=== PATIENT | male | born 1950 | race Caucasian/White ===

== ENCOUNTER 2023-04-25 13:32 | Emergency (ER) | payer OTHER, BC ==
--- OUTSIDE RECORDS SUMMARY | 2023-04-25 14:09 | XMS REPORT | Continuity of Care Document ---
:[address] [facility] t Address [address] [facility] [address] [place] [address] Care Team Providers Name Role Phone LASHONDA GREENFIELD Primary Care Physician Unavailable KRANTHI DOAN Attending Clinician Unavailable Franki HARRIS, Kranthi Staton Attending Clinician Ian Quach MD Attending Clinician Evan Short MD Attending Clinician ELLE COLEMAN Attending Clinician Unavailable Elle Coleman MD Attending Clinician Jane Lee MD Attending Clinician Darling Sterling Attending Clinician Mila Little Attending Clinician Unavailable Mila Little Attending Clinician Unavailable Lashonda Greenfield MD Attending Clinician Denisse Hall MA Attending Clinician Unavailable Destiny Arellano MD Attending Clinician Aki Fleming MD Attending Clinician Yaron Douglas MD Attending Clinician YARON DOUGLAS Attending Clinician Unavailable Zachery Thomas MD Attending Clinician [phone] Skye Shields Attending Clinician [phone] Jacob HARRIS, Ramya Attending Clinician RL RATLIFF Attending Clinician Unavailable Rl Ratliff MD Attending Clinician Unavailable Sourav HARRIS, Akua Attending Clinician Andreina Mendez CRNA Attending Clinician [phone] Arti HARRIS, Ismael Reed Attending Clinician [phone] Brian Medina MD Attending Clinician Hieu Renteria DO Attending Clinician [phone] Tonia HARRIS, Patrick Attending Clinician Shirley Love MA Attending Clinician Unavailable Julianne Stout Attending Clinician Loren Maya Attending Clinician Unavailable Peter HARRIS, Yolanda Child Attending Clinician DINORA YI Attending Clinician Unavailable AKI FLEMING Attending Clinician Unavailable LIZ JORDAN Attending Clinician Unavailable KRANTHI DOAN Admitting Clinician Unavailable ELLE COLEMAN Admitting Clinician Unavailable RL RATLIFF Admitting Clinician Unavailable CATIE CM Admitting Clinician UnavailLIZ Posada Admitting Clinician Unavailable Payers Payer Name Policy Type Policy Number Effective Date Expiration Date S ource MEDICARE A B [id number] 2015 00:00:00 [facility] IN[facility]MN[facility] [place] [id number] 2015 OS 00:00:00 Problems Condition Condition Condition Status Onset Resolution Last Treating Co mments Source Name Details Category Date Date Treatment Clinician Date Esophageal Esophageal Disease Recurre [facility] 00 [place] Hard of Hard of Disease Active 2021-10 [facility] hearing hearing 0-13 [facility] 00:[facility]: Hospita 00 l Hearing Hearing Disease Active [facility] loss loss 9-16 [facility]: Medical 00 [place] [facility] Central Disease Active [facility] sleep sleep 7-07 st apnea apnea 00:00: Hospita 00 l Malignant Malignant Disease Active Overview: [facility] neoplasm neoplasm 3-[address] of of 00:00: g of this Hospita prostate prostate 00 note l might be different from the original. Previousl y Billed Type 2 Type 2 Disease Active Overview: Method i diabetes diabetes 2-[address] mellitus mellitus 00:00: g of this Hos steph with with 00 note l diabetic diabetic might be neuropathy neuropathy different , , from the unspecifie unspecifie original. 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 failure failure Previousl y Billed Erectile Erectile Disease [facility] due to due to 00[facility]: Medical medical medical 00 Center condition condition in male in male Complicati Complicati Disease Recurre [facility] implanted implanted 00:00: Medi ferny penile penile 00 Center prosthesis prosthesis Erectile Erectile Disease Active [facility] dysfunctio dysfunctio 9-11 [facility] n n 00:00: Medical 00 Center Corporo-ve Corporo-ve Disease Active [facility] 9[facility]11 [facility] occlusive occlusive 00:00: Medi ferny erectile erectile 00 Center dysfunctio dysfunctio n n Class 1 Class 1 Disease Active 2017-10 Overview: Meth karina obesity obesity 0-[address] due to due to 00:00: g of this Hospita excess excess 00 note l calories calories might be without without different serious serious from the comorbidit comorbidit original. y with y with Currently body mass body mass working index index on losing (BMI) of (BMI) of weightWal 30.0 to 30.0 to ks and 30.9 in 30.9 in swims for adult adult exercise. Last Assessmen t & Plan: Formattin g of this note might be different from the original. Obesity is unchanged .Discusse d the patient's BMI. The BMI is above average; BMI managemen t plan is completed .He will continue his current diet plan and exercise. Hyperglyce Hyperglyce Disease Active Overview : [facility] jozef jozef 07-[address] 00:00: g of this Hospita 00 note l might be different from the original. Elevated BG in the past.Last Assessmen t & Plan: Formattin g of this note might be different from the original. Check HgbA1c today Allergic Allergic Disease Active 2015-10 [facility] di conjunctiv conjunctiv 11-12 st itis itis 00:00: Hospita 00 l Hypogonadi Hypogonadi Disease Active 2015-10 Overview : [facility] sm in male sm in male [facility] 00:00: g of this Hospita 00 note l might be different from the original. Followed by Kyara lo seen in 04/2018Las t Assessmen t & Plan: Formattin g of this note might be different from the original. Continue current medicatio ns Vasculogen Vasculogen Disease Active 2015-[address] erectile erectile 00:00: Hospit a dysfunctio dysfunctio 00 l n n Lipoma of Lipoma of Disease Active 2015-[address] 00:00: Hospita 00 l Benign Benign Disease Active [facility] prostatic prostatic 12-14 st hyperplasi hyperplasi 00:00: Ho spita a a 00 l Essential Essential Disease Active Overview: [facility] hypertensi hypertensi 12-[address] on on 00:00: g of this Hospita 00 note l might be different from the original. 01/2020BP elevatedH CTZ increased to 25 mg daily.Las t Assessmen t & Plan: Formattin g of this note might be different from the original. Continue current medicatio ns Folliculit Folliculit Disease Active M ethodi is is 3 st 00:00: Hospita 00 l HLD HLD Disease Active Overview: Method i (hyperlipi (hyperlipi 3-[address] demia) demia) 00:00: g of this Hospita 00 note l might be different from the original. Takes statin dailyLDL was 50 in 04/[address] Assessmen t & Plan: Formattin g of this note might be different from the original. Lipid abnormali ties are stable.Ph fabiola woodard as ordered.L ipids will be reassesse d in 1 year. Coronary Coronary Disease Active Overview: Me anderson arterioscl arterioscl 12-[address] erosis erosis 00:00: g of this Hospita 00 note l might be different from the original. On HEMANTH, BB, ASAFollow ed by HSRJoe Assessaguilar t & Plan: Formattin g of this note might be different from the original. Coronary artery disease is stable.Co ntinue current treatment regimen.C ardiac status will be reassesse d in 1 year. Impotence Impotence Disease Active [facility] 12-14 st 00:00: Hospita 00 l Type 2 Type 2 Disease Active [facility] diabetes diabetes st mellitus mellitus Hospit a l Allergies, Adverse Reactions, Alerts Allergy Allergy Status Severity Reaction(s) Onset Inactive Treating Comm ents Source Name Type Date Date Clinician No Known Propensi Active Method i Drug ty to 12-14 st Allergie adverse 00:00: Hospita s reaction 00 l s to drug NO KNOWN Allergy Active [facility] ALLERGIE S Family History Family Member Diagnosis Comments Start Date Stop Date Source Natural father Stroke [facility] Natural mother Breast cancer [facility] Natural mother Cancer [facility] Natural mother Miscarriages / Method [facility] Stillbirths Natural sister Depression [facility] Social History Social Habit Start Date Stop Date Quantity Comments Source History of tobacco Cigarette Smoker [facility] History SDOH [facility] Alcohol Std Drinks Medica l Center History SDOH [facility] Alcohol Binge Medical Apoor[facility] Gender identity [facility] Sexual orientation [facility] Hospital Exposure to 2023-01-27 2023-02-[address] [facility] SARS-CoV-2 (event) 00:00:00 08:46:00 Medica l Center Alcohol intake 2023-01-25 2023-01-25 Current drinker [facility] 00:00:00 00:00:00 of alcohol Hospital (finding) History of Social 2023-01-25 2023-01-[address] function 00:00:00 00:00:00 Hospital History SDOH Social 2022-12-17 2022-12-17 2 [facility] Phone 00:00:00 00:00:00 Hospita l History [facility] Social 2022-12-17 2022-12-17 2 [facility] Get 00:00:00 00:00:00 Hospital Together History [facility] Social 2022-12-17 2022-12-17 1 [facility]ctions Yazdanism 00:00:00 00:00:00 Hospit al History [facility] Social 2022-12-17 2022-12-17 2 [facility]ctions 00:00:00 00:00:00 Hospital Membership History [facility] Social 2022-12-17 2022-12-17 1 [facility]ctions 00:00:00 00:00:00 Hospital Meetings History [facility] Social 2022-12-17 2022-12-17 7 [facility] Living 00:00:00 00:00:00 Hospit al History [facility] Food 2022-12-17 2022-12-[address] Worry 00:00:00 00:00:00 Hospital History [facility] Food 2022-12-17 2022-12-[address] Scarcity 00:00:00 00:00:00 Hospital History [facility] 2022-12-17 2022-12-17 2 [facility] Transport Med 00:00:00 00:00:00 Hospital History [facility] 2022-12-17 2022-12-17 2 [facility] Transport Non-Med 00:00:00 00:00:00 Hospita l Cigarettes smoked 2022-02-08 2022-02-[address] current (pack per 00:00:00 00:00:00 Hospita l day) - Reported Cigarette 2022-02-08 2022-02-08 [facility] pack-years 00:00:00 00:00:00 Hospital Tobacco use and 2022-02-08 2022-02-08 Smokeless [facility] exposure 00:00:00 00:00:00 tobacco non-user Hospital History [facility] 2019-06-10 2019-06-[address] [facility] Alcohol Frequency 00:00:00 00:00:[address] [facility] Alcohol Comment 2016-09-12 2016-09-12 drink alcohol Method ist 00:00:00 00:00:00 very Hospital infrequently, with meal Sex Ass[birth year] At [birth year] [facility] 00:00:00 00:00:00 Hospital Smoking Status Start Date Stop Date Source Tobacco smoking Rosalee Smith consumption unknown Ex-smoker 2023-01-17 00:00:00 2023-01-[address] [facility] 00:[facility]:00 Center Medications Ordered Filled Start Stop Current Ordering Indication Dosage Frequency Signature Comments Components Source Medication Medication Date Date Medication? Clinician (SIG) Name Name hydroCHLORO Yes 12.5mg QD Take [address] thiazide 5-05 capsule [facility] (MICROZIDE) 16:14: (12.5 mg Me dical 12.5 mg 14 total) by Center capsule mouth in the morning. lisinopriL 0 Yes 10mg QD Take 1 [facility] (PRINIVIL,Z 5-05 tablet (10 L[facility] kes ESTRIL) 10 16:14: mg total) Me dical MG tablet 14 by mouth Center in the morning. tamsulosin 0 Yes .4mg QD Take 1 [facility] (FLOMAX) 5-05 capsule [facility] 0.4 mg Cap 16:14: (0.4 mg Medi ferny 24 hr 14 total) by Center capsule mouth in the morning. carvediloL 0 Yes 25mg QD Take 1 [facility] (COREG) 25 5-05 tablet (25 Ene es MG tablet 16:14: mg total) Med ical 14 by mouth Center in the morning. metFORMIN 0 Yes 500mg Take 1 [facility] (GLUCOPHAGE 5-05 tablet [facility] ) 500 MG 16:14: (500 mg Medica l tablet 14 total) by Center mouth 2 (two) times daily with breakfast and dinner. testosteron 2022-0 Yes Q14D Inject [facility] cypionate 5-05 intramuscu Lili kes (DEPO-TESTO 16:14: larly Medic al TERONE 14 every 14 Center CYPIONATE) (fourteen) 100 mg/mL days. injection anastrozole 0 Yes 1mg Q7D Take [address] (ARIMIDEX) 5-05 tablet (1 [facility] s 1 mg tablet 16:14: mg total) M edical 14 by mouth Center once a week Weekly on Sundays. rosuvastati 0 Yes 40mg QD Take [address] n (CRESTOR) 5-05 tablet (40 L[facility] kes 40 MG 16:14: mg total) Medical tablet 14 by mouth Center in the morning. acetaminoph 202-0 Yes 650mg Take 20.[address] [facility] en 650 5-05 mLs (650 [facility] mg/20.3 mL 00:00: mg total) Me dical Soln 00 by mouth Center every 4 (four) hours. traMADoL 2022-0 2023- Yes 50mg Take [address] (ULTRAM) 50 5-05 05-15 tablet (50 L ukes mg tablet 00:00: 23:59 mg total) Me dical 00 :00 by mouth Center every 6 (six) hours as needed for up to 10 days. Max Daily Amount: 200 mg hydroCHLORO 2022-0 Yes 12.5mg QD Take [address] thiazide 5-02 capsule [facility] (MICROZIDE) 10:47: (12.5 mg Me dical 12.5 mg 25 total) by Center capsule mouth in the morning. lisinopriL 2022-0 Yes 10mg QD Take 1 [facility] (PRINIVIL,Z 5-02 tablet (10 Lili kes ESTRIL) 10 10:47: mg total) Me dical MG tablet 25 by mouth Center in the morning. tamsulosin 2022-0 Yes .4mg QD Take 1 [facility] (FLOMAX) 5-02 capsule [facility] 0.4 mg Cap 10:47: (0.4 mg Medi ferny 24 hr 25 total) by Center capsule mouth in the morning. carvediloL 2022-0 Yes 25mg QD Take 1 [facility] (COREG) 25 5-02 tablet (25 Ene es MG tablet 10:47: mg total) Med ical 25 by mouth Center in the morning. metFORMIN 2022-0 Yes 500mg Take 1 [facility] (GLUCOPHAGE 5-02 tablet [facility] ) 500 MG 10:47: (500 mg Medica l tablet 25 total) by Center mouth 2 (two) times daily with breakfast and dinner. testosteron 2022-0 Yes Q14D Inject [facility] e cypionate 5-02 intramuscu Lili kes (DEPO-TESTO 10:47: larly Medic al TERONE 25 every 14 Center CYPIONATE) (fourteen) 100 mg/mL days. injection anastrozole 2022-0 Yes 1mg QD Take [address] (ARIMIDEX) 5-02 tablet (1 Luke s 1 mg tablet 10:47: mg total) M edical 25 by mouth Center in the morning. rosuvastati 2023-0 Yes 40mg QD Take [address] n (CRESTOR) 5-02 tablet (40 Lili kes 40 MG 10:47: mg total) Medical tablet 25 by mouth Center in the morning. hydroCHLORO 2023-0 Yes 12.5mg QD Take [address] thiazide 5-02 capsule [facility] (MICROZIDE) 10:47: (12.5 mg Me dical 12.5 mg 25 total) by Center capsule mouth in the morning. lisinopriL 2023-0 Yes 10mg QD Take 1 [facility] (PRINIVIL,Z 5-02 tablet (10 Lili kes ESTRIL) 10 10:47: mg total) Me dical MG tablet 25 by mouth Center in the morning. tamsulosin 3-0 Yes .4mg QD Take 1 [facility] (FLOMAX) 5-02 capsule [facility] 0.4 mg Cap 10:47: (0.4 mg Medi ferny 24 hr 25 total) by Center capsule mouth in the morning. carvediloL 3-0 Yes 25mg QD Take 1 [facility] (COREG) 25 5-02 tablet (25 Ene es MG tablet 10:47: mg total) Med ical 25 by mouth Center in the morning. metFORMIN 2022-0 Yes 500mg Take 1 [facility] (GLUCOPHAGE 5-02 tablet [facility] ) 500 MG 10:47: (500 mg Medica l tablet 25 total) by Center mouth 2 (two) times daily with breakfast and dinner. testosteron 2022-0 Yes Q14D Inject [facility] e cypionate 5-02 intramuscu Lili kes (DEPO-TESTO 10:47: larly Medic al TERONE 25 every 14 Center CYPIONATE) (fourteen) 100 mg/mL days. injection anastrozole 3-0 Yes 1mg QD Take [address] (ARIMIDEX) 5-02 tablet (1 Luke s 1 mg tablet 10:47: mg total) M edical 25 by mouth Center in the morning. rosuvastati 2023-0 Yes 40mg QD Take [address] n (CRESTOR) 5-02 tablet (40 Lili kes 40 MG 10:47: mg total) Medical tablet 25 by mouth Center in the morning. hydroCHLORO 2023-0 Yes 12.5mg QD Take [address] thiazide 4-27 capsule [facility] (MICROZIDE) 10:49: (12.5 mg Me dical 12.5 mg 01 total) by Center capsule mouth in the morning. lisinopriL 2023-0 Yes 10mg QD Take 1 [facility] (PRINIVIL,Z 4-27 tablet (10 Lili kes ESTRIL) 10 10:49: mg total) Me dical MG tablet 01 by mouth Center in the morning. tamsulosin 2022-0 Yes .4mg QD Take 1 [facility] (FLOMAX) 4-27 capsule [facility] 0.4 mg Cap 10:49: (0.4 mg Medi ferny 24 hr 01 total) by Center capsule mouth in the morning. carvediloL 2022-0 Yes 25mg QD Take 1 [facility] (COREG) 25 4-27 tablet (25 Ene es MG tablet 10:49: mg total) Med ical 01 by mouth Center in the morning. metFORMIN 2022-0 Yes 500mg Take 1 [facility] (GLUCOPHAGE 4-27 tablet [facility] ) 500 MG 10:49: (500 mg Medica l tablet 01 total) by Center mouth 2 (two) times daily with breakfast and dinner. testosteron 2022-0 Yes Q14D Inject [facility] cypionate 4-27 intramuscu Lili kes (DEPO-TESTO 10:49: larly Medic al TERONE 01 every 14 Center CYPIONATE) (fourteen) 100 mg/mL days. injection anastrozole 2022-0 Yes 1mg QD Take [address] (ARIMIDEX) 4-27 tablet (1 Luke s 1 mg tablet 10:49: mg total) M edical 01 by mouth Center in the morning. rosuvastati 202-0 Yes 40mg QD Take [address] n (CRESTOR) 4-27 tablet (40 Lili kes 40 MG 10:49: mg total) Medical tablet 01 by mouth Center in the morning. hydroCHLORO 2023-0 Yes 12.5mg QD Take [address] thiazide 4-27 capsule [facility] (MICROZIDE) 10:49: (12.5 mg Me dical 12.5 mg 01 total) by Center capsule mouth in the morning. lisinopriL 2023-0 Yes 10mg QD Take 1 [facility] (PRINIVIL,Z 4-27 tablet (10 Lili kes ESTRIL) 10 10:49: mg total) Me dical MG tablet 01 by mouth Center in the morning. tamsulosin 2023-0 Yes .4mg QD Take 1 [facility] (FLOMAX) 4-27 capsule [facility] 0.4 mg Cap 10:49: (0.4 mg Medi ferny 24 hr 01 total) by Center capsule mouth in the morning. carvediloL 2023-0 Yes 25mg QD Take 1 [facility] (COREG) 25 4-27 tablet (25 Ene es MG tablet 10:49: mg total) Med ical 01 by mouth Center in the morning. metFORMIN 2023-0 Yes 500mg Take 1 [facility] (GLUCOPHAGE 4-27 tablet [facility] ) 500 MG 10:49: (500 mg Medica l tablet 01 total) by Center mouth 2 (two) times daily with breakfast and dinner. testosteron 2023-0 Yes Q14D Inject [facility] cypionate 4-27 intramuscu Lili kes (DEPO-TESTO 10:49: larly Medic al TERONE 01 every 14 Center CYPIONATE) (fourteen) 100 mg/mL days. injection anastrozole 2023-0 Yes 1mg QD Take [address] (ARIMIDEX) 4-27 tablet (1 [facility] 1 mg tablet 10:49: mg total) M edical 01 by mouth Center in the morning. rosuvastati 2023-0 Yes 40mg QD Take [address] n (CRESTOR) 4-27 tablet (40 L[facility] kes 40 MG 10:49: mg total) Medical tablet 01 by mouth Center in the morning. hydroCHLORO 2023-0 Yes 12.5mg QD Take [address] thiazide 4-26 capsule [facility] (MICROZIDE) 11:07: (12.5 mg Me dical 12.5 mg 05 total) by Center capsule mouth in the morning. lisinopriL 2023-0 Yes 10mg QD Take 1 [facility] (PRINIVIL,Z 4-26 tablet (10 L[facility] kes ESTRIL) 10 11:07: mg total) Me dical MG tablet 05 by mouth Center in the morning. tamsulosin 2023-0 Yes .4mg QD Take 1 [facility] (FLOMAX) 4-26 capsule [facility] 0.4 mg Cap 11:07: (0.4 mg Medi ferny 24 hr 05 total) by Center capsule mouth in the morning. carvediloL 2023-0 Yes 25mg QD Take 1 [facility] (COREG) 25 4-26 tablet (25 Ene es MG tablet 11:07: mg total) Med ical 05 by mouth Center in the morning. metFORMIN 2023-0 Yes 500mg Take 1 [facility] (GLUCOPHAGE 4-26 tablet [facility] ) 500 MG 11:07: (500 mg Medica l tablet 05 total) by Center mouth 2 (two) times daily with breakfast and dinner. testosteron 2022-0 Yes Q14D Inject [facility] cypionate 4-26 intramuscu Lili kes (DEPO-TESTO 11:07: larly Medic al TERONE 05 every 14 Center CYPIONATE) (fourteen) 100 mg/mL days. injection anastrozole 2022-0 Yes 1mg QD Take [address] (ARIMIDEX) 4-26 tablet (1 [facility] s 1 mg tablet 11:07: mg total) M edical 05 by mouth Center in the morning. rosuvastati 3-0 Yes 40mg QD Take [address] n (CRESTOR) 4-26 tablet (40 Lili kes 40 MG 11:07: mg total) Medical tablet 05 by mouth Center in the morning. ondansetron 2023-0 Yes [id number] 8mg Q8H Take 1 [facility] (Zofran) 8 4-14 tablet (8 st MG tablet 00:00: mg total) Hos steph 00 by mouth l every 8 (eight) hours as needed for nausea or vomiting. ondansetron 2023-0 Yes [id number] 8mg Q8H Take 1 [facility] (Zofran) 8 4-14 tablet (8 st MG tablet 00:00: mg total) Hos steph 00 by mouth l every 8 (eight) hours as needed for nausea or vomiting. hydroCHLORO 2023-0 Yes 12.5mg QD Take [address] thiazide 4-06 capsule [facility] (MICROZIDE) 13:59: (12.5 mg Me dical 12.5 mg 01 total) by Center capsule mouth in the morning. lisinopriL 2023-0 Yes 10mg QD Take 1 [facility] (PRINIVIL,Z 4-06 tablet (10 Lili kes ESTRIL) 10 13:59: mg total) Me dical MG tablet 01 by mouth Center in the morning. tamsulosin 3-0 Yes .4mg QD Take 1 [facility] (FLOMAX) 4-06 capsule [facility] 0.4 mg Cap 13:59: (0.4 mg Medi ferny 24 hr 01 total) by Center capsule mouth in the morning. carvediloL 3-0 Yes 25mg QD Take 1 [facility] (COREG) 25 4-06 tablet (25 Ene es MG tablet 13:59: mg total) Med ical 01 by mouth Center in the morning. metFORMIN 3-0 Yes 500mg Take 1 [facility] (GLUCOPHAGE 4-06 tablet [facility] ) 500 MG 13:59: (500 mg Medica l tablet 01 total) by Center mouth 2 (two) times daily with breakfast and dinner. testosteron 2022-0 Yes Q14D Inject [facility] cypionate 4-06 intramuscu Lili kes (DEPO-TESTO 13:59: larly Medic al TERONE 01 every 14 Center CYPIONATE) (fourteen) 100 mg/mL days. injection anastrozole 3-0 Yes 1mg QD Take [address] (ARIMIDEX) 4-06 tablet (1 Luke s 1 mg tablet 13:59: mg total) M edical 01 by mouth Center in the morning. rosuvastati 2022-0 Yes 40mg QD Take [address] n (CRESTOR) 4-06 tablet (40 Lili kes 40 MG 13:59: mg total) Medical tablet 01 by mouth Center in the morning. ZINC 3-0 2023- No Take by [facility]i ACETATE 3-07 03-[address] ORAL 15:15: 00:00 Hospita 01 :00 l ZINC 2023-0 2023- No Take by [facility]i ACETATE 3-07 03-[address] ORAL 15:15: 00:00 Hospita 01 :00 l anastrozole 2023-0 Yes 1mg Q1W Take 1 Meth karina (ARIMIDEX) 3-07 tablet (1 st 1 mg chemo 13:13: mg total) Ho spita tablet 46 by mouth l every 7 days. anastrozole 2023-0 Yes 1mg Q1W Take 1 Meth karina (ARIMIDEX) 3-07 tablet (1 st 1 mg chemo 13:13: mg total) Ho spita tablet 46 by mouth l every 7 days. terbinafine Yes [id number] 250mg QD Take 1 [facility] HCL 3-[address] (LamiSIL) 00:00: (250 mg Hospi ta 250 mg 00 total) by l tablet mouth daily. Finger Nails - 6 weeks, Toenails - 12 weeks terbinafine Yes [id number] 250mg QD Take 1 [facility] HCL 3-[address] (LamiSIL) 00:00: (250 mg Hospi ta 250 mg 00 total) by l tablet mouth daily. Finger Nails - 6 weeks, Toenails - 12 weeks aspirin 2023- No [id number] 81mg QD Take 1 [facility]odi (ECOTRIN) 12-18-07 tablet (81 st 81 MG 00:00: 05:59 mg total) Hospit a enteric 00 :00 by mouth l coated daily. tablet aspirin 2023- No [id number] 81mg QD Take 1 Met [facility]odi (ECOTRIN) 12-18-07 tablet (81 st 81 MG 00:00: 05:59 mg total) Hospit a enteric 00 :00 by mouth l coated daily. tablet empaglifloz 2022- No [id number] 10mg QD Take 1 [facility] in 12-03-22 tablet (10 st (Jardiance) 00:00: 04:59 mg total) Hospita 10 mg 00 :00 by mouth l tablet daily for tablet 90 days. empaglifloz 2022- No [id number] 10mg QD Take 1 [facility] in 12-03-22 tablet (10 st (Jardiance) 00:00: 04:59 mg total) Hospita 10 mg 00 :00 by mouth l tablet daily for tablet 90 days. lancets Yes [id number] USE ONE [facility] (onetouch 2-[address] ultrasoft) 00:00: TEST TWICE H ospita misc 00 A DAY l lancets 2022- Yes [id number] USE ONE [facility] (onetouch 2-[address] ultrasoft) 00:00: TEST TWICE H ospita misc 00 A DAY l lisinopriL 2021-10 Yes TAKE ONE Met [facility]odi (PRINIVIL) 1-[address] 10 mg 00:00: MOUTH Hospita tablet 00 DAILY l hydroCHLORO 2021-10 Yes TAKE ONE Me thodi thiazide 1-[address] (HYDRODIURI 00:00: MOUTH Hospi ta L) 25 MG 00 DAILY l tablet lisinopriL 2021-10 Yes TAKE ONE Met hodi (PRINIVIL) 1-[address] 10 mg 00:00: MOUTH Hospita tablet 00 DAILY l hydroCHLORO 2021-10 Yes TAKE ONE Me thodi thiazide 1-[address] (HYDRODIURI 00:00: MOUTH Hospi ta L) 25 MG 00 DAILY l tablet empaglifloz 2021-10- No [id number] 10mg QD Take 1 [facility] in 10-30-18 tablet (10 st (Jardiance) 00:00: 05:59 mg total) Hospita 10 mg 00 :00 by mouth l tablet daily for tablet 30 days. empaglifloz 2021-10- No [id number] 10mg QD Take 1 [facility]i in 10-3018 tablet (10 st (Jardiance) 00:00: 05:59 mg total) Hospita 10 mg 00 :00 by mouth l tablet daily for tablet 30 days. ZINC 2021-10 Yes Take by Methodi ACETATE 0-[address] ORAL 10:03: Hospita 01 l anastrozole 2021-10 Yes 1mg Q1W Take 1 mg M ethodi (ARIMIDEX) 0-[address] 1 mg chemo 10:03: every 7 Hosp shelly tablet 01 days. l rosuvastati 2021- No 10mg QD Take [address] [facility] (CRESTOR) 06-30-16 by mouth Ene es 10 MG 12:15: 00:00 daily. Medical tablet 01 :00 Center metFORMIN 2021- No 500mg Take [address] (GLUMETZA) 06-30-16 [facility] 12:15: 00:00 [facility] Medical (MOD) 24 hr 01 :00 daily with Ce nter tablet breakfast. rosuvastati 2021- No 10mg QD Take [address] [facility] (CRESTOR) 917 09-16 by mouth [facility] 10 MG 12:15: 00:00 daily. Medical tablet 01 :00 [place] metFORMIN 2021-0 2022- No 500mg Take [address] [facility] [address] [facility] (GLUMETZA) 9-17 09-16 [facility] MG 12:15: 00:00 mouth Medical (MOD) 24 hr 01 :00 daily with Ce nter tablet breakfast. rosuvastati 2021-0 2022- No 10mg QD Take [address] [facility] (CRESTOR) 06-30-16 by mouth [facility] 10 MG 12:15: 00:00 daily. Medical tablet 01 :00 [place] metFORMIN 2021-0 2021- No 500mg Take [address] [facility] [address] [facility] (GLUMETZA) 06-30-16 [facility] MG 12:15: 00:00 mouth Medical (MOD) 24 hr 01 :00 daily with Ce nter tablet breakfast. rosuvastati 2021-0 2- No 10mg QD Take [address] [facility] (CRESTOR) 06-30-16 by mouth Ene es 10 MG 12:15: 00:00 daily. Medical tablet 01 :00 [place] metFORMIN 2021-0 2021- No 500mg Take [address] [facility] [address] [facility] (GLUMETZA) 06-30-16 [facility] MG 12:15: 00:00 mouth Medical (MOD) 24 hr 01 :00 daily with Ce nter tablet breakfast. rosuvastati 2021-0 2- No 10mg QD Take [address] [facility] (CRESTOR) 06-30-16 by mouth Ene [facility] 10 MG 12:15: 00:00 daily. Medical tablet 01 :00 [place] metFORMIN 2021-0 2- No 500mg Take [address] [facility] [address] [facility] (GLUMETZA) 06-30 09-16 [facility] MG 12:15: 00:00 mouth Medical (MOD) 24 hr 01 :00 daily with Ce nter tablet breakfast. rosuvastati 2021-0 2- No 10mg QD Take [address] [facility] (CRESTOR) 06-30-16 by mouth Ene [facility] 10 MG 12:15: 00:00 daily. Medical tablet 01 :00 [place] metFORMIN 2021-0 2022- No 500mg Take [address] [facility] [address] [facility] (GLUMETZA) 9-17 09-16 [facility] MG 12:15: 00:00 mouth Medical (MOD) 24 hr 01 :00 daily with Ce nter tablet breakfast. rosuvastati 2021-0 2022- No 10mg QD Take [address] [facility] (CRESTOR) 06-30-16 by mouth Ene [facility] 10 MG 12:15: 00:00 daily. Medical tablet 01 :00 [place] metFORMIN 2021-2- No 500mg Take [address] [facility] [address] (GLUMETZA) 06-30-16 [facility] MG 12:15: 00:00 mouth Medical (MOD) 24 hr 01 :00 daily with Ce nter tablet breakfast. rosuvastati 2021-0 2- No 10mg QD Take [address] [facility] (CRESTOR) 06-30-16 by mouth [facility] 10 MG 12:15: 00:00 daily. Medical tablet 01 :00 [place] metFORMIN 2021-2021- No 500mg Take [address] [facility] [address] [facility] (GLUMETZA) 06-30-16 [facility] MG 12:15: 00:00 mouth Medical (MOD) 24 hr 01 :00 daily with Ce nter tablet breakfast. rosuvastati 2021-0 2- No 10mg QD Take [address] [facility] (CRESTOR) 06-30-16 by mouth [facility] 10 MG 12:15: 00:00 daily. Medical tablet 01 :00 [place] metFORMIN 2021-0 2- No 500mg Take [address] [facility] [address] (GLUMETZA) 06-30-16 [facility] MG 12:15: 00:00 mouth Medical (MOD) 24 hr 01 :00 daily with Ce nter tablet breakfast. rosuvastati 2021-0 2022- No 10mg QD Take [address] [facility] (CRESTOR) 06-30-16 by mouth [facility] 10 MG 12:15: 00:00 daily. Medical tablet 01 :00 [place] metFORMIN 2021-0 2- No 500mg Take [address] [facility] [address] (GLUMETZA) 06-30 09-16 [facility] MG 12:15: 00:00 mouth Medical (MOD) 24 hr 01 :00 daily with Ce nter tablet breakfast. rosuvastati 2021-0 2022- No 10mg QD Take [address] [facility] (CRESTOR) 9- 09-16 by mouth [facility]ne [facility] 10 MG 12:15: 00:00 daily. Medical tablet 01 :00 [place] metFORMIN 2021-0 2022- No 500mg Take [address] [facility] [address] (GLUMETZA) 9-17 09-16 [facility] MG 12:15: 00:00 mouth Medical (MOD) 24 hr 01 :00 daily with Ce nter tablet breakfast. rosuvastati 2021-0 2022- No 10mg QD Take [address] [facility] (CRESTOR) 06-30-16 by mouth Ene [facility] 10 MG 12:15: 00:00 daily. Medical tablet 01 :00 [place] metFORMIN 2021-2021- No 500mg Take [address] [facility] [address] (GLUMETZA) 06-30-16 [facility] MG 12:15: 00:00 mouth Medical (MOD) 24 hr 01 :00 daily with Ce nter tablet breakfast. rosuvastati 2021-2- No 10mg QD Take [address] [facility] (CRESTOR) 06-30-16 by mouth Ene es 10 MG 12:15: 00:00 daily. Medical tablet 01 :00 [place] metFORMIN 2021-0 2021- No 500mg Take [address] [facility] [address] (GLUMETZA) 06-30-16 [facility] MG 12:15: 00:00 mouth Medical (MOD) 24 hr 01 :00 daily with Ce nter tablet breakfast. rosuvastati 2021-0 2021- No 10mg QD Take [address] [facility] (CRESTOR) 06-30-16 by mouth Ene es 10 MG 12:15: 00:00 daily. Medical tablet 01 :00 [place] metFORMIN 2021-0 2- No 500mg Take [address] [facility] [address] (GLUMETZA) - 09-16 [facility] MG 12:15: 00:00 mouth Medical (MOD) 24 hr 01 :00 daily with Ce nter tablet breakfast. rosuvastati 2021-0 2- No 10mg QD Take [address] [facility] (CRESTOR) 06-30-16 by mouth Ene es 10 MG 12:15: 00:00 daily. Medical tablet 01 :00 [place] metFORMIN 2021-0 2022- No 500mg Take [address] [facility] [address] (GLUMETZA) 9- 09-16 [facility] MG 12:15: 00:00 mouth Medical (MOD) 24 hr 01 :00 daily with Ce nter tablet breakfast. anastrozole 2021- No 1mg Q7D Take [address] [facility] (ARIMIDEX) 06-29 by [facility] 1 mg tablet 09:40: 00:00 once a Med ical 54 :00 week Every Center saturday . tamsulosin 2021- No .4mg QD Take 0.[address] [facility] [address] [facility] (FLOMAX) 06-29 [facility] 0.4 mg Cap 09:40: 00:00 mouth Medic al 24 hr 54 :00 daily. Center capsule testosteron No 200mg Inject [address] [facility] enanthate 06-29 [facility] 100 mg/0.5 09:40: 00:00 subcutaneo Medical mL AtIn 54 :00 usly once Center every 2 weeks. sulfamethox 2021- No 1{tbl} Q.5D Take [address] azole-trime 06-29 tablet by [facility] thoprim 09:40: 00:00 mouth 2 Medica l (BACTRIM 54 :00 (two) Center DS) 800-160 times mg per daily. tablet levoFLOXaci 2021- No 500mg QD Take [address] [facility] 06-29 mg [facility] (LEVAQUIN) 09:40: 00:00 mouth Medic al 500 MG 54 :00 daily. Center tablet hydroCHLORO 2021- No 12.5mg QD Take 12.[address] [facility] thiazide 06-2916 mg [facility] (HYDRODIURI 09:40: 00:00 mouth Medi ferny L) 12.5 MG 54 :00 daily. Center tablet carvedilol 2021- No 25mg QD Take [address] [facility] (COREG) 25 06-29 by mouth [facility] MG tablet 09:40: 00:00 daily . Medi ferny 54 :00 Center lisinopril 2021- No 10mg QD Take [address] [facility] (PRINIVIL,Z 06-29 by mouth Ene es ESTRIL) 10 09:40: 00:00 daily. Medi ferny MG tablet 54 :00 [place] simvastatin 2021- No 10mg QD Take [address] [facility] (ZOCOR) 10 06-29 by mouth [facility] MG tablet 09:40: 00:00 nightly. Med ical 54 :00 [place] anastrozole 2021- No 1mg Q7D Take [address] [facility] (ARIMIDEX) 06-29 by mouth [facility] 1 mg tablet 09:40: 00:00 once a Med ical 54 :00 week Every Center saturday . tamsulosin 2021- No .4mg QD Take 0.[address] [facility] [address] [facility] (FLOMAX) 06-29-16 mg [facility] 0.4 mg Cap 09:40: 00:00 mouth Medic al 24 hr 54 :00 daily. [place] capsule testosteron 2021- No 200mg Inject [address] [facility] enanthate 06-29 mg [facility] 100 mg/0.5 09:40: 00:00 subcutaneo Medical mL AtIn 54 :00 usly once Center every 2 weeks. sulfamethox 2021- No 1{tbl} Q.5D Take [address] azole-trime 06-29 tablet by [facility] thoprim 09:40: 00:00 mouth 2 Medica l (BACTRIM 54 :00 (two) Center DS) 800-160 times mg per daily. tablet levoFLOXaci 2021- No 500mg QD Take [address] [facility] 06-29- mg by [facility] (LEVAQUIN) 09:40: 00:00 mouth Medic al 500 MG 54 :00 daily. [place] tablet hydroCHLORO 2021- No 12.5mg QD Take 12.[address] [facility] thiazide 06-29-16 mg [facility] (HYDRODIURI 09:40: 00:00 mouth Medi ferny L) 12.5 MG 54 :00 daily. [place] tablet carvedilol 2021- No 25mg QD Take [address] [facility] (COREG) 25 06-29 by mouth [facility] MG tablet 09:40: 00:00 daily . Medi ferny 54 :00 [place] lisinopril 2021- No 10mg QD Take [address] [facility] (PRINIVIL,Z 06-29 by mouth Ene es ESTRIL) 10 09:40: 00:00 daily. Medi ferny MG tablet 54 :00 [place] simvastatin 2021- No 10mg QD Take [address] [facility] (ZOCOR) 10 06-29 by mouth [facility] MG tablet 09:40: 00:00 nightly. Med ical 54 :00 [place] anastrozole 2021- No 1mg Q7D Take [address] [facility] (ARIMIDEX) 06-29 by mouth [facility] 1 mg tablet 09:40: 00:00 once a Med ical 54 :00 week Every Center saturday . tamsulosin 2021- No .4mg QD Take 0.[address] [facility] [address] [facility] (FLOMAX) 06-29 [facility] 0.4 mg Cap 09:40: 00:00 mouth Medic al 24 hr 54 :00 daily. [place] capsule testosteron No 200mg Inject [address] [facility] enanthate 06-29 mg [facility] 100 mg/0.5 09:40: 00:00 subcutaneo Medical mL AtIn 54 :00 usly once Center every 2 weeks. sulfamethox 2021- No 1{tbl} Q.5D Take [address] azole-trime 06-29 tablet by [facility] k[facility] thoprim 09:40: 00:00 mouth 2 Medica l (BACTRIM 54 :00 (two) Center ) 800-160 times mg per daily. tablet levoFLOXaci 2021- No 500mg QD Take [address] [facility] 06-29 mg [facility] (LEVAQUIN) 09:40: 00:00 mouth Medic al 500 MG 54 :00 daily. [place] tablet hydroCHLORO 2021- No 12.5mg QD Take 12.[address] [facility] thiazide 06-2916 mg [facility] (HYDRODIURI 09:40: 00:00 mouth Medi ferny L) 12.5 MG 54 :00 daily. [place] tablet carvedilol 2021- No 25mg QD Take [address] [facility] (COREG) 25 06-29 by mouth [facility] MG tablet 09:40: 00:00 daily . Medi ferny 54 :00 [place] lisinopril 2021- No 10mg QD Take [address] [facility] (PRINIVIL,Z 06-29 by mouth Ene es ESTRIL) 10 09:40: 00:00 daily. Medi ferny MG tablet 54 :00 [place] simvastatin 2021- No 10mg QD Take [address] [facility] (ZOCOR) 10 06-29 by mouth [facility] MG tablet 09:40: 00:00 nightly. Med ical 54 :00 [place] anastrozole 2021- No 1mg Q7D Take [address] [facility] (ARIMIDEX) 06-29 by mouth [facility] 1 mg tablet 09:40: 00:00 once a Med ical 54 :00 week Every Center saturday . tamsulosin 2021- No .4mg QD Take 0.[address] [facility] [address] [facility] (FLOMAX) 06-29 mg by [facility] 0.4 mg Cap 09:40: 00:00 mouth Medic al 24 hr 54 :00 daily. [place] capsule testosteron 2021- No 200mg Inject [address] [facility] enanthate 06-29 [facility] 100 mg/0.5 09:40: 00:00 subcutaneo Medical mL AtIn 54 :00 usly once Center every 2 weeks. sulfamethox 2021- No 1{tbl} Q.5D Take [address] azole-trime 06-29 tablet by [facility] kesaeid thoprim 09:40: 00:00 mouth 2 Medica l (BACTRIM 54 :00 (two) Center DS) 800-160 times mg per daily. tablet levoFLOXaci 2021- No 500mg QD Take [address] [facility] 06-29 mg by [facility] (LEVAQUIN) 09:40: 00:00 mouth Medic al 500 MG 54 :00 daily. [place] tablet hydroCHLORO 2021- No 12.5mg QD Take 12.[address] [facility] thiazide 06-29 mg by [facility] (HYDRODIURI 09:40: 00:00 mouth Medi ferny L) 12.5 MG 54 :00 daily. Center tablet carvedilol 2021- No 25mg QD Take [address] [facility] (COREG) 25 06-29 by mouth [facility] MG tablet 09:40: 00:00 daily . Medi ferny 54 :00 [place] lisinopril 2021- No 10mg QD Take [address] [facility] (PRINIVIL,Z 06-29 by mouth Ene es ESTRIL) 10 09:40: 00:00 daily. Medi ferny MG tablet 54 :00 [place] simvastatin No 10mg QD Take [address] [facility] (ZOCOR) 10 06-29 by mouth [facility] MG tablet 09:40: 00:00 nightly. Med ical 54 :00 [place] anastrozole No 1mg Q7D Take [address] [facility] (ARIMIDEX) 06-29 by mouth [facility] 1 mg tablet 09:40: 00:00 once a Med ical 54 :00 week Every Center saturday . tamsulosin No .4mg QD Take 0.[address] [facility] [address] [facility] (FLOMAX) 06-29 [facility] 0.4 mg Cap 09:40: 00:00 mouth Medic al 24 hr 54 :00 daily. [place] capsule testosteron No 200mg Inject [address] [facility] en[facility]ate 06-29 mg [facility] 100 mg/0.5 09:40: 00:00 subcutaneo Medical mL AtIn 54 :00 usly once Center every 2 weeks. sulfamethox 2021- No 1{tbl} Q.5D Take [address] azole-trime 06-29 tablet by [facility] thoprim 09:40: 00:00 mouth 2 Medica l (BACTRIM 54 :00 (two) Center DS) 800-160 times mg per daily. tablet levoFLOXaci 2021- No 500mg QD Take [address] [facility] 06-29 mg [facility] (LEVAQUIN) 09:40: 00:00 mouth Medic al 500 MG 54 :00 daily. [place] tablet hydroCHLORO 2021- No 12.5mg QD Take 12.[address] [facility] thiazide 06-29 mg [facility] (HYDRODIURI 09:40: 00:00 mouth Medi ferny L) 12.5 MG 54 :00 daily. Center tablet carvedilol 2021- No 25mg QD Take [address] [facility] (COREG) 25 06-29 by mouth [facility] MG tablet 09:40: 00:00 daily . Medi ferny 54 :00 [place] lisinopril 2021- No 10mg QD Take [address] [facility] (PRINIVIL,Z 06-29 by mouth Ene es ESTRIL) 10 09:40: 00:00 daily. Medi ferny MG tablet 54 :00 [place] simvastatin No 10mg QD Take [address] [facility] (ZOCOR) 10 06-29 by mouth [facility] MG tablet 09:40: 00:00 nightly. Med ical 54 :00 [place] anastrozole 2021- No 1mg Q7D Take [address] [facility] (ARIMIDEX) 06-29 by mouth [facility] 1 mg tablet 09:40: 00:00 once a Med ical 54 :00 week Every Center saturday . tamsulosin 2021- No .4mg QD Take 0.[address] [facility] [address] [facility] (FLOMAX) 06-29 mg by [facility] 0.4 mg Cap 09:40: 00:00 mouth Medic al 24 hr 54 :00 daily. [place] capsule testosteron 2021- No 200mg Inject [address] [facility] en[facility]ate 06-29 mg [facility] 100 mg/0.5 09:40: 00:00 subcutaneo Medical mL AtIn 54 :00 usly once Center every 2 weeks. sulfamethox 2021- No 1{tbl} Q.5D Take [address] azole-trime 06-29 tablet by [facility] thoprim 09:40: 00:00 mouth 2 Medica l (BACTRIM 54 :00 (two) Center DS) 800-160 times mg per daily. tablet levoFLOXaci 2021- No 500mg QD Take [address] [facility] 06-29 mg by [facility] (LEVAQUIN) 09:40: 00:00 mouth Medic al 500 MG 54 :00 daily. [place] tablet hydroCHLORO 2021- No 12.5mg QD Take 12.[address] [facility] thiazide 06-29-16 mg [facility] (HYDRODIURI 09:40: 00:00 mouth Medi ferny L) 12.5 MG 54 :00 daily. [place] tablet carvedilol 2021- No 25mg QD Take [address] [facility] (COREG) 25 06-29 by mouth [facility] MG tablet 09:40: 00:00 daily . Medi ferny 54 :00 [place] lisinopril 2021- No 10mg QD Take [address] [facility] (PRINIVIL,Z 06-29 by mouth Ene es ESTRIL) 10 09:40: 00:00 daily. Medi ferny MG tablet 54 :00 [place] simvastatin 2021- No 10mg QD Take [address] [facility] (ZOCOR) 10 06-29 by mouth [facility] MG tablet 09:40: 00:00 nightly. Med ical 54 :00 [place] anastrozole 2021- No 1mg Q7D Take [address] [facility] (ARIMIDEX) 06-29 by mouth [facility] 1 mg tablet 09:40: 00:00 once a Med ical 54 :00 week Every Center saturday . tamsulosin 2021- No .4mg QD Take 0.[address] [facility] [address] [facility] (FLOMAX) 06-29-16 [facility] 0.4 mg Cap 09:40: 00:00 mouth Medic al 24 hr 54 :00 daily. [place] capsule testosteron 2021- No 200mg Inject [address] [facility] en[facility]ate 06-29-16 [facility] 100 mg/0.5 09:40: 00:00 subcutaneo Medical mL AtIn 54 :00 usly once Center every 2 weeks. sulfamethox 2021- No 1{tbl} Q.5D Take [address] azole-trime 06-29 tablet by [facility] thoprim 09:40: 00:00 mouth 2 Medica l (BACTRIM 54 :00 (two) Center ) 800-160 times mg per daily. tablet levoFLOXaci 2021- No 500mg QD Take [address] [facility] 06-29 mg by [facility] (LEVAQUIN) 09:40: 00:00 mouth Medic al 500 MG 54 :00 daily. [place] tablet hydroCHLORO 2021- No 12.5mg QD Take 12.[address] [facility] thiazide 06-29 mg by [facility] (HYDRODIURI 09:40: 00:00 mouth Medi ferny L) 12.5 MG 54 :00 daily. [place] tablet carvedilol 2021- No 25mg QD Take [address] [facility] (COREG) 25 06-29 by mouth [facility] MG tablet 09:40: 00:00 daily . Medi ferny 54 :00 [place] lisinopril 2021- No 10mg QD Take [address] [facility] (PRINIVIL,Z 06-29 by mouth Ene es ESTRIL) 10 09:40: 00:00 daily. Medi ferny MG tablet 54 :00 [place] simvastatin 2021- No 10mg QD Take [address] [facility] (ZOCOR) 10 06-29 by mouth [facility] MG tablet 09:40: 00:00 nightly. Med ical 54 :00 [place] anastrozole 2021- No 1mg Q7D Take [address] [facility] (ARIMIDEX) 06-29 by mouth [facility] 1 mg tablet 09:40: 00:00 once a Med ical 54 :00 week Every Center saturday . tamsulosin 2021- No .4mg QD Take 0.[address] [facility] [address] [facility] (FLOMAX) 06-29 mg [facility] 0.4 mg Cap 09:40: 00:00 mouth Medic al 24 hr 54 :00 daily. [place] capsule testosteron 2021- No 200mg Inject [address] [facility] en[facility] 06-29 mg [facility] 100 mg/0.5 09:40: 00:00 subcutaneo Medical mL AtIn 54 :00 usly once Center every 2 weeks. sulfamethox 2021- No 1{tbl} Q.5D Take [address] azole-trime 06-29 tablet by [facility] thoprim 09:40: 00:00 mouth 2 Medica l (BACTRIM 54 :00 (two) Center DS) 800-160 times mg per daily. tablet levoFLOXaci 2021- No 500mg QD Take [address] [facility] 06-29-16 [facility] (LEVAQUIN) 09:40: 00:00 mouth Medic al 500 MG 54 :00 daily. [place] tablet hydroCHLORO 2021- No 12.5mg QD Take 12.[address] [facility] thiazide 06-2916 mg [facility] (HYDRODIURI 09:40: 00:00 mouth Medi ferny L) 12.5 MG 54 :00 daily. [place] tablet carvedilol 2021- No 25mg QD Take [address] [facility] (COREG) 25 06-29 by mouth [facility] MG tablet 09:40: 00:00 daily . Medi ferny 54 :00 [place] lisinopril 2021- No 10mg QD Take [address] [facility] (PRINIVIL,Z 06-29 by mouth Ene es ESTRIL) 10 09:40: 00:00 daily. Medi ferny MG tablet 54 :00 [place] simvastatin 2021- No 10mg QD Take [address] [facility] (ZOCOR) 10 06-29 by mouth [facility] MG tablet 09:40: 00:00 nightly. Med ical 54 :00 [place] anastrozole 2021- No 1mg Q7D Take [address] [facility] (ARIMIDEX) 06-29 by mouth [facility] 1 mg tablet 09:40: 00:00 once a Med ical 54 :00 week Every Center saturday . tamsulosin 2021- No .4mg QD Take 0.[address] [facility] [address] [facility] (FLOMAX) 06-29-16 [facility] 0.4 mg Cap 09:40: 00:00 mouth Medic al 24 hr 54 :00 daily. [place] capsule testosteron 2021- No 200mg Inject [address] [facility] en[facility]ate 06-2916 [facility] 100 mg/0.5 09:40: 00:00 subcutaneo Medical mL AtIn 54 :00 usly once Center every 2 weeks. sulfamethox 2021- No 1{tbl} Q.5D Take [address] azole-trime 06-29 tablet by [facility] thoprim 09:40: 00:00 mouth 2 Medica l (BACTRIM 54 :00 (two) Center DS) 800-160 times mg per daily. tablet levoFLOXaci 2021- No 500mg QD Take [address] [facility] 06-29 mg [facility] (LEVAQUIN) 09:40: 00:00 mouth Medic al 500 MG 54 :00 daily. [place] tablet hydroCHLORO 2021- No 12.5mg QD Take 12.[address] [facility] thiazide 06-29 mg [facility] (HYDRODIURI 09:40: 00:00 mouth Medi ferny L) 12.5 MG 54 :00 daily. [place] tablet carvedilol 2021- No 25mg QD Take [address] [facility] (COREG) 25 06-29 by mouth [facility] MG tablet 09:40: 00:00 daily . Medi ferny 54 :00 [place] lisinopril No 10mg QD Take [address] [facility] (PRINIVIL,Z 06-29 by mouth Ene es ESTRIL) 10 09:40: 00:00 daily. Medi ferny MG tablet 54 :00 [place] simvastatin No 10mg QD Take [address] [facility] (ZOCOR) 10 06-29 by mouth [facility] MG tablet 09:40: 00:00 nightly. Med ical 54 :00 [place] anastrozole 2021- No 1mg Q7D Take [address] [facility] (ARIMIDEX) 06-29 by mouth [facility] 1 mg tablet 09:40: 00:00 once a Med ical 54 :00 week Every Center saturday . tamsulosin 2021- No .4mg QD Take 0.[address] [facility] [address] [facility] (FLOMAX) 06-29 [facility] 0.4 mg Cap 09:40: 00:00 mouth Medic al 24 hr 54 :00 daily. [place] capsule testosteron 2021- No 200mg Inject [address] [facility] en[facility]ate 06-29 [facility] 100 mg/0.5 09:40: 00:00 subcutaneo Medical mL AtIn 54 :00 usly once Center every 2 weeks. sulfamethox 2021- No 1{tbl} Q.5D Take [address] azole-trime 06-29 tablet by [facility] thoprim 09:40: 00:00 mouth 2 Medica l (BACTRIM 54 :00 (two) Center ) 800-160 times mg per daily. tablet levoFLOXaci 2021- No 500mg QD Take [address] [facility] 06-29 mg by [facility] (LEVAQUIN) 09:40: 00:00 mouth Medic al 500 MG 54 :00 daily. [place] tablet hydroCHLORO 2021- No 12.5mg QD Take 12.[address] [facility] thiazide 06-29 mg by [facility] (HYDRODIURI 09:40: 00:00 mouth Medi ferny L) 12.5 MG 54 :00 daily. [place] tablet carvedilol 2021- No 25mg QD Take [address] [facility] (COREG) 25 06-29 by mouth [facility] MG tablet 09:40: 00:00 daily . Medi fenry 54 :00 [place] lisinopril 2021- No 10mg QD Take [address] [facility] (PRINIVIL,Z 06-29 by mouth Ene es ESTRIL) 10 09:40: 00:00 daily. Medi ferny MG tablet 54 :00 [place] simvastatin 2021- No 10mg QD Take [address] [facility] (ZOCOR) 10 06-29 by mouth [facility] MG tablet 09:40: 00:00 nightly. Med ical 54 :00 [place] anastrozole 2021- No 1mg Q7D Take [address] [facility] (ARIMIDEX) 06-29 by mouth [facility] 1 mg tablet 09:40: 00:00 once a Med ical 54 :00 week Every Center saturday . tamsulosin 2021- No .4mg QD Take 0.[address] [facility] [address] [facility] (FLOMAX) 06-29 [facility] 0.4 mg Cap 09:40: 00:00 mouth Medic al 24 hr 54 :00 daily. [place] capsule testosteron 2021- No 200mg Inject [address] [facility] en[facility]ate 06-29-16 [facility] 100 mg/0.5 09:40: 00:00 subcutaneo Medical mL AtIn 54 :00 usly once Center every 2 weeks. sulfamethox 2021- No 1{tbl} Q.5D Take [address] azole-trime 06-29 tablet by [facility] thoprim 09:40: 00:00 mouth 2 Medica l (BACTRIM 54 :00 (two) Center DS) 800-160 times mg per daily. tablet levoFLOXaci 2021- No 500mg QD Take [address] [facility] 06-29 mg [facility] (LEVAQUIN) 09:40: 00:00 mouth Medic al 500 MG 54 :00 daily. [place] tablet hydroCHLORO 2021- No 12.5mg QD Take 12.[address] [facility] thiazide 06-29 mg [facility] (HYDRODIURI 09:40: 00:00 mouth Medi ferny L) 12.5 MG 54 :00 daily. [place] tablet carvedilol 2021- No 25mg QD Take [address] [facility] (COREG) 25 06-29 by mouth [facility] MG tablet 09:40: 00:00 daily . Medi ferny 54 :00 [place] lisinopril 2021- No 10mg QD Take [address] [facility] (PRINIVIL,Z 06-29 by mouth Ene es ESTRIL) 10 09:40: 00:00 daily. Medi ferny MG tablet 54 :00 [place] simvastatin 2021- No 10mg QD Take [address] [facility] (ZOCOR) 10 06-29 by mouth [facility] MG tablet 09:40: 00:00 nightly. Med ical 54 :00 [place] anastrozole 2021- No 1mg Q7D Take [address] [facility] (ARIMIDEX) 06-29 by mouth [facility] 1 mg tablet 09:40: 00:00 once a Med ical 54 :00 week Every Center saturday . tamsulosin 2021- No .4mg QD Take 0.[address] [facility] [address] [facility] (FLOMAX) 9-16 09-16 [facility] 0.4 mg Cap 09:40: 00:00 mouth Medic al 24 hr 54 :00 daily. Center capsule testosteron No 200mg Inject [address] [facility] en[facility]ate 06-29 mg [facility] 100 mg/0.5 09:40: 00:00 subcutaneo Medical mL AtIn 54 :00 usly once Center every 2 weeks. sulfamethox 2021- No 1{tbl} Q.5D Take [address] azole-trime 06-29 tablet by [facility] thoprim 09:40: 00:00 mouth 2 Medica l (BACTRIM 54 :00 (two) Center DS) 800-160 times mg per daily. tablet levoFLOXaci No 500mg QD Take [address] [facility] 06-29 mg by [facility] (LEVAQUIN) 09:40: 00:00 mouth Medic al 500 MG 54 :00 daily. [place] tablet hydroCHLORO 2021- No 12.5mg QD Take 12.[address] [facility] thiazide 06-2916 mg [facility] (HYDRODIURI 09:40: 00:00 mouth Medi ferny L) 12.5 MG 54 :00 daily. [place] tablet carvedilol 2021- No 25mg QD Take [address] [facility] (COREG) 25 06-29 by mouth [facility] MG tablet 09:40: 00:00 daily . Medi ferny 54 :00 [place] hydroCHLORO 2021- No 12.5mg QD Take 12.[address] [facility] thiazide 06-29-16 mg [facility] (HYDRODIURI 09:40: 00:00 mouth Medi ferny L) 12.5 MG 54 :00 daily. [place] tablet carvedilol 2021- No 25mg QD Take [address] [facility] (COREG) 25 06-29 by mouth [facility] MG tablet 09:40: 00:00 daily . Medi ferny 54 :00 [place] lisinopril 2021- No 10mg QD Take [address] [facility] (PRINIVIL,Z 06-29 by mouth Ene es ESTRIL) 10 09:40: 00:00 daily. Medi ferny MG tablet 54 :00 [place] simvastatin 2021- No 10mg QD Take [address] [facility] (ZOCOR) 10 06-29 by mouth [facility] MG tablet 09:40: 00:00 nightly. Med ical 54 :00 [place] anastrozole 2021- No 1mg Q7D Take [address] [facility] (ARIMIDEX) 06-29 by mouth [facility] 1 mg tablet 09:40: 00:00 once a Med ical 54 :00 week Every Center saturday . tamsulosin 2021- No .4mg QD Take 0.[address] [facility] (FLOMAX) 06-29 mg by [facility] 0.4 mg Cap 09:40: 00:00 mouth Medic al 24 hr 54 :00 daily. [place] capsule testosteron 2021- No 200mg Inject [address] [facility] e enanthate 06-29 mg [facility] 100 mg/0.5 09:40: 00:00 subcutaneo Medical mL AtIn 54 :00 usly once Center every 2 weeks. sulfamethox 2021- No 1{tbl} Q.5D Take [address] azole-trime 06-29 tablet by Lili kes thoprim 09:40: 00:00 mouth 2 Medica l (BACTRIM 54 :00 (two) Center DS) 800-160 times mg per daily. tablet levoFLOXaci 2021- No 500mg QD Take [address] [facility] n 06-29 mg by [facility] (LEVAQUIN) 09:40: 00:00 mouth Medic al 500 MG 54 :00 daily. [place] tablet lisinopril 2021- No 10mg QD Take [address] [facility] (PRINIVIL,Z 06-29 by mouth Ene es ESTRIL) 10 09:40: 00:00 daily. Medi ferny MG tablet 54 :00 [place] simvastatin 2021- No 10mg QD Take [address] [facility] (ZOCOR) 10 06-29 by mouth Luke s MG tablet 09:40: 00:00 nightly. Med ical 54 :00 [place] anastrozole 2021- No 1mg Q7D Take [address] [facility] (ARIMIDEX) 06-29 by mouth Luke s 1 mg tablet 09:40: 00:00 once a Med ical 54 :00 week Every Center saturday . tamsulosin 2021- No .4mg QD Take 0.[address] [facility] [address] (FLOMAX) 06-29 mg by [facility] 0.4 mg Cap 09:40: 00:00 mouth Medic al 24 hr 54 :00 daily. [place] capsule testosteron No 200mg Inject [address] [facility] e enanthate 06-29 mg [facility] 100 mg/0.5 09:40: 00:00 subcutaneo Medical mL AtIn 54 :00 usly once Center every 2 weeks. sulfamethox 2021- No 1{tbl} Q.5D Take [address] azole-trime 06-29 tablet by Lili yan thoprim 09:40: 00:00 mouth 2 Medica l (BACTRIM 54 :00 (two) Center DS) 800-160 times mg per daily. tablet levoFLOXaci No 500mg QD Take [address] [facility] n 06-29 mg by [facility] (LEVAQUIN) 09:40: 00:00 mouth Medic al 500 MG 54 :00 daily. [place] tablet hydroCHLORO No 12.5mg QD Take 12.[address] [facility] thiazide 06-29 mg by [facility] (HYDRODIURI 09:40: 00:00 mouth Medi ferny L) 12.5 MG 54 :00 daily. [place] tablet carvedilol 2021- No 25mg QD Take [address] [facility] (COREG) 25 06-29 by mouth Luke s MG tablet 09:40: 00:00 daily . Medi ferny 54 :00 [place] lisinopril 2021- No 10mg QD Take [address] [facility] (PRINIVIL,Z 06-29 by mouth Ene es ESTRIL) 10 09:40: 00:00 daily. Medi ferny MG tablet 54 :00 [place] simvastatin 2021- No 10mg QD Take [address] [facility] (ZOCOR) 10 06-29 by mouth Luke s MG tablet 09:40: 00:00 nightly. Med ical 54 :00 [place] anastrozole 2021- No 1mg Q7D Take [address] [facility] (ARIMIDEX) 06-29 by mouth Luke s 1 mg tablet 09:40: 00:00 once a Med ical 54 :00 week Every Center saturday . tamsulosin 2021- No .4mg QD Take 0.[address] [facility] [address] [facility] (FLOMAX) 06-2916 mg by [facility] 0.4 mg Cap 09:40: 00:00 mouth Medic al 24 hr 54 :00 daily. Center capsule testosteron 2021- No 200mg Inject [address] [facility] e enanthate 06-29 mg [facility] 100 mg/0.5 09:40: 00:00 subcutaneo Medical mL AtIn 54 :00 usly once Center every 2 weeks. sulfamethox 2021- No 1{tbl} Q.5D Take [address] azole-trime 06-29 tablet by iLli yan thoprim 09:40: 00:00 mouth 2 Medica l (BACTRIM 54 :00 (two) Center DS) 800-160 times mg per daily. tablet levoFLOXaci 2021- No 500mg QD Take [address] [facility] n 06-29 mg by [facility] (LEVAQUIN) 09:40: 00:00 mouth Medic al 500 MG 54 :00 daily. [place] tablet hydroCHLORO 2021- No 12.5mg QD Take 12.[address] [facility] thiazide 06-29 mg by [facility] (HYDRODIURI 09:40: 00:00 mouth Medi ferny L) 12.5 MG 54 :00 daily. [place] tablet carvedilol 2021- No 25mg QD Take [address] [facility] (COREG) 25 06-29 by mouth Luke s MG tablet 09:40: 00:00 daily . Medi ferny 54 :00 [place] lisinopril 2021- No 10mg QD Take [address] [facility] (PRINIVIL,Z 06-29 by mouth Ene es ESTRIL) 10 09:40: 00:00 daily. Medi ferny MG tablet 54 :00 [place] simvastatin 2022-0 2022- No 10mg QD Take [address] [facility] (ZOCOR) 10 06-29 by mouth Luke [facility] MG tablet 09:40: 00:00 nightly. Med ical 54 :00 Center amoxicillin 2021- No 1{tbl} Q.5D Take [address] -clavulanat 06-29 tablet by Lili kes e 00:00: 23:59 mouth 2 Medical (AUGMENTIN) 00 :00 (two) Center 875-125 mg times per tablet daily for 10 days. amoxicillin 2021- No 1{tbl} Q.5D Take [address] -clavulanat 06-29 tablet by Lili kes e 00:00: 23:59 mouth 2 Medical (AUGMENTIN) 00 :00 (two) Center 875-125 mg times per tablet daily for 10 days. amoxicillin 2021- No 1{tbl} Q.5D Take [address] -clavulanat 06-29 tablet by Lili kes e 00:00: 23:59 mouth 2 Medical (AUGMENTIN) 00 :00 (two) Center 875-125 mg times per tablet daily for 10 days. amoxicillin 2021- No 1{tbl} Q.5D Take [address] -clavulanat 06-29 tablet by Lili kes e 00:00: 23:59 mouth 2 Medical (AUGMENTIN) 00 :00 (two) Center 875-125 mg times per tablet daily for 10 days. amoxicillin 2021- No 1{tbl} Q.5D Take [address] -clavulanat 06-29 tablet by Lili kes e 00:00: 23:59 mouth 2 Medical (AUGMENTIN) 00 :00 (two) Center 875-125 mg times per tablet daily for 10 days. amoxicillin 2021- No 1{tbl} Q.5D Take [address] -clavulanat 06-29 tablet by Lili kes e 00:00: 23:59 mouth 2 Medical (AUGMENTIN) 00 :00 (two) Center 875-125 mg times per tablet daily for 10 days. amoxicillin 2021- No 1{tbl} Q.5D Take [address] -clavulanat -26 tablet by Lili [employer] 00:00: 23:59 mouth 2 Medical (AUGMENTIN) 00 :00 (two) Center 875-125 mg times per tablet daily for 10 days. amoxicillin 2021- No 1{tbl} Q.5D Take [address] -clavulanat 9-16 07-09 tablet by Lili kes e 00:00: 23:59 mouth 2 Medical (AUGMENTIN) 00 :00 (two) Center 875-125 mg times per tablet daily for 10 days. amoxicillin 2021- No 1{tbl} Q.5D Take [address] -clavulanat 9-16 07-09 tablet by Lili [employer] 00:00: 23:59 mouth 2 Medical (AUGMENTIN) 00 :00 (two) Center 875-125 mg times per tablet daily for 10 days. amoxicillin 2021- No 1{tbl} Q.5D Take [address] -clavulanat -16 07-09 tablet by [facility] 00:00: 23:59 mouth 2 Medical (AUGMENTIN) 00 :00 (two) Center 875-125 mg times per tablet daily for 10 days. amoxicillin 2021- No 1{tbl} Q.5D Take [address] -clavulanat 9-16 07-09 tablet by [facility] [employer] [facility] 00:00: 23:59 mouth 2 Medical (AUGMENTIN) 00 :00 (two) Center 875-125 mg times per tablet daily for 10 days. amoxicillin 2021- No 1{tbl} Q.5D Take [address] -clavulanat 9-16 07-09 tablet by [facility] 00:00: 23:59 mouth 2 Medical (AUGMENTIN) 00 :00 (two) Center 875-125 mg times per tablet daily for 10 days. amoxicillin 2021- No 1{tbl} Q.5D Take [address] -clavulanat 9-16 07-09 tablet by Lili kes e 00:00: 23:59 mouth 2 Medical (AUGMENTIN) 00 :00 (two) Center 875-125 mg times per tablet daily for 10 days. amoxicillin 2021- No 1{tbl} Q.5D Take [address] -clavulanat 9-16 09-26 tablet by Lili kes e 00:00: 23:59 mouth 2 Medical (AUGMENTIN) 00 :00 (two) Center 875-125 mg times per tablet daily for 10 days. amoxicillin 2021- No 1{tbl} Q.5D Take [address] -clavulanat 06-29 tablet by Lili kes e 00:00: 23:59 mouth 2 Medical (AUGMENTIN) 00 :00 (two) Center 875-125 mg times per tablet daily for 10 days. traMADoL 2021-2021- No 50mg Take [address] [facility] (ULTRAM) 50 06-29 tablet (50 [facility] mg tablet 00:00: 23:59 mg total) Me dical 00 :00 by mouth Center every 6 (six) hours as needed for Pain for up to 7 days. Max Daily Amount: 200 mg traMADoL 2021-2021- No 50mg Take [address] [facility] (ULTRAM) 50 06-29 tablet (50 [facility] mg tablet 00:00: 23:59 mg total) Me dical 00 :00 by mouth Center every 6 (six) hours as needed for Pain for up to 7 days. Max Daily Amount: 200 mg traMADoL 2021-2021- No 50mg Take [address] [facility] (ULTRAM) 50 06-29 tablet (50 L [facility] mg tablet 00:00: 23:59 mg total) Me dical 00 :00 by mouth Center every 6 (six) hours as needed for Pain for up to 7 days. Max Daily Amount: 200 mg traMADoL 2021-2021- No 50mg Take [address] [facility] (ULTRAM) 50 06-29 tablet (50 L [facility] mg tablet 00:00: 23:59 mg total) Me dical 00 :00 by mouth Center every 6 (six) hours as needed for Pain for up to 7 days. Max Daily Amount: 200 mg traMADoL 2021-2021- No 50mg Take [address] [facility] (ULTRAM) 50 06-29 tablet (50 [facility] mg tablet 00:00: 23:59 mg total) Me dical 00 :00 by mouth Center every 6 (six) hours as needed for Pain for up to 7 days. Max Daily Amount: 200 mg traMADoL 2021-0 2021- No 50mg Take [address] [facility] (ULTRAM) 50 -29 06-23 tablet (50 L [facility] mg tablet 00:00: 23:59 mg total) Me dical 00 :00 by mouth Center every 6 (six) hours as needed for Pain for up to 7 days. Max Daily Amount: 200 mg traMADoL 2021-0 2- No 50mg Take [address] [facility] (ULTRAM) 50 -29 06-23 tablet (50 L [facility] mg tablet 00:00: 23:59 mg total) Me dical 00 :00 by mouth Center every 6 (six) hours as needed for Pain for up to 7 days. Max Daily Amount: 200 mg traMADoL 2021-2021- No 50mg Take [address] [facility] (ULTRAM) 50 -29 06- tablet (50 [facility] mg tablet 00:00: 23:59 mg total) Me dical 00 :00 by mouth Center every 6 (six) hours as needed for Pain for up to 7 days. Max Daily Amount: 200 mg traMADoL 2021-2021- No 50mg Take [address] [facility] (ULTRAM) 50 -29 06- tablet (50 L [facility] mg tablet 00:00: 23:59 mg total) Me dical 00 :00 by mouth Center every 6 (six) hours as needed for Pain for up to 7 days. Max Daily Amount: 200 mg traMADoL 2021-2021- No 50mg Take [address] [facility] (ULTRAM) 50 -29 06-23 tablet (50 L [facility] mg tablet 00:00: 23:59 mg total) Me dical 00 :00 by mouth Center every 6 (six) hours as needed for Pain for up to 7 days. Max Daily Amount: 200 mg traMADoL 2021-0 2021- No 50mg Take [address] [facility] (ULTRAM) 50 -29 06-23 tablet (50 L [facility] mg tablet 00:00: 23:59 mg total) Me dical 00 :00 by mouth Center every 6 (six) hours as needed for Pain for up to 7 days. Max Daily Amount: 200 mg traMADoL 2021-0 2- No 50mg Take [address] [facility] (ULTRAM) 50 9-29 06-23 tablet (50 L [facility] mg tablet 00:00: 23:59 mg total) Me dical 00 :00 by mouth Center every 6 (six) hours as needed for Pain for up to 7 days. Max Daily Amount: 200 mg traMADoL 2021-2021- No 50mg Take [address] [facility] (ULTRAM) 50 06-29-23 tablet (50 L [facility] mg tablet 00:00: 23:59 mg total) Me dical 00 :00 by mouth Center every 6 (six) hours as needed for Pain for up to 7 days. Max Daily Amount: 200 mg traMADoL 2021-2021- No 50mg Take [address] [facility] (ULTRAM) 50 06-29 tablet (50 L [facility] mg tablet 00:00: 23:59 mg total) Me dical 00 :00 by mouth Center every 6 (six) hours as needed for Pain for up to 7 days. Max Daily Amount: 200 mg traMADoL 2021- No 50mg Take [address] [facility] (ULTRAM) 50 06-29 tablet (50 L [facility] mg tablet 00:00: 23:59 mg total) Me dical 00 :00 by mouth Center every 6 (six) hours as needed for Pain for up to 7 days. Max Daily Amount: 200 mg amoxicillin 2021- No 1{tbl} Q.5D Take [address] -clavulanat 06-29 tablet by Lili [employer] 00:00: 00:00 mouth 2 Medical (AUGMENTIN) 00 :00 (two) Center 875-125 mg times per tablet daily for 10 days. traMADoL 2021- No 50mg Take [address] [facility] (ULTRAM) 50 06-29 tablet (50 [facility] mg tablet 00:00: 00:00 mg total) Me dical 00 :00 by mouth Center every 6 (six) hours as needed for Pain for up to 7 days. Max Daily Amount: 200 mg amoxicillin 2021- No 1{tbl} Q.5D Take [address] -clavulanat 06-29 tablet by Lili kes e 00:00: 00:00 mouth 2 Medical (AUGMENTIN) 00 :00 (two) Center 875-125 mg times per tablet daily for 10 days. traMADoL 2021-2021- No 50mg Take [address] [facility] (ULTRAM) 50 9-29 06-16 tablet (50 [facility] mg tablet 00:00: 00:00 mg total) Me dical 00 :00 by mouth Center every 6 (six) hours as needed for Pain for up to 7 days. Max Daily Amount: 200 mg amoxicillin 2021- No 1{tbl} Q.5D Take [address] -clavulanat 06-29-16 tablet by Lili kes e 00:00: 00:00 mouth 2 Medical (AUGMENTIN) 00 :00 (two) Center 875-125 mg times per tablet daily for 10 days. traMADoL 2021- No 50mg Take [address] [facility] (ULTRAM) 50 06-29-16 tablet (50 [facility] mg tablet 00:00: 00:00 mg total) Me dical 00 :00 by mouth Center every 6 (six) hours as needed for Pain for up to 7 days. Max Daily Amount: 200 mg amoxicillin 2021- No 1{tbl} Q.5D Take [address] -clavulanat 06-2916 tablet by Lili kes e 00:00: 00:00 mouth 2 Medical (AUGMENTIN) 00 :00 (two) Center 875-125 mg times per tablet daily for 10 days. traMADoL 2021- No 50mg Take [address] [facility] (ULTRAM) 50 06-29-16 tablet (50 [facility] mg tablet 00:00: 00:00 mg total) Me dical 00 :00 by mouth Center every 6 (six) hours as needed for Pain for up to 7 days. Max Daily Amount: 200 mg amoxicillin 2021- No 1{tbl} Q.5D Take [address] -clavulanat 06-2916 tablet by Lili kes e 00:00: 00:00 mouth 2 Medical (AUGMENTIN) 00 :00 (two) Center 875-125 mg times per tablet daily for 10 days. traMADoL 2021-2021- No 50mg Take [address] [facility] (ULTRAM) 50 06-29-16 tablet (50 L [facility] mg tablet 00:00: 00:00 mg total) Me dical 00 :00 by mouth Center every 6 (six) hours as needed for Pain for up to 7 days. Max Daily Amount: 200 mg amoxicillin 2021-0 2- No 1{tbl} Q.5D Take [address] -clavulanat -29 06- tablet by Lili kes e 00:00: 00:00 mouth 2 Medical (AUGMENTIN) 00 :00 ([facility]) Center 875-125 mg times per tablet daily for 10 days. traMADoL 2021-0 2- No 50mg Take [address] [facility] (ULTRAM) 50 -29 06-16 tablet (50 L [facility] mg tablet 00:00: 00:00 mg total) Me dical 00 :00 by mouth Center every 6 (six) hours as needed for Pain for up to 7 days. Max Daily Amount: 200 mg amoxicillin 2021-0 2021- No 1{tbl} Q.5D Take [address] -clavulanat -29 06- tablet by Lili kes e 00:00: 00:00 mouth 2 Medical (AUGMENTIN) 00 :00 ([facility]) [place] 875-125 mg times per tablet daily for 10 days. traMADoL 2021-0 2021- No 50mg Take [address] [facility] (ULTRAM) 50 06-29-16 tablet (50 L [facility] mg tablet 00:00: 00:00 mg total) Me dical 00 :00 by mouth Center every 6 (six) hours as needed for Pain for up to 7 days. Max Daily Amount: 200 mg amoxicillin 2021-0 2021- No 1{tbl} Q.5D Take [address] -clavulanat 06-29- tablet by [facility] [employer] [facility] 00:00: 00:00 mouth 2 Medical (AUGMENTIN) 00 :00 ([facility]) Center 875-125 mg times per tablet daily for 10 days. traMADoL 2021-0 2021- No 50mg Take [address] [facility] (ULTRAM) 50 -29 06-16 tablet (50 L [facility] mg tablet 00:00: 00:00 mg total) Me dical 00 :00 by mouth Center every 6 (six) hours as needed for Pain for up to 7 days. Max Daily Amount: 200 mg amoxicillin 2021-0 2- No 1{tbl} Q.5D Take [address] -clavulanat -29 06-16 tablet by Lili kes e 00:00: 00:00 mouth 2 Medical (AUGMENTIN) 00 :00 (two) Center 875-125 mg times per tablet daily for 10 days. traMADoL 2021-0 2022- No 50mg Take [address] [facility] (ULTRAM) 50 -29 06-16 tablet (50 L [facility] mg tablet 00:00: 00:00 mg total) Me dical 00 :00 by mouth Center every 6 (six) hours as needed for Pain for up to 7 days. Max Daily Amount: 200 mg amoxicillin 2021-0 2022- No 1{tbl} Q.5D Take [address] -clavulanat 06-29-16 tablet by Lili kes e 00:00: 00:00 mouth 2 Medical (AUGMENTIN) 00 :00 ([facility]) Center 875-125 mg times per tablet daily for 10 days. traMADoL 2021-0 2021- No 50mg Take [address] [facility] (ULTRAM) 50 06-29-16 tablet (50 L [facility] mg tablet 00:00: 00:00 mg total) Me dical 00 :00 by mouth Center every 6 (six) hours as needed for Pain for up to 7 days. Max Daily Amount: 200 mg amoxicillin 2021-0 2021- No 1{tbl} Q.5D Take [address] -clavulanat 06-29-16 tablet by Lili kes e 00:00: 00:00 mouth 2 Medical (AUGMENTIN) 00 :00 ([facility]) Center 875-125 mg times per tablet daily for 10 days. traMADoL 2021-0 2021- No 50mg Take [address] [facility] (ULTRAM) 50 06-29-16 tablet (50 L [facility] mg tablet 00:00: 00:00 mg total) Me dical 00 :00 by mouth Center every 6 (six) hours as needed for Pain for up to 7 days. Max Daily Amount: 200 mg amoxicillin 2021-0 2- No 1{tbl} Q.5D Take [address] -clavulanat -16 -16 tablet by Lili kes e 00:00: 00:00 mouth 2 Medical (AUGMENTIN) 00 :00 (two) Center 875-125 mg times per tablet daily for 10 days. traMADoL 2-0 2022- No 50mg Take [address] [facility] (ULTRAM) 50 9-29 06-16 tablet (50 L [facility] mg tablet 00:00: 00:00 mg total) Me dical 00 :00 by mouth Center every 6 (six) hours as needed for Pain for up to 7 days. Max Daily Amount: 200 mg amoxicillin 2021- No 1{tbl} Q.5D Take [address] -clavulanat 06-29 tablet by Lili kes e 00:00: 00:00 mouth 2 Medical (AUGMENTIN) 00 :00 (two) Center 875-125 mg times per tablet daily for 10 days. traMADoL 2021-2021- No 50mg Take [address] [facility] (ULTRAM) 50 06-29 tablet (50 L [facility] mg tablet 00:00: 00:00 mg total) Me dical 00 :00 by mouth Center every 6 (six) hours as needed for Pain for up to 7 days. Max Daily Amount: 200 mg amoxicillin 2021- No 1{tbl} Q.5D Take [address] -clavulanat 06-29 tablet by Lili kes e 00:00: 00:00 mouth 2 Medical (AUGMENTIN) 00 :00 (two) Center 875-125 mg times per tablet daily for 10 days. traMADoL 2021- No 50mg Take [address] [facility] (ULTRAM) 50 06-29- tablet (50 L [facility] mg tablet 00:00: 00:00 mg total) Me dical 00 :00 by mouth Center every 6 (six) hours as needed for Pain for up to 7 days. Max Daily Amount: 200 mg amoxicillin 2021- No 1{tbl} Q.5D Take [address] -clavulanat 06-29 tablet by Lili kes e 00:00: 00:00 mouth 2 Medical (AUGMENTIN) 00 :00 (two) Center 875-125 mg times per tablet daily for 10 days. traMADoL 2021-2021- No 50mg Take [address] [facility] (ULTRAM) 50 06-29-16 tablet (50 L [facility] mg tablet 00:00: 00:00 mg total) Me dical 00 :00 by mouth Center every 6 (six) hours as needed for Pain for up to 7 days. Max Daily Amount: 200 mg metFORMIN 2021- Yes [id number] TAKE ONE [facility] (GLUCOPHAGE 8-[address] ) 500 mg 00:00: MOUTH [facility] tablet 00 TWICE A l DAY INTHE MORNING AND IN THE EVENING WITH MEALS. metFORMIN 2021-0 Yes [id number] TAKE ONE [facility] (GLUCOPHAGE 8-[address] ) 500 mg 00:00: MOUTH [facility] tablet 00 TWICE A l DAY INTHE MORNING AND IN THE EVENING WITH MEALS. metFORMIN 2021-0 Yes [id number] TAKE ONE [facility] (GLUCOPHAGE 8-[address] ) 500 mg 00:00: MOUTH [facility]osp[facility] tablet 00 TWICE A l DAY INTHE MORNING AND IN THE EVENING WITH MEALS. azithromyci 2021-0 2022- No 250mg QD Take 1 [facility] n 05-11 [facility] (Zithromax 00:00: 00:00 (250 mg [facility] Z-Hrash) 250 00 :00 total) by l MG tablet mouth daily. Take 2 tablets the first day, then 1 tablet daily for 4 days. azithromyci 2021-0 2021- No 250mg QD Take 1 [facility] n 05-11 10[facility] (Zithromax 00:00: 00:00 (250 mg [facility] Z-Harsh) 250 00 :00 total) by l MG tablet mouth daily. Take 2 tablets the first day, then 1 tablet daily for 4 days. azithromyci 2021-0 2021- No 250mg QD Take 1 [facility] 05-11 10[facility] (Zithromax 00:00: 00:00 (250 mg Hos ste[facility] Z-Harsh) 250 00 :00 total) by l MG tablet mouth daily. Take 2 tablets the first day, then 1 tablet daily for 4 days. rosuvastati 2021-0 Yes TAKE ONE Me thodi n (CRESTOR) 7-[address] 40 MG 00:00: MOUTH [facility]osp[facility] tablet 00 DAILY l tamsulosin 2021-0 Yes TAKE ONE [facility] (FLOMAX) 7-[address] 0.4 mg 00:00: MOUTH [facility] capsule 00 DAILY l rosuvastati 2021-0 Yes TAKE ONE Me [facility]odi n (CRESTOR) 7-[address] 40 MG 00:00: MOUTH [facility] tablet 00 DAILY l tamsulosin 2021-0 Yes TAKE ONE [facility] (FLOMAX) 7-[address] 0.4 mg 00:00: MOUTH [facility] capsule 00 DAILY l rosuvastati Yes TAKE ONE Me thodi n (CRESTOR) 7-[address] 40 MG 00:00: MOUTH [facility] tablet 00 DAILY l tamsulosin Yes TAKE ONE [facility] (FLOMAX) 7-[address] 0.4 mg 00:00: MOUTH [facility] capsule 00 DAILY l benzonatate 2021- No 100mg Q.[id number] Take 1 [facility] (Tessalon 705-[id number] [place]) 100 00:00: 04:59 3D (100 mg Ho [facility] MG capsule 00 :00 total) by l mouth 3 (three) times a day as needed for cough for up to 10 days. benzonatate 2021- No 100mg Q.[id number] Take 1 [facility] (Tessalon 04-[id number] [place]) 100 00:00: 04:59 3D (100 mg Ho [facility] MG capsule 00 :00 total) by l mouth 3 (three) times a day as needed for cough for up to 10 days. benzonatate 2021- No 100mg Q.[id number] Take 1 [facility] (Tessalon 04-[id number] [place]) 100 00:00: 04:59 3D (100 mg Ho [facility] MG capsule 00 :00 total) by l mouth 3 (three) times a day as needed for cough for up to 10 days. amoxicillin 2021- No [facility] -pot 6-24 10-13 st clavulanate 00:00: 00:00 Hospi ta (AUGMENTIN) 00 :00 l 875-125 mg per tablet amoxicillin 2021- No [facility] di -pot 6-24 10-13 st clavulanate 00:00: 00:00 [facility]pi ta (AUGMENTIN) 00 :00 l 875-125 mg per tablet amoxicillin 2021- No [facility] di -pot 6-24 10-13 st clavulanate 00:00: 00:00 [facility]pi ta (AUGMENTIN) 00 :00 l 875-125 mg per tablet blood sugar Yes [id number] USE ONE [facility] diagnostic 4-[address] strips 00:00: TEST TWICE [facility]pi [facility] (OneTouch 00 A DAY l Verio test strips) strip test strips blood sugar Yes [id number] USE ONE [facility] diagnostic 4-[address] strips 00:00: TEST TWICE [facility]pi ta (OneTouch 00 A DAY l Verio test strips) strip test strips lancets Yes [id number] USE ONE [facility] (onetouch 4-[address] ultrasoft) 00:00: TEST TWICE H [facility]spita misc 00 A DAY l blood sugar Yes [id number] USE ONE [facility] diagnostic 4-[address] strips 00:00: TEST TWICE [facility]pi ta (OneTouch A DAY l Verio test strips) strip test strips lancets 2022- No [id number] USE ONE Me thodi (onetouch 4-25 02-[address] ultrasoft) 00:00: 00:00 TEST TWICE Hospita misc 00 :00 A DAY l lancets 2022- No [id number] USE ONE Me thodi (onetouch 4-25 02-[address] ultrasoft) 00:00: 00:00 TEST TWICE Hospita misc 00 :00 A DAY l metFORMIN 2021- No [id number] 500mg Q.5D Take 1 [facility] (GLUCOPHAGE 3- 08-[address] ) 500 mg 00:00: 00:00 (500 mg [facility] tablet 00 :00 total) by l mouth in the morning and 1 tablet (500 mg total) in the evening. Take with meals. metFORMIN 2021- No [id number] 500mg Q.5D Take 1 [facility] (GLUCOPHAGE 3- 08-[address] ) 500 mg 00:00: 00:00 (500 mg [facility] ta tablet 00 :00 total) by l mouth in the morning and 1 tablet (500 mg total) in the evening. Take with meals. metFORMIN 2021- No [id number] 500mg Q.5D Take 1 [facility] (GLUCOPHAGE 3- 08-[address] ) 500 mg 00:00: 00:00 (500 mg [facility]pi ta tablet 00 :00 total) by l mouth in the morning and 1 tablet (500 mg total) in the evening. Take with meals. rosuvastati 2020-10- No 40mg QD Take 1 [facility] (CRESTOR) 11-27 tablet (40 s t 40 MG 00:00: 00:00 mg total) Hospit a tablet 00 :00 by mouth l daily. rosuvastati 2020-10- No 40mg QD Take 1 [facility] (CRESTOR) 11-27 tablet (40 s t 40 MG 00:00: 00:00 mg total) Hospit a tablet 00 :00 by mouth l daily. rosuvastati 2020-10- No 40mg QD Take 1 [facility] n (CRESTOR) 11-27 tablet (40 s t 40 MG 00:00: 00:00 mg total) Hospit a tablet 00 :00 by mouth l daily. tamsulosin 2020-10- No .4mg QD Take 1 [facility] (FLOMAX) 11-[address] 0.4 mg 00:00: 00:00 (0.4 mg Hospita capsule 00 :00 total) by l mouth daily. tamsulosin 2020-10- No .4mg QD Take 1 [facility] (FLOMAX) 11-[address] 0.4 mg 00:00: 00:00 (0.4 mg [facility]ospita capsule 00 :00 total) by l mouth daily. tamsulosin 2020-10- No .4mg QD Take 1 [facility] (FLOMAX) 11-[address] 0.4 mg 00:00: 00:00 (0.4 mg Hospita capsule 00 :00 total) by l mouth daily. metFORMIN 2020-10- No [id number] 500mg Q.5D Take 1 [facility] (GLUCOPHAGE 11-[address] ) 500 mg 00:00: 00:00 (500 mg Hospi ta tablet 00 :00 total) by l mouth 2 (two) times a day with meals. metFORMIN 2020-10- No [id number] 500mg Q.5D Take 1 [facility] (GLUCOPHAGE 11-[address] ) 500 mg 00:00: 00:00 (500 mg Hospi ta tablet 00 :00 total) by l mouth 2 (two) times a day with meals. lisinopriL 2020-10 Yes 10mg QD Take 1 [facility] (PRINIVIL) 1-11 tablet (10 st 10 mg 00:00: mg total) Hospita tablet 00 by mouth l daily. hydroCHLORO 2020-10 Yes 25mg QD Take 1 [facility] thiazide 1-11 tablet (25 st (HYDRODIURI 00:00: mg total) H ospita L) 25 MG 00 by mouth l tablet daily. lisinopriL 2020-10 No 10mg QD Take 1 [facility] (PRINIVIL) 1-11 - tablet (10 st 10 mg 00:00: 00:00 mg total) Hospit a tablet 00 :00 by mouth l daily. hydroCHLORO 2020-10 No 25mg QD Take 1 [facility] thiazide 1-11 - tablet (25 st (HYDRODIURI 00:00: 00:00 mg total) Hospita L) 25 MG 00 :00 by mouth l tablet daily. lisinopriL 2020-10 No 10mg QD Take 1 [facility] (PRINIVIL) 1-11 - tablet (10 st 10 mg 00:00: 00:00 mg total) Hospit a tablet 00 :00 by mouth l daily. hydroCHLORO 2020-10- No 25mg QD Take 1 [facility] thiazide -08 24- tablet (25 st (HYDRODIURI 00:00: 00:00 mg total) Hospita L) 25 MG 00 :00 by mouth l tablet daily. rosuvastati 2020- No 40mg QD Take 1 [facility] n (CRESTOR) 6-15 12-13 tablet (40 s t 40 MG 00:00: 00:00 mg total) Hospit a tablet 00 :00 by mouth l daily. blood-gluco 2020- Yes [id number] Check [facility] se meter 2-[address] (OneTouch 00:00: sugars as Hos steph Verio 00 directed l Meter) misc 2-3 times daily. blood-gluco Yes [id number] Check [facility] se meter 2-[address] (OneTouch 00:00: sugars as Hos steph Verio 00 directed l Meter) misc 2-3 times daily. blood-gluco Yes [id number] Check [facility] se meter 2-[address] (OneTouch 00:00: sugars as Hos steph Verio 00 directed l Meter) misc 2-3 times daily. lancets 2021- No [id number] PRN [facility] (onetouch 11-16 st ultrasoft) 00:00: 00:00 Hospit a misc 00 :00 l blood sugar 2021- No [id number] Use twice [facility] diagnostic 11-[address] strips 00:00: 00:00 Hospita (glucose 00 :00 l blood) strip test strips lancets 2021- No [id number] PRN [facility] di (onetouch 11-16 st ultrasoft) 00:00: 00:00 Hospit a misc 00 :00 l blood sugar 2021- No [id number] Use twice [facility] diagnostic 11-[address] strips 00:00: 00:00 Hospita (glucose 00 :00 l blood) strip test strips mometasone 2019-10- No [id number] QD Apply [facility] (Elocon) 2- 12-[address] 0.1 % cream 00:00: 05:59 daily. Hos steph 00 :00 Apply to l affected area bid for 7 days. metFORMIN 2019-10- No [id number] 500mg Q.5D Take 1 [facility] (GLUCOPHAGE 124 11-[address] ) 500 mg 00:00: 05:59 (500 mg Hospi ta tablet 00 :00 total) by l mouth 2 (two) times a day with meals. carvediloL 2019-10 Yes 25mg QD Take 1 [facility] (COREG) 25 1-11 tablet (25 st MG tablet 00:00: mg total) Hos steph 00 by mouth l daily for 90 days. carvediloL 2019-10 Yes 25mg QD Take 1 [facility] (COREG) 25 1-11 tablet (25 st MG tablet 00:00: mg total) Hos steph 00 by mouth l daily for 90 days. carvediloL 2019-10 Yes 25mg QD Take 1 [facility] (COREG) 25 1-11 tablet (25 st MG tablet 00:00: mg total) [facility] 00 by mouth l daily for 90 days. tamsulosin 2019-10 No .4mg QD Take 1 Meth karina (FLOMAX) 10-[address] 0.4 mg 00:00: 00:00 (0.4 mg [facility]osp[facility] capsule 00 :00 total) by l mouth daily. lisinopriL 2019-10 No 10mg QD Take 1 Meth karina (PRINIVIL) 10-24 tablet (10 st 10 mg 00:00: 00:00 mg total) Hospit a tablet 00 :00 by mouth l daily. hydroCHLORO 2019-10 No 25mg QD Take 1 [facility] thiazide 10-24 tablet (25 st (HYDRODIURI 00:00: 00:00 mg total) [facility]ospita L) 25 MG 00 :00 by mouth l tablet daily. testosteron Yes 200mg Q1W Inject 1 M ethodi e cypionate 2-09 mL ([address] (DEPOTESTOT 00:00: total) [facility] ERONE 00 into the l CYPIONATE) shoulder, 200 mg/mL thigh, or injection buttocks every 7 days. testosteron Yes 200mg Q1W Inject 200 Methodi e cypionate 2-[address] (DEPOTESTOT 00:00: the Hospit a ERONE 00 shoulder, l CYPIONATE) thigh, or 200 mg/mL buttocks injection every 7 days. testosteron Yes 200mg Q1W Inject 1 M ethodi e cypionate 2-09 mL ([address] (DEPOTESTOT 00:00: total) [facility] ERONE 00 into the l CYPIONATE) shoulder, 200 mg/mL thigh, or injection buttocks every 7 days. Immunizations Ordered Immunization Filled Immunization Date Status Commen ts Source Name Name BeCouply >12 YR 2022-12-18 Completed [facility] COVID-19 MRNA 00:00:00 Hospital BIVALENT VACCINATION PFIZER >12 YR 2022-12-18 Completed [facility] COVID-19 MRNA 00:00:00 Hospital BIVALENT VACCINATION Zoster Vaccine 2022-04-11 Completed [facility] Recombinant 00:00:00 Hospital Zoster Vaccine 2022-04-11 Completed [facility] Recombinant 00:00:00 Hospital Zoster Vaccine 2022-04-11 Completed [facility] Recombinant 00:00:00 Hospital Pneumococcal 2022-02-27 Completed [facility] 20-valent Conjugate 00:00:00 Hospi [facility]ora Vaccine Pneumococcal 2022-02-27 Completed [facility] 20-valent Conjugate 00:00:00 [facility] Vaccine Pneumococcal 2022-02-27 Completed [facility] 20-valent Conjugate 00:00:00 [facility] Vaccine [facility] COVID-19 MRNA 2022-02-16 Completed [facility] VACCINATION 00:00:00 [facility] MODERNA COVID-19 MRNA 2022-02-16 Completed [facility] VACCINATION 00:00:00 [facility] MODERNA COVID-19 MRNA 2022-02-16 Completed [facility] VACCINATION 00:00:00 [facility] PFIZER COVID-19 MRNA 2021-06-06 Completed [facility] VACCINATION 00:00:00 [facility] PFIZER COVID-19 MRNA 2021-06-06 Completed [facility] VACCINATION 00:00:00 [facility] PFIZER COVID-19 MRNA 2021-06-06 Completed [facility] VACCINATION 00:00:00 [facility] PFIZER COVID-19 MRNA 2020-12-06 Completed [facility] VACCINATION 00:00:00 [facility] PFIZER COVID-19 MRNA 2020-12-06 Completed [facility] VACCINATION 00:00:00 [facility] PFIZER COVID-19 MRNA 2020-12-06 Completed [facility] VACCINATION 00:00:00 [facility] PFIZER COVID-19 MRNA 2020-11-15 Completed [facility] VACCINATION 00:00:00 [facility] PFIZER COVID-19 MRNA 2020-11-15 Completed [facility] VACCINATION 00:00:00 [facility] PFIZER COVID-19 MRNA 2020-11-15 Completed [facility] VACCINATION 00:00:00 [facility] Zoster 2017-07-29 Completed [facility] 00:00:00 [facility] Zoster 2017-07-29 Completed [facility] 00:00:00 [facility] Zoster 2017-07-29 Completed [facility] 00:00:00 [facility] Pneumococcal 2016-08-01 Completed [facility] Polysaccharide 00:00:00 Hospital Pneumococcal 2016-08-01 Completed [facility] Polysaccharide 00:00:00 Hospital Pneumococcal 2016-08-01 Completed [facility] Polysaccharide 00:00:00 [facility] Tdap 2015-11-25 Completed [facility] 00:00:00 [facility] Tdap 2015-11-25 Completed [facility] 00:00:00 [facility] Tdap 2015-11-25 Completed [facility] 00:00:00 [facility] Pneumococcal 2015-07-26 Completed [facility] Con[facility] 13[facility]Valent [facility] 2015-07-26 Completed [facility] Conjugate 13-Valent 00:00:00 [facility] Pneumococcal 2015-07-26 Completed [facility] Conjugate 13-Valent 00:00:00 Marco Antonio john Vital Signs Vital Name Observation Time Observation Value Comments Source WEIGHT 2023-02-13 04:52:00 92.625 kg HEIGHT 2023-02-12 10:35:00 165.1 cm WEIGHT 2023-02-12 10:35:00 93.5 kg WEIGHT 2023-02-13 04:52:00 92.625 kg HEIGHT 2023-02-12 10:35:00 165.1 cm WEIGHT 2023-02-12 10:35:00 93.5 kg HEIGHT 2023-02-06 08:34:00 165.1 cm WEIGHT 2023-02-06 08:34:00 91.627 kg HEIGHT 2023-01-17 14:04:00 182.9 cm WEIGHT 2023-01-17 14:04:00 95.255 kg HEIGHT 2023-02-06 08:34:00 165.1 cm WEIGHT 2023-02-06 08:34:00 91.627 kg HEIGHT 2023-01-17 14:04:00 182.9 cm WEIGHT 2023-01-17 14:04:00 95.255 kg HEIGHT 2022-06-29 06:17:00 182.9 cm WEIGHT 2022-06-29 06:17:00 104.356 kg HEIGHT 2022-06-22 13:17:00 182.9 cm WEIGHT 2022-06-22 13:17:00 100.699 kg HEIGHT 2022-06-29 06:17:00 182.9 cm WEIGHT 2022-06-29 06:17:00 104.356 kg HEIGHT 2022-06-22 13:17:00 182.9 cm WEIGHT 2022-06-22 13:17:00 100.699 kg Heart rate 2023-02-15 12:00:00 76 /min [facility] Systolic blood 2023-02-15 11:56:00 104 mm[Hg] [facility] Diastolic blood 2023-02-15 11:56:00 68 mm[Hg] [facility] Body temperature 2023-02-15 11:56:00 36.72 Svetlana [facility] Respiratory rate 2023-02-15 11:56:00 18 /min [facility] Oxygen saturation in 2023-02-15 11:56:00 95 /min [facility] Arterial blood by [facility] Pulse oximetry Body weight 2023-02-13 04:52:00 92.625 kg [facility] BMI 2023-02-13 04:52:00 33.98 kg/m2 [facility] Systolic blood 2023-02-12 10:52:00 90 mm[Hg] [facility] Diastolic blood 2023-02-12 10:52:00 52 mm[Hg] [facility] Heart rate 2023-02-12 10:35:00 85 /min [facility] Body temperature 2023-02-12 10:35:00 36.11 Svetlana [facility] Respiratory rate 2023-02-12 10:35:00 15 /min [facility] Body height 2023-02-12 10:35:00 165.1 cm [facility] Body weight 2023-02-12 10:35:00 93.5 kg [facility] BMI 2023-02-12 10:35:00 34.30 kg/m2 [facility] Oxygen saturation in 2023-02-12 10:35:00 95 /min [facility] Arterial blood by [facility] Pulse oximetry Systolic blood 2023-02-06 10:30:00 98 mm[Hg] [facility] Diastolic blood 2023-02-06 10:30:00 53 mm[Hg] [facility] Heart rate 2023-02-06 10:30:00 74 /min [facility] Body temperature 2023-02-06 10:30:00 36.17 Svetlana [facility] Respiratory rate 2023-02-06 10:30:00 14 /min [facility] Oxygen saturation in 2023-02-06 10:30:00 96 /min [facility] Arterial blood by [facility] Pulse oximetry Body height 2023-02-06 08:34:00 165.1 cm [facility] Body weight 2023-02-06 08:34:00 91.627 kg [facility] BMI 2023-02-06 08:34:00 33.61 kg/m2 [facility] Systolic blood 2023-01-25 15:36:00 132 mm[Hg] [facility] pressure Diastolic blood 2023-01-25 15:36:00 85 mm[Hg] [facility] pressure Heart rate 2023-01-25 15:36:00 83 /min [facility] Body temperature 2023-01-25 15:36:00 36.44 Svetlana [facility] Respiratory rate 2023-01-25 15:36:00 16 /min [facility] Body height 2023-01-25 15:36:00 182.9 cm [facility] Body weight 2023-01-25 15:36:00 102.513 kg [facility] BMI 2023-01-25 15:36:00 30.65 kg/m2 [facility] Oxygen saturation in 2023-01-25 15:36:00 98 /min [facility] Arterial blood by Pulse oximetry Body height 2023-01-17 14:04:00 182.9 cm [facility] Body weight 2023-01-17 14:04:00 95.255 kg [facility] BMI 2023-01-17 14:04:00 28.48 kg/m2 [facility] Systolic blood 2022-07-26 15:01:00 129 mm[Hg] [facility] pressure Diastolic blood 2022-07-26 15:01:00 78 mm[Hg] [facility] pressure Heart rate 2022-07-26 15:01:00 71 /min [facility] Body height 2022-07-26 15:01:00 182.9 cm [facility] Body weight 2022-07-26 15:01:00 105.779 kg [facility] BMI 2022-07-26 15:01:00 31.63 [facility] in 2022-07-26 15:01:00 96 /min [facility] Arterial blood by Pulse oximetry Systolic blood 2022-06-29 11:47:00 133 mm[Hg] [facility] Diastolic blood 2022-06-29 11:47:00 65 mm[Hg] [facility] Heart rate 2022-06-29 11:47:00 78 /min [facility] Body temperature 2022-06-29 11:47:00 36.72 Svetlana [facility] Respiratory rate 2022-06-29 11:47:00 19 /min [facility] Oxygen saturation in 2022-06-29 11:47:00 97 /min [facility] Arterial blood by [facility] Pulse oximetry Body height 2022-06-29 06:17:00 182.9 cm [facility] Body weight 2022-06-29 06:17:00 104.356 kg [facility] BMI 2022-06-29 06:17:00 31.20 kg/m2 [facility] Body temperature 2022-05-04 13:18:00 36.33 Svetlana [facility] Respiratory rate 2021-12-18 19:01:00 18 /min [facility] Procedures Procedure Date / Time Performing Clinician Source Performed POCT-GLUCOSE METER 2023-02-15 11:59:00 Kranthi Doan [facility] POCT-GLUCOSE METER 2023-02-15 06:07:00 Kranthi Doan [facility] CBC W/PLT COUNT & AUTO 2023-02-15 05:00:00 Tatiana Zapata [facility] BASIC METABOLIC PANEL 2023-02-15 05:00:00 Tatiana Zapata [facility] MAGNESIUM 2023-02-15 05:00:00 Tatiana Zapata [facility] CBC W/PLT COUNT & AUTO 2023-02-15 05:00:00 Tatiana Zapata [facility] POCT-GLUCOSE METER 2023-02-14 22:57:00 Kranthi Doan [facility] POCT-GLUCOSE METER 2023-02-14 17:33:00 Kranthi Doan [facility] POCT-GLUCOSE METER 2023-02-14 12:33:00 Kranthi Doan [facility] POCT-GLUCOSE METER 2023-02-14 04:42[facility]O 2023-02-14 04:13:[address] [facility] BASIC METABOLIC PANEL 2023-02-14 04:13:00 Tatiana Zapata [facility] MAGNESIUM 2023-02-14 04:13:00 Tatiana Zapata [facility] CBC W/PLT COUNT & AUTO 2023-02-14 04:13:[address] [facility] POCT-GLUCOSE METER 2023-02-13 23:23:00 [facility] 2023-02-13 17:40[facility]00 [facility]OS[facility] 2023-02-13 14:56:00 Tatiana Zapata [facility] XR CHEST 1 VIEW PORTABLE 2023-02-13 14:14:00 Gwendolyn Barakat [facility] / BEDSIDE Center POCT-GLUCOSE METER 2023-02-13 06:46:00 Kranthi Doan [facility] CBC W/PLT COUNT & AUTO 2023-02-13 03:25:[address] [facility] BASIC METABOLIC PANEL 2023-02-13 03:25:00 Tatiana Zapata [facility] MAGNESIUM 2023-02-13 03:25:00 Tatiana Zapata [facility] CBC W/PLT COUNT & AUTO 2023-02-13 03:25:[address] [facility] POCT-GLUCOSE METER 2023-02-12 23:24:00 Kranthi Doan [facility] TISSUE EXAM 2023-02-12 20:03:00 FrankiKranthier [facility] FL FLUORO NON-SPECIFIC 2023-02-12 19:50:00 [facility] Center CYTOLOGY 2023-02-12 17:30:00 Franki, Kranthi [facility] CYTOLOGY REQUEST 2023-02-12 17:30:00 Franki, Kranthi [facility] BRONCHOSCOPY 2023-02-12 16:28:00 Franki, Kranthi [facility] EGD 2023-02-12 16:28:00 Franki, Kranthi Shemar [facility] (ESOPHAGOGASTRODUODENOSC Center OPY) LAPAROSCOPY, DIAGNOSTIC, 2023-02-12 16:28:00 Franki, Kranthi Barron r [facility] WITH PERITONEAL BIOPSY, Center OR WASHING, OR BOTH INSERTION, VENOUS ACCESS 2023-02-12 16:28:00 Franki, Kranthi Barron r [facility] PORT Center INSERTION, JEJUNOSTOMY 2023-02-12 16:28:00 Frank[facility] TUBE, LAPAROSCOPIC Center BRONCHOSCOPY 2023-02-12 14:05:00 Franki, Kranthi [facility] EGD 2023-02-12 14:05:00 Franki, Kranthi Shemar [facility] (ESOPHAGOGASTRODUODENOSC Center OPY) LAPAROSCOPY, DIAGNOSTIC, 2023-02-12 14:05:00 Franki, Kranthi Barron r [facility] WITH PERITONEAL BIOPSY, Center OR WASHING, OR BOTH INSERTION, VENOUS ACCESS 2023-02-12 14:05:00 Franki, Kranthi Barron r [facility] PORT Center INSERTION, JEJUNOSTOMY 2023-02-12 14:05:00 Franki, Kranthi Shemar [facility] Medical TUBE, LAPAROSCOPIC Center BRONCHOSCOPY 2023-02-12 12:40:00 Franki, Kranthi Shemar [facility] EGD 2023-02-12 12:40:00 Franki, Kranthi Shemar [facility] LAPAROSCOPY, DIAGNOSTIC, 2023-02-12 12:40:00 Franki, Kranthi Barron r [facility] WITH PERITONEAL BIOPSY, Center OR WASHING, OR BOTH INSERTION, VENOUS ACCESS 2023-02-12 12:40:00 Franki, Kranthi Barron r [facility] PORT Center INSERTION, JEJUNOSTOMY 2023-02-12 12:40:00 Franki, Kranthi Shemar [facility] TUBE, LAPAROSCOPIC Center ABORH, MANUAL 2023-02-12 12:34:00 Antonia Gill [facility] BRONCHOSCOPY 2023-02-12 11:45:00 Frnaki, Kranthi Shemar [facility] EGD 2023-02-12 11:45:00 Franki, Kranthi Shemar [facility] LAPAROSCOPY, DIAGNOSTIC, 2023-02-12 11:45:00 Franki, Kranthi Barron r [facility] WITH PERITONEAL BIOPSY, Center OR WASHING, OR BOTH INSERTION, VENOUS ACCESS 2023-02-12 11:45:00 Franki, Kranthi Barron r [facility] PORT Center INSERTION, JEJUNOSTOMY 2023-02-12 11:45:00 Franki, Kranthi Shemar [facility] TUBE, LAPAROSCOPIC Center XR CHEST 1 VIEW PORTABLE 2023-02-12 11:41:00 Franki, Kranthi Barron r [facility] / BEDSIDE Center COMPREHENSIVE METABOLIC 2023-02-12 10:59:00 ManAngy caraballo [facility] PANEL Center CBC W/PLT COUNT & AUTO 2023-02-12 10:59:00 Angy Maya [facility] DIFFERENTIAL Center PT/APTT 2023-02-12 10:59:00 Angy Maya [facility] TYPE AND SCREEN, 2023-02-12 10:59:00 ManoAngy chandler [facility] AUTOMATED Center CBC W/PLT COUNT & AUTO 2023-02-12 10:59:00 Angy Maya [facility] Center POCT-GLUCOSE METER 2023-02-12 10:26:00 Kranthi Doan [facility] REPORT OF PROCEDURE - 2023-02-06 10:06:43 VirginiaKathiehéctor [facility] ENDOSCOPY URL Center TISSUE EXAM 2023-02-06 09:48:00 [place] Ellehéctor Chin [facility] TISSUE EXAM 2023-02-06 09:48:00 [place] Ellehéctor Chin [facility] ENDOSCOPY, UPPER GI 2023-02-06 09:42:00 Virginia Elle [facility] TRACT, WITH BIOPSY Center EGD 2023-02-06 09:30:00 Virginai [facility] (ESOPHAGOGASTRODUODENOSC Center OPY) POCT-GLUCOSE METER 2023-02-06 08:38:00 Elle Coleman [facility] CBC HEMOGRAM 2022-12-18 19:58:00 [facility] THYROID STIMULATING 2022-12-18 19:58:00 [facility] HORMONE LIPID PANEL 2022-12-18 19:58:00 [facility] COMPREHENSIVE METABOLIC 2022-12-18 19:58:00 [facility] PANEL URINALYSIS, AUTOMATED 2022-12-18 19:58:00 [facility] WITH MICROSCOPY POC GLYCOSYLATED 2022-12-03 21:14:40 [facility] HEMOGLOBIN (HGB A1C) POC GLUCOSE 2022-12-03 21:11:33 [facility] [place] ESOPHAGUS 2022-11-07 11:09:00 Yaron Douglas [facility] POC GLYCOSYLATED 2022-08-30 22:25:56 [facility] HEMOGLOBIN (HGB A1C) POC GLUCOSE 2022-08-30 22:25:41 [facility] XR SKULL LESS THAN 4 2022-06-29 10:01:[address] [facility] INSERTION, IMPLANT, 2022-06-29 07:33:00 Rl Ratliff [facility] COCHLEAR [place] PROCEDURE W/ NIMS 2022-06-29 07:33:00 Rl Ratliff [facility] POCT-GLUCOSE METER 2022-06-29 06:37:00 Rl Ratliff [facility] POCT-HEMOGLOBIN METER 2022-06-29 06:37:00 Rl Ratliff [facility] BASIC METABOLIC PANEL 2022-06-29 06:35:00 Akua Benjamin [facility] HEMOGLOBIN A1C 2022-05-04 14:20:00 [facility] BASIC METABOLIC PANEL 2022-05-04 14:20:00 [place] Lacy [facility] COVID-19, INFLUENZA A&B, 2022-04-25 21:21:00 Cece Cm [facility] AND RSV QUALITATIVE Amber RT-PCR GENERAL SLEEP STUDY 2022-03-23 18:33:00 Hieu Renteria [facility] [place] POC GLUCOSE 2021-12-18 20:33:00 [facility] CBC HEMOGRAM 2021-12-18 19:49:00 [facility] THYROID STIMULATING 2021-12-18 19:49:00 [facility] HORMONE LIPID PANEL 2021-12-18 19:49:00 [facility] COMPREHENSIVE METABOLIC 2021-12-18 19:49:00 [facility] PANEL HEMOGLOBIN A1C 2021-12-18 19:49:00 [facility] MICROALBUMIN / 2021-12-18 19:49:00 [facility] CREATININE URINE RATIO Plan of Care Planned Activity Planned Date Details Comments Source Future Scheduled 2025-11-25 DTAP/TDAP/TD VACCINES [facility] I [facility] Test 00:00:00 (2 - Td or Tdap) [code Medic al Center = DTAP/TDAP/TD VACCINES (2 - Td or Tdap)] Future Scheduled 2025-11-25 DTAP/TDAP/TD VACCINES [facility] Test 00:00:00 (2 - Td or Tdap) [code Medic al Center = DTAP/TDAP/TD VACCINES (2 - Td or Tdap)] Future Scheduled 2025-11-25 DTAP/TDAP/TD VACCINES [facility] Test 00:00:00 (2 - Td or Tdap) [code Medic al Center = DTAP/TDAP/TD VACCINES (2 - Td or Tdap)] Future Scheduled 2025-11-25 DTAP/TDAP/TD VACCINES [facility] Test 00:00:00 (2 - Td or Tdap) [code Medic al Center = DTAP/TDAP/TD VACCINES (2 - Td or Tdap)] Future Scheduled 2025-11-25 DTAP/TDAP/TD VACCINES [facility] Test 00:00:00 (2 - Td or Tdap) [code Medic al Center = DTAP/TDAP/TD VACCINES (2 - Td or Tdap)] Future Scheduled 2025-11-25 DTAP/TDAP/TD VACCINES [facility] Test 00:00:00 (2 - Td or Tdap) [code Medic al Center = DTAP/TDAP/TD VACCINES (2 - Td or Tdap)] Future Scheduled 2025-11-25 DTAP/TDAP/TD VACCINES [facility] Test 00:00:00 (2 - Td or Tdap) [code Medic al Center = DTAP/TDAP/TD VACCINES (2 - Td or Tdap)] Future Scheduled 2025-11-25 DTAP/TDAP/TD VACCINES [facility] Test 00:00:00 (2 - Td or Tdap) [code Medic al Center = DTAP/TDAP/TD VACCINES (2 - Td or Tdap)] Future Scheduled 2025-11-25 DTAP/TDAP/TD VACCINES [facility] Test 00:00:00 (2 - Td or Tdap) [code Medic al Center = DTAP/TDAP/TD VACCINES (2 - Td or Tdap)] Future Scheduled 2025-11-25 DTAP/TDAP/TD VACCINES [facility] Test 00:00:00 (2 - Td or Tdap) [code Medic al Center = DTAP/TDAP/TD VACCINES (2 - Td or Tdap)] Future Scheduled 2025-11-25 DTAP/TDAP/TD VACCINES [facility] Test 00:00:00 (2 - Td or Tdap) [code Medic al Center = DTAP/TDAP/TD VACCINES (2 - Td or Tdap)] Future Scheduled 2025-11-25 DTAP/TDAP/TD VACCINES [facility] Test 00:00:00 (2 - Td or Tdap) [code Medic al Center = DTAP/TDAP/TD VACCINES (2 - Td or Tdap)] Future Scheduled 2025-11-25 DTAP/TDAP/TD VACCINES [facility] Test 00:00:00 (2 - Td or Tdap) [code Medic al Center = DTAP/TDAP/TD VACCINES (2 - Td or Tdap)] Future Scheduled 2025-11-25 DTAP/TDAP/TD VACCINES [facility] Test 00:00:00 (2 - Td or Tdap) [code Medic al Center = DTAP/TDAP/TD VACCINES (2 - Td or Tdap)] Future Scheduled 2025-11-25 DTAP/TDAP/TD VACCINES [facility] Test 00:00:00 (2 - Td or Tdap) [code Medic al Center = DTAP/TDAP/TD VACCINES (2 - Td or Tdap)] Future Scheduled 2024-02-[address] [facility] Test 00:00:00 [facility] (12+) [code = Tobacco Cessation Counseling and Screening (12+)] Future Scheduled 2024-02-[address] [facility] Test 00:00:00 [facility] (12+) [code = Tobacco Cessation Counseling and Screening (12+)] Future Scheduled 2024-02-[address] [facility] Test 00:00:00 [facility] Scre[facility] (12+) [code = Tobacco Cessation Counseling and Screening (12+)] Future Scheduled 2024-02-[address] [facility] Test 00:00:00 [facility] Screening (12+) [code = Tobacco Cessation Counseling and Screening (12+)] Future Scheduled 2024-02-[address] [facility] Test 00:00:00 [facility] Scre[facility] (12+) [code = Tobacco Cessation Counseling and Screening (12+)] Future Scheduled 2024-02-[address] [facility] Test 00:00:00 [facility] Screening (12+) [code = Tobacco Cessation Counseling and Screening (12+)] Future Scheduled 2024-01-[address] [facility] Test 00:00:00 [facility] Screening (12+) [code = Tobacco Cessation Counseling and Screening (12+)] Future Scheduled 2023-06-[address] [facility] Test 00:00:00 [facility] Screening (12+) [code = Tobacco Cessation Counseling and Screening (12+)] Future Scheduled 2023-06-[address] [facility] Test 00:00:00 [facility] Screening (12+) [code = Tobacco Cessation Counseling and Screening (12+)] Future Scheduled 2023-06-[address] [facility] Test 00:00:00 [facility] Scre[facility] (12+) [code = Tobacco Cessation Counseling and Screening (12+)] Future Scheduled 2023-06-[address] [facility] Test 00:00:00 [facility] Screening (12+) [code = Tobacco Cessation Counseling and Screening (12+)] Future Scheduled 2023-06-[address] [facility] Test 00:00:00 [facility] Screening (12+) [code = Tobacco Cessation Counseling and Screening (12+)] Future Scheduled 2023-06-[address] [facility] Test 00:00:00 [facility] Screening (12+) [code = Tobacco Cessation Counseling and Screening (12+)] Future Scheduled 2023-06-[address] [facility] Test 00:00:00 [facility] Scre[facility] (12+) [code = Tobacco Cessation Counseling and Screening (12+)] Future Scheduled 2023-06-[address] [facility] Test 00:00:00 (Season Ended) [code = [facility] INFLUENZA VACCINE (Season Ended)] Future Scheduled 2023-06-[address] [facility] Test 00:00:00 (Season Ended) [code = Medic al Center INFLUENZA VACCINE (Season Ended)] Future Scheduled 2023-06-[address] [facility] Test 00:00:00 (Season Ended) [code = Medic al Center INFLUENZA VACCINE (Season Ended)] Future Scheduled 2023-06-[address] [facility] Test 00:00:00 (Season Ended) [code = Medic al Center INFLUENZA VACCINE (Season Ended)] Future Scheduled 2023-06-[address] [facility] Test 00:00:00 (Season Ended) [code = Medic al Center INFLUENZA VACCINE (Season Ended)] Future Scheduled 2023-06-[address] [facility] Test 00:00:00 (Season Ended) [code = Medic al Center INFLUENZA VACCINE (Season Ended)] Future Scheduled 2023-06-[address] [facility] Test 00:00:00 (Season Ended) [code = Medic al Center INFLUENZA VACCINE (Season Ended)] Future Scheduled 2023-04-24 Screening for [facility] Test 02:26:58 malignant neoplasm of colon (procedure) [code = 140161738] Future Scheduled 2023-04-24 Screening for [facility] Test 02:26:58 malignant neoplasm of colon (procedure) [code = 321861241] Future Scheduled 2023-04-24 Screening for [facility] Test 02:26:58 malignant neoplasm of colon (procedure) [code = 876291875] Future Scheduled 2023-04-24 SHINGLES VACCINES (3 [facility] 02:26:58 of 3) [code = SHINGLES VACCINES (3 of 3)] Future Scheduled 2023-04-24 COVID-19 [facility]ACCINE [facility] 02:26:58 Pfizer series) [code = COVID-19 VACCINE (6 - Pfizer series)] Future Scheduled 2023-04-24 DIABETIC FOOT EXAM [facility] Test 02:26:58 [code = DIABETIC FOOT EXAM] Future Scheduled 2023-04-24 DIABETES: RETINAL EYE [facility] 02:26:58 EXAM [code = DIABETES: RETINAL EYE EXAM] Future Scheduled 2023-04-24 Screening for [facility] Test 02:26:58 malignant neoplasm of colon (procedure) [code = [id number]] Future Scheduled 2023-04-24 Screening for [facility] Test 02:26:58 malignant neoplasm of colon (procedure) [code = [id number]] Future Scheduled 2023-01-25 SHINGLES VACCINES (3 Met [facility] Test 13:28:45 of 3) [code = SHINGLES VACCINES (3 of 3)] Future Scheduled 2023-01-25 DIABETIC FOOT EXAM [facility] Test 13:28:45 [code = DIABETIC FOOT EXAM] Future Scheduled 2023-01-25 DIABETES: RETINAL EYE [facility] Test 13:28:45 EXAM [code = DIABETES: RETINAL EYE EXAM] Future Scheduled 2023-01-25 COLONOSCOPY SCREENING [facility] Test 13:28:45 [code = COLONOSCOPY SCREENING] Future Scheduled 2022-10-[address] [facility] Test 00:00:00 (12+) [code = Medical Center DEPRESSION SCREENING (12+)] Future Scheduled 2022-10-14 FALLS RISK SCREENING [facility] Test 00:00:00 [code = FALLS RISK Medical C enter SCREENING] Future Scheduled 2022-10-[address] [facility] Test 00:00:00 (12+) [code = Medical Center DEPRESSION SCREENING (12+)] Future Scheduled 2022-10-14 FALLS RISK SCREENING [facility] Test 00:00:00 [code = FALLS RISK Medical C enter SCREENING] Future Scheduled 2022-10-[address] [facility] Test 00:00:00 (12+) [code = Medical Center DEPRESSION SCREENING (12+)] Future Scheduled 2022-10-14 FALLS RISK SCREENING [facility] Test 00:00:00 [code = FALLS RISK Medical C enter SCREENING] Future Scheduled 2022-10-[address] [facility] Test 00:00:00 (12+) [code = Medical Center DEPRESSION SCREENING (12+)] Future Scheduled 2022-10-14 FALLS RISK SCREENING [facility] Test 00:00:00 [code = FALLS RISK Medical C enter SCREENING] Future Scheduled 2022-10-[address] [facility] Test 00:00:00 (12+) [code = Medical Center DEPRESSION SCREENING (12+)] Future Scheduled 2022-10-14 FALLS RISK SCREENING [facility] Test 00:00:00 [code = FALLS RISK Medical C enter SCREENING] Future Scheduled 2022-10-[address] [facility] Test 00:00:00 (12+) [code = Medical Center DEPRESSION SCREENING (12+)] Future Scheduled 2022-10-14 FALLS RISK SCREENING [facility] Test 00:00:00 [code = FALLS RISK Medical C enter SCREENING] Future Scheduled 2022-10-[address] [facility] Test 00:00:00 (12+) [code = Medical Center DEPRESSION SCREENING (12+)] Future Scheduled 2022-10-14 FALLS RISK SCREENING [facility] Test 00:00:00 [code = FALLS RISK Medical C enter SCREENING] Future Scheduled 2022-10-[address] [facility] Test 00:00:00 (12+) [code = Medical Center DEPRESSION SCREENING (12+)] Future Scheduled 2022-10-14 FALLS RISK SCREENING [facility] Test 00:00:00 [code = FALLS RISK Medical C enter SCREENING] Future Scheduled 2022-10-[address] [facility] Test 00:00:00 (12+) [code = Medical Center DEPRESSION SCREENING (12+)] Future Scheduled 2022-10-14 FALLS RISK SCREENING [facility] Test 00:00:00 [code = FALLS RISK Medical C enter SCREENING] Future Scheduled 2022-10-[address] [facility] Test 00:00:00 (12+) [code = Medical Center DEPRESSION SCREENING (12+)] Future Scheduled 2022-10-14 FALLS RISK SCREENING [facility] Test 00:00:00 [code = FALLS RISK Medical C enter SCREENING] Future Scheduled 2022-10-[address] [facility] Test 00:00:00 (12+) [code = Medical Center DEPRESSION SCREENING (12+)] Future Scheduled 2022-10-14 FALLS RISK SCREENING [facility] Test 00:00:00 [code = FALLS RISK Medical C enter SCREENING] Future Scheduled 2022-10-[address] [facility] Test 00:00:00 (12+) [code = Medical Center DEPRESSION SCREENING (12+)] Future Scheduled 2022-10-14 FALLS RISK SCREENING [facility] Test 00:00:00 [code = FALLS RISK Medical C enter SCREENING] Future Scheduled 2022-08-08 HEPATITIS B VACCINES Met [facility] Test 09:00:16 (1 of 3 - Risk 3-dose series) [code = HEPATITIS B VACCINES (1 of 3 - Risk 3-dose series)] Future Scheduled 2022-08-08 COVID-19 VACCINE (5 - Me [facility] Test 09:00:16 Booster for Pfizer series) [code = COVID-19 VACCINE (5 - Booster for Pfizer series)] Future Scheduled 2022-08-08 SHINGLES VACCINES (3 Met [facility] Test 09:00:16 of 3) [code = SHINGLES VACCINES (3 of 3)] Future Scheduled 2022-08-08 DIABETIC FOOT EXAM [facility] Test 09:00:16 [code = DIABETIC FOOT EXAM] Future Scheduled 2022-08-08 DIABETES: RETINAL EYE [facility] Test 09:00:16 EXAM [code = DIABETES: RETINAL EYE EXAM] Future Scheduled 2022-08-08 COLONOSCOPY SCREENING [facility] Test 09:00:16 [code = COLONOSCOPY SCREENING] Future Scheduled 2022-06-14 INFLUENZA VACCINE (#1) [facility] 00:00:00 [code = INFLUENZA Medical Ce nter VACCINE (#1)] Future Scheduled 2022-06-14 INFLUENZA VACCINE (#1) [facility] 00:00:00 [code = INFLUENZA Medical Ce nter VACCINE (#1)] Future Scheduled 2022-06-14 INFLUENZA VACCINE (#1) [facility] 00:00:00 [code = INFLUENZA Medical Ce nter VACCINE (#1)] Future Scheduled 2022-06-14 INFLUENZA VACCINE (#1) [facility] 00:00:00 [code = INFLUENZA Medical Ce nter VACCINE (#1)] Future Scheduled 2022-06-14 INFLUENZA VACCINE (#1) [facility] Test 00:00:00 [code = INFLUENZA Medical Ce nter VACCINE (#1)] Future Scheduled 2022-06-14 INFLUENZA VACCINE (#1) [facility] 00:00:00 [code = INFLUENZA Medical Ce nter VACCINE (#1)] Future Scheduled 2022-06-14 INFLUENZA VACCINE (#1) [facility] 00:00:00 [code = INFLUENZA Medical Ce nter VACCINE (#1)] Future Scheduled 2022-06-14 INFLUENZA VACCINE (#1) [facility] 00:00:00 [code = INFLUENZA Medical Ce nter VACCINE (#1)] Future Scheduled 2022-04-13 COVID-19 VACCINE (5 - [facility] 00:00:00 Booster for Pfizer Medical C enter series) [code = COVID-19 VACCINE (5 - Booster for Pfizer series)] Future Scheduled 2022-04-13 COVID-19 VACCINE (5 - [facility] 00:00:00 Booster for Pfizer Medical C enter series) [code = COVID-19 VACCINE (5 - Booster for Pfizer series)] Future Scheduled 2022-04-13 COVID-19 VACCINE (5 - [facility] 00:00:00 Booster for Pfizer Medical C enter series) [code = COVID-19 VACCINE (5 - Booster for Pfizer series)] Future Scheduled 2022-04-13 COVID-19 VACCINE (5 - [facility] 00:00:00 Booster for Pfizer Medical C enter series) [code = COVID-19 VACCINE (5 - Booster for Pfizer series)] Future Scheduled 2022-04-13 COVID-19 VACCINE (5 - [facility] 00:00:00 Booster for Pfizer Medical C enter series) [code = COVID-19 VACCINE (5 - Booster for Pfizer series)] Future Scheduled 2022-04-13 COVID-19 VACCINE (5 - [facility] 00:00:00 Booster for Pfizer Medical C enter series) [code = COVID-19 VACCINE (5 - Booster for Pfizer series)] Future Scheduled 2022-04-13 COVID-19 VACCINE (5 - [facility] 00:00:00 Booster for Pfizer Medical C enter series) [code = COVID-19 VACCINE (5 - Booster for Pfizer series)] Future Scheduled 2022-04-13 COVID-19 VACCINE (5 - [facility] 00:00:00 Booster for Pfizer Medical C enter series) [code = COVID-19 VACCINE (5 - Booster for Pfizer series)] Future Scheduled 2021-10-[address] [facility] Test 00:00:00 (12+) [code = Medical Center DEPRESSION SCREENING (12+)] Future Scheduled 2021-10-14 FALLS RISK SCREENING [facility] Test 00:00:00 [code = FALLS RISK Medical C enter SCREENING] Future Scheduled 2021-10-[address] [facility] Test 00:00:00 (12+) [code = Medical Center DEPRESSION SCREENING (12+)] Future Scheduled 2021-10-14 FALLS RISK SCREENING [facility] Test 00:00:00 [code = FALLS RISK Medical C enter SCREENING] Future Scheduled 2017-09-23 SHINGLES VACCINES ([address] [facility] Test 00:00:00 of 3) [code = SHINGLES Medic al Center VACCINES (2 of 3)] Future Scheduled 2017-09-23 SHINGLES VACCINES ([address] [facility] Test 00:00:00 of 3) [code = SHINGLES Medic al Center VACCINES (2 of 3)] Future Scheduled 2017-09-23 SHINGLES VACCINES ([address] [facility] Test 00:00:00 of 3) [code = SHINGLES Medic al Center VACCINES (2 of 3)] Future Scheduled 2017-09-23 SHINGLES VACCINES ([address] [facility] Test 00:00:00 of 3) [code = SHINGLES Medic al Center VACCINES (2 of 3)] Future Scheduled 2017-09-23 SHINGLES VACCINES ([address] [facility] Test 00:00:00 of 3) [code = SHINGLES Medic al Center VACCINES (2 of 3)] Future Scheduled 2017-09-23 SHINGLES VACCINES ([address] [facility] Test 00:00:00 of 3) [code = SHINGLES Medic al Center VACCINES (2 of 3)] Future Scheduled 2017-09-23 SHINGLES VACCINES ([address] [facility] Test 00:00:00 of 3) [code = SHINGLES Medic al Center VACCINES (2 of 3)] Future Scheduled 2017-09-23 SHINGLES VACCINES ([address] [facility] Test 00:00:00 of 3) [code = SHINGLES Medic al Center VACCINES (2 of 3)] Future Scheduled 2017-09-23 SHINGLES VACCINES ([address] [facility] Test 00:00:00 of 3) [code = SHINGLES Medic al Center VACCINES (2 of 3)] Future Scheduled 2017-09-23 SHINGLES VACCINES ([address] [facility] Test 00:00:00 of 3) [code = SHINGLES Medic al Center VACCINES (2 of 3)] Future Scheduled 2017-09-23 SHINGLES VACCINES ([address] [facility] Test 00:00:00 of 3) [code = SHINGLES Medic al Center VACCINES (2 of 3)] Future Scheduled 2017-09-23 SHINGLES VACCINES ([address] [facility] Test 00:00:00 of 3) [code = SHINGLES Medic al Center VACCINES (2 of 3)] Future Scheduled 2017-09-23 SHINGLES VACCINES ([address] [facility] Test 00:00:00 of 3) [code = SHINGLES Medic al Center VACCINES (2 of 3)] Future Scheduled 2017-09-23 SHINGLES VACCINES ([address] [facility] Test 00:00:00 of 3) [code = SHINGLES Medic al Center VACCINES (2 of 3)] Future Scheduled 2017-09-23 SHINGLES VACCINES ([address] [facility] Test 00:00:00 of 3) [code = SHINGLES Medic al Center VACCINES (2 of 3)] Future Scheduled 2016-06-[address] [facility] Test 00:00:00 WELLNESS (YEAR 2 or Medical Center FIRST YEAR if no IPPE) [code = MEDICARE ANNUAL WELLNESS (YEAR 2 or FIRST YEAR if no IPPE)] Future Scheduled 2016-06-[address] [facility] Test 00:00:00 WELLNESS (YEAR 2 or Medical Center FIRST YEAR if no IPPE) [code = MEDICARE ANNUAL WELLNESS (YEAR 2 or FIRST YEAR if no IPPE)] Future Scheduled 2016-06-[address] [facility] Test 00:00:00 WELLNESS (YEAR 2 or Medical Center FIRST YEAR if no IPPE) [code = MEDICARE ANNUAL WELLNESS (YEAR 2 or FIRST YEAR if no IPPE)] Future Scheduled 2016-06-[address] [facility] Test 00:00:00 WELLNESS (YEAR 2 or Medical Center FIRST YEAR if no IPPE) [code = MEDICARE ANNUAL WELLNESS (YEAR 2 or FIRST YEAR if no IPPE)] Future Scheduled 2016-06-[address] [facility] Test 00:00:00 WELLNESS (YEAR 2 or Medical Center FIRST YEAR if no IPPE) [code = MEDICARE ANNUAL WELLNESS (YEAR 2 or FIRST YEAR if no IPPE)] Future Scheduled 2016-06-[address] [facility] Test 00:00:00 WELLNESS (YEAR 2 or Medical Center FIRST YEAR if no IPPE) [code = MEDICARE ANNUAL WELLNESS (YEAR 2 or FIRST YEAR if no IPPE)] Future Scheduled 2016-06-[address] [facility] Test 00:00:00 WELLNESS (YEAR 2 or Medical Center FIRST YEAR if no IPPE) [code = MEDICARE ANNUAL WELLNESS (YEAR 2 or FIRST YEAR if no IPPE)] Future Scheduled 2016-06-[address] [facility] Test 00:00:00 WELLNESS (YEAR 2 or Medical Center FIRST YEAR if no IPPE) [code = MEDICARE ANNUAL WELLNESS (YEAR 2 or FIRST YEAR if no IPPE)] Future Scheduled 2016-06-[address] [facility] Test 00:00:00 WELLNESS (YEAR 2 or Medical Center FIRST YEAR if no IPPE) [code = MEDICARE ANNUAL WELLNESS (YEAR 2 or FIRST YEAR if no IPPE)] Future Scheduled 2016-06-[address] [facility] Test 00:00:00 WELLNESS (YEAR 2 or Medical Center FIRST YEAR if no IPPE) [code = MEDICARE ANNUAL WELLNESS (YEAR 2 or FIRST YEAR if no IPPE)] Future Scheduled 2016-06-[address] [facility] Test 00:00:00 WELLNESS (YEAR 2 or Medical Center FIRST YEAR if no IPPE) [code = MEDICARE ANNUAL WELLNESS (YEAR 2 or FIRST YEAR if no IPPE)] Future Scheduled 2016-06-[address] [facility] Test 00:00:00 WELLNESS (YEAR 2 or Medical Center FIRST YEAR if no IPPE) [code = MEDICARE ANNUAL WELLNESS (YEAR 2 or FIRST YEAR if no IPPE)] Future Scheduled 2016-06-[address] [facility] Test 00:00:00 WELLNESS (YEAR 2 or Medical Center FIRST YEAR if no IPPE) [code = MEDICARE ANNUAL WELLNESS (YEAR 2 or FIRST YEAR if no IPPE)] Future Scheduled 2016-06-[address] [facility] Test 00:00:00 WELLNESS (YEAR 2 or Medical Center FIRST YEAR if no IPPE) [code = MEDICARE ANNUAL WELLNESS (YEAR 2 or FIRST YEAR if no IPPE)] Future Scheduled 2016-06-[address] [facility] Test 00:00:00 WELLNESS (YEAR 2 or Medical Center FIRST YEAR if no IPPE) [code = MEDICARE ANNUAL WELLNESS (YEAR 2 or FIRST YEAR if no IPPE)] Future Scheduled [address] [facility] Test 00:00:00 aneurysm screening Medical C enter (procedure) [code = [id number]] Future Scheduled [address] [facility] Test 00:00:00 aneurysm screening Medical C enter (procedure) [code = 864336159] Future Scheduled [address] [facility] Test 00:00:00 aneurysm screening Medical C enter (procedure) [code = 366156144] Future Scheduled [address] [facility] Test 00:00:00 aneurysm screening Medical C enter (procedure) [code = 238092647] Future Scheduled [address] [facility] Test 00:00:00 aneurysm screening Medical C enter (procedure) [code = 759667634] Future Scheduled [address] [facility] Test 00:00:00 aneurysm screening Medical C enter (procedure) [code = 790582692] Future Scheduled [address] [facility] Test 00:00:00 aneurysm screening Medical C enter (procedure) [code = 994400582] Future Scheduled [address] [facility] Test 00:00:00 aneurysm screening Medical C enter (procedure) [code = 722753525] Future Scheduled [address] [facility] Test 00:00:00 aneurysm screening Medical C enter (procedure) [code = 520813619] Future Scheduled [address] [facility] Test 00:00:00 aneurysm screening Medical C enter (procedure) [code = 669887274] Future Scheduled [address] [facility] Test 00:00:00 aneurysm screening Medical C enter (procedure) [code = 449174755] Future Scheduled [address] [facility] Test 00:00:00 aneurysm screening Medical C enter (procedure) [code = 853088392] Future Scheduled [address] [facility] Test 00:00:00 aneurysm screening Medical C enter (procedure) [code = 586295770] Future Scheduled [address] [facility] Test 00:00:00 aneurysm screening Medical C enter (procedure) [code = 877958354] Future Scheduled [address] [facility] Test 00:00:00 aneurysm screening Medical C enter (procedure) [code = 300206610] Future Scheduled 1968 HE[facility]ITIS C [facility] 00:00:00 [code = HEPATITIS C Medical Center SCREENING] Future Scheduled 1968 HEPATITIS C [facility] 00:00:00 [code = HEPATITIS C Medical Center SCREENING] Future Scheduled 1968 HEPATITIS C [facility] 00:00:00 [code = HEPATITIS C Medical Center SCREENING] Future Scheduled 1968 HEPATITIS C [facility] 00:00:00 [code = HEPATITIS C Medical Center SCREENING] Future Scheduled 1968 HEPATITIS C [facility] 00:00:00 [code = HEPATITIS C Medical Center SCREENING] Future Scheduled 1968 HEPATITIS C [facility] 00:00:00 [code = HEPATITIS C Medical Center SCREENING] Future Scheduled 1968 HEPATITIS C [facility] 00:00:00 [code = HEPATITIS C Medical Center SCREENING] Future Scheduled 1968 HEPATITIS C [facility] 00:00:00 [code = HEPATITIS C Medical Center SCREENING] Future Scheduled 1968 HEPATITIS C [facility] 00:00:00 [code = HEPATITIS C Medical Center SCREENING] Future Scheduled 1968 HEPATITIS C [facility] 00:00:00 [code = HEPATITIS C Medical Center SCREENING] Future Scheduled 1968 HEPATITIS C [facility] 00:00:00 [code = HEPATITIS C Medical Center SCREENING] Future Scheduled 1968 HEPATITIS C [facility] 00:00:00 [code = HEPATITIS C Medical Center SCREENING] Future Scheduled 1968 HEPATITIS C [facility] 00:00:00 [code = HEPATITIS C Medical Center SCREENING] Future Scheduled 1968 HEPATITIS C [facility] 00:00:00 [code = HEPATITIS C Medical Center SCREENING] Future Scheduled 1968 HEPATITIS C [facility] 00:00:00 [code = HEPATITIS C Medical Center SCREENING] Future Scheduled [address] [facility] 00:00:00 (combo) [code = CT Medical C enter Colonography (combo)] Future Scheduled [address] [facility] 00:00:00 malignant neoplasm of [facility]ica [facility] Center colon (procedure) [code = 171751046] Future Scheduled [address] [facility] Test 00:00:00 malignant neoplasm of [facility] Center colon (procedure) [code = 439129621] Future Scheduled [address] [facility] Test 00:00:00 malignant neoplasm of [facility] Center colon (procedure) [code = 655111630] Future Scheduled [address] [facility] 00:00:00 malignant neoplasm of [facility] Center colon (procedure) [code = 877337843] Future Scheduled 1950 Sigmoidoscopy [facility]code [facility] Future Scheduled [address] [facility] 00:00:00 (combo) [code = CT Medical C enter Colonography (combo)] Future Scheduled [address] [facility] Test 00:00:00 malignant neoplasm of [facility] Center colon (procedure) [code = 957358381] Future Scheduled [address] [facility] Test 00:00:00 malignant neoplasm of [facility] Center colon (procedure) [code = 145710947] Future Scheduled [address] [facility] Test 00:00:00 malignant neoplasm of [facility] Center colon (procedure) [code = 004798945] Future Scheduled [address] [facility] Test 00:00:00 malignant neoplasm of [facility] Center colon (procedure) [code = 976353746] Future Scheduled 1950 Sigmoidoscopy [facility] S[facility]] [facility] Future Scheduled [address] [facility] 00:00:00 (combo) [code = CT Medical C enter Colonography (combo)] Future Scheduled [address] [facility] Test 00:00:00 malignant neoplasm of [facility] Center colon (procedure) [code = 480916097] Future Scheduled [address] [facility] Test 00:00:00 malignant neoplasm of [facility] Center colon (procedure) [code = 733936664] Future Scheduled [address] [facility] Test 00:00:00 malignant neoplasm of [facility] Center colon (procedure) [code = 623166528] Future Scheduled [address] [facility] 00:00:00 malignant neoplasm of [facility]ica [facility] Center colon (procedure) [code = 519453292] Future Scheduled 1950 Sigmoidoscopy [facility]] [facility] Future Scheduled [address] [facility] 00:00:00 (combo) [code = CT Medical C enter Colonography (combo)] Future Scheduled [address] [facility] Test 00:00:00 malignant neoplasm of [facility] Center colon (procedure) [code = 871416059] Future Scheduled [address] [facility] 00:00:00 malignant neoplasm of [facility] Center colon (procedure) [code = 440797853] Future Scheduled [address] [facility] 00:00:00 malignant neoplasm of [facility] Center colon (procedure) [code = 544032418] Future Scheduled [address] [facility] 00:00:00 malignant neoplasm of [facility] Center colon (procedure) [code = 131823228] Future Scheduled 1950 Sigmoidoscopy [facility]code [facility]] [facility] Future Scheduled [address] [facility] 00:00:00 (combo) [code = CT Medical C enter Colonography (combo)] Future Scheduled [address] [facility] Test 00:00:00 malignant neoplasm of [facility] Center colon (procedure) [code = 278524655] Future Scheduled [address] [facility] 00:00:00 malignant neoplasm of [facility] Center colon (procedure) [code = 936221428] Future Scheduled [address] [facility] 00:00:00 malignant neoplasm of [facility] Center colon (procedure) [code = 720383060] Future Scheduled [address] [facility] 00:00:00 malignant neoplasm of [facility] Center colon (procedure) [code = 627477200] Future Scheduled 1950 S[facility]oidoscopy [facility]] [facility] Future Scheduled [address] [facility] 00:00:00 (combo) [code = CT Medical C enter Colonography (combo)] Future Scheduled [address] [facility] 00:00:00 malignant neoplasm of [facility] Center colon (procedure) [code = 827582982] Future Scheduled [address] [facility] 00:00:00 malignant neoplasm of [facility] Center colon (procedure) [code = 184933877] Future Scheduled [address] [facility] 00:00:00 malignant neoplasm of [facility] Center colon (procedure) [code = 125510482] Future Scheduled [address] [facility] 00:00:00 malignant neoplasm of [facility] Center colon (procedure) [code = 275773906] Future Scheduled 1950 S[facility]oidoscopy [facility]code [facility]] [facility] Future Scheduled [address] [facility] 00:00:00 (combo) [code = CT Medical C enter Colonography (combo)] Future Scheduled [address] [facility] 00:00:00 malignant neoplasm of [facility] Center colon (procedure) [code = 739662093] Future Scheduled [address] [facility] 00:00:00 malignant neoplasm of [facility] Center colon (procedure) [code = 234782429] Future Scheduled [address] [facility] 00:00:00 malignant neoplasm of [facility] Center colon (procedure) [code = 189454740] Future Scheduled [address] [facility] 00:00:00 malignant neoplasm of [facility] Center colon (procedure) [code = 318251778] Future Scheduled 1950 Sigmoidoscopy [facility]] [facility] Future Scheduled [address] [facility] 00:00:00 (combo) [code = CT Medical C enter Colonography (combo)] Future Scheduled [address] [facility] 00:00:00 malignant neoplasm of [facility] Center colon (procedure) [code = 844933628] Future Scheduled [address] [facility] 00:00:00 malignant neoplasm of [facility] Center colon (procedure) [code = 477605528] Future Scheduled [address] [facility] Test 00:00:00 malignant neoplasm of [facility] Center colon (procedure) [code = 585651765] Future Scheduled [address] [facility] 00:00:00 malignant neoplasm of [facility] Center colon (procedure) [code = 792549972] Future Scheduled 1950 Sigmoidoscopy [facility]] [facility] Future Scheduled [address] [facility] 00:00:00 (combo) [code = CT Medical C enter Colonography (combo)] Future Scheduled [address] [facility] Test 00:00:00 malignant neoplasm of [facility] Center colon (procedure) [code = 086457960] Future Scheduled [address] [facility] 00:00:00 malignant neoplasm of [facility] Center colon (procedure) [code = 318170789] Future Scheduled [address] [facility] 00:00:00 malignant neoplasm of [facility] Center colon (procedure) [code = 683446743] Future Scheduled [address] [facility] 00:00:00 malignant neoplasm of [facility] Center colon (procedure) [code = 051005807] Future Scheduled 1950 Sigmoidoscopy [facility]code [facility] S[facility]] [facility] Future Scheduled [address] [facility] 00:00:00 (combo) [code = CT Medical C enter Colonography (combo)] Future Scheduled [address] [facility] 00:00:00 (combo) [code = CT Medical C enter Colonography (combo)] Future Scheduled [address] [facility] colon (procedure) [code = 992579780] Future Scheduled [address] [facility] 00:[facility]:00 [facility] colon (procedure) [code = 309820594] Future Scheduled [address] [facility] 00:[facility]:00 [facility] colon (procedure) [code = 268470286] Future Scheduled [address] [facility] 00:[facility]:00 [facility] colon (procedure) [code = 723354622] Future Scheduled [address] [facility] 00:[facility]:00 [facility] colon (procedure) [code = 027830205] Future Scheduled 1950 Sigmoidoscopy [facility]code [facility] Future Scheduled [address] [facility] 00:[facility]:00 [facility] colon (procedure) [code = 835209839] Future Scheduled [address] [facility] 00:[facility]:00 [facility] colon (procedure) [code = 861794230] Future Scheduled [address] [facility] 00:[facility]:00 [facility] colon (procedure) [code = 951473825] Future Scheduled 1950 Sigmoidoscopy [facility] Future Scheduled [address] [facility] 00:00:00 (combo) [code = CT Medical C enter Colonography (combo)] Future Scheduled [address] [facility] 00:[facility]:00 [facility] colon (procedure) [code = 432847864] Future Scheduled [address] [facility] 00:[facility]:00 [facility] colon (procedure) [code = 850398218] Future Scheduled [address] [facility] 00:[facility]:00 [facility] colon (procedure) [code = 093611111] Future Scheduled [address] [facility] 00:[facility]:00 [facility] colon (procedure) [code = 203668371] Future Scheduled 1950 S[facility]oidoscopy [facility]] [facility] Future Scheduled [address] [facility] 00:00:00 (combo) [code = CT Medical C enter Colonography (combo)] Future Scheduled [address] [facility] 00:00:00 [facility] colon (procedure) [code = 910044845] Future Scheduled [address] [facility] 00:00:00 [facility] colon (procedure) [code = 894792398] Future Scheduled [address] [facility] 00:00:00 [facility] colon (procedure) [code = 960130694] Future Scheduled [address] [facility] 00:00:00 [facility] colon (procedure) [code = 053141342] Future Scheduled 1950 Sigmoidoscopy [facility]] [facility] Cent[facility] Future Scheduled [address] [facility] 00:00:00 (combo) [code = CT Medical C enter Colonography (combo)] Future Scheduled [address] [facility] 00:00:00 [facility] colon (procedure) [code = 353303485] Future Scheduled [address] [facility] 00:00:00 [facility] colon (procedure) [code = 948751412] Future Scheduled [address] [facility] 00:00:00 [facility] colon (procedure) [code = 372673680] Future Scheduled [address] [facility] 00:00:00 [facility] colon (procedure) [code = 487985960] Future Scheduled 1950 Sigmoidoscopy [facility]] [facility] Cent[facility] Future Scheduled [address] [facility] 00:00:00 (combo) [code = CT Medical C enter Colonography (combo)] Future Scheduled [address] [facility] 00:00:00 [facility] colon (procedure) [code = 892479859] Future Scheduled [address] [facility] 00:00:00 [facility] colon (procedure) [code = 678022798] Future Scheduled [address] [facility] 00:00:00 [facility] colon (procedure) [code = 781302994] Future Scheduled [address] [facility] 00:00:00 [facility] colon (procedure) [code = 761813328] Future Scheduled 1950 [facility]] Medical Cente r Encounters Start End Encounter Admission Attending Care Care Encounter Source Date/Time Date/Time Type Type Clinicians Facility Department ID 2023-02-12 2023-02-15 Inpatient [facility] Surgery [id number] [facility] 10:06:00 16:13:00 KRANTHI 2023-02-12 2023-02-15 [facility] [id number] 10:06:00 16:13:00 Encounter Kranthi Modesto saeid [facility] 2023-02-12 2023-02-12 Anesthesia Ian Quach [facility] [id number] [facility] 16:28:00 20:20:00 Event Evan Short [facility] 2023-02-12 2023-02-12 [facility] [id number] 14:00:00 16:15:00 [facility] 2023-02-06 2023-02-[address] [facility] Surgery [id number] [facility] 08:00:00 10:49:00 ELLE 2023-02-06 2023-02-06 Hospital [facility] [id number] 08:00:00 10:49:[address] [facility] 2023-02-06 2023-02-06 Anesthesia [facility] [id number] 09:42:00 10:06:00 Event [facility] 2023-02-06 2023-02-06 Surgery [facility] [id number] 09:30:00 10:00:00 [facility] 2023-02-06 2023-02-06 Travel [facility] [id number] [facility] 00:[facility]:00 00:00:00 [facility] 2023-01-25 2023-01-25 Office Alireza, 1.2.840.1 [id number] Methodi 11:00:00 11:30:41 Visit Darling 53264.1.[address] 3.430.2.7 Hospit a .3.979072 l .8 2023-01-25 2023-01-25 Office Alireza, 1.2.840.1 [id number] Methodi 11:00:00 11:30:41 Visit Darling 73252.1.[address] 3.430.2.7 Hospit a .3.578878 l .8 2023-01-24 2023-01-24 Travel 1.2.840.1 1.2.542.113 6778 [id number] Methodi 00:00:00 00:00:[address] 3.430.2.7 0.2.7.3.698 Ho spita .3.475945 084.8 l .8 2023-01-24 2023-01-24 Travel 1.2.840.1 1.2.767.510 5134 436241 Methodi 00:00:00 00:00:[address] 3.430.2.7 0.2.7.3.698 Ho spita .3.980891 084.8 l .8 2023-01-17 2023-01-17 Outpatient [facility] SLE [id number] [facility] 00:00:00 00:00:00 2023-01-17 2023-01-17 Travel [facility] [id number] [facility] 00:[facility]00 00:00:00 [facility] 2022-12-19 2022-12-19 Patient Sidney, 1.2.840.1 [id number] 2100 [id number] Methodi 00:00:00 00:00:00 Outreach Mila 68833.1.[address] 3.430.2.7 Hospit a .3.474001 l .8 2022-12-19 2022-12-19 Patient Sidney, 1.2.840.1 [id number] 2100 [id number] Methodi 00:00:00 00:00:00 Outreach Mila G 56126.1.[address] 3.430.2.7 Hospit a .3.380540 l .8 2022-12-18 2022-12-18 Office [place], 1.2.840.1 [id number] 7657 Methodi 13:45:00 13:56:47 Visit [facility] 69539.1.1 842 s t 3.430.2.7 Hospit a .3.433846 l .8 2022-12-18 2022-12-18 Office [place], 1.2.840.1 [id number] [id number] 6295 Methodi 13:45:00 13:56:47 Visit [facility] 17152.1.1 842 s t 3.430.2.7 Hospit a .3.233227 l .8 2022-12-04 2022-12-04 Refill Rafael, 1.2.840.1 [id number] 2878 Methodi 00:00:00 00:00:[address] 3.430.2.7 Hospit a .3.283636 l .8 2022-12-04 2022-12-04 Refill Rafael, 1.2.840.1 [id number] 4738 Methodi 00:00:00 00:00:[address] 3.430.2.7 Hospit a .3.276992 l .8 2022-12-03 2022-12-03 Office Adan, 1.2.840.1 [id number] 1682 Methodi 15:20:00 16:27:13 Visit Destiny 45807.1.[address] 3.430.2.7 Hospit a .3.834641 l .8 2022-12-03 2022-12-03 Office Adan, 1.2.840.1 [id number] 1748 Methodi 15:20:00 16:27:13 Visit Destiny 80619.1.[address] 3.430.2.7 Hospit a .3.079301 l .8 2022-11-29 2022-11-29 Refill Adan, 1.2.840.1 [id number] 8632 Methodi 00:00:00 00:00:[address] 3.430.2.7 Hospit a .3.496472 l .8 2022-11-29 2022-11-29 Refill Adan 1.2.840.1 [id number] 8415 Methodi 00:00:00 00:00:[address] 3.430.2.7 Hospit a .3.624343 l .8 2022-11-21 2022-11-21 [facility] Lonnie [facility] [id number] 00:00:00 00:00:00 [facility] 2022-11-07 2022-11-07 [facility] [id number] 10:38:32 23:59:00 Encounter , [facility] 2022-11-07 2022-11-07 Outpatient ROCHELLE DOUGLAS [facility] SLE [id number] [facility] 10:38:31 23:59:00 , YARON 2022-11-02 2022-11-02 Outpatient ROCHELLE DOUGLAS [facility] [id number] [facility] 00:00:00 00:00:00 , YARON 2022-10-25 2022-10-25 [facility] Yareli [facility] [id number] [facility] 00:00:00 00:00:00 Only , [facility] 2022-09-17 2022-09-17 Telephone Martha, 1.2.840.1 [id number] 099 [id number] Methodi 00:00:00 00:00:[address] Minoru 3.430.2.7 Hospit a .3.854924 l .8 2022-09-17 2022-09-17 Telephone Martha, 1.2.840.1 [id number] 583 [id number] Methodi 00:00:00 00:00:[address] Minoru 3.430.2.7 Hospit a .3.333080 l .8 2022-09-08 2022-09-08 Refill [place], 1.2.840.1 [id number] 4105 Methodi 00:00:00 00:00:00 [facility] 88228.1.1 509 s t 3.430.2.7 Hospit a .3.086646 l .8 2022-09-08 2022-09-08 Refill [place], 1.2.840.1 [id number] 724621 6983 Methodi 00:00:00 00:00:00 [facility] 63245.1.1 509 s t 3.430.2.7 Hospit a .3.386195 l .8 2022-08-30 2022-08-30 Office [facility], 1.2.840.1 [id number] 4108 Methodi 15:20:00 15:56:48 Visit Destiny 61522.1.[address] 3.430.2.7 Hospit a .3.448253 l .8 2022-08-30 2022-08-30 Office Adan, 1.2.840.1 [id number] 2857 Methodi 15:20:00 15:56:48 Visit Destiny 95807.1.[address] 3.430.2.7 Hospit a .3.931046 l .8 2022-08-08 2022-08-08 Refill Semenoff, 1.2.840.1 [id number] 2099 567425 Methodi 00:00:00 00:00:00 Skye 72431.1.1 473 s t Amber 3.430.2.7 Hospit a .3.405422 l .8 2022-08-08 2022-08-08 Refill [place], 1.2.840.1 [id number] 680102 6482 Methodi 00:00:00 00:00:00 [facility] 69054.1.1 469 s t 3.430.2.7 Hospit a .3.629937 l .8 2022-08-08 2022-08-08 Refill Semenoff, 1.2.840.1 [id number] 2099 647201 Methodi 00:00:00 00:00:00 Skye 87686.1.1 473 s t Amber 3.430.2.7 Hospit a .3.869128 l .8 2022-08-08 2022-08-08 Refill [place], 1.2.840.1 [id number] 941223 4855 Methodi 00:00:00 00:00:00 [facility] 17674.1.1 469 s t 3.430.2.7 Hospit a .3.170441 l .8 2022-07-26 2022-07-26 Office Jacob 1.2.840.1 [id number] 219807 4370 Methodi 10:10:00 10:30:00 Visit Ramya 62786.1.[address] 3.430.2.7 Hospit a .3.906144 l .8 2022-07-26 2022-07-26 Office Jacob 1.2.840.1 [id number] 104022 7097 Methodi 10:10:00 10:30:00 Visit Ramya 91672.1.[address] 3.430.2.7 Hospit a .3.042142 l .8 2022-07-26 2022-07-26 Travel 1.2.840.1 1.2.747.999 7530 411212 Methodi 00:00:00 00:00:[address] 3.430.2.7 0.2.7.3.698 Ho spita .3.805244 084.8 l .8 2022-07-26 2022-07-26 Travel 1.2.840.1 1.2.830.799 6866 820508 Methodi 00:00:00 00:00:[address] 3.430.2.7 0.2.7.3.698 Ho spita .3.122023 084.8 l .8 2022-06-29 2022-06-29 Outpatient [facility] Surgery [id number] SLE 05:24:00 12:15:00 LR 2022-06-29 2022-06-29 [facility] [id number] [facility] [facility] 05:24:00 12:15:00 Encounter [facility] 2022-06-29 2022-06-29 [facility] [id number] 07:30:00 10:31:00 [facility] 2022-06-29 2022-06-29 Anesthesia Akua Benjamin [facility] [id number] 07:48:00 10:11:00 Event Andreina Mendez [facility] 2022-06-29 2022-06-29 Travel [facility] [id number] [facility] 00:00:00 00:00:00 [facility] 2022-06-22 2022-06-22 Outpatient [facility] [id number] SLE 13:36:38 23:59:00 2022-06-22 2022-06-22 [facility] [id number] 10:50:00 23:59:00 [facility] 2022-06-22 2022-06-22 Travel [facility] [id number] [facility] 00:00:00 00:00:00 [facility] 2022-06-11 2022-06-11 Rama Arellano, 1.2.840.1 [id number] 5159 Methodi 00:00:00 00:00:[address] 3.430.2.7 Hospit a .3.188549 l .8 2022-06-11 2022-06-11 Rama Arellano 1.2.840.1 [id number] [id number] 3927 Methodi 00:00:00 00:00:[address] 3.430.2.7 Hospit a .3.353792 l .8 2022-05-16 2022-05-16 Jorge James 1.2.840.1 [id number] [id number] 8301 Methodi 00:00:00 00:00:00 Only Ramya 97946.1.[address] 3.430.2.7 Hospit a .3.335624 l .8 2022-05-16 2022-05-16 Jorge James 1.2.840.1 [id number] 795946 3753 Methodi 00:00:00 00:00:00 Only Ramya 58737.1.[address] 3.430.2.7 Hospit a .3.094759 l .8 2022-05-08 2022-05-08 [facility], 1.2.840.1 [id number] 2 [id number] Methodi 19:05:54 23:59:00 Encounter Ismael 62439.1.[address] [place] 3.430.2.7 Hospit a .3.114827 l .8 2022-05-08 2022-05-08 [facility], 1.2.840.1 [id number] 2 [id number] Methodi 19:05:54 23:59:00 Encounter Ismael 14339.1.[address] [place] 3.430.2.7 Hospit a .3.858559 l .8 2022-05-08 2022-05-08 Travel 1.2.840.1 1.2.807.650 2362 130021 Methodi 00:00:00 00:00:[address] 3.430.2.7 0.2.7.3.698 Ho spita .3.602415 084.8 l .8 2022-05-08 2022-05-08 Travel 1.2.840.1 1.2.703.391 7574 130021 Methodi 00:00:00 00:00:[address] 3.430.2.7 0.2.7.3.698 Ho spita .3.554485 084.8 l .8 2022-05-04 2022-05-04 Office [place], 1.2.840.1 [id number] 061981 9811 Methodi 08:45:00 09:18:07 Visit [facility] 70983.1.1 117 s t 3.430.2.7 Hospit a .3.882358 l .8 2022-05-04 2022-05-04 Office [place], 1.2.840.1 [id number] [id number] 2312 Methodi 08:45:00 09:18:07 Visit [facility] 89890.1.1 117 s t 3.430.2.7 Hospit a .3.422325 l .8 2022-05-04 2022-05-04 Travel 1.2.840.1 1.2.239.610 9365 103220 Methodi 00:00:00 00:00:[address] 3.430.2.7 0.2.7.3.698 Ho spita .3.233850 084.8 l .8 2022-05-04 2022-05-04 Travel 1.2.840.1 1.2.638.120 7927 011741 Methodi 00:00:00 00:00:[address] 3.430.2.7 0.2.7.3.698 Ho spita .3.855581 084.8 l .8 2022-05-01 2022-05-01 Travel 1.2.840.1 1.2.495.655 0652 071052 Methodi 00:00:00 00:00:[address] 3.430.2.7 0.2.7.3.698 Ho spita .3.861957 084.8 l .8 2022-05-01 2022-05-01 Travel 1.2.840.1 1.2.910.477 3105 924657 Methodi 00:00:00 00:00:[address] 3.430.2.7 0.2.7.3.698 Ho spita .3.685040 084.8 l .8 2022-04-30 2022-04-30 Refill [place], 1.2.840.1 [id number] 179008 8487 Methodi 00:00:00 00:00:00 [facility] 72802.1.1 875 s t 3.430.2.7 Hospit a .3.650111 l .8 2022-04-30 2022-04-30 Refill [place], 1.2.840.1 [id number] 880688 2973 Methodi 00:00:00 00:00:00 [facility] 91730.1.1 875 s t 3.430.2.7 Hospit a .3.853609 l .8 2022-04-26 2022-04-26 Telephone Semenoff, 1.2.840.1 [id number] 21 [id number] Methodi 00:00:00 00:00:00 Skye 59269.1.1 460 s t Amber 3.430.2.7 Hospit a .3.425303 l .8 2022-04-26 2022-04-26 Telephone Semenoff, 1.2.840.1 [id number] 21 [id number] Methodi 00:00:00 00:00:00 Skye 77960.1.1 460 s t Maber 3.430.2.7 Hospit a .3.960420 l .8 2022-04-25 2022-04-25 Lab Septimus, 1.2.840.1 [id number] 2099 084068 Methodi 16:00:00 16:05:00 Briansergio Jones 81504.1.[address] 3.430.2.7 Hospit a .3.611428 l .8 2022-04-25 2022-04-25 Lab Septimus, 1.2.840.1 [id number] 2099 156438 Methodi 16:00:00 16:05:00 Brians[address] Jones [address]042.1.[address] 3.430.2.7 Hospit a .3.558876 l .8 2022-04-25 2022-04-25 Office Semenoff, 1.2.840.1 [id number] 2099 556715 Methodi 15:45:00 16:00:00 Visit Skye 07141.1.1 390 s t Amber 3.430.2.7 Hospit a .3.951501 l .8 2022-04-25 2022-04-25 Office Semenoff, 1.2.840.1 [id number] 2099 981408 Methodi 15:45:00 16:00:00 Visit Skye 46344.1.1 390 s t Amber 3.430.2.7 Hospit a .3.748381 l .8 2022-04-25 2022-04-25 Travel 1.2.840.1 1.2.732.386 3810 000350 Methodi 00:00:00 00:00:[address] 3.430.2.7 0.2.7.3.698 Ho spita .3.154475 084.8 l .8 2022-04-25 2022-04-25 Travel 1.2.840.1 1.2.299.955 3154 823455 Methodi 00:00:00 00:00:[address] 3.430.2.7 0.2.7.3.698 Ho spita .3.600435 084.8 l .8 2022-04-19 2022-04-19 [facility] James, 1.2.840.1 [id number] 612613 9543 Methodi 11:00:00 11:20:00 Visit Ramya 34261.1.[address] 3.430.2.7 Hospit a .3.563764 l .8 2022-04-19 2022-04-19 Travel 1.2.840.1 1.2.379.330 4652 481185 Methodi 00:00:00 00:00:[address] 3.430.2.7 0.2.7.3.698 Ho spita .3.333384 084.8 l .8 2022-04-10 2022-04-10 Travel 1.2.840.1 1.2.225.116 5916 983568 Methodi 00:00:00 00:00:[address] 3.430.2.7 0.2.7.3.698 Ho spita .3.448429 084.8 l .8 2022-03-20 2022-03-20 [facility], 1.2.840.1 [id number] 299997 3846 Methodi 00:00:00 00:00:00 Only Hieu 83499.1.[address] [place] 3.430.2.7 Hosp shelly .3.509649 l .8 2022-03-19 2022-03-19 Travel 1.2.840.1 1.2.834.011 6021 521475 Methodi 00:00:00 00:00:[address] 3.430.2.7 0.2.7.3.698 Ho spita .3.341697 084.8 l .8 2022-03-16 2022-03-16 [facility], 1.2.840.1 [id number] 74926 98190 Methodi 19:30:00 23:59:00 Encounter Patrick 21252.1.[address] 3.430.2.7 Hospit a .3.990106 l .8 2022-02-08 2022-02-19 Office Myra, 1.2.840.1 [id number] [id number] 2261 Methodi 14:20:00 00:10:35 Visit Hieu 92588.1.[address] [place] 3.430.2.7 Hosp shelly .3.586543 l .8 2022-02-14 2022-02-14 Travel 1.2.840.1 1.2.188.263 2788 668435 Methodi 00:00:00 00:00:[address] 3.430.2.7 0.2.7.3.698 Ho spita .3.927540 084.8 l .8 2022-02-08 2022-02-08 Travel 1.2.840.1 1.2.664.107 2977 545087 Methodi 00:00:00 00:00:[address] 3.430.2.7 0.2.7.3.698 Ho spita .3.119198 084.8 l .8 2022-02-04 2022-02-04 Refbaron Arellano, 1.2.840.1 [id number] 151577 7238 Methodi 00:00:00 00:00:[address] 3.430.2.7 Hospit a .3.968159 l .8 2022-01-12 2022-01-12 Jorge Love, 1.2.840.1 [id number] 77998 Methodi 00:00:00 00:00:00 Only Shirley 37800.1.[address] 3.430.2.7 Hospit a .3.273877 l .8 2022-01-08 2022-01-08 Office FABIO Farley 1.2.840.114 062204 Rossy Turk 15:20:00 16:00:00 Visit [facility] 350.1.13.13 Seybold 1.2.7.2.686 637.5107604 3 2021-12-28 2021-12-28 Telephone Francesco, 1.2.840.1 [id number] 394 [id number] Methodi 00:00:00 00:00:[address] 3.430.2.7 Hospit a .3.181030 l .8 2021-12-19 2021-12-19 Office Miguelito, MAIN 1.2.840.114 677930 954 Rosalee 16:00:00 16:40:00 Visit [facility] 350.1.13.13 Seybold 1.2.7.2.686 888.7324346 3 2021-12-18 2021-12-18 Office Adan, 1.2.840.1 [id number] 888070 7110 Methodi 14:40:00 16:04:12 Visit Destiny 91478.1.[address] 3.430.2.7 Hospit a .3.300591 l .8 2021-12-18 2021-12-18 Office [place], 1.2.840.1 [id number] 194123 7257 Methodi 13:00:00 13:42:49 Visit [facility] 83515.1.1 636 s t 3.430.2.7 Hospit a .3.093618 l .8 2021-12-18 2021-12-18 Travel 1.2.840.1 1.2.814.172 8331 455340 Methodi 00:00:00 00:00:[address] 3.430.2.7 0.2.7.3.698 Ho spita .3.982463 084.8 l .8 2021-09-25 2021-09-25 Refill [place], 1.2.840.1 [id number] 711277 2455 Methodi 00:00:00 00:00:00 [facility] 33483.1.1 330 s t 3.430.2.7 Hospit a .3.738177 l .8 2021-09-25 2021-09-25 Refill Brown, 1.2.840.1 [id number] 354793 6255 Methodi 00:00:00 00:00:[address] 3.430.2.7 Hospit a .3.008039 l .8 2021-09-25 2021-09-25 Refill Car[place], 1.2.840.1 [id number] 6586 Methodi 00:00:00 00:00:[address] 3.430.2.7 Hospit a .3.198286 l .8 2021-09-11 2021-09-11 Travel 1.2.840.1 1.2.553.071 9011 645333 Methodi 00:00:00 00:00:[address] 3.430.2.7 0.2.7.3.698 Ho spita .3.069205 084.8 l .8 2021-09-11 2021-09-11 Refill Brown, 1.2.840.1 [id number] 3871 Methodi 00:00:00 00:00:[address] 3.430.2.7 Hospit a .3.274883 l .8 2021-09-11 2021-09-11 Refill Brown, 1.2.840.1 [id number] 7086 Methodi 00:00:00 00:00:[address] 3.430.2.7 Hospit a .3.500704 l .8 2021-09-08 2021-09-08 Refill Brown, 1.2.840.1 [id number] 9196 Methodi 00:00:00 00:00:[address] 3.430.2.7 Hospit a .3.094482 l .8 2021-09-08 2021-09-08 Refill Brown, 1.2.840.1 [id number] 2488 Methodi 00:00:00 00:00:[address] 3.430.2.7 Hospit a .3.189736 l .8 2021-08-24 2021-08-24 Refill Peter, 1.2.840.1 [id number] 5608 Methodi 00:00:00 00:00:00 Yolanda Mateusz [address] 3.430.2.7 Hospit a .3.198918 l .8 2021-07-17 2021-07-17 Outpatient [place], [facility] [id number] [place] 00:00:00 00:00:00 VINYUSRAA 834 Method i 2021-06-02 2021-06-02 Outpatient [facility] [id number] [place] 00:00:00 00:00:00 358 Method i 2020-12-06 2020-12-06 Outpatient KD, [facility] [id number] [place] 00:00:00 00:00:00 DINORA 971 Md thodi 2020-11-17 2020-11-17 Outpatient [place], [facility] [id number] [place] 00:00:00 00:00:00 VINYUSRAA 934 Method i 2020-11-16 2020-11-16 Outpatient ROCHELLE FLEMING, [facility] [id number] [facility] 00:00:00 00:00:00 [place] 2020-11-16 2020-11-16 Outpatient BR[place], [facility] [id number] [place] 00:00:00 00:00:[address] DESTINY [address] 2020-11-15 2020-11-15 Outpatient [facility] [id number] [place] 00:00:00 00:00:00 662 Method i 2020-09-22 2020-09-22 Outpatient [place], [facility] [id number] [place] 00:00:00 00:00:00 VINISHA 935 Method i 2020-09-22 2020-09-22 Outpatient [place], [facility] [id number] [place] 00:00:00 00:00:00 VINISHA 311 Method i 2020-09-06 2020-09-06 Outpatient [place], [facility] [id number] [place] 00:00:00 00:00:00 YOLANDA 058 Method i 2020-08-24 2020-08-24 Outpatient [place], [facility] [id number] [place] 00:00:00 00:00:00 YOLANDA 821 Method i 2020-07-14 2020-07-14 Outpatient EL LONNIE, [facility] [id number] [facility] 00:00:00 00:00:00 [place] 2020-02-23 2020-02-23 Outpatient [place], [facility] [id number] [place] 00:00:00 00:00:00 YOLANDA 517 Method i 2020-01-20 2020-01-20 Outpatient [place], [facility] [id number] [place] 00:00:00 00:00:00 YOLANDA 968 Method i 2019-03-06 2019-03-06 Emergency E [facility] [address] [facility] 13:26:00 13:26:00 Results Test Description Test Time Test Comments Results Result Comments Source POC-Glucose meter 2023-02-15 12:18:11 Test Item Value Reference Range Interpretation Comme nts POC-Glucose Meter (test code = 126 mg/dL 70-110 H : TESTED AT [facility] [address] [facility] 1538) [facility], 770 30: [facility] Counselor/Techni angie ID = [id number] for MEDARDO WELSH A Lab Interpretation (test code = Abnormal 44732-3) [facility] [id number] 12:18:11 Test Item Value Reference Range Interpretation Comments POC-GLUCOSE METER 126 mg/dL 70-110 H : [facility] (test code = BERTNE R [facility], 1538) [address]: [facility] Counselor/Techni angie ID = [id number] for NW MIKA FAJARDOOMA Tissue [id number] 11:51:47 Test Item Value Reference Range Interpretation Comments Case Report (test code Surgical Pathology = 104) Report Case: [id number] Authorizing Provider: Kranthi Doan MD Collected: 02/12/2023 08:03 PM Ordering Location: [facility] Received: 02/13/2023 10:49 AM PERIOPERATIVE SERVICES Pathologist: Cristobal Hernandez MD Specimen: Biopsy, Esophagus, esophagus at 40 cm DIAGNOSIS (test code = c4zozTHuHMMci3dkQAXvtST 3220) uZzEwMzNcZnRuYmpcdWMxIH tccnRmMVxlcGljMTAyMDVcY H2ngKqsaUi5kUgoCHPtttC7 wJGcALqjt2frKKO4i1ftski sVVSfEXauAv0nlZUyxKknGp RgKEUgULk6xR85PUQzcW2fb GJsIDtccmVkMFxncmVlbjBc Ksi8ISI5OATlURW0RSozfoZ qoaU2PTwqeHLmHqJ3O51laZ XkISM4FATlOGFjeYYsTERsX HU8FZOdnYBuC2tzUGOfEN5c zzhrXVasJZheLWFyqKG4YQS ssPPeW4HrAYNbFBxmSBBgbp v9WqQgWw0fpTKtpLdcKNwaD HRiIEJyQAnoBSJsJjWqY8Sm UKRlG8XrFEAeYVYBY4WFHGd VUywgQklPUFNZIEFUIDQwIE ZDJKfzQINvTPVVE75ZFEakA OkNBzZZRW3ZZVKTGTPiWTKM Kr3PNPMPHB8NEMGbRUNAUmC SB6BdHYfIGNOzZQ3ACdhVLK MUEXDMIIWQPManC0rGGVHWV BnZVNDdT6FVSQNDGKAWNUFC P4zoLAQgGVMQETYnCSSSF6F RBLIjoIVxDU1oKw9fFQ1SXl BPRiBOVUNMRUFSIEVYUFJFU 7FVG77uL1PbPA4JUTESP8NG QQ1TEfRJD2qjSGLRGcLZUVf TYGegT7YfJDmXWx6FUQRPQM bSSMYePZ6WQYZVYZcMYZrjK ElHSCAoTVNJLUgpXHBhciAt DZTCFJOQF90PRW2EJVXexy8 4UKD9LxJrz8O5WOW6TOYiYX Yot0ppGIZdcSJhDfRiRxNdD tRqQddoiOCcILKdPvKws4kx e382bCXsx0qxCGKgBrN6vNZ sHYRrcQClK270ABEmCYgny5 wvg7QzRZXiiGLvf3D1WFJNy gjkfPe7tAwoN97vt9M2Dvmp H4mvFQNoRMLtQ8BrIX4iSFP rLuz4PGW9WNP4ZLGfYYWqP5 UgZG3yUERzeARcOPo4x9nkc UrsMINsMWX9i5fjNFuyfdHq YV4fyq8yyPo1j3ixkqMvEQD qUFVrbVPZEXDhT4KnjJmrIc 8xsWz7yQvmDgbzXVU7Tio8S B9gdd10fnx3xOdsZTDvsatu HqS0TIvfGJIeckozOPp3UUt qJDAlvUO9CRWmwFCcR2ZjCD GlSB7fnmt1PWI6VLhkAMWoA fA7XRZemSZbGATyuVdbAHhw a604YKL8GxEcEF6qW8Lnj3K 1uM9ntUUjKPMjwQHxMlObWF Wshw6lpBUsQTynw4VvGNJ0g rZ2wKCdyTLkNOKwNnW2EIql RG2nav14AURwYFZ0ao1caGC iaZrowoJxxNPlVTaxM1ZnAT Ezc240QTSpE1JhLMUsi3N8y xNlGeNcWNOnyQM0ntJ6EHQg LE3ceonhh5rmVAtdNFkmBAK hngS8prU3BKXhbTVjQ9TchF 0bUFKpYI8qvddjb4laDMR8O EwkWVZxTAJ4CpKtLQUwj8Fl idp8EiJur4KrwQPnNPhvO61 sg335ETSzgjSnX7qxaWTidg fkxEZhqfxzIQdrpuX1CSYoC UjgejusEAFuCCtkP5jiBnZt KVVmqYgtVUhvd6MeXLQnGOD oQfLoxLRtGZXjVxi9RJAkzV ThAABiAfLzU8khiscaTdZBQ WUor6ukR5joyYHTpBKuZ5Bv UGhvbmUgTGluZTogNzEzLTc 4RE52FtNsYBCruy81 COMMENT (test code = l6vsuFDjFJKgrZTsSVTnFBy 3355) cklZeFCUsxDIdL5IrkvmsRH sdRC0bBJ5wfIsnlFRpyFFaP FDdUmOhk9gkx662rGAlb7ui NIBNmlzrzCf0yZpkB00pn6Y 7UpvsX4xmYHBqCApdBFHpGD xonLXeZVkldlCiIyB4JBtyN AEpArI8QDDdgTXhLMO0eSvw QMNpbixuKlX2AEjiWYAvnes uXUy2OIgcTAInqYE0RQEncR ZfC5JdORWeLR5dkhq6YDV4V UmtZDLpOxP8PTLppUApKHFn oNmqHIvyj660BVX5FvKaBWV rbyPbgIukuO9nFaIqURebIz IoO3olNkHfxOYxBUYSjF18h b4sdIE0g6RkJC2hS8FiOPV3 HZlcpqWpz1RnDQYWDXRiEF1 YHU59KVKKAYKhPtFftqLpXD pFJUQac7NiPDTrMLFkh2AjX GCln55emLpqhiBbTRMkl2Bd paMefm2rZIeij5q5kJI7bEV xGk5qpX20eK3lTFOti6QtaK M6IFx+XHBhclxsaTcyMFxsa T92TcPyGrLpDL2ESIC3EYAF RVNFUlZFRCBFWFBSRVNTSU9 KFSEzsdHhFDBHEcQ3FSIYNM VFTzEDFWOWSRGQIQDZCK1BW HIxwoVoEV6GOAM5MQBJQRLH TgOMXUEXKWXPIIPMNY4CASB aeeQyOJ3NHRI7INEHTLGVMl FZLBSPFXAYKFAAAK1AJUGgl lxsaTBcbGluMFxiMCBUaGUg fRoqgRtiG4z3CEEfOU4pNUV 1tz2rRHvjA9KufQAhl9wtws ZftVMiCPElCIP2JAxvvI9jT WTeCAYni7r7uOUyYEaulORj scAlPHHxvgTjw8mwWbHeeDO oYSIrXD64IPKaweJ0ETLmc3 41EYEqvhrsWLYDdgZvi1HaH J0sPZ67H7aaAGDiLBpkgjRf t0uqggCoJjXLJOOlyKMcuMQ vlzH7IGrwdvAyxm1mGFTizN z2oZHdLbXqdBMte1WzlGGku Bu7TYQltsI8YLZitDt6fA0t pWmkGBgWW7weHIkuGYBlcaa ofCzbXViphH18XnKxtxscQE JcbGkwXGxpbjBcYlxjZjBcY 2hjYnBhdDAgLSBIRVIyIChi eNBqhU05ca5gkSB3y0MfGB6 xq3TcmGv8WE5zG1D3aYTlWe DhJ52gRQNeHFMnNMMwDb1mc lUjL3Rlrhp2wMMwpaMmGL6q vtLdr7NpCXQhQUG7iRJaiOz pLCByZXZpZXdlZCAmIHNjb3 KcOOMueNHDy9LgNR4sShP1E OSCTU2tuFUnHVXrgnNBrlQq ILLcdASqqU0gmzNanTYwg75 plKk8NLXgn475EYKrj9vmyw MZYZxvUJ8LRJexvqKcCUBaY HyvOEGyEBdzV6AqOVMdyNni BRYeR90iN1MzliZ8qAXeKYB hNMPmrZGnwy8ozZWvNQBxsk 0= CPT Code(s) (test code m2wccLTjEAHrmZZqVSAhDEl = 3357) rtqPoRETewOJnM5NxmabcCS kmLJ1dSU9jyNstmRGyeVMzQ EGxClWub5fdg026gOAfd7mg DGXFcwdqcHz8aLurJ32vv8A 1FbfjT24gxVBbAPB4IGCzIQ UlsRSgAAGxHIU6VCGodLQjE 8giXUKlDP6omdcyCLlgSQev MUVoaLK5GASxtVOiL3KqTBQ xBGloVNMbgqo7MaPzAw6wkO VyeTcyMFxwYXJkXHBsYWluX AZsXkJlSYegETMfEIa9HmEb ZBK6YCI6TANTWASiBGp5XaY wXHBhcn0= CLINICAL HISTORY (test a4osjVXgCTEhgYOyTVEpQOj code = 3356) qunQwCFJuiAYcA7EqijrtCJ utQM6lBX7eaRxxlZZgaESnY DTeWqVuq1meg951eWSnb4kp EFZTuhldnTq3nQxcT49jg1Q 2EzogV66pcCGkBHJ4AWMgKG FazZBxPYZmKVG9CVXodNYhZ 7gaQIKbWZ4qfrrrTAqiCHgr LGUkqPH2FMFawRDfI2WnXPW ePKnvVELkioq4YzKkTu9htX VyeTcyMFxwYXJkXHBsYWluX RZdDuXhMTOweSumCV15GD1f t5PcYXJeAP0mPBXdt1JuHLe 2v5fyKJQ6 SPECIMEN SOURCE (test m9gtoCXtKICjlWGxFAQcNTc code = 3377) zuwVpMHIapDLvW8HyokioDX jrXU7wVR5nfTxrnYGsbTAvG MHiEvYtm7ljw888lYUdy8rf PUJSnyhzuRq9yQfbX54qu9E 6FovkW19qjMEoTND1EPElQG SdxIGiVCDvKCC9OIJotQEzG 6xyAEEhBI5ldtznZJxfTKzr JMDdjQF8YALboTJsI7JxFRD cCSudJEDxqvt4UzEaCh6hoF VyeTcyMFxwYXJkXHBsYWluX NLwRuIoSWMlrArtD3InISDg cn0= GROSS DESCRIPTION a5qaaJFnYYSpfTRGQMXvVAI (test code = oQM8gtOwjzMv0nKszOKMvjz [id number]) Q6vBZrTNzmj4jtSFY8n4thf sGRSlliIEMgEX7eGDxoCRNq BY8gQcXmNJVpScRwMKBucRB botZmYyIuCRZavYFfqEG7FS JuNK2iuzjhIJjkAUqeVVYwu hP5KXIjfCHqE0JwMFGxJH6m phjdVCS9WAILZumcTj1njNY ibHtcZjFcZmNoYXJzZXQwXG BecZanMFTuODu0yY1ZEkvfU 81af9T2Edu8QIJdRQVsV0Ck ZQ3qACUjzKLvO14TQvmcADQ 4FEXUPyoiNxxleCefq7UxnL BcXHNnIFxcaWQgNTEwMDAgX JgxXfRIKuEuCpR9YrY0KdIb VlS4JBt2DYZNBIKcJJB8AYY sIpU9WRx7HLYtVG5uQIjixU RlFCymGlcfUSasS822GAaaC RMsA2HcB6RnVQzaPsEaQOnk KFDmINKmAJqbVQOnV6JZUSB yJTIdDhPdNPSjFGk2FOekA4 NJLQCbBDH7USYuUdDuVvT5I Yh6AWTVAp8iEdL8OxV1CnHh GUP7CBF1SIhmmWYsRRngr6W lCtSaXUFaVKxskaD8CUZzvy IiPCmfeSozmM7pTjBpXyMHK jFMbY8ci5svWJUzq3RgXQx0 e3lbRUMmZUxyeHYoYURRAyo wxGPherppvaIxWHt7rzEkAZ OxtCNXOBU7JH5jSHJRLrbdp OOcXJLqfGddLYrnqE9rWJ8G FLPyHVroonDzYSJhS2BvtpX bNEodURIgkj3quEmfUIukYe GvTLDkk4p0aFK8zLDxpYF1h LRgcAmiJsGcHP7fcUOsRU0d ZJlbAYxwslSdq8PmEG02gKB kdzPhehMgEYS4SiOxUZueNR Dbo53euMMoaQHkTYJuWILzZ 12nKVHyCSPotAr4mLIxMEV1 YY5ts57ixMO3wATacKAuRgG bE76gdsBtKQ9eACS8tolwVz K9tWQ6ocFrIuGoV38aeK8jJ 0FsSENma1RwIWvpBK0akS5d HHQ9cDcakARotdCnj8RreOy 6eWNcIQciWQLssU6piM1lRZ EuXHBhciANClxwYXIgDQpcc 2EzMFxlcGljWHNhMzAgDQpc B1LzCBDiSnIvPJpdGBScQLL ndWVsbGVzLCBQQSwgSFQgKE SVY0JoRApeHFHhP86jq7EOr 1Wuk5cxuXssh3ZmwHRqXS09 GKUscTKxASC1DU9miJuiUTZ gDQpccGFyZCANCn0= MICROSCOPIC s3dolCDkUZCmtJDkWGOgTLo DESCRIPTION (test code kctQgKJUktQFvD8XcgixsLW = 2841) vnCI9mPX9nuVkrsOZpwERiE SAuQgCun6csx755bVTkz4zc SIODkukdrHb6xFtvZ52hy0T 4YfzvD33mtXOvBZK3DLWwAO CwcHLcJFHyGRW9YZUoiCUwW 5siTSTjXA3dhpsmNVowOKji HGIqqVR0OHZchJCfH3CpGSC gBYbaUKSxeib3TyFnTt1ezR VyeTcyMFxwYXJkXHBsYWluX GNeNzLtISV2BATnNLLlAmWg N80zdwZcGM5mTIBsn7HqaIA kaWZmZXJlbnRpYXRlZCBjYX XmrB7bfFYmp1t7dSUff8Ips IRxfdBxCG8rFAevwIiesvPm jKOdlgOhenXcSj5yGQehZHi oqzEoULXvTS9aYC3qyEndre StbQCtQWtwovQdrLMoe9EpA HMwCPP5TEB7rBWrP8EsiXPz QPSuhBFszM9sQAGkFXFhWZ8 yGGTEg2NlnJC9iH6rkzWwxh BzZWVuIGluIGxhbWluYSBwc v8ntqatIZ6tIXUbiJHxw7Uz VWVtuLZfRMigjP2oXXALtzK ppCKzm3AshGGwGkYuJ63hpv JqUE5fPOKidSHqe9NaCSTqi JQyGHkglU2xONPcLZHon30y cBSbp0JuoM2yyYDgyB== SPECIAL STUDIES (test t8jihSWyDMNjvITcYEPrYYl code = 3376) 5wVJdr1S5vyhlGO2gpPzfeQ a5gNxnEDPfpuW7hDXgRMuwn 9zeNVD3b3helthlLARlTDiv Qi2ogNQymEqsXuBjAJTrXUj 5nMojTmNnI9CsiTPqnIi2tB arA47rn7A9HxbmY7wvPBDuF GdyZWVuMFxibHVlMDtccmVk QqL2KKckZHMeKhA2AXCydVK dUEI8ITIrHUTkZ6UrFX6uSJ FbsTZqWQL0aIbdBOBiglyoP rC9THmoTYElrazqEHa3RCpf ZHHpuGK6HVEbxBBoO2FyEQW sKV9nivv6WGQ9MCueZPUmJt G2TVYyvPGvXVOscJhoNOxvr 378WMI2SoGaNURizrFdbo39 fYAlrWoyCMQuxLrphF8oZwW cZnMyMlxjZjEgVGhlIGludG XpqGZmcAK0cZ5yTX0wTFYfs EEvV5UuGHTqfvHfnSAzEBC5 qHVknABhGM3yKGnlyEVqf5k ly6FrQ3wjzTbuuNJ4HH1ySP EjERPmDYbpz7TyoJ4gHfuuO KRihh44kYBlyDmdTIYfD3r1 QFUzv9BklXv7EYpiYAPoP4S wYXQyXGNmMCBIRVIyIChieS IjtH10eo7klOJ9f7DdPN3jw 5SgcAi1NM4cM5W4zAVnVCcl B50hQCQbBHccPsElKWvapkZ yqYE7GNVrVrvwUn2qhUWyUH JhemEgTUQpXHBhclxjYnBhd IOoE8OuHRdEfjn8NTMdOWQW g9XlRYhoJEVkLLIHq7eOBVM oiELzNHR1dKSpVUFkyk8ktK ProcL1GjScOg1cZVCbk5Jmn oyyEKFVPtWYhRAaNLBrsW6z YNJ9WQlleRPxw8yln6WtK4w pmGjggSJ6KGdQFPDrZJpmIT cqw1SerEDpJF5dRGapj0Gui 9Foa8NpHIjaRWenIjInC8Xd b62jTYEeoa0oPZXppK4rtDM swTJeCQfhKAFuAHJcUOY7LS dqkO48LQPjrUIdWBEkjiCsQ SftEJDQXOCWBUAvjV8tvD9m NFITLwuiLfDxpKYxUTejY2F rTZWuBJomUQniVyzgyTC5RS dcHjzszL2poZOUVZTHFtmBB nexyYZ3gJL2Rz19b7kgmoNa wP0fsP3tnezsGgzudz6imJG lBSJbMzp5ZFH7Aio9v9irbG Uhu9o5IZjwtLlnF4QgAMrjH 2hjYnBhdDIgRVIyXGkwICBU NXV4rG2qJJPiLYLAbGjkpWY azVMVOSUyl8mcvhWZXKiryq kmnN8zE5EbtRIpUDZtnFrhN 2MjqOCIJCOje5ReazWndn0t WBxfU6UyDWGdkC8kIDOay71 mqIimUOOikFmvX9Sfm4FuVT 9hnugfJL9qZFC9lI8mh8zzw 8UyNXMKbLPpsUDhxtMJo2Cb NEP9PDIvelNMaPjlxDTytUZ IFCFpl0diG2lqUEXbLSXChS TyoDRxinWPn9UaGZM1QF7aA PUgoU1qE1QjVB8aW25cc6r7 Zp31TAljVUZaEQuatKImjUC 0MiBBcmNoIFBhdGhvbCBMYW IgTWVkLlxpMCAgMjAxNiBEZ BQ4PXD5EEcrHcv7CQI5XH0f SvJoHzqbPPZboYVuSKkug4a yONE5qOOrdcloqRDtuHW9EZ glTSBhcp78rGZjoBohLQQzN geTIBKRV18qEPtMSRXPV2Sc NpkAQNPLW0SQCvBPM5NBC2C SQB0FSGgjldJnCHUzreM9fN DssRQgaLQyVRWfSFRbd7AxU HxwisomhMIlKZ2ut4esW1Rs lNBmUUHopHjzV9Xob21kNCI 0ZSBhbmQgdGltZTogXGNmMC ImXE7lTf0oZZNiANNnNDRrj KDuFC1qf3ihX5KdrMNeBRQo IHFVcTVoHNTojN3oWch5AQX mbaClIMQ8NJXbekQszCuyQV lxYOAyXXCoVD2sXe4cTHDlE BFrUVPxrPMtNX2pw7fsN9Yo jJViZTNuOIRPUY6vbeWtACC eg08oQx7tiEMveU0aNZI7XY BhbmQgdGltZTogXGNmMCAwN S1uCa6cSHDpLUZ0SbUffAPw XGNmMVxwYXIgLSAgICAgSW1 wcC0zfMqokB4osHVzlNW7od kgKElIQykgVGVzdGluZyBmb 2LcDCabwSX1L8uxIhAfJGav EPhHLNNhWSMuw4XzfT9xSOs wYXIgICAgICAgICAgICAgIE 1MSDEtIEludGFjdCBudWNsZ HKoHQI3fQEko2Yoh13syGQg PJUyVYCwUMEcAEUuMOVST4m kXIHOpgEnD1HwvzDkiOXwpq OmcPJgSBWruT8fAWJqgaEcE WTsTAAsVUGgLBWpNNZOEm6r HS52TAH7NE30R7bzFWMvICh iaaXvw0uhndkwPUWqFDRxSW AgICAgICAgIFBNUzItIElud BPefVOmqSXhEJAyYTA7hVFt o0Rci48rjXRmIQYlBFKsSZF kZDScZQNCPJReH5UpdQ2uWS 9gfr3pm0TjOGO3iZQvhDkrk 4HeA1jkvRXesyRbOGWxnuFv x8kac8u7cJKkglGdJ3PqyxV obOEubgSjtXSmQJAnaN3aWU BhciAgICAgICAgXGIgSUhDI AnlqRYbtUVtpGK6mW2rEULv rbvrCFXhLUHyPCCxVF9zIWF vDI3mGGlyt1Tik4AwhnTmjB SppbTsaOGoSSIqbD4hXL6zY A9KIgEvmd47SOhjlqhnfJ52 KTUth8HnCjspfNA4GB0vUB5 tT5Pyo1T5PPxowXUvVLozw7 RpXxcpjAV0DIvmL7ojJW9VW N7PNDdnZQIiO4StBDZkotbf YiRsVp9YJVeiAXRaGVWgZWS sCQTmmCUkpRAft41jBXBmJI PcAHBnCz28ETIXDYXygN25E BUumxL4EXZbv78rPmHEpTEr PUQjHZU2wXEaAFWzw7AgLDF ny7PrRtDpY76rx0rqVYWdJX SvaoQyu17cVFRzf35zBBWpH EOsxFocdLLybXWhf5HjYZoc rIqvrgT6rDBsSAzmurI9mBP uA546uyDcuXedOzNmmnHpAN UrqM8oihBbOYU5dgFku4Kxg 1YovLnnPZ7kFEJeUk6gZRyg gt0jeL0bRNPer0OmoxelEKR nffdhNRJjW00ezBGkpRNEbL zvNIIaVZwkiNdtLYN2UZHOn j9wk5TmWSDdzd77mlOxy6Or fGh0JEIol025gg2uhsI2WCP uVHG0UZy0OEQcSUOesC3oTy G7sVCvZXNmHOX5XDB7XCGfi 2A5LF1oSQKtUAOxQBRsnfCf v8wiq6rvVHOjRPF6xiWoqN3 kE3NgJAOsm5UspMwaKIAqyM orchBsAOIreVXiQKVmqE78V XWzkXMacBKiOUCmICS3LUoz bW7dTfNMyyJdbt6qkOQkj9U nmPl5CNRltkLywsQePLCldn TnF36izRIbzKHiv8zdegGxd mRvjRIlrTBgRTKySHI3GUm5 DWKkHPntXOBqtj19ePPjcOr cHCMzX9HnCSVimgUXdVEatA 2upT6oyYiudM0qiRLbrUS4k olyuLFwcIY1ZQAbMJD8UQtq cGVkIGFuZCBpdHMgcGVyZm9 xjEJmU7VjM7ptvtAvdBZuzD M6qPIbTOWifANhiDlnZBUoD uhcN3sIMEE7TbNJpOugH0Jq AWCpfEXmGVU0y4XecXteQJV 7nD9rn7a3AJsoBw8jYBLkpq lsGDi9MHkjnwZxb1MqHtHcl mQfyIHrbsNeMD6fSXCypMUh rhGcFDM4BWQrKIMLZoRxAPC dr6LvYY0sYBPsbZjqZBNgoR 6or4GdMEWoa63lGOSdQXIFQ EEgaGFzIGRldGVybWluZWQg dGhhdCBzdWNoIGNsZWFyYW5 gPQXwuoXsnMQal1OscTGdgu Vnd7DpkzInSCHtNEB7IvRRr BVniZAucIEtdrR9s8CqENQl oeLlyMozxZNrpZWpnIGka5H fxn8nYUKrt5ejwKtdKL2zjX BiZSByZWdhcmRlZCBhcyBpb pTtu5TwI0J9wM2nJCzgf5Gr Zj3gUQLkk7FheaWsIcFKzYp uRKxxFh7vJQJhvsdbzWIcY5 VydGlmaWVkIHVuZGVyIHRoZ SBDbGluaWNhbCBMYWJvcmF0 g0D3HNedmBJvyvCtMR45PHA wTB9phQSrlWYjk4VuMGt6HY PeX8pQVG90HSaaSFFphANpb JrxiZNqYYSlNYLlbqTgik6b kMukkCGpj50iyTR6wQB9WKA xkP2sB3ScPSqtNa2oZVCsgz xmoRUrzTnxQs7vT4QyUXGbf MIaNYKtdzJrvq78kDBnoPxx FLHmwKNkFQ3ze5euE6TzhRZ yICBccGFyfQ== Gross assessment was [facility] performed at ([facility], code = 2777) Department of Pathology, [address] [place] [address], Technical component [facility] was performed at ([facility], code = 2778) Department of Pathology, [address] [place] [address], Professional component [facility] was performed at ([facility], code = 2779) Department of Pathology, [address] [place] [id number], [facility] [id number] 11:51:47Surgical Pathology Report Case: [id number] Authorizing Provider: Kranthi Doan MD Collected: 02/12/2023 08:03 PM Ordering Location: [facility] Received: 02/13/2023 10:49 AM PERIOPERATIVE SERVICES Pathologist: Cristobal Hernandez MD Specimen: Biopsy, Esophagus, esophagus at 40 cm ESOPHAGUS, BIOPSY AT 40 CM - POORLY DIFFERENTIATED ADENOCARCINOMA, DIFFUSE TYPE (POORLY COHESIVE), WITH SIGNET CELL FEATURES- HER2 SCORE 0- NO LOSS OF NUCLEAR EXPRESSION OF MMR PROTEINS: LOW PROBABILITY OF MICROSATELLITE INSTABILITY-HIGH (MSI-H)- SEE COMMENT Signing Pathologist Direct Phone Line: [phone] signed by Cristobal Hernandez MD on 02/15/2023 at 11:51 AM- Immunohistochemical stains for MSH-2, MSH-6, PMS-2 and MLH-1 were performed on this adenocarcinoma, with the following results: - MLH1: PRESERVED EXPRESSION- PMS2: PRESERVED EXPRESSION- MSH2: PRESERVED EXPRESSION- MSH6: PRESERVED EXPRESSIONThe lymphocytes and stromal cells show nuclear staining as positive internal controls. Interpretation:No loss of nuclear expression of MMR proteins: low probability of microsatellite instability-high (MSI-H). - HER2 (by immunohistochemistry): Negative/ score 0 (No reactivity or membranous reactivity), reviewed & scored by Misael Colin MD.Intradepartmental consultation: Misael Colin MD has reviewed selected slides concurs with the diagnosis.[id number], 17132, 24402 X 4, 34529Iairccwce neoplasm of esophagusEso phagusA. Biopsy, EsophagusReceived in formalin labeled with the patient's name, medical record number and "esophagus at 40 cm" are multiple peter soft tissue fragments measuring up to 0.2 cm in greatest dimension, which are submitted in toto in A1.KATIA Mcnair, HT (ASCP)Detached Fragments of poorly differentiated carcinoma with focal intra-cellular mucin and focal aggregate of malignant cells surrounded by extracellular mucin are seen. Focal tumor is seen in lamina propria of squamous epithelium. Unremarkable fragments of squamous epithelium are also present.The interpretation of this case included the use of immunohistochemistry or special stains.CK7- positiveHER2 (by immunohistochemistry): Negative (score 0) (evaluated by Misael Colin MD)(Criteria Used in the ToGA Trial6 for Scoring HER2 Expression by Immunohistochemistry (IHC) in Gastric and Gastroesophageal Junction AdenocarcinomaDAVE Whipple, SIENNA Christensen, PADMINI Huerta et al. HER2 Testing and Clinical Decision Making in Gastroesophageal Adenocarcinoma: Guideline From the [employer] [place] [employer], [place] Society for Clinical Pathology, and [place] Society of Clinical Oncology. Arch Pathol Lab Med. 2016 Sep; 140(12):8446-6345.FIXATION TIME FOR BIOMARKERS ASSESSMENT (in 10% neutral buffered formalin)Collection date and time:02/12/2023 2003Placed in fixative date and time: 02/12/20232002Removed from formalin date and time:02/13/2023 1730- Immunohistochemistry (IHC) Testing for Mismatch Repair (MMR) Proteins MLH1- Intact nuclear expression MSH2- Intact nuclear expression MSH6- Intact nuclear expression PMS2- Intact nuclear expression Background nonneoplastic tissue/internal control with intact nuclear expression IHC Interpretation - No loss of nuclear expression of MMR proteins: low probability of microsatellite instability-high (MSI-H)NOTE: There are exceptions to the above IHC interpretations. These results should not be considered in isolation, and clinical correlation with genetic counseling is recommended to assess the need for germline testing.Control Slides Examined: In- house known positive controls were evaluated along with the test tissue. These control slides run alongside of the patients sample show appropriate staining. Internal positive and negative controls when available are evaluatedThe immunohistochemistry test was developed and its performance characteristics determined by [facility], Pathology Laboratory. It has not been cleared or approved by the U.S. Food and Drug Administration. The FDA has determined that such clearance or approval is not necessary. The test is used for clinical purposes. It should not be regarded as investigational or for research. This laboratory is certified under the Clinical Laboratory Improvement Amendments of 1988 (CLIA-88) as qualified to perform high complexity clinical laboratory testing. [facility], Department of Pathology, [address] [place] [address], [facility], [address] [place] [address], [facility], [facility] of [facility], [address] [place] [address], AWGQH METABOLIC PANEL 2023-02-15 06:39:52 Test Item Value Reference Range Interpretation Comments SODIUM (BEAKER) 135 meq/L 136-145 L (test code = 381) POTASSIUM 3.2 meq/L 3.5-5.1 L (BEAKER) (test code = 379) CHLORIDE (BEAKER) 99 meq/L 98-107 (test code = 382) CO2 (BEAKER) 29 meq/L 22-29 (test code = 355) BLOOD UREA 11 mg/dL 7-21 NITROGEN (BEAKER) (test code = 354) CREATININE 0.75 mg/dL 0.57-1.25 (BEAKER) (test code = 358) GLUCOSE RANDOM 115 mg/dL 70-105 H (BEAKER) (test code = 652) CALCIUM (BEAKER) 9.1 mg/dL 8.4-10.2 (test code = 697) EGFR (BEAKER) 96 Interpretatio n of eGFR (test code = mL/min/1.73 values Stage D escription 1092) sq m Result G1 Li l or high >=90 G2 Mildly decreased 60-89 G3a Mildl y to moderately 45-5 9 G3b Moderately to s everely 30-44 G4 Severl y decreased 15-29 G5 Kidney failure <15Reported eGF R is based on the CKD-EPI 2020 equation that d oes not use a race coefficientEsti mated GFR is not as accur ate as Creatinine Vanesa mendoza in predicting glom erular filtration rate . Estimated GFR is not appl icable for dialysis patien ts [facility] ID - [id number] 06:39:52 Test Item Value Reference Range Interpretation Comments MAGNESIUM (BEAKER) (test code = 2.1 mg/dL 1.6-2.6 627) [facility] ID - MMPOCT-GLUCOSE [id number] 06:18:39 Test Item Value Reference Range Interpretation Comments POC-GLUCOSE METER 118 mg/dL 70-110 H : TESTED A T [facility] 6720 (BEAKER) (test code = HUAN [facility], 1538) [id number]: [facility] Counselor/Techni angie ID = [id number] for PE GARRY, KOFI CBC W/PLT COUNT & AUTO [id number] 06:10:59 Test Item Value Reference Range Interpretation Comments WHITE BLOOD CELL COUNT (BEAKER) 7.0 K/ L 3.5-10.5 (test code = 775) RED BLOOD CELL COUNT (BEAKER) 4.84 M/ L 4.63-6.08 (test code = 761) HEMOGLOBIN (BEAKER) (test code = 13.1 GM/DL 13.7-17.5 L 410) HEMATOCRIT (BEAKER) (test code = 39.2 % 40.1-51.0 L 411) MEAN CORPUSCULAR VOLUME (BEAKER) 81 fL 79-92 (test code = 753) MEAN CORPUSCULAR HEMOGLOBIN 27.1 pg 25.7-32.2 (BEAKER) (test code = 751) MEAN CORPUSCULAR HEMOGLOBIN CONC 33.4 GM/DL 32.3-36.5 (BEAKER) (test code = 752) RED CELL DISTRIBUTION WIDTH 13.5 % 11.6-14.4 (BEAKER) (test code = 412) PLATELET COUNT (BEAKER) (test 243 K/CU MM 150-450 code = 756) MEAN PLATELET VOLUME (BEAKER) 9.8 fL 9.4-12.4 (test code = 754) NUCLEATED RED BLOOD CELLS 0 /100 WBC 0-0 (BEAKER) (test code = 413) NEUTROPHILS RELATIVE PERCENT 76 % (BEAKER) (test code = 429) LYMPHOCYTES RELATIVE PERCENT 11 % (BEAKER) (test code = 430) MONOCYTES RELATIVE PERCENT 9 % (BEAKER) (test code = 431) EOSINOPHILS RELATIVE PERCENT 4 % (BEAKER) (test code = 432) BASOPHILS RELATIVE PERCENT 0 % (BEAKER) (test code = 437) NEUTROPHILS ABSOLUTE COUNT 5.32 K/ L 1.78-5.38 (BEAKER) (test code = 670) LYMPHOCYTES ABSOLUTE COUNT 0.76 K/ L 1.32-3.57 L (BEAKER) (test code = 414) MONOCYTES ABSOLUTE COUNT (BEAKER) 0.59 K/ L 0.30-0.82 (test code = 415) EOSINOPHILS ABSOLUTE COUNT 0.25 K/ L 0.04-0.54 (BEAKER) (test code = 416) BASOPHILS ABSOLUTE COUNT (BEAKER) 0.02 K/ L 0.01-0.08 (test code = 417) IMMATURE GRANULOCYTES-RELATIVE 0.30 % 0.00-1.00 PERCENT (BEAKER) (test code = 2801) POCT-GLUCOSE [id number] 23:09:00 Test Item Value Reference Range Interpretation Comments POC-GLUCOSE METER 110 mg/dL 70-110 : TESTED A T [facility] 6720 (BEAKER) (test code = [facility], 153) [id number]: [facility] Counselor/Techni angie ID = [id number] for PE KOFI CASTAÑEDA POCT-GLUCOSE [id number] 17:45:21 Test Item Value Reference Range Interpretation Comments POC-GLUCOSE METER 107 mg/dL 70-110 : TESTED A T [facility] 6720 (BEAKER) (test code = [facility], 153) [address]: [facility] Counselor/Techni angie ID = [id number] for Am tatianna Wilber POCT-GLUCOSE [id number] 12:44:40 Test Item Value Reference Range Interpretation Comments POC-GLUCOSE METER 109 mg/dL 70-110 : TESTED A T [facility] 6720 (BEAKER) (test code = [facility], 1538) [address]: [facility] Counselor/Techni angie ID = [id number] for Wilber Duarte BASIC METABOLIC [id number] 05:19:00 Test Item Value Reference Range Interpretation Comments SODIUM (BEAKER) 135 meq/L 136-145 L (test code = 381) POTASSIUM 3.5 meq/L 3.5-5.1 Specimen slight ly (BEAKER) (test hemolyzed code = 379) CHLORIDE (BEAKER) 98 meq/L 98-107 (test code = 382) CO2 (BEAKER) 29 meq/L 22-29 (test code = 355) BLOOD UREA 13 mg/dL 7-21 NITROGEN (BEAKER) (test code = 354) CREATININE 0.89 mg/dL 0.57-1.25 Specimen slight ly (BEAKER) (test hemolyzed code = 358) GLUCOSE RANDOM 117 mg/dL 70-105 H (BEAKER) (test code = 652) CALCIUM (BEAKER) 9.4 mg/dL 8.4-10.2 (test code = 697) EGFR (BEAKER) 92 Interpretatio n of eGFR (test code = mL/min/1.73 values Stage De scription 1092) sq m Result G1 Li l or high >=90 G2 Mildly decreased 60-89 G3a Mildl y to moderately 45-5 9 G3b Moderately to s everely 30-44 G4 Severl y decreased 15-29 G5 Kidne y failure <15Reported eGF R is based on the CKD-EPI 2020 equation that d oes not use a race coefficientEsti mated GFR is not as accur ate as Creatinine Vanesa kelly in predicting glom erular filtration rate . Estimated GFR is not appl icable for dialysis patien ts [facility] Counsel[facility] ID - [id number] 05:18:59 Test Item Value Reference Range Interpretation Comments MAGNESIUM (BEAKER) 2.1 mg/dL 1.6-2.6 Specimen slightly (test code = 627) hemolyzed [facility] ID - MMPOCT-GLUCOSE [id number] 04:54:04 Test Item Value Reference Range Interpretation Comments POC-GLUCOSE METER 118 mg/dL 70-110 H : TESTED A T [facility] 6720 (BEAKER) (test code = [facility], 1538) [address]: [facility] Counselor/Techni angie ID = [id number] for KOFI QUESADA CBC W/PLT COUNT & AUTO [id number] 04:39:12 Test Item Value Reference Range Interpretation Comments WHITE BLOOD CELL COUNT (BEAKER) 10.3 K/ L 3.5-10.5 (test code = 775) RED BLOOD CELL COUNT (BEAKER) 5.17 M/ L 4.63-6.08 (test code = 761) HEMOGLOBIN (BEAKER) (test code = 14.0 GM/DL 13.7-17.5 410) HEMATOCRIT (BEAKER) (test code = 42.0 % 40.1-51.0 411) MEAN CORPUSCULAR VOLUME (BEAKER) 81 fL 79-92 (test code = 753) MEAN CORPUSCULAR HEMOGLOBIN 27.1 pg 25.7-32.2 (BEAKER) (test code = 751) MEAN CORPUSCULAR HEMOGLOBIN CONC 33.3 GM/DL 32.3-36.5 (BEAKER) (test code = 752) RED CELL DISTRIBUTION WIDTH 13.3 % 11.6-14.4 (BEAKER) (test code = 412) PLATELET COUNT (BEAKER) (test 270 K/CU MM 150-450 code = 756) MEAN PLATELET VOLUME (BEAKER) 9.2 fL 9.4-12.4 L (test code = 754) NUCLEATED RED BLOOD CELLS 0 /100 WBC 0-0 (BEAKER) (test code = 413) NEUTROPHILS RELATIVE PERCENT 83 % (BEAKER) (test code = 429) LYMPHOCYTES RELATIVE PERCENT 8 % (BEAKER) (test code = 430) MONOCYTES RELATIVE PERCENT 7 % (BEAKER) (test code = 431) EOSINOPHILS RELATIVE PERCENT 2 % (BEAKER) (test code = 432) BASOPHILS RELATIVE PERCENT 0 % (BEAKER) (test code = 437) NEUTROPHILS ABSOLUTE COUNT 8.57 K/ L 1.78-5.38 H (BEAKER) (test code = 670) LYMPHOCYTES ABSOLUTE COUNT 0.81 K/ L 1.32-3.57 L (BEAKER) (test code = 414) MONOCYTES ABSOLUTE COUNT (BEAKER) 0.71 K/ L 0.30-0.82 (test code = 415) EOSINOPHILS ABSOLUTE COUNT 0.18 K/ L 0.04-0.54 (BEAKER) (test code = 416) BASOPHILS ABSOLUTE COUNT (BEAKER) 0.02 K/ L 0.01-0.08 (test code = 417) IMMATURE GRANULOCYTES-RELATIVE 0.30 % 0.00-1.00 PERCENT (BEAKER) (test code = 2801) POCT-GLUCOSE [id number] 23:36:14 Test Item Value Reference Range Interpretation Comments POC-GLUCOSE METER 121 mg/dL 70-110 H : [facility] ([facility]ER) (test code = [facility], 1538) [address]: [facility] Counselor/Techni angie ID = [id number] for KOFI QUESADA POCT-GLUCOSE [id number] 17:52:11 Test Item Value Reference Range Interpretation Comments POC-GLUCOSE METER 97 mg/dL 70-110 : [facility] (BEAKER) (test code = [facility], 1538) [id number]: [facility] Counselor/Techni angie ID = [id number] for MAHOGANY SOLOMON [id number] 17:44:00 Test Item Value Reference Range Interpretation Comments Case Report (test code Medical Cytology = 104) Report Case: [id number] Authorizing Provider: Kranthi Doan MD Collected: 02/12/2023 05:30 PM Ordering Location: [address] Received: 02/13/2023 08:58 AM Service Pathologist: Madeleine Segovia MD Specimen: Peritoneal Washings DIAGNOSIS (test code = [id number] 3220) FuZzEwMzNcZnRuYmpcdWMx IHtccnRmMVxlcGljMTAyMD YoTD6nwQxhlBa1kLzpJSMj xeV2bNUwWUjrz3fjSIH5b8 zhaefzOHKfQQfiHt5bmQIj fYulUgWkWWEtVBu8cM62YT ZloJ3bmFFoAAd9AFPeqTZw tgYpNnAeRXGnyISbeWE5AR TaUI7msqncVAnhDJkaTYRt jwV5DMCekLLvW3VyRILuCY 7nnhdnODC5BEwuVDPmBVT2 MxQrGPVhn9Nfeaz1CaTmgD FyZFxwbGFpblxmczIwIFBF QuvVS41XVRndN8ANNQyRN9 EmCQNPKW1JUOzODpo1TKnt bmUgICAgLSBORUdBVElWRS ERA8CrJISAYKpUJL2FCXDm D3FOMVONIT5UEwVxXZQfph 36SSZ3TwLnd1W9OTZ9KNAw VLUyp5ffMWHkgZCmOiQsXz NcZnRuYmpcdWMxXGRlZmYw x8aav105vXNwk1fjHLQhIp I3nGOzUOXenKDjF805KYYz YXdxa1raw7PfLCGqsUNub1 T0AXJTrsscfTn4zLoqD46g t4Y0WfhcK5srIXRsUXLhU3 IxYS7qEHFzRij4BTA5PDB0 LLBiNNExQ7TnXO0hRIPmpJ WxEOy4h5tefPtbJMPpOFB6 s3ejWLddpgXeHR0waf0heI d0h6ajtpUqPRBlTJBxnINI MGCgE3FimCgiEz4xiMq2eS bxGediFYK0Fns8NI3xyf68 zuq7rEhrNDRfdfphYkG4GF daMIDtlcjuDCx3EFtsYRQo mKX8SNWsoNSgN2GmXEPwMI 5ejuq1AQF5WXttXBWiHdJ3 NDBcaGVhZGVyeTcyMFxmb2 82SMZ6HqFlZT0pH5Htg2X0 cD9zxWVfQSVwaFHfQiGlHK Zslr2pyVLpQXabe3YuRDA1 rwB5cSAftSGuGZUvRuM4GO zxAG3wst29ZXRoMUT8qr5r bGNccGdicmRyaGVhZFxwZ2 UsRABzo517ILTpF9DuNEUe g5N5kqReOrTyOYZmfXM2we G0JLFhYG2cpprwk0xkNFzo NVtfVGQkyzW6beM4XLKodB VzZ5ZdeD4vCMXtJR6omzei s7jhEZC5XHjfAULtCCN2Qt XyVFAds9Oospf4ZmQmn0Yq kJMoPYweS70up096WOBxad KsN0oemMEpzcitwFZxwciq POyqdgN3KEMoFUxsaoblKG NwADctO4ouMtEvXPDpwTfl SKvqp1XuKGZxQMVsSyXpkP JpAHPkRaq5QMYqyCOwUZPo EzZzD3ngbjbjKtLQMNHsv9 nxD9yutLIVhYGoZ7TcBZyo jeBcDHgcEEckDaDnFBl1EG 67SpHxPUIfcc37 COMMENT (test code = h6wlyKOeSENcxLVnVBHxNZ 3359) fcyeOrQVTltPCkV9Jneuhb FBiwIV4bZS0ioWvxuYCrdR JwBCSqPfWwo2rzh480iZLx b4ibFKMOpesiyLt1iHtqU3 9nj2Z3LuwwH28tgHHsTDV3 CLRhJPNoxVFrLVEqSZH2AB ZviHWdH1hbBKYsKL1himbo WEnjYFoyWXQlxKQ4UJOrbD EdC3McOGJqLBjmTYXxcwk3 QbAzDs6gyVQxjGfqEAwmEI JkXHBsYWluXGZzMjAgVGhl IHNwZWNpbWVuIGlzIGNvbX Scq1DpDF9lKHRtnfiesjIm zlXrztBoP8AmveZfUHHmIE VgmP2lJW9lo742dTXmiRPf MQVoeAcxUSPyqLj0VEIrm5 g0aOAzxKYbqLKdcW0krK8u qRUldv7bfGIcBMMbdsRppG FyIFBsZWFzZSBhbHNvIHNl ZSBzdXJnaWNhbCBjYXNlOi AZSnAgDMG8WSYnyTPldU== CPT Code(s) (test code w0fkpHSnMTXdzQUeUZCuKI = 3357) onfiUuZDBmfTGiC7Hdrqjw DUuqBF7pGZ3jiSzabKZrvY IoSHInSjIbx6eus956fSGp s8muVQMNfbtgbXw9wTxzT4 4qx5X4FoxqT41mqCIoRBE6 XSCaUAPvyDNsSYEaZIS8LZ TqzKDeF7joIICwHX4rpfmx HNocLKdaLHEdnSQ0TFAcxN PnL4YjXZUrBQegBAHrzya1 JqRwAe4aiOEzbDecPEtuJF JkXHBsYWluXGZzMjAgODgx MDhccGFyfQ== CLINICAL DATA (test v6laxFOdLWBzyVLnJIIkJJ code = 3355) atbmTfXWFixWExX4Qypinw NDroUR1zCM2fnLfulWHidX HgJRXqCjTwr1njh088kMDy z4uyEVVEoxpwjUz5pTgbB8 7ue8X9OchjH43knBBzKIY0 AYWvAWHasQDmTOVvSNU5GG AceHUrV0yiDVOhZU8yfjdi VBlhORsxPBTmuSC1DJSshM VaQ9FwUARrLVxyFTPiguq5 HdYfXf0fhAQnzAbvRPsyTV XaRWUrTHajDXGjRrZxK2Ss iFIjUZGal6LbsNWtYAKcq0 RxdDyyZPY4k7BsPIliINRq rxVhJuzcuUL3EUJdl8Kyop MjSnLdoCT7DCncUYSboSnx N8YamJSqVXKxt0IzfhOgpz 9uVZ8sTlOlNMXxb0PmoRZg ZDP3iYEaMOHcksTbd13icF ekUMqkOsLwJK83jMZ6EFZn W8ZwQ7blt22bFlZZrxZmaA ClVTTeUZVoMX46XYnpMTxo kTfvDHMmYNGtjA7sWVR4bZ HjoLB8RNWtfNsuQNT5lPF9 o69kGMqgjhIruDCeG9Emt3 JqOIJkjI9fCAHWb6QlbKRl mt1kMGPzqr01LQknqvTvuM ScuCQwfJAjcE2xw46hiCHi MLPdy7Z2TQ3fBLCeChPugM 7ccnIseuFee15kkWi8RDVg RMA4o99tfGEznvQexER8RQ MgbXVsdGlwbGUgdGltZXMg RTKkyMxoRFyvp2KcmkiouM 2bfFCzNFSphWYhr7IwwMRj S9HkD9GcWSoqexUewjHrsB Nrze4wZObwLWgaLUYqdmko fI4ipubaMAZKZBvqT8SSRv M9JNEaHbWlLSauvYXlqK== SPECIMEN SOURCE (test l2ewfPFfJEUmhRIiKLQmLO code = 3377) sfyhNuOGCoxJVzI5Ombjrl DRlyCF0zTA9hcFwtbCMinP LwYLLyOkKsd4oaa519gLDl y3sxJKBMmxwyuIt3xAcxT6 8ww8K2ZphvR98wlKObXIF6 XVYwPUCfnOJfFIGgLRT9IJ XvcIJoV1fkUWQzUE9dkenm OCogSMrtKOTszFC5UHEavR JsW5ZgABSzZVqqXARgdpm4 QuLtHw5cdKCtlJpxDVgtBV JkXHBsYWluXGZzMjAgUEVS RAWNYyGDNYHKSDCDML1DN4 xwYXJ9 GROSS DESCRIPTION (test b9ttpWIuWFRepVBiNEEuQT code = 3226698612) imeePrTAJyzSBfS6Hbvftw KFwuQK1vDF9uwQodwKZfwZ ZxXCMqOwAkz9uak526pQSy i2etERCYdtuibUz1kQdlF4 1bh9U3YvgxI93kkJQpBZH5 EDYhISGxiDVwPNWfFGQ9HJ SxaXKaK2zbZYCjBJ7udtng YKifAPskRAQoiMM0AGObeV CkP0TtUSYrIClhVDXjiuo0 AbGpBm6ecWLxlDcySWbwZx jhyScwb1ZpbSObMPseIRMe WYJzIEuvBXGfJ8XGSOYiST SiWjZ5EVAtFnDXJBY4Qonk MzcgRVBUICIgIFoyODIzOD G8HpDUAkQrFIBxYJWrNYMr TUQuEJ4qBDdicQNkOSyuWd vcQEbwA997XVwiUXSvB1Xz L2VaZLkjUFM0QLRpYaFiLN IgHX2QQbJdYSt6YNV4RvVy USr9FAb7IU1DGbWgICRzHT Z4HBq5CSAuHYd5SZnoVJ8X DTyrKzLkJZH1ZeQ5LSlnLU BcXHQgMiBcXHNzIDMgXFxm lBKgAD5qyYxlDJQnHYDcCJ yuBIUtZtRlZZ3aWMFhbTCk kpBpdUPFPXOmmR3lu3lfDN JccGFyZFxzYjMwXGVwaWNY w3BcCXaqJXUmCKNzjHTPc3 EzMFxwbGFpblxmczIwIFJl F0CtrvZiQDQeAWDiiZpvM4 qpGOVzG15zw5VtXLRaAQUy cDcdKvMtbjZlPQAjYSD2AZ T8mA7htWfkzufvap24UKKo y7UltUPaADDgndualAJfs4 YhJ1VqiWEsnD5gcy4ko1mo cSntm6XswRGzTC12IQCjgY PcUFT0ON5cyIwmYGF2 MICROSCOPIC DESCRIPTION m3pvgOTjNDBsbMAqRYDuJR (test code = 3371) jbluBtKNLkbODbW0Zrieen YCvtKO8vAA2cyMbxmINhqA QeYJLyZbEow4mui283gNPm l7guDMPOoulusEu4pEnwN9 9ee8X0YpeaX42abCCdKTR5 GTJqMYZtoFDhRMUwQXM9NC EltDBxG4olKGJdPR5yhwnl HRvvTEvrFFMyrZN5IQCuiI JpK4ZoVXKgJTdoIRAhexo0 ThGwZs9nwCPbwKopTBdhQJ JkXHBsYWluXGZzMjAgUGVy Bj7dcGCtHtTtzMFbpQ== STATEMENT OF ADEQUACY Satisfactory (test code = 2757) Gross assessment was [facility] performed at ([facility], = 2777) Department of Pathology, [address] [place] [address], Technical component was [facility] performed at ([facility], = 2779) Department of Pathology, [address] [place] [address], Professional component [facility] was performed at ([facility], code = 2779) Department of Pathology, [address] [place] [address], [facility] 17:44:00Medical Cytology Report Case: [id number] Authorizing Provider: Kranthi Doan MD Collected: 11/2022 05:30 PM Ordering Location: [address] Received: 02/13/2023 08:58 AM Service Pathologist: Madeleine Segovia MD Specimen: Peritoneal Washings PERITONEAL WASHINGS (CYTOSPINS): - NEGATIVE FOR MALIGNANCY (SEE COMMENT) Signing Pathologist Direct Phone Line: [phone] signed by Madeleine Segovia MD on 02/13/2023 at 5:43 PMThe specimen is composed of benign and reactive appearing mesothelial cells admixed with small lymphocytes.Please also see surgical case: [id number] post laparoscopy, dysphagia and biopsy- proven distal esophageal adenocarcinoma. Biopsy resulted aspoorly differentiated carcinoma. On exam, patient is well-appearing but states his symptoms have prog ressed since August. He now has dysphagia to solids, lost ~25 lbs unintentionally and vomits/refluxes multiple times daily. History includes prostate cancer (on anastrozole), hearing loss, T2DM, CABGx4 (2010)PERITONEAL WASHINGSA. Peritoneal WashingsReceived 2250 ml clear colorless fluid; prepared 4 cytospins, not enough material for cell block. Performed. [facility], Department of Pathology, [address] [place] [address], [facility], [facility], [address] [place], [place] [id number], [facility], [facility] of [facility], [address] [place] [address], [id number] 15:57:11 Test Item Value Reference Range Interpretation Comments PHOSPHORUS (BEAKER) (test code = 2.9 mg/dL 2.3-4.7 604) [facility] Counselor ID - ADMINRAD, CHEST, 1 VIEW, NON [id number] 14:37:00Reason for exam:->post opShould this be performed at the bedside?->Yes [facility] : 1950 Sex: MFINALREPORT RAD, CHEST, 1 VIEW, NON DEPT INDICATION: post op COMPARISON: Prior day'sexam FINDINGS: Portable frontal view of the chest. IMPRESSION: Support Lines: Port-A-Cath tip overlies the atriocaval junction. Sternotomy wires. Lungs and pleura: Scattered platelike atelectasis No significant pneumothorax. Heart and mediastinum: Stable contours. Stable surgical changes. Additional findings: None. Signed: Abbey Renee Verified Date/Time: 02/13/2023 14:37:01 Reading Location: [address] Reading Room [id number] 10:00:57 Test Item Value Reference Range Interpretation Comments Cytology (test code = See Separate Report 2629) [facility] [id number] 10:00:57 Test Item Value Reference Range Interpretation Comments CYTOLOGY RESULT POINTER See Separate Report (BEAKER) (test code = 2629) POCT-GLUCOSE [id number] 06:58:31 Test Item Value Reference Range Interpretation Comments POC-GLUCOSE METER 70 mg/dL 70-110 : TESTED A T [facility] 6720 (BEAKER) (test code = HU[place] WARD [place], 1538) [id number]: [facility] Counselor/Techni angie ID = [id number] for DANA HERNANDEZ BASIC METABOLIC [id number] 04:29:30 Test Item Value Reference Range Interpretation Comments SODIUM (BEAKER) 133 meq/L 136-145 L (test code = 381) POTASSIUM 3.8 meq/L 3.5-5.1 (BEAKER) (test code = 379) CHLORIDE (BEAKER) 96 meq/L 98-107 L (test code = 382) CO2 (BEAKER) 24 meq/L 22-29 (test code = 355) BLOOD UREA 17 mg/dL 7-21 NITROGEN (BEAKER) (test code = 354) CREATININE 0.98 mg/dL 0.57-1.25 (BEAKER) (test code = 358) GLUCOSE RANDOM 88 mg/dL 70-105 (BEAKER) (test code = 652) CALCIUM (BEAKER) 9.6 mg/dL 8.4-10.2 (test code = 697) EGFR (BEAKER) 83 Interpretatio n of eGFR (test code = mL/min/1.73 values Stage De scription 1092) sq m Result G1 Li l or high >=90 G2 Mildly decreased 60-89 G3a Mildl y to moderately 45-5 9 G3b Moderately to s everely 30-44 G4 Severl y decreased 15-29 G5 Kidney failure <15Reported eGF R is based on the CKD-EPI 2020 equation that d oes not use a race coefficientEsti mated GFR is not as accur ate as Creatinine Vanesa kelly in predicting glom erular filtration rate . Estimated GFR is not appl icable for dialysis patien ts [facility] Counselor ID - [id number] 04:29:30 Test Item Value Reference Range Interpretation Comments MAGNESIUM (BEAKER) (test code = 2.1 mg/dL 1.6-2.6 627) [facility] Counselor ID - ADMINCBC W/PLT COUNT & AUTO [id number] 04:03:40 Test Item Value Reference Range Interpretation Comments WHITE BLOOD CELL COUNT 16.0 K/ L 3.5-10.5 H (BEAKER) (test code = 775) RED BLOOD CELL COUNT 5.58 M/ L 4.63-6.08 (BEAKER) (test code = 761) HEMOGLOBIN (BEAKER) 14.9 GM/DL 13.7-17.5 (test code = 410) HEMATOCRIT (BEAKER) 45.9 % 40.1-51.0 (test code = 411) MEAN CORPUSCULAR 82 fL 79-92 Unable to r eport due VOLUME (BEAKER) (test to abn ormal Platelet code = 753) population distribution. MEAN CORPUSCULAR 26.7 pg 25.7-32.2 HEMOGLOBIN (BEAKER) (test code = 751) MEAN CORPUSCULAR 32.5 GM/DL 32.3-36.5 HEMOGLOBIN CONC (BEAKER) (test code = 752) RED CELL DISTRIBUTION 13.2 % 11.6-14.4 WIDTH (BEAKER) (test code = 412) PLATELET COUNT 281 K/CU MM 150-450 (BEAKER) (test code = 756) MEAN PLATELET VOLUME 9.5 fL 9.4-12.4 (BEAKER) (test code = 754) NUCLEATED RED BLOOD 0 /100 WBC 0-0 CELLS (BEAKER) (test code = 413) NEUTROPHILS RELATIVE 93 % PERCENT (BEAKER) (test code = 429) LYMPHOCYTES RELATIVE 4 % PERCENT (BEAKER) (test code = 430) MONOCYTES RELATIVE 3 % PERCENT (BEAKER) (test code = 431) EOSINOPHILS RELATIVE 0 % PERCENT (BEAKER) (test code = 432) BASOPHILS RELATIVE 0 % PERCENT (BEAKER) (test code = 437) NEUTROPHILS ABSOLUTE 14.82 K/ L 1.78-5.38 H COUNT (BEAKER) (test code = 670) LYMPHOCYTES ABSOLUTE 0.58 K/ L 1.32-3.57 L COUNT (BEAKER) (test code = 414) MONOCYTES ABSOLUTE 0.51 K/ L 0.30-0.82 COUNT (BEAKER) (test code = 415) EOSINOPHILS ABSOLUTE 0.00 K/ L 0.04-0.54 L COUNT (BEAKER) (test code = 416) BASOPHILS ABSOLUTE 0.02 K/ L 0.01-0.08 COUNT (BEAKER) (test code = 417) IMMATURE 0.30 % 0.00-1.00 GRANULOCYTES-RELATIVE PERCENT (BEAKER) (test code = 2801) POCT-GLUCOSE [id number] 23:35:13 Test Item Value Reference Range Interpretation Comments POC-GLUCOSE METER 91 mg/dL 70-110 : TESTED A T [facility] 6720 (BEAKER) (test code = HUAN WARD [place], 1538) [id number]: [facility] Counselor/Techni angie ID = [id number] for Wats on (contract), Aud armani [place], FLUORO, NON-SPECIFIC, UP TO 1 [id number] 19:50:00Reason for exam:- >port a cath insertion [facility] : 1950 Sex: MAn imaging unit was utilized for this procedure. No radiologist interpretation was requested. Refer to theEMR for findings. Refer to PACS for any patient radiation dose information.CBC W/PLT COUNT & AUTO [id number] 11:56:03 Test Item Value Reference Range Interpretation Comments WHITE BLOOD CELL COUNT (BEAKER) 11.9 K/ L 3.5-10.5 H (test code = 775) RED BLOOD CELL COUNT (BEAKER) 5.66 M/ L 4.63-6.08 (test code = 761) HEMOGLOBIN (BEAKER) (test code = 14.9 GM/DL 13.7-17.5 410) HEMATOCRIT (BEAKER) (test code = 43.8 % 40.1-51.0 411) MEAN CORPUSCULAR VOLUME (BEAKER) 77 fL 79-92 L (test code = 753) MEAN CORPUSCULAR HEMOGLOBIN 26.3 pg 25.7-32.2 (BEAKER) (test code = 751) MEAN CORPUSCULAR HEMOGLOBIN CONC 34.0 GM/DL 32.3-36.5 (BEAKER) (test code = 752) RED CELL DISTRIBUTION WIDTH 13.1 % 11.6-14.4 (BEAKER) (test code = 412) PLATELET COUNT (BEAKER) (test 329 K/CU MM 150-450 code = 756) MEAN PLATELET VOLUME (BEAKER) 9.5 fL 9.4-12.4 (test code = 754) NUCLEATED RED BLOOD CELLS 0 /100 WBC 0-0 (BEAKER) (test code = 413) NEUTROPHILS RELATIVE PERCENT 83 % (BEAKER) (test code = 429) LYMPHOCYTES RELATIVE PERCENT 7 % (BEAKER) (test code = 430) MONOCYTES RELATIVE PERCENT 7 % (BEAKER) (test code = 431) EOSINOPHILS RELATIVE PERCENT 2 % (BEAKER) (test code = 432) BASOPHILS RELATIVE PERCENT 0 % (BEAKER) (test code = 437) NEUTROPHILS ABSOLUTE COUNT 9.96 K/ L 1.78-5.38 H (BEAKER) (test code = 670) LYMPHOCYTES ABSOLUTE COUNT 0.88 K/ L 1.32-3.57 L (BEAKER) (test code = 414) MONOCYTES ABSOLUTE COUNT (BEAKER) 0.80 K/ L 0.30-0.82 (test code = 415) EOSINOPHILS ABSOLUTE COUNT 0.20 K/ L 0.04-0.54 (BEAKER) (test code = 416) BASOPHILS ABSOLUTE COUNT (BEAKER) 0.03 K/ L 0.01-0.08 (test code = 417) IMMATURE GRANULOCYTES-RELATIVE 0.50 % 0.00-1.00 PERCENT (BEAKER) (test code = 2801) COMPREHENSIVE METABOLIC [id number] 11:41:02 Test Item Value Reference Range Interpretation Comments TOTAL PROTEIN 7.1 gm/dL 6.0-8.3 (BEAKER) (test code = 770) ALBUMIN (BEAKER) 4.1 g/dL 3.5-5.0 (test code = 1145) ALKALINE 78 U/L 40-150 PHOSPHATASE (BEAKER) (test code = 346) BILIRUBIN TOTAL 0.6 mg/dL 0.2-1.2 (BEAKER) (test code = 377) SODIUM (BEAKER) 130 meq/L 136-145 L (test code = 381) POTASSIUM (BEAKER) 3.5 meq/L 3.5-5.1 (test code = 379) CHLORIDE (BEAKER) 94 meq/L 98-107 L (test code = 382) CO2 (BEAKER) (test 26 meq/L 22-29 code = 355) BLOOD UREA 15 mg/dL 7-21 NITROGEN (BEAKER) (test code = 354) CREATININE 0.99 mg/dL 0.57-1.25 (BEAKER) (test code = 358) GLUCOSE RANDOM 104 mg/dL 70-105 (BEAKER) (test code = 652) CALCIUM (BEAKER) 9.6 mg/dL 8.4-10.2 (test code = 697) AST (SGOT) 23 U/L 5-34 (BEAKER) (test code = 353) ALT (SGPT) 15 U/L 6-55 (BEAKER) (test code = 347) EGFR (BEAKER) 82 Interpretatio n of eGFR (test code = 1092) mL/min/1.[address] age Description sq m Result G1 Li l or high >=90 G2 Mildly decreased 60-89 G3a Mildl y to moderately 45-5 9 G3b Moderately to s everely 30-44 G4 Severl y decreased 15-29 G5 Kidney failure <15Reported eGF R is based on the CKD-EPI 2020 equation that d oes not use a race coefficientEsti mated GFR is not as accur ate as Creatinine Vanesa kelly in predicting glom erular filtration rate . Estimated GFR is not appl icable for dialysis patien ts [facility] Counselor ID - ADMINRAD, CHEST, 1 VIEW, NON [id number] 11:41:00Reason for exam:->pre opShould this be performed at the bedside?->Yes [facility] : 1950 Sex: MFINALREPORT INDICATION: pre op COMPARISON: None TECHNIQUE: Single frontal view of the chest. FINDINGS: Lungs and pleura: Clear lungs. No effusion.Heart and mediastinum: Normal heart size. Unremarkable mediastinal contours.Osseous structures: No acute abnormality.Other: Sternotomy wires. IMPRESSION: No acute intrathoracic abnormality. Signed: Abbey Reneeepgael Verified Date/Time: 02/12/2023 11:41:19 Reading Location: [address] Reading Room /[id number] 11:36:18 Test Item Value Reference Range Interpretation Comments PROTIME (CAMILLE) (test code = 14.9 seconds 11.9-14.2 H 759) INR (BEAKER) (test code = 370) 1.24 <=5.90 PARTIAL THROMBOPLASTIN TIME 33.3 seconds 22.5-36.0 (BEAKER) (test code = 760) RECOMMENDED COUMADIN/WARFARIN INR THERAPY RANGESSTANDARD DOSE: 2.0 - 3.0 Includes: PROPHYLAXIS for venous thrombosis, systemic embolization; TREATMENT for venous thrombosis and/or pulmonary embolus.HIGH RISK: Target INR is 2.5-3.5 for patients with mechanical heart valves.POC-Glucose [id number] 10:38:30 Test Item Value Reference Range Interpretation Comments POC-Glucose Meter (test 110 mg/dL 70-110 : TE STED AT [facility] code = 1538) [address] [facility], [address]: [facility] Counselor/Techni angie ID = [id number] for ARVIND PARTIDA Lab Interpretation (test Normal code = 25661-3) [facility]-Glucose [id number] 10:38:30 Test Item Value Reference Range Interpretation Comments POC-Glucose Meter (test 110 mg/dL 70-110 : TE STED AT [facility] code = 1538) [address] [facility], [address]: [facility] Counselor/Techni angie ID = [id number] for ARVIND PARTIDA Lab Interpretation (test Normal code = 69358-7) [facility]-GLUCOSE [id number] 10:38:30 Test Item Value Reference Range Interpretation Comments POC-GLUCOSE METER 110 mg/dL 70-110 : TESTED A T [facility] 6720 ([facility]) (test code = [facility], 1538) [address]: [facility] Counselor/Techni angie ID = [id number] for GR ARVIND STERN Tissue [id number] 15:03:43 Test Item Value Reference Range Interpretation Comments Case Report (test code Surgical Pathology = 104) Report Case: [id number] Authorizing Provider: Elle Coleman MD Collected: 02/06/2023 09:48 AM Ordering Location: [facility] ENDOSCOPY Received: 02/06/2023 02:38 PM SERVICES Pathologist: Ara Corrigan MD Specimens: A) - Duodenal, biopsy B) - Biopsy, Esophagus, esophageal mass bx DIAGNOSIS (test code = [id number] 3220) FuZzEwMzNcZnRuYmpcdWMx IHtccnRmMVxlcGljMTAyMD NdPD3vaHhyxMs2dGdvSFRk gtX4jGHyINtoz3vpGUN9x6 legwnlFZHaHXmiMb4hxNJp kPehMtNvPXOxKRf9uI06JW UfgA2ilVShZEf8NMCbcMWf jjGvJbLbXREdgHGpvOY4GE FyMZ4molljTRwkAKiqCOZz nbQ4KBOzaQLzB8YbRBNaCB 9jqhchQXQ7QQebCCGdKIW5 EpQfXCDlq8Rcddg9HoSrtT FyZFxwbGFpblxmczIwIEEg QJDFCOLQZL5kHNVQG4ZCOM hvUJVdMZU4g9ZcxbOkXU71 N14cKDJ7kXRuOVKrRQPynn VeDGK4pJrhb4FuKUBmJ7rr hIPwtXImJJN9eNKeJL9ihG BypzGcV2QufxGxT2fcjyca n1fmLEPrBz9riZ3yarNwk8 VkIGludHJhZXBpdGhlbGlh yFPwjM9olI6apVClcbHae8 UuGPsgBGCpXPhfp39kHYKt hUwiPCZeYTKltnCkXI3xJQ OxhnWzqGIdalTef3UmYGql YXJccGFyIEIgRVNPUEhBR1 KPUNBARHTVIHohSxSYH8IO ON3KDH5WV5CmZurWBUAXSB NvdxOfJA6kqig4EVHxZtNf tdPkyDxzaVNvNZXmAH3nU5 NpU4eih41nHTUovVTwdCTg CDS5rJCjc0w0kHVaeJngPF GpF8CgiQCoXRO6sPTxg7lm TIWpYXPsQ0LfTOIbpdXzjr c3AHPmc78bx5BiVVHjyWme K6AptNYbfNRclH55ovDpxP Wln9FhWDTiSKXfKWBvIVGa dXygRM0wK1Wzt1ZgwYoxEO EgewQoHZSZSwLvI43qCVUs YBsoVIV8p6smxHPiUJSzrK UxODAwMFxhbnNpXGRlZmxh vatvLMGuLWD5kyQyQCZgYL bxMZVbIZfwWr3yxWHuuVro OaKgHTKyf7gvgsKLvsepeE g2o5gvTWZrDqL8sZXnOFis Y2litcAjyMDzMAKuZPj1rW 29GQXdxX8zvICrLHfetrEn BcB0SItcEKXfLyT2VRFhuQ QnFFRdR7rgLUJzWSfePFOa NHaloPIlWFG0jDnad3J0fO VzaGVldHtcZjBcZnMyMiBO n9NrQJd9xVemH1OkNMTjLn D4kUQhPDSnGLlbFZZcQWNw wxV6dA67FAcqzbV6uRWtz5 Snq91hy656rK8kjLGsSCG1 YRBlQTSpyBSyYDUmDRS3XV LglJLzH2ywDOMbGK0fmfsf AYisBLytHNIuxUV7RJFgsQ MwQ1PaTKBnPVuqXRPtyfn2 TdJzUd7rlPRdrGctOJhsn0 rsk8kndJCjWsd8BCBpXwSm SdluMQecy7Lcc1hfYVVzez 6nSPP6jGPcdNcfo7L3sLYq DCAipEPeWGMsDJ1srCVhSQ IcyG6yvfofCJIjMyKqncdy CDJldAbychIrCb9ljZqzZH W4ODciR3fvlZ1aSwK2RZmt F5zswG6gKQj1GMtfOZUviM X1opM3XBChrOGoG3QlpQ9g PJYhQI5owbv2u0urLNH9KS gaVFAkHgB5nnK5EOUkvGHp AKBgrBlhCEcxz123ZCX0Ho NwAAQjp6LyX3NnvIcjK25z nUfwY14iKDXhpNnrhE2jkK nlwP2yOnAhOpPcRVlntYyo AQ2rRPAvV9sxhPQgRDOzVJ KwY0riMvOemQ5ouMxePWwc vaEhWKVhTit1PDTxgANkSF WhUwn6UWReTLFaV86lirve TAO7zJ9lf6hvk3XkDGszWE F3DCZhs62cPJcppbI1LYgx Fe34KYyxXDJ5XFtiEDT9yP == COMMENT (test code = j9qjoVSiAGOneNNqQLGzFM 0955) jyoiGmQSSbnCJmU1Gqmbks ANxhYM1tDE8ylRtotVJixP GiJRZbDdDdw2qld390gFMd h0ghXXVYdvlkhVz0sCghR6 8ho2I8QjcgB96tcYEwZFK6 LQPcOATtjWCcSBYcXOR5CL JvwKDyM5jsSUCoYE9pwlty SGwvINrgXXXcmQK6CPTkgT WhV2HuHVMmAMyhBKWlnpg7 UzQpDe3ajNNlwOqoFHexET QpDZLaVUqhJERsMgFeRR33 amMgQMQqsjTcFS13KZcdJ1 0iy4YhnIArjKFJpg7bGFJr P7qyTFWfSFJlz2ykDQPcjy HnvoX7wVXzBPBdy8TtQDKu MLvoq3Bgak7tvPWsMCRzMW 0nD99uyLNyYKCalfDiqfU2 xRC6RTMqcBXpPZYxxoOJkI kgcMAbWP5xab94eRVqLQG3 BINmTtAlN3qar3KvyAZ0NI Vegy45jIWrQAMjQughj2Kv pDAgRSSODNFlPQ4qmJlus7 4gQXByaWwgMjgsIDIwMjMg YXQgMzowMiBQTVxwYXJccG FyZFxwYXJ9 CPT Code(s) (test code h4mhnMCnBJVhyURiXDTjZY = 3357) vjajKdLGVelJCqO3Haqbpr DIguIL6gSI9fdBtstLFxhG VoUXOrCaPyc5qdb992lBLt x6ytDTNNeyydkIf5lYasR3 2zb9P3SsmeH36gjKUoSUF6 SPLiQVBgjARcQZHbOES3AU IrhPGmR7wpBCVaOQ1vsmkz UQipMAspMDHgrEJ5YPOivN KkR7UpLIPtLQjyITBpktk9 NhCyTq4dsYDkzSjnHXudZF JkXHBsYWluXGZzMjAgODgz WUM0AugxOPIsZXbxYzN8Pq brGBEaYMmlHCM8E8kpVYN9 CLINICAL HISTORY (test u2rxmOQcZWWhbGKoZKSmZP code = 3356) guqvLzGDHxuDYdH7Hgwygx ZHgdTJ6rIG1blVeuqNAhyW LdVCXjQqLzq9ubb304kOFt u1qpNMDEetnbwBm8zJoyL1 9gd2W6XeseT6dcDOJeWVqi DFQrFXyfdRUzADn0URJcjW VydzEyMjQwXHBhcGVyaDE1 PIOjNF1vbutlSDluMIldXC DaedC6EQPkpKTwC2EoUSEi DS5sosgrBAG9YKxeEICfJJ I7XnYuWYZlp7Zzoib3GwXr iLMsNPbdzKYjzXbjaP6gJd JyZBazKrMoOFqxxStfZ4ux DQIHZYY6in5dy31snUNyJL XhLZGoBqy3pANohFIiIEGc NJBatjSAmgGmVHBdQQ2qx0 Qdw7W1ZJYbtU6uzXHtM4Qw JPLjqHSrR8TfSWS3mezqeB reVhEhEZPuXSfofcUph4Oi YNEgegQ6iZYyLNrdaTLrWF Qvz9DuTOc1wc6wLFcfXC4b p1Iwi0OlSIMtrwGnQRabiK SuQlI5seOaaSszKaNxcmKq P9ipQ5CqVdDuHD46vWIkCa xwYXJ9 GROSS DESCRIPTION (test y2ivqKMhRMBlvDXRFWFpCI code = [id number]) KfZX2mxNeerJh4aMcnYIRz feD8mTGlNMqxe2smQBK4e1 aamiPZJgcgECMkVN8sRPth CHCvTN3bMgNySCCqPtCxTI BhcGVydzEyMjQwXHBhcGVy dMN1RSUdAX2dkwskGKbrPO iaBDUjwqJ6HBHpeGHtQ5Zn ZLLbLF8zfjqqIOB0RPMWEo xsLd2tvMNaxEgbZvArFoQf YXJzZXQwXGZuaWwgQXJpYW k4zP7ZEexzJ82ct2U2Mgo5 GBGiWHZfN9CtSM2lZEAtnR NaD29DMrycUMQ3RQFWTukx SpktgWroe7SqjKYnEEBsZU xcaWQgNTEwMDAgXFxkYiBP AjSzVdP9SZP8WuObBbS0BG b3KWNBFVWeZKU3JPvwBUA1 HBa0BZByEZ9lAFnyyOAmVK wwNilaHEtxG314PGzjWCUf J6QhW6WrGEamWcGqQBsrNS HuWVErGJhnQUXnN0OQHLFh XIFjYtgaPZEcTLn6FZtaW4 ZAHSLxDZXcPXG5ZorzVlE1 NGl7DEURMl9fIqHtAyJvOK OoXHE0PJNzENqucZCxZKkt r1MzAtTcYDOrLHtefmU4PV PycpGbDTlpjNuzmS7pAkTq EjZOLoRRqV4wYC9ynFcvQC IgDQpccGFyZCANClxwbGFp wrrhitWjEPg9ijNnOCFdvA SWOMC9SV1yDHJIBqjblZQd NZNmiAmlDKgqiU6jRX3CGC QkWQlvqhOzQZZwB2GvndXu HBntMEQeug9wkYuuLLdrJy VqGWBhi2x0kRA3kDVfvYM0 hBWclEkeQoUxPT7yrTJlYJ 1dFIrfNClnpdWca7HfSW14 rAEkdqZvfhJjKBE2NuWqOJ zyPNJugU7kKN8twNVvSMKf IDMgdGFuIHNvZnQgdGlzc3 UwYUGzAMxdIL41qqOcTOGu oXXdemafqVRzjK3bAX7jZU ErZHvvVBtfAGH6TYX1DEXw kZKni3tgcylgd9efZ0jxWX DhVBB1Eo8thNMeXRUiekW8 m8OjEZjzRYKoMxvdIPOyKO izyOFiCR9KAHXaXrEdJKLw Y0kjHNUdWV2SIGCwNAywrp NzJN3MBCXmgOXYIRX4SN1v EGdbNNNxZ5LyR9WimvR5ZW MtkkACFrpbHgvoxBpdy1Vn dCBcXHNnIFxcaWQgNTEwMD BdDNlePuWNJrWjIoC1UBU8 GpRsEhW0VXy2GZPHSvSoVi ReOgF5Add3YoMvTDz8BOp7 MMjSEaM2TbD7YON2HZSyDI U0NDXcDFi0YAUcYHocwdAf NRypQpdqKGclZ15zbDMgKO xzYjEwNVxlcGljWHNiMTA1 CN1PQy6vWgjklOG0ZBHJs8 6agEFtvUJinPEzHB3PNTJs omVoULbceZxbmE4jkZVeL5 hcZnMyMlxlcGljTmVzdERv YzEgDQpcbHRycGFyXGxpbj BccmluMFxzYjMwXGVwaWNY e6MiSNJNKhreGdChPdTiNR KRYQTodEDtCEOehgZoq6Zd YWxpbiBsYWJlbGVkIHdpdG bvuAmjCURffGygxqVoR8X1 ezMgXZ5pDKNcYHIzN5MlNA PhQ41iQUOelY1dXNWcUM2s GVy1GNHfHRWfDzyeVMArwA egI7CwzNWrXLNnTdJhecWp bXVsdGlwbGUgdGFuIHNvZn VpcXjyd4MgCPItINvmML19 cyBtZWFzdXJpbmcgdXAgdG 5dOG6yOVUtEZxsNOmdUGD9 BUV1WDGqxGMuj0dnkvnat5 btI2ltDHDaBHK7Gi6wqBXz WJNgzvT6i1AvBHgdRVLsRx kdONAqCFgkq5JwRTPaqYCU v3QfWF7BRZHhqtONEtfbLK PeWKOgiJNQa1GrIEPCOxhe ZjBcZnMyMiBQaWxhciBBcm d3CHobRIGjGRMCEHCPDWRb QVNDUCkNClxlcGljTmVzdE XaYlH5GUYipWPfPCQ5FF5s uRanINPyL6YxN0SkyeV1KE PzotSZMkglTILbLV4FwZ== MICROSCOPIC DESCRIPTION r8jpvEVdCAWfjVZySLZoVK (test code = 3371) yqlxSpEHNypOWvZ2Cmkyhb LUwsNP5qVN2cwLlbuQBebJ VbUOZwIeFkm5iuc954nOYe k8euXGSBcfrbkAf1iHhmQ6 9oo2Q2SdgrH7yiARRiFOrp ORTmFJmykKLyBTj6XKQzgQ VydzEyMjQwXHBhcGVyaDE1 HEEmFP9tuhdgRIigMOtuMB KvtpT5XBJzjQXqW9LlJMKn WD2jadtdAZL4QHdgCXTsPR H8AaXaZGOuo9Fhklu4ClKm cGFyZFxwbGFpblxmczIwIE 23aFMveKmoSBOqHYohPH54 cyBpbnZvbHZlZCBieSBwb2 9nwToeNPdwRcByXO83hGS7 SEUaZ1PeK9qaz53cTSPmNP PsgaZniV0zl2oxIRNxMYxg hLnaUj4fKYwqC7lnblU3tO VsYGIrE8nleQTmdVHaHA9a KAxrBIg3wTI6IIriI2AnvB ClmVP7WHFnxXGvazF8wrHo y8Eyqc5lgBtnvZOiW7e2o7 BsYXNtIHdpdGggZnJlcXVl spYnbP87btMrxNFvlEzls2 6pYxD5JRV8m9etjgTgbhAb hBohMTEsZ0HpxRCtXXI9iV Ieri3yAYDhL5TvsLwyqTsh VFX6eY8rSFhmQPjndz3sou mvIrB1uQRyn4R1NA7xxHTq TGGrpVrhdLy3gRMmuT15rV 7lBAFtvjLdvma2OCEfo40c QjuhoZKob3IzFFRRzUKqxV 8rqWPeXIVrzGI0yH3zoqCf ZWxscyBhcmUgZGlmZnVzZW t2JUOvo0y3cBBgNQGjmjYG RTEvQUUzLCBDRFgyIChudW SoHFZnHBfvh7y4hWGdKYoz VAN9GNbsOLA5ID2cWMceTN 3xNPDhQKD8nY0waiGyBWgr cyBhcmUgbmVnYXRpdmUgZm 4dXVF9XRUzvKVhb6C2cB6f OALbIIHcVP7lTUFdzxH1tI 9uXHBhclxwYXJccGFyICBc tFMzERLpqvEnoNd6PtTlnK tgGKGoTPJ9FkQ2RLw6vZP7 BEEidPmaXiYbCUH6KOLvXZ g3tHWoUPIjuRz7LxUzFEW9 FmT1QAw9oAtiSMEmhMx3HP NoATV8WJC4XHa3oSo4BKLt yHt7MgCfDER5GJJfNNAjRu HDW62DEGVICgXYLOZYHwTY YAhaRS6jGpLKK2UJFTmZUa QMXVItAmwNBAKAN0WAVNGA W3QFZHeaJOSfiKEbOCwTGz EaXlkhiN5qtR6btMtmnN7k dGInxKB4wvacqzKmqCp9IE fbGVBkU85dQN1dS3D5nHDf PNbkV66pYLKmGIjnLEAraT ElQTACYWVIBB2REICCAOMy Pj1PRKOVL61ADtwQYnVyZO ZGLHTOAWIXGQgbDYIrP86f bGVjdGlvbiBkYXRlIGFuZC N5qA2kLhphVrLxHIYeGcBm BlJsYHb4SNppODTzK2DaCX BsYWNlZCBpbiBmaXhhdGl2 RASiPWZoZJVsQNZ8iG9tUu xjZjEgMDQvMjYvMjMgMDk0 JBxpMUEmO1FqMQIdaB33EV PnHeKjhQQge1AiJUoxomSc QYPhKPAgPOH6pN5cYnmjLa HmKKDzXfUfUuLhPGi2CtZd mGRmDDZrgdVpvYm8QyZygN jqFGSeVCG9AyY1IAb4hLW8 VVPcrOksTeDsSNG5RCFqDQ m8bCYxHCJjpGj4PfDnRMP9 CsN0EMt1iSmlLKMiwMs5QO AzXUW7WTZ7ZDr2oSrwXcWe mNhsAYB0FNjpdKHqidfhMY Xpks9tmOKifoU4EmjoMwMn ITwkXASlc8V3ZZQ6QFBjCy r7GRAouR3oNWWiTL5qkLZi RDibVvJrBbAaNEZdWw7ejT IqyI8eYw1qPGZxyDvrrU27 iKBfZaPrpJPnRYThsCV7WX ylqIPpVGPrBCJga6TqsQ9s P6ErXZUzNB7gZwJqcT28fx HxHHicwgCtd0JhBMMdf5Nm h0MbSOJneL8sQOCxkSzkn7 VcROWkOg4fEXFca45wcaO8 FtPrVFIWGWKRoDAvu1EnGK XDUZ53FE1eCOFmyEi4VZou AdKXNYJxBOJoc0f0zZTlWZ DojnBvt3pny6MhJPD6BLk3 BBNqTLR1yVFcGRKhj5BtyY gxr1PpPbSpHDiqr7BeZ90r dHJvbCBzbGlkZXMgcnVuIG Ksu72ci9ugKQUzMwB7sGYb hXF8bRZabWxfJIWnqIAsXY QkvY96WNVbcYIxhBMsAZQs AAI7JOghgJ6sQoFNrILnag DrmXt2keVsrjZjihJle9J9 RWZyTGAvFl2eaG78hckgix UgDEWtmhMnWXQnj5YxACNr OJnxEA5zsFeypkWulFJmca 7esmYyU3Wbiwa1uNQhegCw thXkHT1bznNub9NqTECfPZ H9rPNziGrvxM9pSN31WFBa bmNlciBjZWxscywgbmVnYX BkbxFuNHJam2JlRBJnDZak AD3oP2MjC5NcVPHizQapS5 p1y1MvxlQwYeMkeVq7DGYf AzTzbZLvuCbuYZ36TIUmaL xzIGhhdmUgYSBmYWludCBv jyFkHQJqhZbedSDlJ7MvzG cnsYCvwEEpPuXwwf88ayXa FOUyxEi4tXT8DXnxlcHarQ RduCo6DJCqCiVsAOStCA96 WKiiGN9aEZHussUabgHcHC grkjJgl8PotHk7WSzzKXK8 jXFvV2SoMTcdZ75kEXWsRK S0mFYhYKPoblYpncKfPLrm WDQflQW6XRZqo4VwBJI5YF J0FR68RM3exTdljdUuaYVh AJzuwuDjYAEpJCApc5Ljjr Y7oeBtt8BogoL9TPMqr69b cWR2GTozSsFnx3gzkRKeWB rlQF8kCBtafPJcLNozpHNx LiHgfv56joEiEEJsmUq0vA S2HRhpvtThpAFdwId9OMLn NjUdIUYvER97ZNhuLK0ePW SmudZitwRuBUqongIxs3Tu tXg5HZSvxmVfoR3ffTMztq ErUBWju9SuFLMiMTpxIY3t Z8OnK4HnRBRavGifZ5o0x1 MjapSeHtSmhHh4ERMjTeUc yKYqaUxxSJ05UCOgxLpgKB ggjmLyICLstFYpkrstK97e rSohnYFsUjWfv1tqoUDsUM zzWX3uFHzvoEKjEXefgBXb VpBhth00rwBfKAJszSn1wC G5RJldpqSoqPQhgWu9GLNq AzGtERFqLT69CWxbUE9rWM CeosDzktGrXGdxbsSss5Ux gCp8AQ5xyICcBNPbrlQfHo ZkZXUlhdNkTaVMj1SpPH4e SG3cJTY2c7OoAD0oBKDdfV LKSEKczWWsxE6pBJDtCBMq bWVudCBvZiBhIEhFUjIgc2 JauoaaTwQkzZJ0UM8sKr9a PTnmd0VuzSUrD4SuR6LyRp DhFKW1vVTmCRShq24tOUU2 XMjiQNE9yG3qQZB1nUH7Yp CLyQI1h1WuwWxtvR5dyQ3u LfAdLRr6Sto5LAy0JFxtST S3SNtzFUAfuNGbxP== SPECIAL STUDIES (test z5zgzNPyKIInq4sdUMBdiU code = 3376) FuZzEwMzNcZnRuYmpcdWMx VFazngZtSUhup3NdN9AqJz AwMFxhbnNpXGRlZmxhbmcx TRNcSCU0ugNfFOCnIMokDK WiNByyXu7vuQTksXhxBlVg KNSet0qbniSMbdbtvBa6l6 wfJRRuVzP0uVTcBDfvQ2vh poGjqYAcW8OciIVjrSe3w5 xfLuQyCtJ0fWUvXNmjB8ip miIcrEBdMUOkHWm4dK21PO FbrL8mhCGdULuzavJbUvW9 MUzcJLFcBwQ8AVUqhVVjIF VcE7kkVZNdRFjjFNZvMZje sQBmLMD8tQygi1G2uOHvgR TkbYclBtJqWbJyZeWHb9Fb OFs5cWmdE7EtAXQmNjD7fT QgUGFyYWdyYXBoIEZvbnQ7 pRmqyuXug47ziUTbYVTtZA PuLtMzeJniDDZiRMDXd6Gi fCaoWUO2sHm5zAybBgspRX X2Bxf7VP9dcb97xoc4lYvz YTHuiubgOkK3BDvaHHDyuw moXFz2HCcqDKTgvIY9TWHp lJWpZ9ImEWBsGR4bdtk9NN X1TUznDBZhUhV0KZNmsXVv XZLcsUvpPOijq119AAR0Qg CgLR4nZ9Nht6H6yT5igLJd WNRcbAHmTbLkSKYkak9siI JoALwpd1RsPDE1avZ9lACs cMFwVNOfPP93Ufxqj6NcIi qem7VxF62ngOS8HKkcw0ux FI1qYyX7ejUcJDlci1ncxZ 0gXwO0JNmiSE7vWF1gPCGl hO4zqaifOLJhRnGiqvwjEP VprOnzfvBiNx5siSboMDU0 BHyrG6dsyF6eHzL4CAugE7 feuL8eCHv1CGbjxHB2MAQg pP0dJF1odobey4weODffRE osIUPsuaJ9lyW9LKUmaDQr H3XxyI0rZVBeHS8qrbqls5 haTXL2UMywAAEpDPF6IxIk EQFjb2Yyylw8ZmHpc8ApwJ RzDAinS64uu760VESamdJo W9supFHslddysUAjwoqpTY sibkZ1ICKoRACmYYeaDDXm XGZzMjJcbGFuZzEwMzNcaG ljaFxmMVxkYmNoXGYxXGxv F1qvXaArN3ArZUBcSkFkDR nwDImdoMNnpKFaoYL1uN5y UB9wKQRxyDXuO0YmOLUlux AhlUYeCVL5fEWtdTExMR1o LJwcpOQuf3plp5ReN7bmzO aycLA4LM1oNMUqHVHbDWgk h9McmJ7lQxzzbINbfrejUV xmczIyXGxhbmcxMDMzXGhp Z0etYbBjXDWgiAdzJYwsr7 NoXGYxXGNmMlxmczIyXGx0 cmNoXHBhclxwYXJccGxhaW 3uTwAeVbAgImdiSW0yHCDr W6usfNWiHTVbGKIdP4uqRz TzhH7jaVxiTQihZkDdWdOx UoAZu704vl2zGJLpfGInep KLeABdiX0wBKtyWEnqMDar iJTyLVoqn3lwJXKle7a8yF DdHUWuewZig6yjASdfcwBi QOYngLQokTMxDAOjo03fAM mojAwnfLzdZJCtk5IakKff g4LeLxRjJDkjt0MvJ84mmL JvbCBzbGlkZXMgcnVuIGFs h62dd4zwJIRfNgA0dWFfzP A0oEVugOKzc2EhpQfzXYEm b5gfAFMior5hrztxnBRdl7 PgcV3zyzxqBXqmsFEvmdLc XRQze9p5kMYoJOYaWRIrCY hekZg7ORTpl838vx7vpwR7 fXFvIVS1DVrcMYWoXWKtiz UgZXZhbHVhdGVkXHBsYWlu XGYxXGZzMjJcbGFuZzEwMz NcaGljaFxmMVxkYmNoXGYx DMioR5taHzNpZ0RlXUFxEr HxhDRbL9hohDMxYGVeBLpk XGYxXGZzMjJcbGFuZzEwMz NcaGljaFxmMVxkYmNoXGYx BCeiH5wyOtMiM6LeTBEaGb IgIFxwbGFpblxmMVxmczIy QFxvvwfaSSDkXNhwO2yaCt WnGCZwoCoeTAixu6XaCAQf DCKiBqwmvjCnPTc3giPzOC BhclxwbGFpblxmMVxmczIy XLzoofxqADZxOKmuF3deIg LlSLGezLorEHutc5TdNPRr XGNmMlxmczIyIEltbXVub2 lfj1ZeH3ctkEeslKE4XATs J2aeuPNixDS8DGF2pA2xXG piqkThEMCph3RgOWPsYUAw OlQ1dY7fQDT5DoCRiFxgZR BsYWluXGYxXGZzMjJcbGFu ZzEwMzNcaGljaFxmMVxkYm WtXYWaRUztR2avDpKeJ3My GGOkHlEoyNopAGmzFEk9Qt xwbGFpblxmMVxmczIyXGxh vcypWXWrIMwkY1veRbLaVW KqhWnwUZarr9UlUDBzPWLa MlxmczIyIHMgTWVkaWNhbC DGBN25UJMxINJxrJsmqM6h gQIWVXQoaoH8w8P0ZPdpLG FgQDw7CYjdwkWvLDChcW7p DOEsHM2vUWf7gfQeWHEwe1 OcHL4zRWFpgIYcMOG5IYVc r2JzU1Ftm3UySCUiHAUijj 2auiZzSfLInNEtOIErjc62 IUKwAT8qL0jkUHTjNGBjyx EdmKUhh0FyDLKgcWH8iCOz IB4HDtCGv83pWVVmFTAAgt PpBUEylElklTK0lpX4sQ7k LiBUaGUgRkRBIGhhcyBkZX Kqsq4xvzOjORCsOBRzz0Vt mSBpdQBhvzPkW0Ggd7TeJZ Dbks02XSkkqUMywy80XK2q Q5Wcj2TtbO6fTQosTNBuu2 BeyDJyoZSbFBYih9FnA1pr otmfROpffYRkjT0hUJHmPT n2NTKbm4BbXDZsx9MxEkYn kbTwBLVqYUNsMXNwiB37TI K3bYnopDjtwvIzAO6sINHu slTbFPZoJYRtqH8mCCilhr HeUQMrykV3v7A9FFxeLQGt zcHbWwpgIEG0lvZjtiA2fA PsD6dtjodyEBkiUPVpb7Bc xC5chUFLpBChh5AnbLPorA TRgUIpOZ5alfTzYU6mHNS8 ODggKENMSUEtODgpIGFzIH D1PTbyZzyrNAR3vnVxPQGy n7EqDYliB5thI31vbUcthU t5xZInjCvjnDJuyHOpHSCt roH7i8X0ZBJff2SqhxijHD BsYWluXGYyXGZzMjJcbGFu ZzEwMzNcaGljaFxmMlxkYm JoGBIzEJavO3mgXmUfIeXd BlevTZB1yS== Gross assessment was [facility] performed at ([facility], = [phone]) Department of Pathology, [address] [place] [id number], Technical component was [facility] performed at ([facility], = [phone]) Department of Pathology, [address] [place] [phone], Professional component [facility] was performed at ([facility], code = 2779) Department of Pathology, [address] [place] [id number], [id number] 15:03:43 Test Item Value Reference Range Interpretation Comments Case Report (test code Surgical Pathology = 104) Report Case: [id number] Authorizing Provider: Elle Coleman MD Collected: 02/06/2023 09:48 AM Ordering Location: [facility] END[facility]COPY Received: 02/06/2023 02:38 PM SERVICES Pathologist: Ara Corrigan MD Specimens: A) - Duodenal, biopsy B) - Biopsy, Esophagus, esophageal mass bx DIAGNOSIS (test code = [id number] 3220) FuZzEwMzNcZnRuYmpcdWMx IHtccnRmMVxlcGljMTAyMD DsTU3kgSkykVs8eCnxHEZr cnT7zHMtBBwgg0odHYZ7y5 rwevqvVVKjLKhqVi0jrVUq cSmwSdCeYBJeTWa5kS07IJ VukK8uwWVbWVb7WJOxaNSz eaDxQnKtNWHrxUMriCD0WV HcJW4ymmeiQIrmXHppWOBy szU8NMPdnQEwF8SeTNPrAH 1kqdibMBA7MYdgDOZtTTR5 AdLoNLLnh3Kzkwm7FvIkmG FyZFxwbGFpblxmczIwIEEg TZNCPUCUAK2dOIUJG6ZPIW qmBNGfEQD0x0QsfaVeFG14 O63mTMI7gLXaSWBqQFMrov RaSGG8vNzsm7AnPURbD3md rRGujGRuAHU3oPBwXL5bvA YnswRdZ2BjlzIgZ0axxxwm a7dbJDNwIa1yvD3lojHyq8 VkIGludHJhZXBpdGhlbGlh xUJxqO6paJ6ykXShqmMeq1 CyXMdpZTTfVGvra28pUEHt sVcpVYPgVVUwyfViTF0kIR QoqrRnhPFcnlEzp0QaSIbx YXJccGFyIEIgRVNPUEhBR1 HVQJKJANMBQCwiUnODM6ZA FT6UYB2PN8SqKbfGJTSXGJ OwkzJvLS5msso3HSPiFhKi giVszYhjfZSuEDKiCK1fB8 OzZ6tsc48uPYJsdZZqiMAp JLT2zJBoj9r6gYRehUvwFZ PkD9PmxSJiPIY7yBZip5dc AKRdWCJeV0LlFLNcrbPnvm u1YMSkl20yt3OhGIXagHmp J9XmnNVfyUCroW64kbTzeY Spg4LkMDDsHNDyDGEkJRNz yAcrLG7mX3Aoq5KovNpkRS ZlqxItFLXXUvGhL40eNULo MRbfJHW7p9szqWPlUZStyT UxODAwMFxhbnNpXGRlZmxh apmxXYKiOGB4kxVfZMIdBX aoZNDvEPioKw6mvWRinXnu UmFzHKFsq0pxyaSPvlmwqR p3c0liOGJjThY2yZZuYAbl Y7maheBocHLyDGCpCQh2nC 19XHOmxT7nbJHhOZaaazRh GhJ8CWidHNGmSoA6GSNbjD ZaMGBlL6voBGIuCTlaIXXp LZkxoIDoJFO1bIqoy0A5dE VzaGVldHtcZjBcZnMyMiBO s7NdIKn5zYwdC7RlVRFbVg X1iLFiLMJbQDfxKXGhYXTl rtY2oF27QSdcbuP9oFAnf1 Fzi44cm644vM4ucHSlGND8 KNGpUFWyhOBrHGCxGRA4AS XsuQCtP2upVMTnQY0nzpof MOtdIXdeXVThaLX0NELgqY PlE2YmALOmQYtgUQZsyyp3 VxLwYj7xjRQolKrsXIbrw4 oxy3ubqXUzCjk9ODTcCdAr QpdeEZpql9Xsy6xmBBUgnv 0iUAJ7bERoeClaj9Y7sLBg QGSorKTzBFRbSO9ftQXcFO AkoY6kcjfzXTUgBqMvgtwo OSDrwQlzwxHsYf4loIcdZE J0GReqO0njcB4pMhS5VFss T8offF4tHEq9GSrkPTAksN L0vjB4KUImeFRqU5LlxS3v UJPzTV4godx8w7laRBP2MH msXCQiIfT2pbK0MAXloCRy DUIrwWioTWpir785GDJ5Gi RrXQMzv3ImB2FuzHtrO29k fApnL49qAFSaaZceqH1pdY bzaC9gLoXbUhPaCKychJlo QQ2zNQChD0rmwYGoAISeGV LyV9keRiRwtA6flPqkEGow neBgHFXrWih8TRFolVXrLM QvDic5JIBiEUAmA24fizyz SUJ9mO8ge1ury9EdQLxwEP X4WFVmf09tJYoznqJ5BBtm Us30VGmiHMJ8HAyaJRR6eI == COMMENT (test code = i0khzIJgITPclSRaWWGxHB 3350) hvxhUlDKDhcCAiW6Rvzhhi KRelTS7yPK1mnNlcqBInkD AaAPIyXtHza1svd146sNRy v1kiHWLAsrzgtXd9qBtpC5 4mx6U5KgmhQ42qqSZjTRU3 RDNqZOWtaGFyHSMaZJY8CP RldIRqL8yhSAUfLY8ydiuu KVmhJMtcPGScbNO7YORsvJ DuM1RuWYHzONrnLOKllbv7 UgCxTa8pxJUxcIieGZudSO QzERMsYAwbEHZtBmQxPO66 geHbQLNaxrMfHM66OOwpQ9 6lz9XxeWPkwVHTfs1iNPEx K7ccCKAcUASpe9ujFRInex ErzzP2jYEdMJHfn9PbJVVu JYaaq5Leqn2odLMsJHBuKO 9eW38keTNbHRFeumEleaV2 qFK9ZSFmzFJaUMDtadJXpY kyvXHkID5qsq92jZJjSMW6 SMDsLaIaL7hxv3YcsFQ8FD Xedn04pTCnJSCeWzqme1Os vUHyDURVYGQyJC7zjBhpl7 4gQXByaWwgMjgsIDIwMjMg YXQgMzowMiBQTVxwYXJccG FyZFxwYXJ9 CPT Code(s) (test code l9peiLOqSJEzoIKgXAEsKE = 3350) gkttOjDWAnvAYbY6Tjcsbs PRxnVS2xQV3odIyfpBCvsC JoRACoGeInp0tpf353rMSk b9ysLCFLlweuyMc5mLykD1 3sn5A2ThdnV41fzXJoJIX9 IQAnYBTqcEWzFDCbGGW2HT BinYGeZ8bjWOPxLS1pygbt YFgzRAoyLMDtaLO7VXDwuC HwK9KvWGAiIBsqCMZkrdy6 RjWrKg7qnJClvEkbEOltDN JkXHBsYWluXGZzMjAgODgz IXW7EsuyLWSdHKodDwR2Rp quNVDpLNpkQRE0L2hxCVX5 CLINICAL HISTORY (test o5cxpOFyPRXalKTmBMViTR code = 3353) hquyRlEFWuxBAhD3Qdqrzo JRcmEK6cYN2nqAohfJDrvY LhJQYtYmUts9xzf666nMZw e1viTHVXocbyuXu8qPrvV8 8fm0A3MqauO6wkIWBvLHpx GPQoPMbgpDTqHSq4BKTyyW VydzEyMjQwXHBhcGVyaDE1 CSYoPH3rxavrQTxsYBnjSY TebaB1CVXdaWZiJ2TtDMJi AZ4aaidqMKE0IAyhXDBjXY W9JkVsEUQpb1Lajsp1GlGg kBSwCZcpvRFrmQqbrF5tSe InOKkzWsCzPKyohNdrE7zi HOXAFWT1mj4tv82xaDEkZV WlPQYuEdk4yBWtcJYsNEIx DQKvsoEIzaSsOPSqSY2sl6 Xwt5K9MNIkeW0zmILiU4Bn HAZsqLWoG0VrYEF7zbcrwM enCpKoYERsPOrquoVys2Me VZTulpU7kBUuFDwtsXMkUO Dfv5SuRNg1nx6lSWqxMV2r q1Cvn1DjFDSxaiIbRTcftU NoQkL4cbGycCgiRsCakaWn R7fqE0LtXzJcQH07jGWcQp xwYXJ9 GROSS DESCRIPTION (test h5enkFNlHWIpjNVFVXRcHM code = [id number]) JzTF1axHypfTt6rYwfVKXe ppL7wNEdJUrrk1gbHLM1x5 bvvmKOJajnHWKiUP2hAWrz YDNeVT3vBpYkTOMeYrQaFL BhcGVydzEyMjQwXHBhcGVy pAI6JKNgBG7wlzfzKIlvOR hnIGVucmK8GNGemEQoG1Ir XMYeRY2nqqigLGX0WVUHSj duCp2fqWTdyAkzSeYoWyKk YXJzZXQwXGZuaWwgQXJpYW w3lM2TKwxlS59iq6G6Fzx5 XDDpBIXrO2QdGD2iGHGzjB WiN43GObdnGYM7WZHERttt MgvbvQthi1RmnZZtDIEqKQ xcaWQgNTEwMDAgXFxkYiBP EcPaZxT0BHC9RuYsAeG5BJ k9ODMCIFUvYBA1NPfgNWY0 VFw5XSKcYJ3iRWxsmHBvUN lrDbboRFflA991KJawYOXv S4VjF8XvRRrxJsNsDMfzYV PcAXJhQEuhKXElY1VSLYDd PXHuSoqtZHWxFIe3ICezW3 GYQZAzGVWdLAF7OboqBcJ6 TEe5FXDCBh3eEbHcIxJwKP HePFN3JNXuLDyvrTToMCui o7EfGlRrPOSqBWijkdX8PX DsbbKhLEacuNlegW8sNtRd MkIXHxMFvT5oMI3jyZvhEG IgDQpccGFyZCANClxwbGFp dldkycNoMKr6cmYyZDZdoK BBVHK9CR1qZFFYEbglqDIs SFGiqRmuHLcwhL7lZJ5XBJ WrKGtgfqVeGVMfL1EymmKo BOeiMOFljb1uyEbuYSeoBa ExBVMug6e8gSJ7gYOkyWT9 pXPgqKpcLxGvRO9ajGVcSN 6oLAyqHDqlvxGey1JoMJ54 fNNcomNnyuUwKUG0WvZuQV ukLEVroS4nXQ3jrQHtSFQp IDMgdGFuIHNvZnQgdGlzc3 QhCJUeNVjqTM87orSmAYDn zBIiwsihwRRwjQ8pMM2qCC FeRGbqAIdaEQK1PAQ8CNBh iKBmw8bahjagf1hyN6mlDI WrKKR6Ps0lxHAmNSNjugG3 k6MxXWqdDOBxMlkfZLZjZU aqmWFoUJ5HJIXwHuPhNWCq J5wrHEEdJV3JIBKmZItcxs FsFB3NYDJlcWJVXBH6OI8r ZNgrQJQnC3KaG2IoxpO0JP EazvAXBpmnTnzboZtle3Rr dCBcXHNnIFxcaWQgNTEwMD WzCKmsOhZFMiUtVkB3WHQ1 QzHwDlT0WJu2IGGPUdPvGl ZaGoO9Clv0AdZpLTm6MTe5 HQaMFmU6YeD9GEP5NIApFR P3VLZjNKa1IDXcFGxpdkWe ENefTyzkDYvoW97qvKIpDM xzYjEwNVxlcGljWHNiMTA1 VV4FHm6eFvzpfNG3PKTVl8 2erMVfxTDxiTSgVC4EEAJq ooOyNHxieChruV7tzJPyG5 hcZnMyMlxlcGljTmVzdERv YzEgDQpcbHRycGFyXGxpbj BccmluMFxzYjMwXGVwaWNY d8TjAZQEBqahHyTdMyUmZA GTXZZpeJUuPDVuwuQri1Up YWxpbiBsYWJlbGVkIHdpdG wviNdcWIFxnHoikoZhS6N4 zyUxEU9kXRGfWDFpX6UpZK BrD33fHKVcsW4pFALgSR5x GYm2VWAfUHIiXsdtYBUaaM azY4ZcsATkTHLgJrRbnqWz bXVsdGlwbGUgdGFuIHNvZn WvlCwud9JyLKMvZRehVQ97 cyBtZWFzdXJpbmcgdXAgdG 6eLX9zFRRmZXzyBEvsKRD0 ZBK6MWUhuQOdt3ynjmhke7 whC2glEMEkTJZ4Ad0fmXVj ZJTksbR1y6XcCWuoRNPzCn jwIPPiWKaix0VxMGDreXLH x8YhLO4UEUXpjkCKAluyOO CzBZKppJKNj9KkAWJVJurw ZjBcZnMyMiBQaWxhciBBcm g7ROslRUPbIEIDCGSKKVZt QVNDUCkNClxlcGljTmVzdE AkIgN4EYNncSAmVCR0LK4g cBhsVABnX7YrE2AkooQ7ZI JbylYURejdUHAgPQ8SbX== MICROSCOPIC DESCRIPTION y6cmfUKvOSLvvBAfZJEfHT (test code = 3371) ftknCfPJIikJJiV2Zkqzdz YUjwRN6qRP1wgNlcxMEmjH DsGWGnMkQgw3tnp986nHUk q4abBGTWwnpyvEu5bYufB8 0uj5H4OfluB2nzEWDkBRcr WOQlOWbsmCOfFEu7ZBAfxS VydzEyMjQwXHBhcGVyaDE1 QLBuMG0zkjmhVWkiOWzcVH GkfrV0HNSnwPOuC4CaEJSv JI9qkurdBWY5VWowUSWoWF U0AuHoVTAlf5Ioldb4JvWx cGFyZFxwbGFpblxmczIwIE 36vECkbKtfKTApFGaxGQ61 cyBpbnZvbHZlZCBieSBwb2 1dyKzzMRfwWcKtFX36dJL0 LNTjK3QcD4zcz44iTJJwLI NdckVkjO5xc8heOWIiKVwm aHsjOl0yKTzmW2zcyxE7aY GcPJQxU1ssxNMemGJsIO2p CQfrYOz5yLC9EYuoN6MstK OvwYW6PLBpjAMhfqQ3esLx b8Mndw4udJomhNAkK3t5j4 BsYXNtIHdpdGggZnJlcXVl udUumN40hiMdzTTlvOkrf6 0eXhL7ZCB1u7cafsAleaFr hHksDSIrS3FzsBMbQOS4mS Vcvg1sYOBjM6VyvWuwtBkk FAG8uF5tYLpeDIwkin6rjf tkAnX1fHLzh7U5BD7iaHVe OVHwwDjyeOk8nOGuiC70xK 6uOWUxdxUnjwt9ZKVhg42v YuxlzACgf4PrGATGpSWhaB 3luQDmUPGjtYA9jB9lcuSe ZWxscyBhcmUgZGlmZnVzZW o5MCEqm6i3dGVqBSQexwBW RTEvQUUzLCBDRFgyIChudW DrETOqYImly6k1jAToOEph MQI5EXesQPW1VX6lJUmfFJ 0kVNLoFYH3jP2vqmBgNYbs cyBhcmUgbmVnYXRpdmUgZm 8tAFX5CLWmjUMbi4C9kT5v APApICQfZH1hHSRygrV3hJ 9uXHBhclxwYXJccGFyICBc iUEnROMorsGccUk5IdUaxB heYIRxSYU7NdO6CIj3cZS3 NKAsfHcyOnKkOFC8SUCuOE q0pUQnJRXwbBt1KjZzVKR1 AcY3CXk3dJadDFFnbVx7NR UyUVK8DTM7BPl2gNi9LEJl jCp7GqJiPJY4YZFoQGYoDc CAN49ONLCIGtLEVBAIWgNT WHksPK6hWkDSS1LUTAxIYp ELAZCnKpwIUNWTW0UNTPPC Z0RCSJzhMNPdjDBdHOsTTj QgBgilhS3mwZ8uoPkqaE8d gHKqoGU5soosdzFtwXb4TO crNRXqD82uGI1kK7B3kZMr SGkhI26qDBIvKMfbVVSzuN NkMCCSAZGUMH1RWHAZDZAo Yy3IPHKBV01BGiiLZwXsUF TEGLSIOEXWLInfKLOpB89r bGVjdGlvbiBkYXRlIGFuZC Q4pR4aJzviAjCjYMXoUoFi SsJdKAy7AKeiKGRwO5QoQE BsYWNlZCBpbiBmaXhhdGl2 UXKxRZPxWEAhKMR1tM3iFr xjZjEgMDQvMjYvMjMgMDk0 GIcmYDCvG4OhXXBnhW54TI NeKpOqnRHdv4UbSAljbsBj BFYoWBSdLRP1tS5eMtvqUp ZsHNChYfSiViTeFJq2FcMm yTAhZXZyozTxzCm0BfGqwT vrALLgTWZ9YsE1NFp9uOU2 AISsxHpgMxBhVSK7DZXiCW y1gFGoYHLfwNo9TvTpZBN6 EqO5ICm2hSyxTEErhWa9JW IdZXC9PDN3RRh3bMycPjZq xZsvQUF2YRomeRTxitanYZ Gmgw2apEPshlU4AzfjUsZy YXgdSEEbc2H7MOI8CILpRi b2XQUynP3yFECzDM3fzXKo IPimStMuNmNcQIUrGf3ydV RhoX9eSr8uECXqwEfstS69 lASbHmNhmEUwRXPfwNX8TD yseFVpIOSlCYSit6RwzO3a C7ObJNUfZU0jWxCgtR23kk FxODfsnxQsw2KrKQLyl0Ev u6PoHFYjfV5hAYEiaQiil1 HgDAHzJr1mXSBzn49ovmD3 RuIjLSHXDIFTqKQaq8HlWB XYMB64GV6aWFBwuHq8TBok TeCGOTGqSVNut8p9fBAsYY NrquOdy8msb2UzCNY2DJv4 ZYIhUJA9cHSlXBCit0FgbG kwn8LyPmUvXNovc3WyK69e dHJvbCBzbGlkZXMgcnVuIG Hum04kj2xtDVAvLrM5jXPb wBI6fJPseFtsMODxmAWsUI HbpP21EIWcdFSieVCdEMYw FQE1CKetiS7uXaWRzWTert MjaBi8bzNthzFlecPif0J0 HOEfUHZjYg3dtY54miinqx OvZZBsymXqIXJgi4AkHNVm EPujMB9jvUmgjuCdnXAtno 1dlmCnJ9Irgrg9iLAelqEx rqKiHW1cxyUrb6LtONJhQY O4fRBnaJtmpG2oRL67APIt bmNlciBjZWxscywgbmVnYX UyzzTyGMAkr0LpJCLwDXkw XB7zF2EkV9BtRLGnvQodM4 q5m2EazyLtKnTejYl9YIVr RwXsaCZavLcyFQ06CXJyaN xzIGhhdmUgYSBmYWludCBv mrJaNPUhkHrbgHSjF0UxwL fakFXksDNyLtOnec98rxZr EKBudLr4eCW6SOnijhXytN LenJw3QUWoQdPwBHFzMC08 JRqnJG3hYXXoubYyewCdKG gcadDvs4UieVd0JErmONJ5 cJUyB3UrOCjkP36pQWZxBR B6oEWwBYPolpWmdoLkHRgc CPIgnFO0PSQak3MtFKY3QH V7DJ84XV7lxFgncfHzgFJr PCsvwbJrAPVtUUTiv1Ezib Z6noXzv7UdkjF9AYSgz83k mZR2TLqhLeGpl5ujzGFqGG fiIF4eTAbkwZVoKOcdjKNv EoVvss31pnRlQPLqqSo4vC F4ZEgvrcMgcKGmkOu9SXNz XbHyIEWxSW19JQkxIM1mKW TwklRsnvGjDSyjkkTur0Ux iUe2WEAejzQluV7zjDCtjw XmBFHfh9MsRCVrSTipDR0n C1JtC6OyOXAqkNpjV7q4y0 DhqnYrDkZoaCi8WJZaEkXl iEVkgNdkEP68VZXkbHzrSP nzzdXhYXGhuXDwajyqJ09u iSxwiPByHjYna4amxTLtOS ibPR4vFBwpzDZgCDjmpQEi UnTgff06jgLnYVItaLm5uP E7UOjwboDxgCTkiNl2ADYr RwIxZZPnMS90KZovAC0iXC FyomSsrrDtXGabavQxq3Qz oFw0VG4clVXqJONycxRqSf HlBJIbhbPtJlVRs2BnWW2f CU0dOHI4p4LhNI6bSLDlbK KBTQMzwVKzrX7mXOUjNRDa bWVudCBvZiBhIEhFUjIgc2 NfitxvXeFuwGG3KY5dCk7y MMcum3ZnxJZfX2QeH6ZtMg IaQPC3tACyJBVck15xFLW9 TTixLGJ4cW5oEAJ6tDP0Yg SLjTG4t1TvuLmvfZ6xtG6e UtCyPDd7Sav7SFf7WLjcKH U0KInuERKfpFPjmM== SPECIAL STUDIES (test f5lgsSPkCENsa5llXAUiaC code = 3376) FuZzEwMzNcZnRuYmpcdWMx MOfabwPfLWzxh2VwK8HxPt AwMFxhbnNpXGRlZmxhbmcx YNErRIX5hzIhTGAwTIekQO TeIPchQg9dkMDnmAyhOtRf PGTdt6hqnwADueckbXz4l5 khKBUvUbP2lZLvNUneX9as akVvlKShL0TeyWVhkNw0b5 xiElKhMeD0iNDxHIkhL9zg izAnoOWdLFKvXSv8dX28AY MyqV8rxTEbKEqlipGxBsZ7 PNdjIXEeUmF0EZRiyKRfGY AuD1tkVNQcPTcjDDMaGSrn yHMsXGN6sGiki1N3hASjpW NcoZowEfClExGgUuDEh5Fz UJj5rZwfE5MfNDZxUpF9lK QgUGFyYWdyYXBoIEZvbnQ7 wRxdmgJvc09tmVYgLLCbAV TtUwSsoPctTVWtADWXc8Qz oZapJOV0dJz0bJfgUpdqXS Y8Qhd7RE1wzk25cms3fOyr JAEoiaaiWrK8BAyuJXPzvr pkYGz7AOpeXAQkhDS7ICGk aCKaM8PaOSVuLC4nzzy5UT V2AQmgACWyTyO4RBUlpNMk JKLhsUizVHdre878QDB7Qg DpOQ3oP2Zpa4H2bP2bdALu PCGhjREnFfUuCBFyzn0gyB TqSVbka5WtRZP4klW1aWEc oVOoIEVwMJ94Kmarz4NqZj tmc6JeV86amRO1FUkwi6sc UA2hSbK0xwJcRHdjd0kmbI 7fWoD6TYlqZF8zSI4yMTBi cD1xygisMJWxFjIwebspMC HauTgosvIfQd1kyVqzBSS0 AHacE9fczC2yViW3EEawZ3 zxuY7sFHx3MRtavNV2WTRo iV4bVO7tpofck8ioFIuoJK cdJECzieL4bnF3LKPziCEn N7AzoL5qUOJyJE8cgomiy6 viQZL0NVggXCFuVSL4YhGf GVBqm1Edice6OcYud7AntQ ZyGWneU12rh636KIOtikVe Y1sjjEGhwfyhoZYfuxaiEM jpeyO5DXEoOJKoCWphBMFb XGZzMjJcbGFuZzEwMzNcaG ljaFxmMVxkYmNoXGYxXGxv G5ppZmOrK9QeSCBlFtMzKY kpHFyynWWxwTYicUK2qX6l EF0iUCCcoAVaF6RaFZSdsb ZmqGUxCYG6jIAhwBQxCJ1d ADatbPCrn2xea8GzP4ehkA nilQB7LG0oAMMcHSXsTDdp p1JekZ0kHfnveEWzawyuOZ xmczIyXGxhbmcxMDMzXGhp G3wgWqFlPVDifPucLNmqv9 NoXGYxXGNmMlxmczIyXGx0 cmNoXHBhclxwYXJccGxhaW 7gWhZpCpWvFhmaAA0wLOLc K7xulSUdCNWyVGUiW7klGl DeeR0krLjySAosKcExKaDs SgBAt579ct9xQOJdnYZpec MQcGIflJ6rHOivOKopOJoa rSQxALilx9lqRKYtf7v6jQ QzKKEgwlTzo6jgDReqxtUi IRMqnSXyeSPvOUXlj16mYB uziLqmaIdpSIAtj7NgpWqk p7GnJqMoTKwes8RwO50zoA JvbCBzbGlkZXMgcnVuIGFs r22tk1shDOGuCkI9jOWwgF X4aLLpuBNpr6KmkWstIPHp d9wtBZFgxc8ofvwyjJUgc1 BsoL4ewyciXIhbxBOpfoMg XMKwd6f3mZJjLCJsWBGgGW ldjIl3OWRkc012yb3wnzR1 fXGsKII8PWaeDRHnDEUtha UgZXZhbHVhdGVkXHBsYWlu XGYxXGZzMjJcbGFuZzEwz NcaGljaFxmMVxkYmNoXGYx XBteS8dyQkWhH8PsXHGaNx MicTWvX8glwFChSVCaUScr XGYxXGZzMjJcFuZzEwz NcaGljaFxmMVxkYmNoXGYx CPnaA8gsOvPoV8UqORXySb IgIFxwbGFpblxmMVxmczIy VJbwsgguPDTdLQelJ0piIk JcVMOsmSnxYPjgf5EyNJKo LKOkXlmchnLuFAj7bnHdBX BhclxwbGFpblxmMVxmczIy GVinygevXYOcEIfpK9kyAx DuMRMjxGatBMtpl4TbWEUs XGNmMlxmczIyIEltbXVub2 bai9RvY0jviIfpqIA6EOPj Y0kigCPwlPJ4AAK3bA8gIR rerwIvZNJoq5OnRWLvCTYq OzO8eR6eXVL2NfWEjGneUY BsYWluXGYxXGZzMjJcbGFu ZzEwMzNcaGljaFxmMVxkYm PfSUYfTYecS1rkPkFfR0Zh UGUsYkEdhTucENeyOHg1Sa xwbGFpblxmMVxmczIyXGxh hbrjILStPCxcM6fpDyGbOT WweFblNCnjj6HhEUGcNZCy MlxmczIyIHMgTWVkaWNhbC YHYR48IHOqNWOlfUuavO3n sPNDYOCrvuG3x4Y5XAzxFG DxMSp6BWgenqLrSDUtvF1s GVNzEC5aHAr4ckKgBEUtx9 CfNM3eZFCzgPPnGPQ0ZLXu l6JnM5Ayf4CwUQBxESFwcc 4ofeLvVzZJyBBuDNTdvi28 GBHlGB2hR4voRTExPGWlph QrwJMzc8NdJIXnfHL8sUJp XH6VOhWTj47pNBTeXNSEqs WeWQGwuUxsqSH8kuO9mU1k LiBUaGUgRkRBIGhhcyBkZX Rdjb0thvOrZBEwQXUha3Mp cAAnyKCnofIwG5Gxp4PiGX Ckhd40MQzjbGOsqz82UE1r X8Pmt2DgzY5sGMrvNRMxs3 CgxMJysAEtWQJea9NbI3hy acogCEqntANzeD9cGDDcEF v0QVXuv3UqNJJrt5KaNoRn hjYvAESaBRHhKMYokS24OI N2mIsndVqiaxEgKM2nKXYc bzQqGXXnLAJguY5pJIhxmf NhBGYnriC2r4A7KSegOGPl hwIeFifqMZY1xrZcgeY0gO EoB1nwvpiyVZafUWWmj6Ia pM0rmYADsBDbg1YroHCneZ ANvZMvPI4getSvID9qTVO6 ODggKENMSUEtODgpIGFzIH U6DLudQmxkYJY1thXvEUHf m7BwNZgyE5roW22wnRtqmO r3mCRtkPmqrZFggQOhQWPj giX6w6P1DOQeb3ZbxdvbVL BsYWluXGYyXGZzMjJcbGFu ZzEwMzNcaGljaFxmMlxkYm CkLUDcOQxtZ1qtXlCmGsMc KukpSZW0nV== Gross assessment was [facility] performed at ([facility], = 2777) Department of Pathology, [address] [place] [id number], Technical component was [facility] performed at ([facility], = 3438) Department of Pathology, [address] [place] [phone], Professional component [facility] was performed at ([facility], code = 2779) Department of Pathology, [address] [place], [place] [id number], [facility] [id number] 15:03:43 Test Item Value Reference Range Interpretation Comments Case Report (test code Surgical Pathology = 104) Report Case: [id number] Authorizing Provider: Elle Coleman MD Collected: 02/06/2023 09:48 AM Ordering Location: [facility] END[facility]COPY Received: 02/06/2023 02:38 PM SERVICES Pathologist: Ara Corrigan MD Specimens: A) - Duodenal, biopsy B) - Biopsy, Esophagus, esophageal mass bx DIAGNOSIS (test code = [id number]) FuZzEwMzNcZnRuYmpcdWMx IHtccnRmMVxlcGljMTAyMD MhYL7poLbbzLb1cAxtHSJg psN2bKEvRZwjq9gqDJS5t4 ubwcmuMNFeMHxbBf9isHXk rAdwCsVrWGUxDLe6oW75HG DceD8urHZlDNl8NKIlzSPj lzQnRdTmPPNrqGZgsIL5TX HmLF6vpyrhMZowWXboKRKw pzO0CQCiiMFwS4HkYKOhDA 5vtlniBET3XFmgUGGsUGM5 HrUvAXSji4Kqxmx7GnOuhJ FyZFxwbGFpblxmczIwIEEg ONHBSFNJMT2oZIADY3DBLO unFCHgIPB5o3RyhvQtPQ94 V95tLJZ3vDRxAJVjDYQexf WnVTG6pQrtw6ElXVVjT7gx mFPyeAAuAMG8mJYiKR6hsC UevaWnT5KbjdGnR6avxqgb u9ghIXIpWx1gkV6lxhWrs9 VkIGludHJhZXBpdGhlbGlh bHAslP0tvH2niZLkbvSay9 IbZElcWEZwPKnvp93sBAJk rJuoJJFvLMVuokHxPJ5nIK LsomOztLIimoJbf9OtAVvs YXJccGFyIEIgRVNPUEhBR1 VMQHWYHPGNKRcoQzDAV2GH VP1BFU7LU7JoChyAOFNHZI ZwmqBtOV2octx8OLBcTfCy mmRnyPtniFFoADBiWR7vP8 XzS4ymy71jLZSyxZCzgBLl JXN5tVTfn4g2aCBjiRrmLP CkA0UeuTSzOBC8aWHkq3cw YZCiIVLuA2FvEWUtesHvwf g7XCYzw91ht3KaWSUodZov A1GzmFSkiMAuvZ54cpUghF Lie0WnKGLgPEQcRTKhYGVg lCurUX2tV2Qdf3WgeVenQM LigkThUVNWDxCnT83jEVPn QQblTKS0t7mhqDTeTPDndZ UxODAwMFxhbnNpXGRlZmxh liokRJXnHTT6nxUfHWUsGW kcIIPbPNsrCt4yqROlbZfr WnVmEMXcm2qsibUBstnbhO y9j7hfLRUyTnP1pWEhFPow T8mbluJonZSfCLQzXMy0xG 12DYXqdE6klYExYEfmlcVl QaE2FSjjLJTxOtH9JSVfjB PcLZEwZ5bvZKXyDIqdCPKc SBjwuWGrSIF3yExsi9N2tO VzaGVldHtcZjBcZnMyMiBO f0DoTZq8dGlzV8DaRUGhUp Y1xQQvNFQdHMzrOCRsCBKl sbY8xM34EFcvhuQ8nPYpa1 Swt85mj684aQ7hrODhSND3 BJXdUYDdqYBcQEBhHJM6XU ItrSWuZ2ioQJCmZP8mccnj XOevJBxaIRNbeGN5UZDkpG VmW0AkPVFjMOumJNDdfsi0 KkPiAo3mrPCizGinETill1 tnp3thzMXpSal4ZYRkUjKf GsgrLTmzp9Ync2qzORXewo 2nCPM5iBXmwKwkf2Q0rMWb EIWvdQBlCKVoPW4xtDBuLX NlpW5acolpUWUwTtAejizb MJNheGgprlSuJp3tuBnaTU U9XCsoA8mswF6sTnK3DNbl A9jyvP7fLDr7SBkkIKKbwR F5kuK8UWIukIVhW5RwsE5u OGCePX3vfuz5q7niPZM5UV haRAMkElI3shH7TGRgrYBq WITdtAzeVFdle809WCZ7Zi NfKWAfg5QnU4VpkWliJ28s pMmvH00nGBEypFsseP6rtR kslG9qCiVlTlXvOWurnKtk PB5mGRYrL5vhxNSvTKKzUZ TmE3rjUgVeeO7ghCzcLKze qgFnGZNoOnz3KNAnkPTmUT VaPgt7RIMtPJVrR71aptpr ULQ5bV3wc1xca9JdQAtoCD U9XHNht74uLNhwtiA5YUos Ya95CWfcBOT2RVmhNGF0xL == COMMENT (test code = i5ebqAVfIPLyhTXaQGRcXJ 3358) qxgtDsCISbbYMbK3Fpcjkc HQhjFU0nUB6noKjqxZOphJ BnDCZbDeCgr8bfp908pEUk q5zvEFZTvgxdoYm2cUrdE4 6ko0L3FiaeV44zpACxZWP1 XIFzEWKmmZBfNGQfQSZ8JJ AmdRAeW8yiVLTmNQ3vlszv DWifVWtmQHYibZR5FXNntV GeH8OyKLMpGHflJKJevhg7 AsQpQs3oxSLppVogKAjkDT NpYRJoCWlgSMQnKoXsKJ78 orMjYWNvvbSrAU84BAvaA0 4fh2UlfWRvmNXVgl1oKPHr Q4eoZZOqRDBci5miCPRsah XhbxC4oGQiRIBtx1MeGZUj LVbnz8Scat6aoFQdDBGrHA 9rA76arOKkLKUcspEfltJ0 pOY7GWXpiQRnXOKluwQMiA mxgUVwUK8ajd10lXVvVFZ3 VBFlOwLbP0fnp3SpkPU9XQ Hifj59ySUwFKSuRbswz8Po zNCaQWSXIHLkZM2cmAbby6 4gQXByaWwgMjgsIDIwMjMg YXQgMzowMiBQTVxwYXJccG FyZFxwYXJ9 CPT Code(s) (test code l3fwmUKaTTSfzKFtFJCdDH = 3357) dlbzCePOTvaAWeL2Sbnsmd BCywBI9pLS5jpIdfiHUuuD HiLCWaTqUqs9ofr946aEFa r4oxGPPIxjxjcBl5dExkZ8 6hv7Z3NnlwJ11lfLSoISE5 KIXvMVIrdCNqQRGtCZU8SS OsaMNiV5giOOJcYQ8dtxpx XBjaZRdpJXBlkGC1MGZqzQ KfP5XwNGMeIIpzINCrtww5 AnXiFe0tiZRnnTsmOFbrHO JkXHBsYWluXGZzMjAgODgz JOE8RbmcCKTfGAjdFsJ4Am jaTEAwWKqfRLM2E0hyDAR9 CLINICAL HISTORY (test n3evvCMwOBDhwNQjTTMeFQ code = 3356) fgqmUpTKUsmTOlV0Bjvxik STamDX8iQI9umSkkfVYraY LpVDYmFySnj0srn378jNVa z4jmGZTCnybleBg8zIzxW2 3ch4C6OzqsG2xnBEUeNGtr CPFiOMrbcAUwWOh2ECBplS VydzEyMjQwXHBhcGVyaDE1 BALgKK4kbqdiEQuiEAhsOO RqnfQ5NBEbiBVaW1UyWHIl AW3escibQRD1UQjoRJPoBA G8PlIkNTCww8Rxluo5TxUk aCAoHVmveRXdhZynoO7dLo XpNWbbClQtDLsqwBivB9rm BQPFXYO9by2za81hpNRjXP MbFBMvGfa3gUGhjKFkYEYn KQQgxlLPiyFlQJUaWE9jd5 Aci1O2SZAyoD4qxLKpE6Vr KHAjoABoT8FzMJM8xcxrpS reWtEaLMBlHKnqykUsc5Cx VGFfbxE2eEYdXCllhDToDX Ive3OnSZf5fy6dWFxmXO2l u1Wme0XtCPEpqoStDThaqP BjSfB0tyBioZdaAoTfjiBr D1awU0IuVuPtSR09oPNlJg xwYXJ9 GROSS DESCRIPTION (test n3thsBIySODcdHIVFXJyAE code = [id number]) ZtWJ9xtJxjeFq0mGxgVAYs jsJ2xBOdJLtco3taTXV8v0 wzicDOAcutKRQeRK6sDEdb JPDcKO5zCfWyLXKnZaNpEF BhcGVydzEyMjQwXHBhcGVy vHI3EWXwIH3gymcdQMktPO vxFVJaqhO8PQCicMDtX1Az BJVzKX6bxbcpMFQ8XQNCYn mtCf1whHAxbJrcCmXiHyRt YXJzZXQwXGZuaWwgQXJpYW m3yQ5RKumrR81ad2W3Wxv2 HJNbWWBtM4SnVB5rGFVdoJ QuV12MWplwZLB7MYOMWmqf EuayfFyor3HkjMHrVSLxNK xcaWQgNTEwMDAgXFxkYiBP VvBkBnB1SAF3VfXqEeF3HG m7LMWTMUIvFZK8NGbkGKO1 RZe3KMXjCP3bNNwpmDPpKL ktSkazHJrjQ961RUwgARCw L1TrL1NjPLhpGyZoQLbdDA SnXURzBCgiENDqM9FGCBUh TXWhNvepFKYnAMn5CCcfN2 JVLKGgNJJeGIQ5XsgwQfT1 HNh1TVJABl2uJnNeYpEuZP DrNCU3HTDwTSusbUCxNJzb h9YkAmNmYKJpAFfudxM4FO AypnSdAWdmbYbwlZ3oHeGa HzFZDgTOkH2dLZ1mxIyiYM IgDQpccGFyZCANClxwbGFp htmlutQgZQn2mpXtSCHkmR SCVBK3IJ0fZWMBXfcyeZUz GSWboNgnFYadzF1jKP2IZQ AtFXegvcUjFUBxL9OmphZt YNsdECMbyb5awWrpRLqxXt XiKUGyf0t3dVD9dNOtmOL1 yWIsaRdrCkNuWS2ilFVjFM 7pZMmhTIukyoHud8PrWZ33 mMFboqZrogHoBJB1LcIqWG zoRQQcuN0fLA4ptLGgRNIt IDMgdGFuIHNvZnQgdGlzc3 LiWHGmTSizCR84wsRoVRLo sYAqnvsodRWrxS8jGV8lIL ZaCPebEMjhNOQ9DVM1FKTn aSMiv8otadopq0xaP0exWG IyHWI9Zd7uoRLtVPZribM9 x0YqTYbfLOOrMtwbXLJuNC xhbFCyUN3XMXDrOzUwWIKs H8eqGAFcZH4XFKHlCLtvnq TtOD7GFXNabAFNTZI8NX0l KRzhIWLzH0SfA2FltaK8UP XyijLJSiyjNmmjpXbsj3To dCBcXHNnIFxcaWQgNTEwMD BbROnfGlWTEhFgUcF7EEP1 UlZfAhU4OKn6YEGSMoLaFt BwThH3Ysy5PuAlRWk2IBy1 OZiNVsS2UkQ5YQB0KBAmZT A1FCKhISi2XMDdVWbyuoLw SZplMrsyCTztJ44liFGwYP xzYjEwNVxlcGljWHNiMTA1 GW6AGg1pSpukjOM6DWMXb9 1srKCriPKphCLtSN5FMJIb pnQwNClswSqqpS4quOZhS8 hcZnMyMlxlcGljTmVzdERv YzEgDQpcbHRycGFyXGxpbj BccmluMFxzYjMwXGVwaWNY q1AxOFIFEdepJyFpSxTrTM SYOGIasXKpGGLdumNgb4Zu YWxpbiBsYWJlbGVkIHdpdG naaLbiEMKvmGyeguXqF0Q6 njTiOD9gUZWuWWScL6RwZF CaF76iUVXzjI1mRXNcQL9s SGu4JHUjTXBzBsmnIOPmtZ bvX1EmkXTiVYKhDcKifxKo bXVsdGlwbGUgdGFuIHNvZn MsdUdiq1IeBKXoIXmsGQ66 cyBtZWFzdXJpbmcgdXAgdG 1wVM5jUIPiZTowISogSWG9 CVZ3FGHzsTPnv9tfeikwr1 vdH3qoEEDsUNU1Nk3nsYHi AZCtixH8v3YzLWboGTRlIp kfOFRqLDgbd8HkXJSjyEJG o8MvZM4HDKGwmoKIPdmmQA UzQXJwpCZUe1ZbEHZIKyyj ZjBcZnMyMiBQaWxhciBBcm f9NGieQBBzDLGEDVBDSHRm QVNDUCkNClxlcGljTmVzdE WpYfW6GDJnlXWtXNJ4AE5r hStqXXXdD8GwQ9EffbL0QG DoxhIGVmzaSQNxDH1NpP== MICROSCOPIC DESCRIPTION c3qhpJUwHRYbiMVaXPYdMA (test code = 3371) rzsoGiBSOiiUMfZ2Vobsnn EPumFV0jNY3nzUwkuPOemP IeLGZgVjDhx6ttu497wCKm o9ccHBVGwmjjqUf1dDfxE8 2ro2H3PbluF2mlUOZrFFwq EIFtLTaarKLdFNk2OINnlX VydzEyMjQwXHBhcGVyaDE1 LHVjBB0vfbteVYqrEWroUH GdevF8AHUuyAXaO1HjPFXw RX4utvyvTXI7UYjqZKBxNR Y5VpKxIWOsf4Oaizl1ByZg cGFyZFxwbGFpblxmczIwIE 81uKRmqZhpUMBmKTtnSK75 cyBpbnZvbHZlZCBieSBwb2 2rdCavQWdeVxIpPN57uPE5 AISoF1OxE5sjw12vTEAiOU IpmaDuwF5cf7fsRCYvBOxr zTmsQx8oQXuzV2zdvbX5jM SsQKPyP3qcrINxoLMrAU3u MHlkXYf6yPU2DYaoO6WmzM BzkCB6IKHllTMefjQ8dqBf n2Srqs8cyCtixSEcP7b5b3 BsYXNtIHdpdGggZnJlcXVl hcLqvH29yuOlxRGksLsjm7 7dSsN4GLP6h9klbvVxrpTn jYqcGCAqW6JbsSMyNFJ2tG Dvpi7oSKStQ3IurZotbUty PLU4yJ9sBFxfALvouc3znp zbSbI5kRYie3W6KX6fiYRl PLKzdIwtkGs7cUMhfI38wW 2yGXBpwtNwtrt9VISnu18f MtyoiZFql7WtYUDVyHYwuU 1anWYsQXTgsFP6iM2hllQe ZWxscyBhcmUgZGlmZnVzZW c4BTKas6y7lZGcLCMdgpRD RTEvQUUzLCBDRFgyIChudW VcVVDiCBwac6b9xHZvCCrs OZW6DRcmWOQ2LE3qSPkcZE 1dRFCeVXI4bF7bkuOiKOhm cyBhcmUgbmVnYXRpdmUgZm 5aOXF2WVKtiXMjz0A7wD4u LABlAKRrOS3lHUPimlS3tY 9uXHBhclxwYXJccGFyICBc lPJlLZVrfrOapEu0GjCjyJ wfNWLwQBJ1GkU4DZt2dSQ8 NJEsbNcnQzSuYKQ1RGWfAB l1zUJpQNEcwGa2BcEiXQQ8 BuC7OMy9wBxyHZApkSc4JV HeRNR3HOB2WDm5gBv2UFLu vTv3KmPbXUL6XHEmFLJzWx ECR82AWZBEMlCVFMSELkAZ TFhyVJ2xKoKPW5KCFOyPSv WTKXCnSalBDFHQG0OCPBMH A1JLFCmyNSWstWKmIArYNs QpFrqsbV0oyW1wqUnodP7n dAYkqQZ8sdlplbIdjNd5QT kiKCAoJ24jOX5zI2N8rYVo JOtwT18mVGPaAPziMXUxcK NmOYNRGJNMTE3LQKEKOZHy Xv1OVMGGT20NVadYBtHvZC KKHRSSKPGUXGdgCUJtR15n bGVjdGlvbiBkYXRlIGFuZC W0eY1tPekmYrPeTNLxZsYp ZnOyXIx5JZssLCSsW4OhHE BsYWNlZCBpbiBmaXhhdGl2 SWLzXKXaLKRqYPY8yS3wHk xjZjEgMDQvMjYvMjMgMDk0 EHawCANxW2KmZIChdU31QD UeExZpzTKlg8KuYJqkkjZy CVMvYAHoTZL3yS7yNhebNh JvTBUyMfHcKnZtGYr9LfQn pRDhKVWcmtTsiUv9UnLntI cfPIKcKAR6UfA5SAh0jGG9 BSOsoVpxHsPsFSC3YJYbDS i3cBXjGLZghOq5BlQwOCZ3 BlR2RTw5rWnsPRQxuUu5UB UhVSX5CXY5FGc6dNucLnWt mMkiUOZ1AQcrgHTbqknuNH Xwfg0vbQBkizU8JnpcDlGx HXskAYAbf8B8MCE0TCIcVt q0RAEivS5cSUGxSV8vnIMz KGvsZzLvIpHrFUZkJw4tqE EubL0wGm3oMPXehBeefD46 fFLvPbUlrYTkHWDccNA4HQ kjjTExKVKrSBMjw5QkkH2y S0GvXNAtSH0rYsVhdW60qc LqKRyficWxt3QoWDRsx5Ls o5QqNCGitB9tASBumXogg8 UdGOLsFa1tNACkc69cdaB4 DsZqNPDKATDFxWRof1ByLR PTNH72PF6wJRRkoSj3AGno PgFQDFRzJHWpy0f6tFQuRU UuooFky9vsk3AkXSJ1TNz9 QDHbLIQ4eIRgEBXpr0WzsQ jtk4ZvMfLlGJjzw9TwM33y dHJvbCBzbGlkZXMgcnVuIG Yph58qn5qeWJOhSuK5ePYr lTX2fRIveIjsATXiiJLnBO TggE89ICGzmQGkpGNaQYBj XQV6OFxmgA1mNdWJzWGqak SpaKx5daFoiyXqoqBrh8Q6 SRPvSSAtBp2cyK28fcmfoz TsPCGanpTdYSIfl2KaKFMr XWoyUK5egDtaqjUdkOTpke 6ravWjM1Erukr0kIVydsKg ugSoFS9ugjTgt2ZlDGQvOB D6tNOpeFfhlI5zUD69MMFr bmNlciBjZWxscywgbmVnYX SmsqVlZHIkj6LlQMMfHVbi KX2nV0OfD9OkWEEcnEhfO0 g8l4ZenkIqVcZviRj1EXBo IcXsfOOvwWgdUP57GQPyuL xzIGhhdmUgYSBmYWludCBv dcKlXETbxIlkzEFwS8DqgT rluJAzfDUjYlAtyy47mgZr BQUzgXd6tYJ0FMrlvtMqdI VgfIc8UWQzWhZlKCUpPA43 XIusTY7xWMYfjzEinsDlCI txvuNmh8LowXa4ZPbqHKU2 fCDyJ1TgPYvvX44fWILyXF L4nTLcRROznmZozzJvNWfm JRWuxBK8TPPun5SkYAC9TX W1XJ54ZX5fbHiirwQlfUKd DIywjmZtXQYlJTTdd1Yxsu D0bdDeo4MinnW1VYKgn29m bZT7QFocOsOqx4torBXyIP koPQ0zQYbnlOBrIWzkqYLg QjZfwz55vcRdBTAqfYx9oB T9XMzeinTwgJVazLv8BNBd MuGhQYJbMG83RAmuPC3wRX SfjmKfgdBtIUivbgExx6Fa pIs8COTosyGhcU7twBDjuc UoSBSrl1YoQDGpGBvzEE6b P9EuV3YrIOLlkMbnE3g0s1 YqddGdGkWmnAh2OTSmSlHo kUPljWnyGS98EGFghNhdHW vrssEyDPJscCZbnkkfP86q vUatpFHzFxEvk4xcoSOeHQ ivDL6kDQswdJDuQMhvqWUm CrNgqj44jfQhSLIbwMo8sN Z9ZGicntUgnZRimHv1MHZr LqSaFITfQG38ZJjbGS4gAK BymeBcrfOjPHrspoWlq9Zp kVp4AR2ghGUaTKSabjTuVs ZcXSQyzvZqXiCIq7JmHW0c PO0fQGE8r6XsVF0fIXWlbR LJCODwrTBywB0iVYEpZBOx bWVudCBvZiBhIEhFUjIgc2 MqerupItZhsUX2QS7pTk8j LKbok2YagGSyR5XcA5PpCn KlAIK4lRUdJPBzi48gEJP2 NBsyWBD9jO5sREH7pLB4Sa TPtXK9i6PwxRzqlM4beR5e KtKiMBi8Uxd3MDw8CDedJW G0QQsfVGMwlPAfiC== SPECIAL STUDIES (test j5ouaCOzJYXzo6msSPUriG code = 3376) FuZzEwMzNcZnRuYmpcdWMx EFnsrlWySSoed6SkD3GpOx AwMFxhbnNpXGRlZmxhbmcx DTVeLIS8knCdSXXsCDfvKR AkLCiyPv6fgMDdgQzjTaJl XQEph0haerUHqrcmiQn2c6 zmMQQkRuO0iVGrLTdzW4au riMtyJHdY4ExvECxbTb7m3 ugOfYdEpV0ePKoGMdkP0vj lqJoqTGmJSDzARw6rK08JL OlhL3tlQJlIZzsoqQpElZ8 RCasWISuEoE8CXLtgPZcTL BrM6vpIQViCFeuUEAaHHwq ySFlHMS0hYsbg6Y4sHWpxN HpaTkjLkHwFpBgGhICs4Ma XNs3qGnpH1RaIEXvGlF0sO QgUGFyYWdyYXBoIEZvbnQ7 gZxqlnIze62oaKDaTZYlJD XqBoQpxJavCAMiBGALv4Zv oFlsGBW5aMl5sOqzKinwUX D6Ydn6GK2smm63zgd5eHdz DENlyyzwSnD3FTwqTVXbam jhMBd7LIlsQPKdfSR4MYQy yKXnA6PtFKFpZS2juav6PH K7EKkuGVSaZfQ6VCFueHTw NVYxaEcdIQwhy667GOE6Nu SbRX6fL5Gdo2M8oH5kzOBf KLKtuCTpRuBdKIBckj4wlS CvZUtxx0YfSMW7wqK4wPTw jUPuNCIkYC76Bngtv4PwMj foh6AyY59ekCK7TKpai0jk SI7uXfW4mkTpVBnbw8pjrG 9lUpK6NOuoOA4nLN5uTMQp eU4oohxjWEOqPgBynvgyWK IqaKpheuOrHr6koQlmILV3 EUwuV4iexA2kOmH5ODgnG3 rszK0nNNb9AYecsZK3HBKb oP9iTH9amythv7pjZRjvHM flFBXcjkD4jsD0NXOxnNIr G5EwdU5tHDItLI6iczqox8 vzANS9TVurGTRcMJF3XgVh VBLfx6Zcmyn8TaClx0BtiK BeHJncM59gq308VZQjfgQn F8tneVJxjtosmMIgdvewTI autbT9ZECuCSAqOAyfRDPc XGZzMjJcbGFuZzEwMzNcaG ljaFxmMVxkYmNoXGYxXGxv T5jxZbAmW1KpLSGsNxUrTW emWFvmwCYtnEEyeQD9kD3j TP3yUMLxrVGsH5LgTTLqhf FubDJiSNH2rRNbsRJcZK4t MUjneQVsd8spo7QjU5qmdN aliTT1WQ2wLNBjDJMxDJlk j6YkpU5uHymerEYgsthpEH xmczIyXGxhbmcxMDMzXGhp I2kxRlFjKQYwlKsoKYmdr9 NoXGYxXGNmMlxmczIyXGx0 cmNoXHBhclxwYXJccGxhaW 3gJiKfNqAlRviwMB5zNUFk E1trzKSnKZYxBBQrR8azJg GdkX3nkBrsUQgiBuFtEfOp OfVXx471fk1eILThsOSfou QDoDSzwL4rHIihNAvxMFdd xEXoBEomf8mhINLuw4z6aP NzYFWuvsCng7zxNGeldtHp FCFieSZhoCTvKOAxg59nWA qpnJppwIwsAXPfw9LqaAul n5OmDtZySDmjg4DbI41kkI JvbCBzbGlkZXMgcnVuIGFs u33rp4ayWNXmZoL1hRFbbH W3vHKcfKFve0VtlQijQJDf q9xeOXKeia0vobiftUZrp0 JvgP9eaqssKLddzYVumbAk DBEoz9t9rPJcEPDrYFBwIU ywjDq2NWFzr779vu8lbfL7 sHLcREP9AHdfARTjGRZtjk UgZXZhbHVhdGVkXHBsYWlu XGYxXGZzMjJcbGFuZzEwMz NcaGljaFxmMVxkYmNoXGYx TEaaL6alGfRvE7MoVPIzRd JbpCTwW5mgkRPcMBQhPOhg XGYxXGZzMjJcbGFuZzEwMz NcaGljaFxmMVxkYmNoXGYx SDebL6wqYsNdE6WuIEAaDk IgIFxwbGFpblxmMVxmczIy FLyxfgbuEZSnOEqqV0zgIg PoGRDfqFmyXHvsj1NmHTDw OHUaMgwgdlKvUBg7pgVzVK BhclxwbGFpblxmMVxmczIy FSehmyceQXHdXApmU0xpCq JsRGFdiVpjUAfxt2OrNSLg XGNmMlxmczIyIEltbXVub2 glg3DnZ1xnwRsipEU6YVAu D6jvkVWauVP8GOT3fV1kKF ytelFlOQNld7OcPEGrRHOo DwA5bZ1gSKR1VtSCnNahWC BsYWluXGYxXGZzMjJcbGFu ZzEwMzNcaGljaFxmMVxkYm CjXROtCNtsU5nrLkNeK4Ln LVVvAxZxrYutAEsfIUz5Ir xwbGFpblxmMVxmczIyXGxh qwrfDJXpJDtmL9ghQdAxJS OnvFujEJgtp5LjWYDqRFBm MlxmczIyIHMgTWVkaWNhbC GBRO45ZNIjNKHrcQnwsN7z dHWCLFUplgG2u2W0VYmaOR XxPWl9SRettnMrPPElpI5m CGNvBL6wLLl6ckUgHFBnk3 GqWD4dCFLibSOoGZG8XLLt m3NfB8Eoa0GnYXTjTNYvvn 1zoxXxBbJPtLHfUBPudy02 IMFtLM2vL0oyPAVnJAIjpv AcgQQhf9OzBUFfnJA1mWNi RX2UPhVBx85fLVCuKMGTxa QmWYTmvXdshYO3naX8gC7b LiBUaGUgRkRBIGhhcyBkZX Bkgi2sdjSwULAgJTZzl0Bh zARlzRFlsiEbH9Ucb0XmBQ Ivbp08TXglpZDqto74QD4l B4Sgo4RnxO8vRTenOHLzp6 HgaKUblOZvOYDdi5LkB5ir jsklJXbftQTumZ0vFBPoHR a7HTEhc9PkTIQsz4XiQmSv xkZvUZNeNKRgPRRcjR91CT M4hWvodPhvrpAdKY2nBKBw igFwOQTqZZRxlP8bHUowtn DhSKXmcaQ5s0Z4GIzaTZYg wkLgAsdlTDT1eoQbuxA4cB HuX7situkdJBheTZEkx6Lt xH1adIYQhDPvn0OwjRHbxH LTlCBfKU6nzkOgTI7fDLD5 ODggKENMSUEtODgpIGFzIH V5MZqrEboyZRY5nhUsKSZl z7LdNNqmI7goH49aaRmadU v0oKGanGichULnlGEdQRTu zmC9z9N9YEHpc4PagejmIS BsYWluXGYyXGZzMjJcbGFu ZzEwMzNcaGljaFxmMlxkYm SwYEOwWZraZ3jaByEoHuLh EhbhBWK1aI== Gross assessment was [facility] performed at [facility], = 2777) Department of Pathology, [address] [place] [address], Technical component was [facility] performed at ([facility], = 2776) Department of Pathology, [address] [place] [address], Professional component [facility] was performed at ([facility], code = 2779) Department of Pathology, [address] [place] [address], [facility] CenterT[facility] [id number] 15:03:43Surgical Pathology Report Case: [id number] Authorizing Provider: Elle Coleman MD Collected: 02/06/2023 09:48 AM Ordering Location: [facility] ENDOSCOPY Received: 02/06/2023 02:38 PM SERVICES Pathologist: Ara Corrigan MD Specimens: A) - Duodenal, biopsy B) - Biopsy, Esophagus, esophageal mass bx A DUODENUM, BIOPSY- Duodenal mucosa with preserved villous architecture with mild reactive changesNo increased intraepithelial lymphocytes notedPlasma cells present, no parasites notedB ESOPHAGUS, DISTAL FUNGATING MASS BIOPSY-Poorly differentiated adenocarcinoma, 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 Valladares, who agrees with above diagnosis.Endoscopy report reviewedCliniciannotified: Dr. Coleman was notified by secure [employer] e-mail on February 08, 2023 at 3:02 [id number], Gastroesophageal reflux diseaseAs per endoscopy report A large, fungating mass was found in the distal esophagus. The mass was partially obstructing and circumferential.A. DuodenalReceived in formalin labeled with the patient's name, medical record number and "duodenal" are 3 peter soft tissue fragments measuring up to 0.2 cm in greatest dimension, which are submitted in toto in A1.B. Biopsy, EsophagusReceived in formalin labeled with the patient's name, medical record number and "esophageal mass" are multiple peter soft tissue fragments measuring up to 0.2 cm in greatest dimension, which are submitted in toto in B1.KATIA Mcnair, HT (ASCP)Multiple fragments involved by poorly differentiated carcinoma present in sheets with focal glandular architecture. Individual cells have clear to eosinophilic cytoplasm with frequent intracytoplasmic vacuoles or signet cell features. Focally the tumor is involving the squamous epithelium showing cancerization by tumor. The individual tumor cells are diffusely positive for AE1/AE3, CDX2 (nuclear), with a Ki-67 index of 90%. The tumor cells are negative for p40 supporting the cancerization REASON FOR ADDENDUM: TO REPORT [id number] BIOMARKER RESULTHER2 by immunohistochemistry result ___ Negative (score 0)FIXATION TIME FOR BIOMARKERS ASSESSMENTCollection date and time:02/06/23 0948Placed in fixative date and time:02/06/23 0948Removed from formalin date and time:02/06/23 17;30The tissue was fixed in 10% neutral buffered formalin for a minimum of at least 6 hours and not longer than 72 hours. Her2 was assessed using antibodies for clones 4B5 (FDA Approved [employer]). HER2 positive control was evaluated with test tissue. These control slides run alongside of the patient's sample show appropriate staining. The results are reported as follows: negative (score 0) when there is no reactivity or no membranous reactivity in any cancer cells, negative (score 1) when cancer cell cluster of ?5 malignant cells have a faint or barely perceptible membranous reactivity irrespective of percentage of cancer cells positive, equivocal (score 2) when cancer cell cluster of ?5 malignant cells have a weak to moderate complete, basolateral, or lateral mem branous reactivity irrespective of percentage of cancer cells positive and positive (score 3) when cancer cell cluster of ?5 malignant cells have a strong complete basolateral, or lateral membranous reactivity irrespective of percentage of cancer cells positive.Reference: Morgan M, Akila O, Diann D, etal. Assessment of a HER2 scoring system for gastric cancer: results from a validation study. Histopathology. 2008;52(7):797-805 The interpretation of this case included the use of immunohistochemistry or special stains.Control Slides Examined: In-house known positive controls were evaluated along withthe test tissue. These control slides run alongside of the patients sample show appropriate staining. Internal positive and negative controls when available are evaluated Immunohistochemistry technicaltesting was performed at [facility], Pathology Laboratory where it was developed and its performance characteristics were determined. It has not been cleared or approved by the U.S. Food and Drug Administration. The FDA has determined that such clearance or approval is not necessary. The test is used for clinical purposes. It should not be regarded as investigational or for research. This laboratory is certified under the Clinical Laboratory Improvement Amendments of 1988 (CLIA-88) as qualified to perform high complexity clinical laboratory testing.[facility], Department of Pathology, [address] [place] [address], [facility], [address] [place] [address], [facility], Department of [facility], [address] [place] [address], UPK-Glucose [id number] 08:56:59 Test Item Value Reference Range Interpretation Comments POC-Glucose Meter (test 111 mg/dL 70-110 H : TE STED AT [facility] code = 1538) [facility] [place] [address]: [facility] Counselor/Techni angie ID = [id number] for MANALEL, MINIMO L Lab Interpretation (test Abnormal code = 66008-4) [facility] [id number] 08:56:59 Test Item Value Reference Range Interpretation Comments POC-Glucose Meter (test 111 mg/dL 70-110 H : TE STED AT [facility] code = 1538) [facility] [place] [id number]: [facility] Counselor/Techni angie ID = [id number] for MANALEL, MINIMO L Lab Interpretation (test Abnormal code = 18969-3) [facility]-Glucose [id number] 08:56:59 Test Item Value Reference Range Interpretation Comments POC-Glucose Meter (test 111 mg/dL 70-110 H : TE STED AT [facility] code = 1538) [address] [place] [address] BLDG A, [facility] [address]: [facility] Counselor/Techni angie ID = [id number] for MANALEL, MINIMO L Lab Interpretation (test Abnormal code = 75575-3) [facility] [id number] 08:56:59 Test Item Value Reference Range Interpretation Comments POC-GLUCOSE METER 111 mg/dL 70-110 H : TESTED A T [facility] 7200 (BEAKER) (test code CAMBBRITTNEY Lee [facility] A, = 1538) [facility] 7703 0: [facility] Counselor/Techni angie ID = [id number] for CHRIS LEL, MINIMOL Comprehensive metabolic [id number] 09:16:00 Test Item Value Reference Range Interpretation Comments Glucose (test code 84 mg/dL 65-99 Fasting = 2345-7) reference interval BUN (test code = 10 mg/dL 7-25 3094-0) Creatinine (test 0.84 mg/dL 0.70-1.28 code = 2160-0) eGFR (test code = 93 See_Comment The eGFR i s based 39183-2) on the CKD-EPI 2020 equation. To calculate the n ew eGFR from a previous Creatinine or Cystatin Cresul t, go to https://www.kid ne y.org/profsyedaio héctor noland/kdoqi/gfr%5F ca lculator [Automated message] The system which generated this result transmitted reference range : > OR = 60 mL/min/1.73m2. The reference range was not used to interpr et this result as normal/abnormal . BUN/creatinine NOT APPLICABLE See_Comment [Automated ratio (test code = message] The 3097-3) system which generated this result transmitted reference range : 6 - 22 (calc). The reference range was not used to interpr et this result as normal/abnormal . Sodium (test code 140 mmol/L 135-146 = 2951-2) Potassium (test 3.6 mmol/L 3.5-5.3 code = 2823-3) Chloride (test 99 mmol/L 98-110 code = 2075-0) CO2 (test code = 32 mmol/L 20-32 2027-9) Calcium (test code 10.0 mg/dL 8.6-10.3 = 17191-1) Protein (test code 6.9 g/dL 6.1-8.1 = 2885-2) Albumin, S (test 4.3 g/dL 3.6-5.1 code = 1751-7) Globulin, total 2.6 See_Comment [Automated (test code = message] The ) system which generated this result transmitted reference range : 1.9 - 3.7 g/dL (calc). The reference range was not used to interpret this result as normal/abnormal . Albumin/globulin 1.7 See_Comment [Automated ratio (test code = message] The ) system which generated this result transmitted reference range : 1.0 - 2.5 (calc ). The reference range was not used to interpr et this result as normal/abnormal . Total bilirubin 0.9 mg/dL 0.2-1.2 (test code = 1974-2) Alkaline 65 U/L 35-144 phosphatase (test code = 6768-6) AST (test code = 30 U/L 10-35 1920-8) ALT (test code = 21 U/L 9-46 2-6) MYRIAM (test code = FASTING:YES MYRIAM) FASTING: YES RAC (test code = Performing RAC) Organization Information: Site ID: [facility]: [facility] Address: [address] [place] [phone] Director: Ever Sloan [facility]aleLipid [id number] 09:16:00 Test Item Value Reference Range Interpretation Comments Cholesterol, total 102 mg/dL <=200 (test code = 2093-3) HDL cholesterol 38 mg/dL See_Comment L [Automated (test code = 2085-06) message ] The system which generated this result transmitted reference range : > OR = 40. The reference range was not used to interpret this result as normal/abnormal . Triglycerides (test 114 mg/dL <=150 code = 2571-8) LDL cholesterol 44 mg/dL (calc) Reference ra nge: calculated (test <100 Desira ble code = 31980-9) range <100 m g/dL for primary prevention; <70 mg/dL for patients with C HD or diabetic patients with > or = 2 CHD risk factors. LDL-C is now calculated using the Ion-Huffman calculation, which is a validated novel method providin g better accuracy than the Friedewald equation in the estimation of LDL-C. Ion S S et al. STEPHANIE. 2013;310(93): 5610-8399 (http://educati on .SamEnrico .com/faq/XCZ997 ) Cholesterol/HDL 2.7 See_Comment [Automated ratio (test code = message] The 9830-1) system which generated this result transmitted reference range : <5.0 (calc). Th e reference range was not used to interpret this result as normal/abnormal . Non-HDL cholesterol 64 See_Comment For aimee ents with (test code = diabetes plus 1 37005-7) major ASCVD ris k factor, treatin g to a non-HDL-C goal of <100 mg/dL (LDL-C of <70 mg/dL) is considered a therapeutic option. [Automated message] The system which generated this result transmitted reference range : <130 mg/dL (calc). The reference range was not used to interpret this result as normal/abnormal . MYRIAM (test code = FASTING:YES MYRIAM) FASTING: YES RAC (test code = Performing RAC) Organization Information: Site ID: [facility] Name: [facility] Address: [address] [place] [phone] Director: Ever Sloan Lab Interpretation Abnormal (test code = 74683-2) [facility]aleThyroid stimulating [id number] 09:16:00 Test Item Value Reference Range Interpretation Comments TSH (test 0.77 See_Comment [Automated mes apoorva] code = The system [facility] h 3016-3) generated this result transmit zohaib reference range : 0.40 - 4.50 mIU /L. The reference r shaka was not used to interpret this result as normal/abnormal . MYRIAM (test FASTING:YES FASTING: code = MYRIAM) YES RAC (test Performing code = RAC) Organization Information: Site ID: [facility] Name: [facility] Address: [address] [place] [phone] Director: Ever Sloan [facility] [id number] 09:16:00 Test Item Value Reference Range Interpretation Comments WBC (test code = 6.2 See_Comment [Automated 6690-2) message] The system which generated this result transmit zohaib reference range : 3.8 - 10.8 Thousand/uL. Th e reference range was not used to interpret this result as normal/abnormal . RBC (test code = 5.34 See_Comment [Automated 789-8) message] The system which generated this result transmit zohaib reference range : 4.20 - 5.80 Million/uL. The reference range was not used to interpret this result as normal/abnormal . HGB (test code = 15.0 g/dL 13.2-17.1 718-7) HCT (test code = 44.2 % 38.5-50.0 4544-3) MCV (test code = 82.8 fL 80.0-100.0 787-2) MCH (test code = 28.1 pg 27.0-33.0 785-6) MCHC (test code 33.9 g/dL 32.0-36.0 = 786-4) RDW (test code = 13.6 % 11.0-15.0 788-0) Platelet count 236 See_Comment [Automated (test code = message] The 777-3) system which generated this result transmit zohaib reference range : 140 - 400 Thousand/uL. Th e reference range was not used to interpret this result as normal/abnormal . MPV (test code = 10.1 fL 7.5-12.5 776-5) MYRIAM (test code = FASTING:YES FASTING: MYRIAM) YES RAC (test code = Performing RAC) Organization Information: Site ID: [facility] Name: [facility] Address: [address] [place] [phone] Director: Ever Suarez [facility] HospitalUrinalysis, automated with [id number] 09:16:00 Test Item Value Reference Range Interpretation Comments Color, UA (test code YELLOW YELLOW = 5778-6) Appearance (test CLEAR CLEAR code = 5767-9) Specific gravity, 1.016 1.001-1.035 urine (test code = 5811-5) pH, urine (test code 7.5 5.0-8.0 = 5803-2) Glucose, urine (test 3+ NEGATIVE A code = 80574-4) Bilirubin, UA (test NEGATIVE NEGATIVE code = 5770-3) Ketones, UA (test NEGATIVE NEGATIVE code = 2414-8) Occult blood, urine NEGATIVE NEGATIVE (test code = 5794-3) Protein, UA (test TRACE NEGATIVE A code = 33082-7) Nitrite, UA (test NEGATIVE NEGATIVE code = 5802-4) Leukocyte esterase, NEGATIVE NEGATIVE UA (test code = 5799-2) WBC, UA (test code = NONE SEEN See_Comment [Autom ated 5821-4) message] The system which generated this result transmitted reference range : < OR = 5 /HPF. The reference range was not used to interpr et this result as normal/abnormal . RBC, UA (test code = NONE SEEN See_Comment [Autom ated 36920-9) message] The system which generated this result transmitted reference range : < OR = 2 /HPF. The reference range was not used to interpr et this result as normal/abnormal . Squamous epithelial NONE SEEN See_Comment [Automa zohaib cells, UA (test code message ] The = 77361-9) system which generated this result transmitted reference range : < OR = 5 /HPF. The reference range was not used to interpr et this result as normal/abnormal . Bacteria, UA (test NONE SEEN NONE SEEN /HPF code = 5769-5) Hyaline casts, UA 0-5 NONE SEEN /LPF A (test code = 5796-8) Note: (test code = This urin e was 8251-1) analyzed for th e presence of WBC , RBC, bacteria, casts, and othe r formed elements . Only those elements seen were reported. MYRIAM (test code = FASTING:YES MYRIAM) FASTING: YES RAC (test code = Performing RAC) Organization Information: Site ID: RGA [facility]: [facility] Address: [address] [place] [id number] Director: Ever Sloan Lab Interpretation Abnormal (test code = 71133-0) [facility] [id number] 09:16:00 Test Item Value Reference Range Interpretation Comments Glucose (test code 84 mg/dL 65-99 Fasting = 2345-7) reference interval BUN (test code = 10 mg/dL 7-25 3094-0) Creatinine (test 0.84 mg/dL 0.70-1.28 code = 2160-0) eGFR (test code = 93 See_Comment The eGFR i s based 14253-7) on the CKD-EPI 2020 equation. To calculate the n ew eGFR from a previous Creatinine or Cystatin Cresul t, go to https://www.kid ne y.org/erica noland/kdoqi/gfr%5F ca lculator [Automated message] The system which generated this result transmitted reference range : > OR = 60 mL/min/1.73m2. The reference range was not used to interpr et this result as normal/abnormal . BUN/creatinine NOT APPLICABLE See_Comment [Automated ratio (test code = message] The 3097-3) system which generated this result transmitted reference range : 6 - 22 (calc). The reference range was not used to interpr et this result as normal/abnormal . Sodium (test code 140 mmol/L 135-146 = 2951-2) Potassium (test 3.6 mmol/L 3.5-5.3 code = 2823-3) Chloride (test 99 mmol/L 98-110 code = 2075-0) CO2 (test code = 32 mmol/L 20-32 2028-06) Calcium (test code 10.0 mg/dL 8.6-10.3 = 28696-3) Protein (test code 6.9 g/dL 6.1-8.1 = 2885-2) Albumin, S (test 4.3 g/dL 3.6-5.1 code = 1751-7) Globulin, total 2.6 See_Comment [Automated (test code = message] The 07755-3) system which generated this result transmitted reference range : 1.9 - 3.7 g/dL (calc). The reference range was not used to interpret this result as normal/abnormal . Albumin/globulin 1.7 See_Comment [Automated ratio (test code = message] The 1750) system which generated this result transmitted reference range : 1.0 - 2.5 (calc ). The reference range was not used to interpr et this result as normal/abnormal . Total bilirubin 0.9 mg/dL 0.2-1.2 (test code = 1974-2) Alkaline 65 U/L 35-144 phosphatase (test code = 6768-6) AST (test code = 30 U/L 10-35 1920-8) ALT (test code = 21 U/L 9-46 1742-6) MYRIAM (test code = FASTING:YES MYRIAM) FASTING: YES RAC (test code = Performing RAC) Organization Information: Site ID: BHARATH [facility] Address: [address] [place] [phone] Director: Ever [facility] [id number] 09:16:00 Test Item Value Reference Range Interpretation Comments Cholesterol, total 102 mg/dL <=200 (test code = 2093-3) HDL cholesterol 38 mg/dL See_Comment L [Automated (test code = 2084-) message ] The system which generated this result transmitted reference range : > OR = 40. The reference range was not used to interpret this result as normal/abnormal . Triglycerides (test 114 mg/dL <=150 code = 2571-8) LDL cholesterol 44 mg/dL (calc) Reference ra nge: calculated (test <100 Desira ble code = 47717-2) range <100 m g/dL for primary prevention; <70 mg/dL for patients with C HD or diabetic patients with > or = 2 CHD risk factors. LDL-C is now calculated using the Ion-Nathanael calculation, which is a validated novel method providin g better accuracy than the Friedewald equation in the estimation of LDL-C. Ion S S et al. STEPHANIE. 2013;310(19): 9978-3895 (http://educati on .[employer] .com/faq/SIC413 ) Cholesterol/HDL 2.7 See_Comment [Automated ratio (test code = message] The 9830-1) system which generated this result transmitted reference range : <5.0 (calc). Th e reference range was not used to interpret this result as normal/abnormal . Non-HDL cholesterol 64 See_Comment For aimee ents with (test code = diabetes plus 1 33835-4) major ASCVD ris k factor, treatin g to a non-HDL-C goal of <100 mg/dL (LDL-C of <70 mg/dL) is considered a therapeutic option. [Automated message] The system which generated this result transmitted reference range : <130 mg/dL (calc). The reference range was not used to interpret this result as normal/abnormal . MYRIAM (test code = FASTING:YES MYRIAM) FASTING: YES RAC (test code = Performing RAC) Organization Information: Site ID: [facility] Name: [facility] Address: [address] [place] [phone] Director: Ever Sloan Lab Interpretation Abnormal (test code = 86275-7) [facility]aleThy[facility] stimulating [id number] 09:16:00 Test Item Value Reference Range Interpretation Comments TSH (test 0.77 See_Comment [Automated mes apoorva] code = The system ic h 3016-3) generated this result transmit zohaib reference range : 0.40 - 4.50 mIU /L. The reference r shaka was not used to interpret this result as normal/abnormal . MYRIAM (test FASTING:YES FASTING: code = MYRIAM) YES RAC (test Performing code = RAC) Organization Information: Site ID: [facility] Name: [facility] Address: [address] [place] [phone] Director: Ever Sloan [facility]aleCB [id number] 09:16:00 Test Item Value Reference Range Interpretation Comments WBC (test code = 6.2 See_Comment [Automated 9790-2) message] The system which generated this result transmit zohaib reference range : 3.8 - 10.8 Thousand/uL. Th e reference range was not used to interpret this result as normal/abnormal . RBC (test code = 5.34 See_Comment [Automated 323-8) message] The system which generated this result transmit zohaib reference range : 4.20 - 5.80 Million/uL. The reference range was not used to interpret this result as normal/abnormal . HGB (test code = 15.0 g/dL 13.2-17.1 718-7) HCT (test code = 44.2 % 38.5-50.0 4544-3) MCV (test code = 82.8 fL 80.0-100.0 787-2) MCH (test code = 28.1 pg 27.0-33.0 785-6) MCHC (test code 33.9 g/dL 32.0-36.0 = 786-4) RDW (test code = 13.6 % 11.0-15.0 788-0) Platelet count 236 See_Comment [Automated (test code = message] The 157-3) system which generated this result transmit zohaib reference range : 140 - 400 Thousand/uL. Th e reference range was not used to interpret this result as normal/abnormal . MPV (test code = 10.1 fL 7.5-12.5 776-5) MYRIAM (test code = FASTING:YES FASTING: MYRIAM) YES RAC (test code = Performing RAC) Organization Information: Site ID: RGA Name: [facility] Lab Address: [address] [place] [phone] Director: Ever Sloan [facility] SunnyvaleUrinalysis, automated with [id number] 09:16:00 Test Item Value Reference Range Interpretation Comments Color, UA (test code YELLOW YELLOW = 5778-6) Appearance (test CLEAR CLEAR code = 5767-9) Specific gravity, 1.016 1.001-1.035 urine (test code = 5811-5) pH, urine (test code 7.5 5.0-8.0 = 5803-2) Glucose, urine (test 3+ NEGATIVE A code = 06695-0) Bilirubin, UA (test NEGATIVE NEGATIVE code = 5770-3) Ketones, UA (test NEGATIVE NEGATIVE code = 2514-8) Occult blood, urine NEGATIVE NEGATIVE (test code = 5794-3) Protein, UA (test TRACE NEGATIVE A code = 95108-1) Nitrite, UA (test NEGATIVE NEGATIVE code = 5802-4) Leukocyte esterase, NEGATIVE NEGATIVE UA (test code = 5799-2) WBC, UA (test code = NONE SEEN See_Comment [Autom ated 5821-4) message] The system which generated this result transmitted reference range : < OR = 5 /HPF. The reference range was not used to interpr et this result as normal/abnormal . RBC, UA (test code = NONE SEEN See_Comment [Autom ated 82065-5) message] The system which generated this result transmitted reference range : < OR = 2 /HPF. The reference range was not used to interpr et this result as normal/abnormal . Squamous epithelial NONE SEEN See_Comment [Automa zohaib cells, UA (test code message ] The = 85769-6) system which generated this result transmitted reference range : < OR = 5 /HPF. The reference range was not used to interpr et this result as normal/abnormal . Bacteria, UA (test NONE SEEN NONE SEEN /HPF code = 5769-5) Hyaline casts, UA 0-5 NONE SEEN /LPF A (test code = 5796-8) Note: (test code = This urin e was 8251-1) analyzed for th e presence of WBC , RBC, bacteria, casts, and othe r formed elements . Only those elements seen were reported. MYRIAM (test code = FASTING:YES MYRIAM) FASTING: YES RAC (test code = Performing RAC) Organization Information: Site ID: BHARATH [facility]: [facility] Address: [address] [place] [phone] Director: Ever Sloan Lab Interpretation Abnormal (test code = 45674-2) [facility] glycosylated hemoglobin (Hb A1C)2022-12-03 21:14:40 Test Item Value Reference Range Interpretation Comments POC Hemoglobin A1C (test code = 6.2 % 2128930) [facility] glycosylated hemoglobin (Hb A1C)2022-12-03 21:14:40 Test Item Value Reference Range Interpretation Comments POC Hemoglobin A1C (test code = 6.2 % 9668189) [facility] [id number] 21:11:33 Test Item Value Reference Range Interpretation Comments POC glucose (test code = 1482245) 106 65-100 [facility] [id number] 21:11:33 Test Item Value Reference Range Interpretation Comments POC glucose (test code = 2469189) 106 65-100 [facility], [id number] 17:06:00Release to patient- >ImmediateWhich [facility] / [facility] radiology location is preferred?->[employer] Company ID = [id number]; Insurance Company Name = MEDICARE; Insurance Company Phone Number = ; Policy Number = [id number] [facility] CENTERName: ASUNCION TATUM : 1950 Sex: MFINALREPORT Esophagus date 11/07/2022 Comment: Patient swallowed gas-forming crystalsand liquid barium under fluoroscopy. Total patient fluoro time is 0.7 minutes. Total patient entrance dose is 31.4 mGy. The esophagus was normal in caliber and mucosal detail. Prominent tertiary peristalsis was seen in the esophagus. No hiatal hernia was noted. Gastroesophageal reflux was seen during t he examination. Impression: Prominent tertiary esophageal peristalsis and gastroesophageal reflux. Signed: Della Bennettort Verified Date/Time: 11/07/2022 17:06:01 RAD, SKULL, LESS THAN 4 [id number] 10:51:00Reason for exam:- >LEFT COCHLEAR IMPLANTATIONShould this be performed at the bedside?->No [facility] 1950 Sex: MFINALREPORT SKULL ONE VIEW HISTORY: Left cochlear implant, sensory hearing loss COMPARISON: No prior comparison skull imaging FINDINGS: Single oblique image of the skull demonstrates postoperative changes consistent with the clinical history of left-sided cochlear implantation. Signed:Tatiana Ag Verified Date/Time: 06/29/2022 10:51:25 Reading Location: [facility] Radiology Reading Room BASIC METABOLIC [id number] 07:05:14 Test Item Value Reference Range Interpretation Comments SODIUM (BEAKER) 138 meq/L 136-145 (test code = 381) POTASSIUM 3.8 meq/L 3.5-5.1 (BEAKER) (test code = 379) CHLORIDE (BEAKER) 104 meq/L 98-107 (test code = 382) CO2 (BEAKER) 26 meq/L 22-29 (test code = 355) BLOOD UREA 11 mg/dL 7-21 NITROGEN (BEAKER) (test code = 354) CREATININE 0.79 mg/dL 0.57-1.25 (BEAKER) (test code = 358) GLUCOSE RANDOM 110 mg/dL 70-105 H (BEAKER) (test code = 652) CALCIUM (BEAKER) 9.4 mg/dL 8.4-10.2 (test code = 697) EGFR (BEAKER) 95 Interpretatio n of eGFR (test code = mL/min/1.73 values Stage De scription 1092) sq m Result G1 Li l or high >=90 G2 Mildly decreased 60-89 G3a Mildl y to moderately 45-5 9 G3b Moderately to s everely 30-44 G4 Severl y decreased 15-29 G5 Kidne y failure <15Reported eGF R is based on the CKD-EPI 2020 equation that d oes not use a race coefficientEsti mated GFR is not as accur ate as Creatinine Vanesa mendoza in predicting glom erular filtration rate . Estimated GFR is not appl icable for dialysis patien ts [facility] Counselor ID - [place] WPOC-Hemoglobin [id number] 06:49:53 Test Item Value Reference Range Interpretation Comments POC-Hemoglobin Meter 15.9 g/dL 13.0-16.8 : TESTE D AT [facility] (test code = 1539) [address] [facility], [facility] 30: [facility] Counselor/Techni angie ID = [id number] for HARRY DALLAS Lab Interpretation (test Normal code = 78626-9) [facility]-Hemoglobin [id number] 06:49:53 Test Item Value Reference Range Interpretation Comments POC-Hemoglobin Meter 15.9 g/dL 13.0-16.8 : TESTE D AT [facility] (test code = 1539) [address] [facility], [facility] 30: [facility] Counselor/Techni angie ID = [id number] for GREGORIOS, HARRY Lab Interpretation (test Normal code = 67072-7) [facility]emoglobin [id number] 06:49:53 Test Item Value Reference Range Interpretation Comments POC-Hemoglobin Meter 15.9 g/dL 13.0-16.8 : TESTE D AT [facility] (test code = 1539) [address] [place] [address], [facility] 30: [facility] Counselor/Techni angie ID = [id number] for GREGORIOS, HARRY Lab Interpretation (test Normal code = 49741-3) [facility]oglobin [id number] 06:49:53 Test Item Value Reference Range Interpretation Comments POC-Hemoglobin Meter 15.9 g/dL 13.0-16.8 : TESTE D AT [facility] (test code = 1539) [address] [place] [address], [facility] 30: [facility] Counselor/Techni angie ID = [id number] for GREGORIOS, HARRY Lab Interpretation (test Normal code = 39378-3) [facility]oglobin [id number] 06:49:53 Test Item Value Reference Range Interpretation Comments POC-Hemoglobin Meter 15.9 g/dL 13.0-16.8 : TESTE D AT [facility] (test code = 1539) [address] [place] [address], [facility] 30: [facility] Counselor/Techni angie ID = [id number] for GREGORIOS, HARRY Lab Interpretation (test Normal code = 03630-6) [facility]oglobin [id number] 06:49:53 Test Item Value Reference Range Interpretation Comments POC-Hemoglobin Meter 15.9 g/dL 13.0-16.8 : TESTE D AT [facility] (test code = 1539) [address] [place] [address], [facility] 30: [facility] Counselor/Techni angie ID = [id number] for GREGORIOS, HARRY Lab Interpretation (test Normal code = 52800-8) [facility]oglobin [id number] 06:49:53 Test Item Value Reference Range Interpretation Comments POC-Hemoglobin Meter 15.9 g/dL 13.0-16.8 : TESTE D AT [facility] (test code = 1539) [address] [place] [address] 30: [facility] Counselor/Techni angie ID = [id number] for GREGORIOS, HARRY Lab Interpretation (test Normal code = 67697-1) [facility]oglobin [id number] 06:49:53 Test Item Value Reference Range Interpretation Comments POC-Hemoglobin Meter 15.9 g/dL 13.0-16.8 : TESTE D AT [facility] (test code = 1539) [address] [place] [address] 30: [facility] Counselor/Techni angie ID = [id number] for GREGORIOS, HARRY Lab Interpretation (test Normal code = 93178-2) [facility] [id number] 06:49:53 Test Item Value Reference Range Interpretation Comments POC-Hemoglobin Meter 15.9 g/dL 13.0-16.8 : TESTE D AT [facility] (test code = 1539) [address] [place] [address] 30: [facility] Counselor/Techni angie ID = [id number] for GREGORIOS, HARRY Lab Interpretation (test Normal code = 51666-3) [facility] [id number] 06:49:53 Test Item Value Reference Range Interpretation Comments POC-Hemoglobin Meter 15.9 g/dL 13.0-16.8 : TESTE D AT [facility] (test code = 1539) [address] [place] [address] 30: [facility] Counselor/Techni angie ID = [id number] for GREGORIOS, HARRY Lab Interpretation (test Normal code = 56609-4) [facility] [id number] 06:49:53 Test Item Value Reference Range Interpretation Comments POC-Hemoglobin Meter 15.9 g/dL 13.0-16.8 : TESTE D AT [facility] (test code = 1539) [address] [place] [address] 30: [facility] Counselor/Techni angie ID = [id number] for GREGORIOS, HARRY Lab Interpretation (test Normal code = 35628-7) [facility]oglobin [id number] 06:49:53 Test Item Value Reference Range Interpretation Comments POC-Hemoglobin Meter 15.9 g/dL 13.0-16.8 : TESTE D AT [facility] (test code = 1539) [address] [place] [address], [facility] 30: [facility] Counselor/Techni angie ID = [id number] for GREGORIOS, HARRY Lab Interpretation (test Normal code = 36996-0) [facility] [id number] 06:49:53 Test Item Value Reference Range Interpretation Comments POC-Hemoglobin Meter 15.9 g/dL 13.0-16.8 : TESTE D AT [facility] (test code = 1539) [address] [place] [address], [facility] 30: [facility] Counselor/Techni angie ID = [id number] for GREGORIOS, HARRY Lab Interpretation (test Normal code = 32291-1) [facility] [id number] 06:49:53 Test Item Value Reference Range Interpretation Comments POC-Hemoglobin Meter 15.9 g/dL 13.0-16.8 : TESTE D AT [facility] (test code = 1539) [address] [place] [address], [facility] 30: [facility] Counselor/Techni angie ID = [id number] for GREGORIOS, HARRY Lab Interpretation (test Normal code = 10222-1) [facility] [id number] 06:49:53 Test Item Value Reference Range Interpretation Comments POC-Hemoglobin Meter 15.9 g/dL 13.0-16.8 : TESTE D AT [facility] (test code = 1539) [address] [place] [address], [facility] 30: [facility] Counselor/Techni angie ID = [id number] for GREGORIOS, HARRY Lab Interpretation (test Normal code = 50425-9) [facility]-HEMOGLOBIN [id number] 06:49:53 Test Item Value Reference Range Interpretation Comments POC-HEMOGLOBIN METER 15.9 g/dL 13.0-16.8 : TESTE D AT [place] [address] (BEAKER) (test code [facility], = 1539) [address]: [facility] Counselor/Techni angie ID = [id number] for EMIL ORIOS, HARRY POC-Glucose [id number] 06:48:46 Test Item Value Reference Range Interpretation Comments POC-Glucose Meter (test 102 mg/dL 70-110 : TE STED AT [facility] code = 1538) [address] [place] [address], 770 30: [facility] Counselor/Techni angie ID = [id number] for GREGORIOS, HARRY Lab Interpretation (test Normal code = 22797-9) [facility] [id number] 06:48:46 Test Item Value Reference Range Interpretation Comments POC-Glucose Meter (test 102 mg/dL 70-110 : TE STED AT [facility] code = 1538) [address] [place] [address], 7[address] 30: [facility] Counselor/Techni angie ID = [id number] for GREGORIOS, HARRY Lab Interpretation (test Normal code = 91706-4) [facility]-Glucose [id number] 06:48:46 Test Item Value Reference Range Interpretation Comments POC-Glucose Meter (test 102 mg/dL 70-110 : TE STED AT [facility] code = 1538) [address] [place] [address], 770 30: [facility] Counselor/Techni angie ID = [id number] for GREGORIOS, HARRY Lab Interpretation (test Normal code = 99407-0) [facility]-Glucose [id number] 06:48:46 Test Item Value Reference Range Interpretation Comments POC-Glucose Meter (test 102 mg/dL 70-110 : TE STED AT [facility] code = 1538) [address] [place] [address], 7[address] 30: [facility] Counselor/Techni angie ID = [id number] for GREGORIOS, HARRY Lab Interpretation (test Normal code = 36375-8) [facility]-Glucose [id number] 06:48:46 Test Item Value Reference Range Interpretation Comments POC-Glucose Meter (test 102 mg/dL 70-110 : TE STED AT [facility] code = 1538) [address] [place] [address], [address] 30: [facility] Counselor/Techni angie ID = [id number] for GREGORIOS, HARRY Lab Interpretation (test Normal code = 57830-9) [facility] [id number] 06:48:46 Test Item Value Reference Range Interpretation Comments POC-Glucose Meter (test 102 mg/dL 70-110 : TE STED AT [facility] code = 1538) [address] [place] [address], [address] 30: [facility] Counselor/Techni angie ID = [id number] for GREGORIOS, HARRY Lab Interpretation (test Normal code = 72939-2) [facility]-Glucose [id number] 06:48:46 Test Item Value Reference Range Interpretation Comments POC-Glucose Meter (test 102 mg/dL 70-110 : TE STED AT [facility] code = 1538) [address] [facility], 770 30: [facility] Counselor/Techni angie ID = [id number] for JESSIE DALLASVE Lab Interpretation (test Normal code = 01299-6) [facility]-Glucose [id number] 06:48:46 Test Item Value Reference Range Interpretation Comments POC-Glucose Meter (test 102 mg/dL 70-110 : TE STED AT [facility] code = 1538) [address] [facility], 770 30: [facility] Counselor/Techni angie ID = [id number] for BURT HARRY Lab Interpretation (test Normal code = 91157-0) [facility]-Glucose [id number] 06:48:46 Test Item Value Reference Range Interpretation Comments POC-Glucose Meter (test 102 mg/dL 70-110 : TE STED AT [facility] code = 1538) [address] [facility], 770 30: [facility] Counselor/Techni angie ID = [id number] for HARRY DALLAS Lab Interpretation (test Normal code = 36985-6) [facility]-GLUCOSE [id number] 06:48:46 Test Item Value Reference Range Interpretation Comments POC-GLUCOSE METER 102 mg/dL 70-110 : TESTED A T [facility] 6720 (BEAKER) (test code [facility], = 1538) [address]: [facility] Counselor/Techni angie ID = [id number] for HARRY OTTO Basic metabolic [id number] 19:04:00 Test Item Value Reference Range Interpretation Comments Glucose (test 77 mg/dL 65-139 Non-fasting code = 2345-7) reference int erval BUN (test code = 10 mg/dL 05-07 3094-0) Creatinine (test 0.88 mg/dL 0.70-1.28 code = 2160-0) eGFR (test code = 92 See_Comment The eGFR i s based 8257) on the CKD-EPI 2020 equation. To calculate the n ew eGFR from a previous Creatinine or Cystatin Cresul t, go to [email or web address] manuel .org/profession als /kdoqi/gfr%5Fca lcu lator [Automat ed message] The system which generated this result transmit zohaib reference range : > OR = 60 mL/min/1.73m2. The reference range was not used to interpret this result as normal/abnormal . BUN/creatinine NOT APPLICABLE See_Comment [Automated ratio (test code message] Th e = 3097-3) system which generated this result transmit zohaib reference range : 6 - 22 (calc). Th e reference range was not used to interpret this result as normal/abnormal . Sodium (test code 139 mmol/L 135-146 = 2951-2) Potassium (test 4.1 mmol/L 3.5-5.3 code = 2823-3) Chloride (test 99 mmol/L 98-110 code = 2075-0) CO2 (test code = 32 mmol/L 20-32 2028-06) Calcium (test 9.5 mg/dL 8.6-10.3 code = 74283-7) MYRIAM (test code = FASTING:NO FASTING: MYRIAM) NO RAC (test code = Performing RAC) Organization Information: Site ID: RGA [facility] Address: [address] [place] [phone] Director: Ever [facility]loan [facility] [id number] 19:04:00 Test Item Value Reference Range Interpretation Comments Hemoglobin A1C 5.4 See_Comment For the purpo se of (test code = screening for t 4548-4) presence ofdiab etes: <5.7% Consisten t with the absence of diabetes5.7-6.4 % Consistent with increased risk for diabetes (prediabetes)> or =6.5% Consisten t with diabetes This a ssay result is consi stent with a decrease d riskof diabetes . Currently, no consensus exist s regarding use ofhemoglobin A1 c for diagnosis of di abetes in children. According to er[place] Diabetes Associ ation (ADA)guidelines , hemoglobin A1c <7.0% represents optimalcontrol in non- di abetic patients. Differentmetric s may apply to specif ic patient populat ions. Standards of Md dical Care in Diabetes(ADA). [Automated mess age] The system ic [facility] generated this result transmitted ref erence range: <5.7 % o f total Hgb. The reference range was not used to int erpret this result as normal/abnormal . MYRIAM (test code = FASTING:NO MYRIAM) FASTING: NO RAC (test code = Performing RAC) Organization Information: Site ID: RGA Name: [facility] Address: [address] [place] [phone] Director: Ever Sloan [facility] metabolic [id number] 19:04:00 Test Item Value Reference Range Interpretation Comments Glucose (test 77 mg/dL 65-139 Non-fasting code = 2345-7) reference int erval BUN (test code = 10 mg/dL 05-07 3094-0) Creatinine (test 0.88 mg/dL 0.70-1.28 code = 2160-0) eGFR (test code = See_Comment The eGFR i s based 8257) on the CKD-EPI 2020 equation. To calculate the n ew eGFR from a previous Creatinine or Cystatin Cresul t, go to [email or web address]://www.kid manuel .org/profession als /kdoqi/gfr%5Fca lcu lator [Automate d message] The system which generated this result transmit zohaib reference range : > OR = 60 mL/min/1.73m2. The reference range was not used to interpret this result as normal/abnormal . BUN/creatinine NOT APPLICABLE See_Comment [Automated ratio (test code message] Th e = 3097-3) system which generated this result transmit zohaib reference range : 6 - 22 (calc). Th e reference range was not used to interpret this result as normal/abnormal . Sodium (test code 139 mmol/L 135-146 = 2951-2) Potassium (test 4.1 mmol/L 3.5-5.3 code = 2823-3) Chloride (test 99 mmol/L 98-110 code = 2075-0) CO2 (test code = 32 mmol/L 20-32 2028-06) Calcium (test 9.5 mg/dL 8.6-10.3 code = 61046-3) MYRIAM (test code = FASTING:NO FASTING: MYRIAM) NO RAC (test code = Performing RAC) Organization Information: Site ID: RGA Name: [facility] Address: [address] [place] [phone] Director: Ever Sloan [facility] [id number] 19:04:00 Test Item Value Reference Range Interpretation Comments Hemoglobin A1C See_Comment For the purpo se of (test code = screening for t he 4548-4) presence ofdiab etes: <5.7% Consisten t with the absence of diabetes5.7-6.4 % Consistent with increased risk for diabetes (prediabetes)> or =6.5% Consisten t with diabetes This a ssay result is consi stent with a decrease d riskof diabetes . Currently, no consensus exist s regarding use ofhemoglobin A1 c for diagnosis of di abetes in children. According to [place] er[place] Diabetes Associ ation (ADA)guidelines , hemoglobin A1c <7.0% represents optimalcontrol in non- di abetic patients. Differentmetric s may apply to specif ic patient populat ions. Standards of Md dical Care in Diabetes(ADA). [Automated mess age] The system Cenn[employer] generated this result transmitted ref erence range: <5.7 % o f total Hgb. The reference range was not used to int erpret this result as normal/abnormal . MYRIAM (test code = FASTING:NO MYRIAM) FASTING: NO RAC (test code = Performing RAC) Organization Information: Site ID: RGA [facility]: [facility] Address: [address] [place] [phone] Director: [facility]loan [facility] metabolic [id number] 19:04:00 Test Item Value Reference Range Interpretation Comments Glucose (test 77 mg/dL 65-139 Non-fasting code = 2345-7) reference int erval BUN (test code = 10 mg/dL 05-07 3094-0) Creatinine (test 0.88 mg/dL 0.70-1.28 code = 2160-0) eGFR (test code = 92 See_Comment The eGFR i s based 8257) on the CKD-EPI 2020 equation. To calculate the n ew eGFR from a previous Creatinine or Cystatin Cresul t, go to https://www.kid manuel .org/profession als /kdoqi/gfr%5Fca lcu lator [Automate d message] The system which generated this result transmit zohaib reference range : > OR = 60 mL/min/1.73m2. The reference range was not used to interpret this result as normal/abnormal . BUN/creatinine NOT APPLICABLE See_Comment [Automated ratio (test code message] Th e = 3097-3) system which generated this result transmit zohaib reference range : 6 - 22 (calc). Th e reference range was not used to interpret this result as normal/abnormal . Sodium (test code 139 mmol/L 135-146 = 2951-2) Potassium (test 4.1 mmol/L 3.5-5.3 code = 2823-3) Chloride (test 99 mmol/L 98-110 code = 2075-0) CO2 (test code = 32 mmol/L 20-32 2027-) Calcium (test 9.5 mg/dL 8.6-10.3 code = 52052-9) MYRIAM (test code = FASTING:NO FASTING: MYRIAM) NO RAC (test code = Performing RAC) Organization Information: Site ID: RGA Name: [facility] Address: [address] [place] [phone] Director: Ever Sloan [facility] [id number] 19:04:00 Test Item Value Reference Range Interpretation Comments Hemoglobin A1C 5.4 See_Comment For the purpo se of (test code = screening for t he 4548-4) presence ofdiab etes: <5.7% Consisten t with the absence of diabetes5.7-6.4 % Consistent with increased risk for diabetes (prediabetes)> or =6.5% Consisten t with diabetes This a ssay result is consi stent with a decrease d riskof diabetes . Currently, no consensus exist s regarding use ofhemoglobin A1 c for diagnosis of di abetes in children. According to [place] er[place] Diabetes Associ ation (ADA)guidelines , hemoglobin A1c <7.0% represents optimalcontrol in non- di abetic patients. Differentmetric s may apply to specif ic patient populat ions. Standards of Md dical Care in Diabetes(ADA). [Automated mess age] The system Cennox generated this result transmitted ref erence range: <5.7 % o f total Hgb. The reference range was not used to int erpret this result as normal/abnormal . MYRIAM (test code = FASTING:NO MYRIAM) FASTING: NO RAC (test code = Performing RAC) Organization Information: Site ID: RGA Name: [facility] Address: [address] [place] [phone] Director: Ever Sloan [facility]19, influenza A&B, and RSV qualitative RT-PCR 2022-04-26 20:03:22 Test Item Value Reference Interpretation Comments Range Interpretation (test Negative results do not code = 0818795) preclude infection and should not be used as the solebasis for treatment or other patient management decisions. Negative resultsmust be combined with clinical observations, patient history, andepidemiological information COVID-19 qualitative Not-Detected Not-Detected RT-PCR result (test code = 11646-0) Influenza A PCR Not-Detected Not-Detected (test code = 51353-0) Influenza B PCR Not-Detected Not-Detected (test code = 07488-8) Respiratory Not-Detected Not-Detected syncytial virus PCR (test code = 64192-7) COVID-19, influenza See link below for PDF Case Number: A&B, and RSV Lab Report [id number] qualitative RT-PCR PDF (test code = 8192) [place] [address], influenza A&B, and RSV qualitative RT-PCR 2022-04-26 20:03:22 Test Item Value Reference Interpretation Comments Range Interpretation (test Negative results do not code = 9628418) preclude infection and should not be used as the solebasis for treatment or other patient management decisions. Negative resultsmust be combined with clinical observations, patient history, andepidemiological information COVID-19 qualitative Not-Detected Not-Detected RT-PCR result (test code = 57589-5) Influenza A PCR Not-Detected Not-Detected (test code = 73886-2) Influenza B PCR Not-Detected Not-Detected (test code = 31091-2) Respiratory Not-Detected Not-Detected syncytial virus PCR (test code = 32169-1) COVID-19, influenza See link below for PDF Case Number: A&B, and RSV Lab Report [id number] qualitative RT-PCR (test code = 8192) [facility], and RSV qualitative RT-PCR 2022-04-26 20:03:22 Test Item Value Reference Interpretation Comments Range Interpretation (test Negative results do not code = 2163850) preclude infection and should not be used as the solebasis for treatment or other patient management decisions. Negative resultsmust be combined with clinical observations, patient history, andepidemiological information COVID-19 qualitative Not-Detected Not-Detected RT-PCR result (test code = 95935-0) Influenza A PCR Not-Detected Not-Detected (test code = 99576-3) Influenza B PCR Not-Detected Not-Detected (test code = 08794-9) Respiratory Not-Detected Not-Detected syncytial virus PCR (test code = 39044-7) COVID-19, influenza See link below for PDF Case Number: A&B, and RSV Lab Report [id number] qualitative RT-PCR PDF (test code = 8192) [facility] B [id number] 15:03:22 Test Item Value Reference Range Interpretation Comments SARS-CoV-2 (COVID-19) RNA Not detected [Presence] in Respiratory specimen by REZA with probe detection (test code = 35101-6) Whether patient resides in a No congregate care setting (test code = 73914-3) Date and time of symptom onset Unknown (test code = 15867-0) Whether the patient was No hospitalized for condition of interest (test code = 34511-9) Whether the patient was admitted No to intensive care unit (ICU) for condition of interest (test code = 07178-4) Whether patient is employed in a No healthcare setting (test code = 52917-6) Whether the patient has symptoms No related to condition of interest (test code = 49153-9) status (test code = No 57200-0) [facility]In[facility] and B [id number] 23:30:07 Test Item Value Reference Range Interpretation Comments SARS-CoV-2 (COVID-19) RNA Not detected [Presence] in Respiratory specimen by REZA with probe detection (test code = 38980-4) Whether patient resides in a No congregate care setting (test code = 09575-4) Date and time of symptom onset Unknown (test code = 36487-2) Whether the patient was No hospitalized for condition of interest (test code = 41682-5) Whether the patient was admitted No to intensive care unit (ICU) for condition of interest (test code = 31103-6) Whether patient is employed in a No healthcare setting (test code = 05111-3) Whether the patient has symptoms No related to condition of interest (test code = 38121-2) status (test code = No 02040-8) [facility] [id number] 21:19:00 Test Item Value Reference Interpretation Comments Range Glucose (test 89 mg/dL 65-139 Non-fasting code = 2345-7) reference int erval BUN (test code = 10 mg/dL 7-25 3094-0) Creatinine (test 0.86 mg/dL 0.70-1.18 For patient s >49 code = 2160-0) years of age, the reference limit for Creatinine is approximately 1 3% higher for peopleidentifie d as -Jenny n. EGFR Non-Afr. See_Comment [Automated me ssage] Mosotho (test The system ich code = 2775) generated this result transmitted ref erence range: > OR = 6 0 mL/min/1.73m2. The reference range was not used to int erpret this result as normal/abnormal . EGFR See_Comment [Automated mes apoorva] Mosotho (test The system ich code = 2774) generated this result transmitted ref erence range: > OR = 6 0 mL/min/1.73m2. The reference range was not used to int erpret this result as normal/abnormal . BUN/creatinine NOT APPLICABLE See_Comment [Automated message] ratio (test code The system which = 3097-3) generated this result transmitted ref erence range: 6 - 22 ( calc). The reference r shaka was not used to interpret this result as normal/abnor mal. Sodium (test code 139 mmol/L 135-146 = 2951-2) Potassium (test 4.3 mmol/L 3.5-5.3 code = 2823-3) Chloride (test 100 mmol/L 98-110 code = 2075-0) CO2 (test code = 31 mmol/L 20-32 2028-06) Calcium (test 10.2 mg/dL 8.6-10.3 code = 27162-3) Protein (test 7.1 g/dL 6.1-8.1 code = 2885-2) Albumin, S (test 4.4 g/dL 3.6-5.1 code = 1751-7) Globulin, total See_Comment [Automated message] (test code = The system [facility] [place] [address]-5) generated this result transmitted ref erence range: 1.9 - 3. 7 g/dL (calc). The ref erence range was not u sed to interpret this result as normal/abnor mal. Albumin/globulin See_Comment [Automated message] ratio (test code The system which = 175-0) generated this result transmitted ref erence range: 1.0 - 2. 5 (calc). The ref erence range was not u sed to interpret this result as normal/abnor mal. Total bilirubin 0.6 mg/dL 0.2-1.2 (test code = 1974-2) Alkaline 76 U/L 35-144 phosphatase (test code = 6768-6) AST (test code = 28 U/L 10-35 1920-8) ALT (test code = 24 U/L 9-46 2-6) MYRIAM (test code = FASTING:NO MYRIAM) FASTING: NO RAC (test code = Performing RAC) Organization Information: Site ID: RGA [facility] Address: [address] [place] [phone] Director: Ever Sloan [facility]aleLipid [id number] 21:19:00 Test Item Value Reference Range Interpretation Comments Cholesterol, total 111 mg/dL See_Comment [Automat ed (test code = 2092-12) message ] The system which generated this result transmitted reference range : <=200. The reference range was not used to interpret this result as normal/abnormal . HDL cholesterol 39 mg/dL See_Comment L [Automated (test code = 2085-06) message ] The system which generated this result transmitted reference range : > OR = 40. The reference range was not used to interpret this result as normal/abnormal . Triglycerides (test 188 mg/dL See_Comment H [Automa zohaib code = 2571-8) message] The system which generated this result transmitted reference range : <=150. The reference range was not used to interpret this result as normal/abnormal . LDL cholesterol mg/dL (calc) Reference ra nge: calculated (test <100 Desira ble code = 07842-1) range <100 m g/dL for primary prevention; <70 mg/dL for patients with C HD or diabetic patients with > or = 2 CHD risk factors. LDL-C is now calculated using the Ion-Nathanael calculation, which is a validated novel method providin g better accuracy than the Friedewald equation in the estimation of LDL-C. Ion S S et al. STEPHANIE. 2013;310(19): 7603-2022 (http://educati on .SamEnrico .com/faq/LDL350 ) Cholesterol/HDL See_Comment [Automated ratio (test code = message] The 9830-1) system which generated this result transmitted reference range : <5.0 (calc). Th e reference range was not used to interpret this result as normal/abnormal . Non-HDL cholesterol See_Comment For aimee ents with (test code = diabetes plus 1 93345-1) major ASCVD ris k factor, treatin g to a non-HDL-C goal of <100 mg/dL (LDL-C of <70 mg/dL) is considered a therapeutic option. [Automated message] The system which generated this result transmitted reference range : <130 mg/dL (calc). The reference range was not used to interpret this result as normal/abnormal . MYRIAM (test code = FASTING:NO MYRIAM) FASTING: NO RAC (test code = Performing RAC) Organization Information: Site ID: RGA Name: [facility] Address: [address] [place] [phone] Director: Ever Sloan Lab Interpretation Abnormal (test code = 84707-1) [facility] stimulating [id number] 21:19:00 Test Item Value Reference Range Interpretation Comments TSH (test See_Comment [Automated mes apoorva] code = The system ic h 3016-3) generated this result transmit zohaib reference range : 0.40 - 4.50 mIU /L. The reference r shaka was not used to interpret this result as normal/abnormal . MYRIAM (test FASTING:NO FASTING: code = MYRIAM) NO RAC (test Performing code = RAC) Organization Information: Site ID: BHARATH Name: [facility] Address: [address] [place] [phone] Director: Ever Sloan [facility] [id number] 21:19:00 Test Item Value Reference Range Interpretation Comments WBC (test code = See_Comment [Automated 6690-2) message] The system which generated this result transmitted reference range : 3.8 - 10.8 Thousand/uL. Th e reference range was not used to interpret this result as normal/abnormal . RBC (test code = See_Comment H [Automated 789-8) message] The system which generated this result transmitted reference range : 4.20 - 5.80 Million/uL. The reference range was not used to interpret this result as normal/abnormal . HGB (test code = 16.1 g/dL 13.2-17.1 718-7) HCT (test code = 49.5 % 38.5-50.0 4544-3) MCV (test code = 82.6 fL 80.0-100.0 787-2) MCH (test code = 26.9 pg 27.0-33.0 L 785-6) MCHC (test code = 32.5 g/dL 32.0-36.0 786-4) RDW (test code = 13.2 % 11.0-15.0 788-0) Platelet count (test See_Comment [Autom ated code = 777-3) message] The system which generated this result transmitted reference range : 140 - 400 Thousand/uL. Th e reference range was not used to interpret this result as normal/abnormal . MPV (test code = 10.5 fL 7.5-12.5 776-5) MYRIAM (test code = FASTING:NO MYRIAM) FASTING: NO RAC (test code = Performing RAC) Organization Information: Site ID: BHARATH Name: [facility] Address: [address] [place] [phone] Director: Ever Sloan Lab Interpretation Abnormal (test code = 68244-7) [facility] [id number] 21:19:00 Test Item Value Reference Range Interpretation Comments Creatinine, 80 mg/dL 20-320 urine (mg/dL) (test code = 2161-8) Microalbumin 0.5 mg/dL See Note: Reference Range : , urine Reference Range Not (test code = established 79227-0) Microalbumin See_Comment The ADA define s /creatinine abnormalities i n ratio (test albuminexcretio n as code = follows: Albumi bill 9318-7) Category Result (mcg/mg creatinine) Nor mal to Mildly increase d <30Moderately i ncreased 30-299 Severely increased > OR = 300 The ADA recomme nds that at least two of threespecimens collected withi n a 3-6 month period be abnormal before consider ing a patient to bewi thin a diagnostic mikal al. [Automated mess age] The system which ge nerated this result tra nsmitted reference range : <30 mcg/mg creat. T he reference range was not used to interpr et this result as normal/abnormal . MYRIAM (test FASTING:NO FASTING: code = MYRIAM) NO RAC (test Performing code = RAC) Organization Information: Site ID: RGA Name: [facility] Address: [address] [place] [phone] Director: Ever Sloan [facility] [id number] 20:33:00 Test Item Value Reference Range Interpretation Comments POC glucose (test code = 4096313) 65-100 [facility], PELVIS, WITHOUT / WITH IV [id number] 13:28:00 [facility] 1950 Sex: MFINALREPORT TECHNIQUE: MRI of the prostate WITHOUT and WITH intravenous contrast. INDICATION: Prostate cancer. COMPARISON: MRI from [facility] 02/25/2018. FINDINGS: PROSTATE: The prostate measures 5.2 x 3.8 x 5.4 cm for an estimated volume of 55 cc. There is hypertrophy of the transition zone.There is diffusely decreased T2 signal throughout the peripheral zone. There is redemonstration of focal lesion within the right lateral peripheral zone at the level of the mid gland and base which has increased in size. The lesion now measures 2 cm. There is a broad-based abutment and bulging of the capsule. There is neurovascular bundle involvement. (See axial image 17 series 5). SEMINAL VE SICLES: Unremarkable. LYMPH NODES: No pelvic lymphadenopathy. BLADDER: Unremarkable.RECTUM: Unremarkable. Colonic diverticulosis. PERITONEUM/RETROPERITONEUM: No free fluid. BONES AND SOFT TISSUES: Unremarkable. IMPRESSION:Interval increase in size of 2 cm lesion in the right posterior lateral peripheral zone with extracapsular extension and involvement of the neurovascular bundle consistent with known malignancy. (PI-RADS 5 - highly suspicious of malignancy) No pelvic lymphadenopathy. Patchy decreased T2 signal throughout the peripheral zone likely representing sequelae of prostatitis.(PI- RADS 2 - most probably benign;) BPH. Signed: Jerica Olivares MDReport Verified Date/Time: 11/17/2020 13:28:12 Reading Location: [facility] Diagnostic Imaging Reading Room - [place] [address] FUNGUS CULTURE + [id number] 16:28:00 Test Item Value Reference Range Interpretation Comments CULTURE (BEAKER) (test No fungus isolated in code = 1095) 28 days FUNGUS SMEAR (BEAKER) No fungi seen (test code = 1406) ANAEROBIC [id number] 17:20:00 Test Item Value Reference Range Interpretation Comments CULTURE (BEAKER) (test No anaerobes isolated code = 1095) WOUND CULTURE + GRAM [id number] 15:09:00 Test Item Value Reference Interpretation Comments Range CULTURE (BEAKER) STAPHYLOCOCCUS A <1+ Staph ylococcus (test code = 1095) EPIDERMIDIS epidermid is Clindamycin (test S code = 10) Erythromycin (test R code = 4) Linezolid (test code S = 40) Nitrofurantoin (test S code = 23) Oxacillin (test code S = 14) Rifampin (test code = S 43) Tetracycline (test S code = 2) Trimethoprim + S Sulfamethoxazole (test code = 47) Vancomycin (test code S = 13) CULTURE (BEAKER) A <1+ Strepto coccus (test code = 1095) constella tus GRAM STAIN RESULT 2+ WBCs (BEAKER) (test code = 1123) GRAM STAIN RESULT No organisms seen (BEAKER) (test code = 293864) SURGICALLY OBTAINED CULTURE + GRAM [id number] 14:26:00 Test Item Value Reference Range Interpretation Comments CULTURE (BEAKER) (test code No growth = 1095) GRAM STAIN RESULT (BEAKER) 1+ WBCs (test code = 1123) GRAM STAIN RESULT (BEAKER) No organisms seen (test code = 92992) BUN AND [id number] 09:41:00 Test Item Value Reference Range Interpretation Comments BLOOD UREA NITROGEN 16 mg/dL 7-21 (BEAKER) (test code = 354) CREATININE (BEAKER) 1.36 mg/dL 0.57-1.25 H (test code = 358) EGFR (BEAKER) (test 52 mL/min/1.73 ESTIMA ZOHAIB GFR IS code = 1092) sq m NOT ACCURATE CREATININE CLEARANCE IN PREDICTING GLOMERULAR FILTRATION RATE . ESTIMATED GFR I S NOT APPLICABLE FOR DIALYSIS PATIEN TS. [facility] Counselor ID - JASMYN CVANCOMYCIN LEVEL, [id number] 18:02:00 Test Item Value Reference Range Interpretation Comments VANCOMYCIN TROUGH (BEAKER) (test 8.5 ug/mL 10.0-20.0 L code = 522) [facility] Counselor ID - BSTISSUE [id number] 12:05:00Surgical Pathology Report Case: [id number] Authorizing Provider: Liz Jordan MD Collected: 12/11/201926 Ordering Location: [facility] PERIOPERATIVE Received: 12/11/2019 0944 SERVICES Pathologist: Ubaldo Nelson MD Specimen: Explant, Penile prosthesis explant for Gross ID only A. PENILE PROSTHESIS, EXPLANT, REMOVAL: - STUDENT DEVELOPMENT SPECIALIST FOR GROSS IDENTIFICATION ONLY Signing Pathologist Direct Phone Line: [phone] signed by Ubaldo Nelson MD on 12/11/2019 at 12:05 [id number] diagnosis: Infection associated with implanted penile prosthesis, initial encounterA. Explant Received fresh labeled with the patient's name, accession number and "penile prosthesis" is a 20.0 x 9.5x 1.8 cm yellow-chanel penile prosthesis. A gross photograph is taken. No sections are submitted. Thiscase is for gross examination only. PA/pl N/ABASIC METABOLIC [id number] 05:44:00 Test Item Value Reference Range Interpretation Comments SODIUM (BEAKER) 141 meq/L 136-145 (test code = 381) POTASSIUM (BEAKER) 4.2 meq/L 3.5-5.1 Specimen slightly (test code = 379) hemolyzed CHLORIDE (BEAKER) 108 meq/L 98-107 H (test code = 382) CO2 (BEAKER) (test 27 meq/L 22-29 code = 355) BLOOD UREA NITROGEN 9 mg/dL 7-21 (BEAKER) (test code = 354) CREATININE (BEAKER) 0.85 mg/dL 0.57-1.25 Specimen slightly (test code = 358) hemolyzed GLUCOSE RANDOM 102 mg/dL 70-105 (BEAKER) (test code = 652) CALCIUM (BEAKER) 8.8 mg/dL 8.4-10.2 (test code = 697) EGFR (BEAKER) (test 89 mL/min/1.73 ESTIMA ZOHAIB GFR IS code = 1092) sq m NOT ACCURATE CREATININE CLEARANCE IN PREDICTING GLOMERULAR FILTRATION RATE . ESTIMATED GFR I S NOT APPLICABLE FOR DIALYSIS PATIEN TS. [facility] Counsel[facility] ID - PIAYA LCBC W/PLT COUNT & AUTO [id number] 05:25:00 Test Item Value Reference Range Interpretation Comments WHITE BLOOD CELL COUNT (BEAKER) 6.1 K/ L 3.5-10.5 (test code = 775) RED BLOOD CELL COUNT (BEAKER) 5.40 M/ L 4.63-6.08 (test code = 761) HEMOGLOBIN (BEAKER) (test code = 14.9 GM/DL 13.7-17.5 410) HEMATOCRIT (BEAKER) (test code = 46.4 % 40.1-51.0 411) MEAN CORPUSCULAR VOLUME (BEAKER) 85.9 fL 79.0-92.2 (test code = 753) MEAN CORPUSCULAR HEMOGLOBIN 27.6 pg 25.7-32.2 (BEAKER) (test code = 751) MEAN CORPUSCULAR HEMOGLOBIN CONC 32.1 GM/DL 32.3-36.5 L (BEAKER) (test code = 752) RED CELL DISTRIBUTION WIDTH 13.4 % 11.6-14.4 (BEAKER) (test code = 412) PLATELET COUNT (BEAKER) (test 217 K/CU MM 150-450 code = 756) MEAN PLATELET VOLUME (BEAKER) 9.7 fL 9.4-12.4 (test code = 754) NUCLEATED RED BLOOD CELLS 0 /100 WBC 0-0 (BEAKER) (test code = 413) NEUTROPHILS RELATIVE PERCENT 65 % (BEAKER) (test code = 429) LYMPHOCYTES RELATIVE PERCENT 21 % (BEAKER) (test code = 430) MONOCYTES RELATIVE PERCENT 9 % (BEAKER) (test code = 431) EOSINOPHILS RELATIVE PERCENT 4 % (BEAKER) (test code = 432) BASOPHILS RELATIVE PERCENT 1 % (BEAKER) (test code = 437) NEUTROPHILS ABSOLUTE COUNT 3.93 K/ L 1.78-5.38 (BEAKER) (test code = 670) LYMPHOCYTES ABSOLUTE COUNT 1.29 K/ L 1.32-3.57 L (BEAKER) (test code = 414) MONOCYTES ABSOLUTE COUNT (BEAKER) 0.57 K/ L 0.30-0.82 (test code = 415) EOSINOPHILS ABSOLUTE COUNT 0.21 K/ L 0.04-0.54 (BEAKER) (test code = 416) BASOPHILS ABSOLUTE COUNT (BEAKER) 0.05 K/ L 0.01-0.08 (test code = 417) IMMATURE GRANULOCYTES-RELATIVE 0 % 0-1 PERCENT (BEAKER) (test code = 2801) BASIC METABOLIC [id number] 06:55:00 Test Item Value Reference Range Interpretation Comments SODIUM (BEAKER) 139 meq/L 136-145 (test code = 381) POTASSIUM (BEAKER) 3.7 meq/L 3.5-5.1 (test code = 379) CHLORIDE (BEAKER) 106 meq/L 98-107 (test code = 382) CO2 (BEAKER) (test 28 meq/L 22-29 code = 355) BLOOD UREA NITROGEN 9 mg/dL 7-21 (BEAKER) (test code = 354) CREATININE (BEAKER) 0.82 mg/dL 0.57-1.25 (test code = 358) GLUCOSE RANDOM 111 mg/dL 70-105 H (BEAKER) (test code = 652) CALCIUM (BEAKER) 9.0 mg/dL 8.4-10.2 (test code = 697) EGFR (BEAKER) (test 93 mL/min/1.73 ESTIMA ZOHAIB GFR IS code = 1092) sq m NOT ACCURATE CREATININE CLEARANCE IN PREDICTING GLOMERULAR FILTRATION RATE . ESTIMATED GFR I S NOT APPLICABLE FOR DIALYSIS PATIEN TS. [facility] ID - PIAYA LCBC W/PLT COUNT & AUTO [id number] 04:46:00 Test Item Value Reference Range Interpretation Comments WHITE BLOOD CELL COUNT (BEAKER) 6.3 K/ L 3.5-10.5 (test code = 775) RED BLOOD CELL COUNT (BEAKER) 5.38 M/ L 4.63-6.08 (test code = 761) HEMOGLOBIN (BEAKER) (test code = 15.4 GM/DL 13.7-17.5 410) HEMATOCRIT (BEAKER) (test code = 46.0 % 40.1-51.0 411) MEAN CORPUSCULAR VOLUME (BEAKER) 85.5 fL 79.0-92.2 (test code = 753) MEAN CORPUSCULAR HEMOGLOBIN 28.6 pg 25.7-32.2 (BEAKER) (test code = 751) MEAN CORPUSCULAR HEMOGLOBIN CONC 33.5 GM/DL 32.3-36.5 (BEAKER) (test code = 752) RED CELL DISTRIBUTION WIDTH 13.5 % 11.6-14.4 (BEAKER) (test code = 412) PLATELET COUNT (BEAKER) (test 217 K/CU MM 150-450 code = 756) MEAN PLATELET VOLUME (BEAKER) 9.9 fL 9.4-12.4 (test code = 754) NUCLEATED RED BLOOD CELLS 0 /100 WBC 0-0 (BEAKER) (test code = 413) NEUTROPHILS RELATIVE PERCENT 66 % (BEAKER) (test code = 429) LYMPHOCYTES RELATIVE PERCENT 20 % (BEAKER) (test code = 430) MONOCYTES RELATIVE PERCENT 10 % (BEAKER) (test code = 431) EOSINOPHILS RELATIVE PERCENT 3 % (BEAKER) (test code = 432) BASOPHILS RELATIVE PERCENT 1 % (BEAKER) (test code = 437) NEUTROPHILS ABSOLUTE COUNT 4.14 K/ L 1.78-5.38 (BEAKER) (test code = 670) LYMPHOCYTES ABSOLUTE COUNT 1.27 K/ L 1.32-3.57 L (BEAKER) (test code = 414) MONOCYTES ABSOLUTE COUNT (BEAKER) 0.60 K/ L 0.30-0.82 (test code = 415) EOSINOPHILS ABSOLUTE COUNT 0.20 K/ L 0.04-0.54 (BEAKER) (test code = 416) BASOPHILS ABSOLUTE COUNT (BEAKER) 0.03 K/ L 0.01-0.08 (test code = 417) IMMATURE GRANULOCYTES-RELATIVE 0 % 0-1 PERCENT (BEAKER) (test code = 2801) BASIC METABOLIC [id number] 17:59:00 Test Item Value Reference Range Interpretation Comments SODIUM (BEAKER) 139 meq/L 136-145 (test code = 381) POTASSIUM (BEAKER) 4.3 meq/L 3.5-5.1 Specimen moderately (test code = 379) hemolyzed CHLORIDE (BEAKER) 106 meq/L 98-107 (test code = 382) CO2 (BEAKER) (test 24 meq/L 22-29 code = 355) BLOOD UREA NITROGEN 9 mg/dL 7-21 (BEAKER) (test code = 354) CREATININE (BEAKER) 0.81 mg/dL 0.57-1.25 Specimen moderately (test code = 358) hemolyzed GLUCOSE RANDOM 101 mg/dL 70-105 (BEAKER) (test code = 652) CALCIUM (BEAKER) 9.0 mg/dL 8.4-10.2 (test code = 697) EGFR (BEAKER) (test 94 mL/min/1.73 ESTIMA ZOHAIB GFR IS code = 1092) sq m NOT ACCURATE CREATININE CLEARANCE IN PREDICTING GLOMERULAR FILTRATION RATE . ESTIMATED GFR I S NOT APPLICABLE FOR DIALYSIS PATIEN TS. [facility] Counsel[facility] ID - BSCBC W/PLT COUNT & AUTO [id number] 17:31:00 Test Item Value Reference Range Interpretation Comments WHITE BLOOD CELL COUNT (BEAKER) 5.6 K/ L 3.5-10.5 (test code = 775) RED BLOOD CELL COUNT (BEAKER) 5.78 M/ L 4.63-6.08 (test code = 761) HEMOGLOBIN (BEAKER) (test code = 16.2 GM/DL 13.7-17.5 410) HEMATOCRIT (BEAKER) (test code = 49.3 % 40.1-51.0 411) MEAN CORPUSCULAR VOLUME (BEAKER) 85.3 fL 79.0-92.2 (test code = 753) MEAN CORPUSCULAR HEMOGLOBIN 28.0 pg 25.7-32.2 (BEAKER) (test code = 751) MEAN CORPUSCULAR HEMOGLOBIN CONC 32.9 GM/DL 32.3-36.5 (BEAKER) (test code = 752) RED CELL DISTRIBUTION WIDTH 13.6 % 11.6-14.4 (BEAKER) (test code = 412) PLATELET COUNT (BEAKER) (test 237 K/CU MM 150-450 code = 756) MEAN PLATELET VOLUME (BEAKER) 10.3 fL 9.4-12.4 (test code = 754) NUCLEATED RED BLOOD CELLS 0 /100 WBC 0-0 (BEAKER) (test code = 413) NEUTROPHILS RELATIVE PERCENT 68 % (BEAKER) (test code = 429) LYMPHOCYTES RELATIVE PERCENT 19 % (BEAKER) (test code = 430) MONOCYTES RELATIVE PERCENT 9 % (BEAKER) (test code = 431) EOSINOPHILS RELATIVE PERCENT 3 % (BEAKER) (test code = 432) BASOPHILS RELATIVE PERCENT 1 % (BEAKER) (test code = 437) NEUTROPHILS ABSOLUTE COUNT 3.84 K/ L 1.78-5.38 (BEAKER) (test code = 670) LYMPHOCYTES ABSOLUTE COUNT 1.09 K/ L 1.32-3.57 L (BEAKER) (test code = 414) MONOCYTES ABSOLUTE COUNT (BEAKER) 0.49 K/ L 0.30-0.82 (test code = 415) EOSINOPHILS ABSOLUTE COUNT 0.16 K/ L 0.04-0.54 (BEAKER) (test code = 416) BASOPHILS ABSOLUTE COUNT (BEAKER) 0.03 K/ L 0.01-0.08 (test code = 417) IMMATURE GRANULOCYTES-RELATIVE 0 % 0-1 PERCENT (BEAKER) (test code = 2801) URINALYSIS W/ REFLEX URINE [id number] 15:54:00 Test Item Value Reference Range Interpretation Comments COLOR (BEAKER) (test code = 470) Yellow CLARITY (BEAKER) (test code = 469) Clear SPECIFIC GRAVITY UA (BEAKER) (test 1.024 1.001-1.035 code = 468) PH UA (BEAKER) (test code = 467) 6.5 5.0-8.0 PROTEIN UA (BEAKER) (test code = 20 mg/dL Negative A 464) GLUCOSE UA (BEAKER) (test code = Negative Negative 365) KETONES UA (BEAKER) (test code = Negative Negative 371) BILIRUBIN UA (BEAKER) (test code = Negative Negative 462) BLOOD UA (BEAKER) (test code = 461) Negative Negative NITRITE UA (BEAKER) (test code = Negative Negative 465) LEUKOCYTE ESTERASE UA (BEAKER) Small Negative A (test code = 466) UROBILINOGEN UA (BEAKER) (test code 4.0 mg/dL 0.2-1.0 H = 463) RBC UA (BEAKER) (test code = 519) 1 /HPF WBC UA (BEAKER) (test code = 520) 6 /HPF MUCUS (BEAKER) (test code = 1574) Few SQUAMOUS EPITHELIAL (BEAKER) (test < /HPF code = 516) SOURCE(BEAKER) (test code = 2795) [facility] ID - [auto][facility] ID - techBASI METABOLIC [id number] 06:37:00 Test Item Value Reference Range Interpretation Comments SODIUM (BEAKER) 138 meq/L 136-145 (test code = 381) POTASSIUM (BEAKER) 3.8 meq/L 3.5-5.1 (test code = 379) CHLORIDE (BEAKER) 104 meq/L 98-107 (test code = 382) CO2 (BEAKER) (test 30 meq/L 22-29 H code = 355) BLOOD UREA NITROGEN 13 mg/dL 7-21 (BEAKER) (test code = 354) CREATININE (BEAKER) 0.80 mg/dL 0.57-1.25 (test code = 358) GLUCOSE RANDOM 142 mg/dL 70-105 H (BEAKER) (test code = 652) CALCIUM (BEAKER) 8.6 mg/dL 8.4-10.2 (test code = 697) EGFR (BEAKER) (test 96 mL/min/1.73 ESTIMA ZOHAIB GFR IS code = 1092) sq m NOT ACCURATE CREATININE CLEARANCE IN PREDICTING GLOMERULAR FILTRATION RATE . ESTIMATED GFR I S NOT APPLICABLE FOR DIALYSIS PATIEN TS. CBC W/PLT COUNT & AUTO [id number] 06:10:00 Test Item Value Reference Range Interpretation Comments WHITE BLOOD CELL COUNT (BEAKER) 15.3 K/ L 3.5-10.5 H (test code = 775) RED BLOOD CELL COUNT (BEAKER) 4.93 M/ L 4.63-6.08 (test code = 761) HEMOGLOBIN (BEAKER) (test code = 14.2 GM/DL 13.7-17.5 410) HEMATOCRIT (BEAKER) (test code = 43.1 % 40.1-51.0 411) MEAN CORPUSCULAR VOLUME (BEAKER) 87.4 fL 79.0-92.2 (test code = 753) MEAN CORPUSCULAR HEMOGLOBIN 28.8 pg 25.7-32.2 (BEAKER) (test code = 751) MEAN CORPUSCULAR HEMOGLOBIN CONC 32.9 GM/DL 32.3-36.5 (BEAKER) (test code = 752) RED CELL DISTRIBUTION WIDTH 13.7 % 11.6-14.4 (BEAKER) (test code = 412) PLATELET COUNT (BEAKER) (test 204 K/CU MM 150-450 code = 756) MEAN PLATELET VOLUME (BEAKER) 10.0 fL 9.4-12.4 (test code = 754) NUCLEATED RED BLOOD CELLS 0 /100 WBC 0-0 (BEAKER) (test code = 413) NEUTROPHILS RELATIVE PERCENT 87 % (BEAKER) (test code = 429) LYMPHOCYTES RELATIVE PERCENT 6 % (BEAKER) (test code = 430) MONOCYTES RELATIVE PERCENT 6 % (BEAKER) (test code = 431) EOSINOPHILS RELATIVE PERCENT 0 % (BEAKER) (test code = 432) BASOPHILS RELATIVE PERCENT 0 % (BEAKER) (test code = 437) NEUTROPHILS ABSOLUTE COUNT 13.35 K/ L 1.78-5.38 H (BEAKER) (test code = 670) LYMPHOCYTES ABSOLUTE COUNT 0.85 K/ L 1.32-3.57 L (BEAKER) (test code = 414) MONOCYTES ABSOLUTE COUNT (BEAKER) 0.97 K/ L 0.30-0.82 H (test code = 415) EOSINOPHILS ABSOLUTE COUNT 0.01 K/ L 0.04-0.54 L (BEAKER) (test code = 416) BASOPHILS ABSOLUTE COUNT (BEAKER) 0.03 K/ L 0.01-0.08 (test code = 417) IMMATURE GRANULOCYTES-RELATIVE 1 % 0-1 PERCENT (BEAKER) (test code = 2801) [id number] 08:18:00 Test Item Value Reference Range Interpretation Comments SODIUM (BEAKER) (test 142 meq/L 136-145 code = 381) POTASSIUM (BEAKER) 3.9 meq/L 3.5-5.1 Specimen slightly (test code = 379) hemolyzed CHLORIDE (BEAKER) 106 meq/L 98-107 (test code = 382) CO2 (BEAKER) (test 28 meq/L 22-29 code = 355) BUN AND [id number] 08:18:00 Test Item Value Reference Range Interpretation Comments BLOOD UREA NITROGEN 11 mg/dL 7-21 (BEAKER) (test code = 354) CREATININE (BEAKER) 0.89 mg/dL 0.57-1.25 Specimen slightly (test code = 358) hemolyzed EGFR (BEAKER) (test 85 mL/min/1.73 ESTIMA ZOHAIB GFR IS code = 1092) sq m NOT ACCURATE CREATININE CLEARANCE IN PREDICTING GLOMERULAR FILTRATION RATE . ESTIMATED GFR I S NOT APPLICABLE FOR DIALYSIS PATIEN TS. POCT-HEMOGLOBIN [id number] 07:44:00 Test Item Value Reference Range Interpretation Comments POC-HEMOGLOBIN METER 16.4 g/dL 13.0-16.8 TESTED AT [facility] 6720 (BEAKER) (test code = [place] 1539) [address] URINALYSIS W/ REFLEX URINE [id number] 17:01:00 Test Item Value Reference Range Interpretation Comments COLOR (BEAKER) (test code = 470) Light Yellow CLARITY (BEAKER) (test code = Clear 469) SPECIFIC GRAVITY UA (BEAKER) 1.007 1.001-1.035 (test code = 468) PH UA (BEAKER) (test code = 467) 6.5 5.0-8.0 PROTEIN UA (BEAKER) (test code = Negative Negative 464) GLUCOSE UA (BEAKER) (test code = Negative Negative 365) KETONES UA (BEAKER) (test code = Negative Negative 371) BILIRUBIN UA (BEAKER) (test code Negative Negative = 462) BLOOD UA (BEAKER) (test code = Negative Negative 461) NITRITE UA (BEAKER) (test code = Negative Negative 465) LEUKOCYTE ESTERASE UA (BEAKER) Trace Negative A (test code = 466) UROBILINOGEN UA (BEAKER) (test 0.2 mg/dL 0.2-1.0 code = 463) RBC UA (BEAKER) (test code = 1 /HPF 519) WBC UA (BEAKER) (test code = < /HPF 520) SQUAMOUS EPITHELIAL (BEAKER) 1 /HPF (test code = 516) SOURCE(BEAKER) (test code = 5265) BASIC METABOLIC [id number] 16:59:00 Test Item Value Reference Range Interpretation Comments SODIUM (BEAKER) 139 meq/L 136-145 (test code = 381) POTASSIUM (BEAKER) 3.7 meq/L 3.5-5.1 (test code = 379) CHLORIDE (BEAKER) 103 meq/L 98-107 (test code = 382) CO2 (BEAKER) (test 28 meq/L 22-29 code = 355) BLOOD UREA NITROGEN 11 mg/dL 7-21 (BEAKER) (test code = 354) CREATININE (BEAKER) 0.81 mg/dL 0.57-1.25 (test code = 358) GLUCOSE RANDOM 86 mg/dL 70-105 (BEAKER) (test code = 652) CALCIUM (BEAKER) 9.5 mg/dL 8.4-10.2 (test code = 697) EGFR (BEAKER) (test 95 mL/min/1.73 ESTIMA ZOHAIB GFR IS code = 1092) sq m NOT ACCURATE CREATININE CLEARANCE IN PREDICTING GLOMERULAR FILTRATION RATE . ESTIMATED GFR I S NOT APPLICABLE FOR DIALYSIS PATIEN TS. CBC W/PLT COUNT & AUTO [id number] 16:32:00 Test Item Value Reference Range Interpretation Comments WHITE BLOOD CELL COUNT (BEAKER) 7.5 K/ L 3.5-10.5 (test code = 775) RED BLOOD CELL COUNT (BEAKER) 5.56 M/ L 4.63-6.08 (test code = 761) HEMOGLOBIN (BEAKER) (test code = 15.7 GM/DL 13.7-17.5 410) HEMATOCRIT (BEAKER) (test code = 47.3 % 40.1-51.0 411) MEAN CORPUSCULAR VOLUME (BEAKER) 85.1 fL 79.0-92.2 (test code = 753) MEAN CORPUSCULAR HEMOGLOBIN 28.2 pg 25.7-32.2 (BEAKER) (test code = 751) MEAN CORPUSCULAR HEMOGLOBIN CONC 33.2 GM/DL 32.3-36.5 (BEAKER) (test code = 752) RED CELL DISTRIBUTION WIDTH 13.0 % 11.6-14.4 (BEAKER) (test code = 412) PLATELET COUNT (BEAKER) (test 210 K/CU MM 150-450 code = 756) MEAN PLATELET VOLUME (BEAKER) 9.9 fL 9.4-12.4 (test code = 754) NUCLEATED RED BLOOD CELLS 0 /100 WBC 0-0 (BEAKER) (test code = 413) NEUTROPHILS RELATIVE PERCENT 71 % (BEAKER) (test code = 429) LYMPHOCYTES RELATIVE PERCENT 17 % (BEAKER) (test code = 430) MONOCYTES RELATIVE PERCENT 8 % (BEAKER) (test code = 431) EOSINOPHILS RELATIVE PERCENT 4 % (BEAKER) (test code = 432) BASOPHILS RELATIVE PERCENT 0 % (BEAKER) (test code = 437) NEUTROPHILS ABSOLUTE COUNT 5.36 K/ L 1.78-5.38 (BEAKER) (test code = 670) LYMPHOCYTES ABSOLUTE COUNT 1.24 K/ L 1.32-3.57 L (BEAKER) (test code = 414) MONOCYTES ABSOLUTE COUNT (BEAKER) 0.59 K/ L 0.30-0.82 (test code = 415) EOSINOPHILS ABSOLUTE COUNT 0.29 K/ L 0.04-0.54 (BEAKER) (test code = 416) BASOPHILS ABSOLUTE COUNT (BEAKER) 0.03 K/ L 0.01-0.08 (test code = 417) IMMATURE GRANULOCYTES-RELATIVE 0 % 0-1 PERCENT (BEAKER) (test code = 2801) Notes Date/Time Note Provider Source 2019-12-18 19:14:15-00:00 [facility] OPERATIVE/PROCEDURE REPORT ASUNCION TATUM FACILITY: [facility] Billing #: [id number] Room: [address] [place] [address] MR #: [id number] : 1950 DATE OF PROCEDURE: 12/11/2019 SURGEON: Liz Jordan MD PREOPERATIVE DIAGNOSIS: 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 POSTOPERATIVE DIAGNOSIS: Possible infected penil e prosthesis. PROCEDURE PERFORMED: Removal of penile prosthesi s, placement of malleable penile prosthesis. FIELD SCOUT: Chinedu Guzman RES ANESTHESIA: General. COMPLICATIONS: None. CONDITION: Stable to the PACU. INDICATION FOR PROCEDURE: The patient is a 69-ye ar-old male, who presented with a 2-day history of drainage f rom his scrotal incision with purulent discharge and a white cou nt of 15,000. He was seen in the clinic, admitted for IV antib iotics for 48 hours. His clinical picture did improve, however , the patient was concerned about the risk for infection and a lso stated that he was not able to inflate or deflate the inflat able penile prosthesis due to his arthritis. I did examine h im carefully on the floor and I was able to inflate and defla te the penile prosthesis. However, he was not able to do so du e to some decreased strength in his hands. I had a long di scussion with the patient and due to the potential risk for in fection and inability to use the inflatable penile prosthesi s, it was felt that he would best be served by a salvage proced ure with placement of a malleable. He understands the ris ks, benefits, alternatives of the procedure and wishes to proc eed at this time. He also understands that repeat surgery ca n result in increased risk for infection. DESCRIPTION OF PROCEDURE: The patient was holley t to the operating theater and after induction of general anesthesia, he was prepped and draped in usual sterile fashion in lower abdominal and genitalia region. Initially, a 14- Hebrew Ochoa catheter was placed, filled with 10 mL of steril e water. A Shawn ring retractor was brought into the field for further retraction. A transverse scrotal incision was ma de and carried down to the tubing and the pump. Tubing was the n brought out and dissected using electrocautery. The tubing w as carried all the way back to the corporotomies. Starting on t he patient's right side, the corporotomy was made and the rig ht cylinder was removed, left corporotomy was also made and the left cylinder was removed. The tubing was then traced all the way back towards the left inguinal canal. I was unable to remove the reservoir from the left inguinal canal and there fore a counter incision was made in the left lower quadrant. A counter incision was carried down to the reservoir and t he reservoir was then removed. Cultures were taken from the s crotal incision. No purulent discharge was noted. At th is point, copious antibiotic irrigation was used and all g loves and instruments were changed. Note that throughout t he procedure, copious antibiotic irrigation was used. At this point, 2-0 Vicryl stay sutures were placed in a parallel fa shion corporotomies. The measurements in th e corpora measured 10 proximal, 11 distal bilaterally. It was felt that we should slightly downsize the malleable to 20 cm. Therefore, measurements were also taken on the width. The p atient had 13 mm in diameter bilaterally. Therefore, a 13 mm T actra malleable prosthesis was used and was trimmed to 20 cm. The malleables were replaced without any difficulty in bilateral corpora with excellent position and good rigidit y and no apparent deformity. The corporotomies were then closed using the stay sutures. Copious antibiotic irrigation was used. Excellent hemostasis was achieved using electroc autery. The left lower abdominal incision was closed with a running 3-0 PDS followed by running 4-0 Monocryl suture. Note th at the fascia was closed with a running 3-0 PDS as well. The s crotal incision was closed with two layers of running 3 -0 PDS followed by a final layer of running 4-0 Monocryl suture. Scrotal support and fluffs were applied. A mummy wrap wa s applied. The patient was woken and taken to the PACU in s table condition. SIENNA/JOSE M /[id number]
[2023-04-25 14:44] LABS: Albumin 3.3 g/dL (3.4-5.0); Bilirubin Total 0.6 mg/dL (0.2-1.0); Potassium 3.3 mEq/L (3.5-5.1); Protein, Total 6.3 g/dL (6.4-8.2)
--- NOTE | 2023-04-25 15:02 | RAD REPORT ---
EXAM DESCRIPTION: CTAbdomen Pelvis W Contrast - 04/25/2023 2:52 pm CLINICAL HISTORY: Abdominal pain. DISTENTION COMPARISON: Abdomen Pelvis W Contrast dated 01/27/2023; CT RAD RX FIELD SPINE dated 03/14/2023 TECHNIQUE: Biphasic CT imaging of the abdomen and pelvis was performed with 100 ml non-ionic IV cont rast. All CT scans are performed using dose optimization technique as appropriate and may include automated exposure control or mA/KV adjustment according to patient size. FINDINGS: Mild linear atelectasis in the left lung base. Tiny low-density hepatic lesions compatible with cysts. No aggressive liver lesion or biliary dilatat ion. The spleen, pancreas, adrenal glands and kidneys are within normal limits. No bowel obstruction, free air, free fluid or abscess. Jejunostomy tube. The appendix is normal. No evidence of significant lymphadenopathy. Moderate lumbar degenerative changes. Small fat containing inguinal hernias. Penile implant. IMPRESSION: No acute intra-abdominal or pelvic finding.
[2023-04-25 15:22] LABS: Absolute Lymphocytes (CBC) 0.1 K/uL (0.7-4.9); Hematocrit 40.7 % (39.6-49.0); Lymphocytes % 2.6 % (15.3-44.8); MCV 83.2 fL (80-100); MPV 7.7 fL (7.6-11.3)
--- NOTE | 2023-04-25 16:56 | ER ---
Nurse's Notes [facility] Name: Yuriy Mobley Age: 72 yrs Sex: Male : 1950 Arrival Date: 04/25/2023 Time: 13:32 Bed 3 Private MD: Diagnosis: Distention of stomach Presentation: 04/25 13:44 Chief complaint: Patient states: Here for NG tube. Dr. Iqbal called ahead, has ll1 esophageal CA. Coronavirus screen: Vaccine status: Patient reports receiving the 2nd dose of the covid vaccine. Client denies travel out of the [place] in the last 14 days. At this time, the client does not indicate any symptoms associated with coronavirus-19. Ebola Screen: Patient denies travel to an Ebola-affected area in the 21 days before illness onset. Initial Sepsis Screen: Does the patient meet any 2 criteria? No. Patient's initial sepsis screen is negative. Does the patient have a suspected source of infection? No. Patient's initial sepsis screen is negative. Risk Assessment: Do you want to hurt yourself or someone else? Patient reports no desire to harm self or others. Onset of symptoms is unknown. 13:44 Method Of Arrival: Ambulatory ll1 13:44 Acuity: [place] 2 ll1 Triage Assessment: 13:46 General: Appears uncomfortable, Behavior is calm, cooperative, appropriate for age. ll1 Pain: Denies pain. EENT: Reports "air bubble" in espohagus. GI: Reports air bubble, needs NG tube. Historical: - Allergies: 13:45 No Known Allergies; ll1 - PMHx: 13:45 diabetes mellitus; Hypercholesterolemia; Hypertensive disorder; Myocardial infarction; ll1 Prostate Cancer (being monitored); - PSHx: 13:45 Quadruple heart bypass; ll1 - Immunization history:: Client reports receiving the 2nd dose of the Covid vaccine. - Social history:: Smoking status: Patient/guardian denies using tobacco, the patient reports quitting approximately 40 years ago. - Family history:: not pertinent. Screenin:58 [facility] ED Fall Risk Assessment (Adult) History of falling in the last 3 months, ph including since admission No falls in past 3 months (0 pts) Confusion or Disorientation No (0 pts) Intoxicated or Sedated No (0 pts) Impaired Gait No (0 pts) Mobility Assist Device Used No (0 pt) Altered Elimination No (0 pt) Score/Fall Risk Level 0 - 2 = Low Risk Oriented to surroundings, Maintained a safe environment, Hourly rounding (assess needs \\T\\ fall precautionary measures) done. Abuse screen: Denies threats or abuse. Denies injuries from another. Nutritional screening: No deficits noted. Tuberculosis screening: No symptoms or risk factors identified. Assessment: 13:57 General: Appears in no apparent distress. comfortable, well groomed, Behavior is calm, ph cooperative, appropriate for age, Denies fever. Pain: Denies pain. Neuro: Level of Consciousness is awake, alert, obeys commands, Oriented to person, place, time, situation. Cardiovascular: Capillary refill < 3 seconds in bilateral fingers Patient's skin is warm and dry. Respiratory: Airway is patent Respiratory effort is even, unlabored. GI: in place, Site clean. J tube to LLQ. Derm: Skin is pink, warm \\T\\ dry. Vital Signs: 13:44 BP 114 / 78; Pulse 94; Resp 17; Temp 97.4; Pulse Ox 97% ; Weight 84.37 kg; Height 6 ft. ll1 0 in. ; Pain 0/10; 15:45 BP 120 / 78; Pulse 89; Resp 18; Pulse Ox 96% on R/A; ph 17:20 BP 118 / 76; Pulse 87; Resp 18; Temp 97.9; Pulse Ox 99% on R/A; ph 13:44 Body Mass Index 25.23 (84.37 kg, 182.88 cm) ll1 13:44 Pain Scale: Adult ll1 ED Course: 13:37 Patient arrived in ED. am2 13:38 Anil Hood MD is Attending Physician. rt 13:45 Triage completed. ll1 13:46 Arm band placed on Patient placed in an exam room, on a stretcher. ll1 13:48 Leah Gaytan, REYNA is Primary Nurse. ph 13:58 Patient has correct armband on for positive identification. Placed in gown. Bed in low ph position. Call light in reach. Side rails up X 1. Pulse ox on. NIBP on. 14:17 Inserted saline lock: 20 gauge in left antecubital area, using aseptic technique. Blood em1 collected. 14:54 CT Abd/Pelvis - IV Contrast Only In Process Unspecified. EDMS 15:53 NGT: inserted 12 Fr. via left nare. verified placement of air over stomach, to mb9 intermittent suction. Patient tolerated well. 17:19 No provider procedures requiring assistance completed. NGT: Removed intact. Patient ph tolerated well. IV discontinued, intact, bleeding controlled, No redness/swelling at site. Pressure dressing applied. 17:21 Provided Education on: Pt instructed to return to ED for worsening symptoms. ph Administered Medications: No medications were administered Medication: 13:58 VIS not applicable for this client. ph Outcome: 16:55 Discharge ordered by . rt 17:20 Discharged to home ambulatory. ph 17:20 Condition: good 17:20 Discharge instructions given to patient, Instructed on discharge instructions, follow up and referral plans. Demonstrated understanding of instructions, follow-up care. 17:21 Patient left the ED. ph Signatures: Dispatcher [employer] EDMS Jeffry Velasco em1 Leah Gaytan, RN RN ph Jessica Najera am2 Rian Guallpa, RN RN ll1 Laurence Bejarano, RN RN mb9 Anil Hood MD MD rt
--- NOTE | 2023-04-25 16:56 | EDPHYS ---
Physician Documentation [facility] Name: Yuriy Mobley Age: 72 yrs Sex: Male : 1950 Arrival Date: 04/25/2023 Time: 13:32 Bed 3 Private MD: ED Physician Anil Hood HPI: 04/25 20:21 This 72 yrs old Male presents to ER via Ambulatory with complaints of air bubble in rt esophagus. 20:21 Patient presents to the ED from his radiation oncologist office due to distention of rt the stomach. He does have a history of esophageal cancer, has a jejunostomy tube in place. States that they cannot continue radiation therapy until the stomach is decompressed. He denies any pain, nausea, vomiting at this time. Symptoms are mild in severity, no other aggravating alleviating factors. Historical: - Allergies: 13:45 No Known Allergies; ll1 - PMHx: 13:45 diabetes mellitus; Hypercholesterolemia; Hypertensive disorder; Myocardial infarction; ll1 Prostate Cancer (being monitored); - PSHx: 13:45 Quadruple heart bypass; ll1 - Immunization history:: Client reports receiving the 2nd dose of the Covid vaccine. - Social history:: Smoking status: Patient/guardian denies using tobacco, the patient reports quitting approximately 40 years ago. - Family history:: not pertinent. ROS: 20:21 Constitutional: Negative for fever, chills, and weight loss, Cardiovascular: Negative rt for chest pain, palpitations, and edema, Respiratory: Negative for shortness of breath, cough, wheezing, and pleuritic chest pain, Abdomen/GI: Negative for abdominal pain, nausea, vomiting, diarrhea, and constipation, MS/Extremity: Negative for injury and deformity, Skin: Negative for injury, rash, and discoloration, Neuro: Negative for headache, weakness, numbness, tingling, and seizure, Psych: Negative for depression, anxiety, suicide ideation, homicidal ideation, and hallucinations. Exam: 20:21 Constitutional: This is a well developed, well nourished patient who is awake, alert, rt and in no acute distress. Head/Face: Normocephalic, atraumatic. Chest/axilla: Normal chest wall appearance and motion. Nontender with no deformity. No lesions are appreciated. Cardiovascular: Regular rate and rhythm with a normal S1 and S2. No gallops, murmurs, or rubs. Normal PMI, no JVD. No pulse deficits. Respiratory: Lungs have equal breath sounds bilaterally, clear to auscultation and percussion. No rales, rhonchi or wheezes noted. No increased work of breathing, no retractions or nasal flaring. Male : Normal genitalia with no discharge or lesions. Skin: Warm, dry with normal turgor. Normal color with no rashes, no lesions, and no evidence of cellulitis. MS/ Extremity: Pulses equal, no cyanosis. Neurovascular intact. Full, normal range of motion. Neuro: Awake and alert, GCS 15, oriented to person, place, time, and situation. Cranial nerves II-XII grossly intact. Motor strength 5/5 in all extremities. Sensory grossly intact. Cerebellar exam normal. Normal gait. Psych: Awake, alert, with orientation to person, place and time. Behavior, mood, and affect are within normal limits. 20:21 Abdomen/GI: Jejunostomy tube in place, no abdominal tenderness, distention on examination. Vital Signs: 13:44 BP 114 / 78; Pulse 94; Resp 17; Temp 97.4; Pulse Ox 97% ; Weight 84.37 kg; Height 6 ft. ll1 0 in. ; Pain 0/10; 15:45 BP 120 / 78; Pulse 89; Resp 18; Pulse Ox 96% on R/A; ph 17:20 BP 118 / 76; Pulse 87; Resp 18; Temp 97.9; Pulse Ox 99% on R/A; ph 13:44 Body Mass Index 25.23 (84.37 kg, 182.88 cm) ll1 13:44 Pain Scale: Adult ll1 MDM: 13:48 Patient medically screened. rt 20:21 Differential Diagnosis Bowel obstruction, gastric distention, pneumoperitoneum. Data rt reviewed: vital signs, nurses notes, lab test result(s), radiologic studies. Management of patient was discussed with the following: Assembly Room Supervisor: Discussed with the patient's radiation oncologist, Dr. Verma. After discussion, will obtain CT scan of the abdomen and pelvis to rule out obstructive pathology or pneumoperitoneum, however, this does seem to be less likely. Request that NG tube be placed, then removed just to decompress the stomach, will reevaluate tomorrow at patient's radiation oncology appointment. States that there is no increased risk of placing an NG-tube in the irradiated esophagus.. Independent interpretation of the following test(s) in the Emergency Department CT Scan: My interpretation is No obstruction seen on interpretation CT scan images. Care significantly affected by the following chronic conditions: Esophageal cancer. Counseling: I had a detailed discussion with the patient and/or guardian regarding: the historical points, exam findings, and any diagnostic results supporting the discharge/admit diagnosis, lab results, radiology results, the need for outpatient follow up, to return to the emergency department if symptoms worsen or persist or if there are any questions or concerns that arise at home. Response to treatment: the patient's symptoms have markedly improved after treatment. 04/25 14:05 Order name: CBC with Diff; Complete Time: 15:24 rt 04/25 14:05 Order name: CMP; Complete Time: 15:05 rt 04/25 14:05 Order name: CT Abd/Pelvis - IV Contrast Only; Complete Time: 15:05 rt 04/25 15:10 Order name: NG Tube; Complete Time: 15:53 rt Administered Medications: No medications were administered Disposition Summary: 04/25/23 16:55 Discharge Ordered Location: Home rt Problem: new rt Symptoms: are resolved rt Condition: Stable rt Diagnosis - Distention of stomach rt Followup: rt - With: Private Physician - When: 2 - 3 days - Reason: Discharge Instructions: - Discharge Summary Sheet rt - Nasogastric Tube Insertion, Adult rt Forms: - Medication Reconciliation Form rt - Thank You Letter rt - Antibiotic Education rt - Prescription Opioid Use rt - Patient Portal Instructions rt Signatures: Dispatcher [employer] Rian Valadez, REYNA RN ll1 Anil Hood MD MD rt
[2023-04-25 17:50] VITALS: BP 118/76; TEMP 97.9; O2SAT 99
== END 2023-04-25 17:21 | disposition home or self-care (01) ==
LOC: ER 13:32
DX: K31.0 Acute dilatation of stomach (principal); C15.9 Malignant neoplasm of esophagus, unspecified; Z85.46 Personal history of malignant neoplasm of prostate; I10 Essential (primary) hypertension; Z95.1 Presence of aortocoronary bypass graft
CPT/HCPCS: 85025; 36415; 80053; 74177; 99284; Q9967